=== PATIENT | female | born 1950 | race Caucasian/White ===

== ENCOUNTER → 2016-02-28 | Outpatient (REF) | payer BC, OTHER ==
[~2016-02-28] MED LIST: ALPR0.5T3 PO; AMOX875T2 PO; ASPI1TAB PO; AUGM875T27 PO; OXYC-517 PO; TRAZ100T4 PO; VITA100066 PO
[2016-02-28 18:16] LABS: ALBUMIN 3.9 GM/DL (3.2-5.2); ALBUMIN/GLOBULIN RATIO 1.15 (1.00-1.93); ALKALINE PHOSPHATASE 110 U/L (45-117); ALT/SGPT 24 U/L (12-78); ANION GAP 9 MEQ/L (8-16); AST/SGOT 14 U/L (15-37); BILIRUBIN,TOTAL 0.3 MG/DL (0.2-1.0); BLOOD UREA NITROGEN 16 MG/DL (7-18); CALCIUM LEVEL 9.2 MG/DL (8.8-10.2); CARBON DIOXIDE LEVEL 23 MEQ/L (21-32); CHLORIDE LEVEL 107 MEQ/L (98-107); CHOLESTEROL LEVEL 230 MG/DL (<200); CREATININE FOR GFR 0.74 MG/DL (0.55-1.02); GLOMERULAR FILTRATION RATE > 60.0 (>45); GLUCOSE, FASTING 95 MG/DL (80-110); POTASSIUM SERUM 4.4 MEQ/L (3.5-5.1); SODIUM LEVEL 139 MEQ/L (136-145); TOTAL PROTEIN 7.3 GM/DL (6.4-8.2); TRIGLYCERIDES LEVEL 126 MG/DL (<150)
[2016-02-28 18:45] LABS: BASO % 0.6 % (0.0-1.0); EOS # 0.1 K/mm3 (0.0-0.50); EOS % 1.8 % (0.0-3.0); LARGE UNSTAINED CELL # 0.1 K/mm3 (0.0-0.4); LARGE UNSTAINED CELL % 1.5 % (0.0-4.0); LYMPH # 1.9 K/mm3 (1.5-4.5); LYMPH % 23.1 % (24.0-44.0); MEAN CORPUSCULAR HEMOGLOBIN 33.2 pg (27.0-33.0); MEAN CORPUSCULAR HGB CONC 35.1 g/dl (32.0-36.5); MEAN CORPUSCULAR VOLUME 94.6 fl (80.0-96.0); MONO # 0.4 K/mm3 (0.0-0.8); MONO % 5.1 % (0.0-5.0); NEUTROPHILS # 5.6 K/mm3 (1.8-7.7); PLATELET COUNT, AUTOMATED 271 k/mm3 (150-450); RED CELL DISTRIBUTION WIDTH 12.4 % (11.5-14.5); WHITE BLOOD COUNT 8.2 K/mm3 (4.0-10.0)
[2016-02-28 20:13] LABS: ERYTHROCYTE SEDIMENTATION RATE 20 mm/hr (0-30)
[2016-03-02 00:06] LABS: Lyme Disease IgG/IgM Antibodie <0.91 ISR (0.00-0.90); Lyme Disease IgM Ab Quantitati <0.80 index (0.00-0.79)
== END ==
LOC: M LAB REF 17:00
PROVIDERS: ATTEND Family Medicine
DX: F41.9 Anxiety disorder, unspecified (principal); G89.4 Chronic pain syndrome; D12.6 Benign neoplasm of colon, unspecified

== ENCOUNTER → 2016-05-01 | Outpatient (REF) | payer OTHER, BC ==
[2016-05-08 10:39] LABS: SUMMARY SEE SEPARATE REPORT
== END ==
LOC: M LAB REF 16:31
PROVIDERS: ATTEND Family Medicine
DX: M79.7 Fibromyalgia (principal); M25.519 Pain in unspecified shoulder; G89.4 Chronic pain syndrome; Z79.899 Other long term (current) drug therapy

== ENCOUNTER → 2016-12-15 | Outpatient (CLI) | payer BC ==
[~2016-12-15] MED LIST changes: -AUGM875T27 PO; +AUGM875T28 PO; +TRAZ-136 PO; -TRAZ100T4 PO
--- NOTE | 2016-12-15 16:16 | REP ---
LEFT ANKLE COMPLETE: 12/15/2016. Comparison: 12/07/2016. Clinical history: Persist ankle pain. Nondisplaced fracture distal fibula on the prior. Findings: Weightbearing views of the ankle are provided. There has been resorption along the fracture line which is now better visualized. There is soft tissue swelling about the lateral malleolus and anterolateral to the ankle but the distal fragment is not displaced or distracted. The mortise joint was symmetric and preserved. Distal tibia and fibula otherwise intact. Subtalar joints intact. No other findings. Impression: 1. The weightbearing ankle views show the known nondisplaced fracture distal fibula with transverse fracture line better seen with fracture resorption over the past 8 days.
== END ==
LOC: M CLY 14:02
PROVIDERS: ATTEND Orthopaedic Surgery
DX: S82.892A Other fracture of left lower leg, initial encounter for closed fracture (principal); X58.XXXA Exposure to other specified factors, initial encounter; Y92.89 Other specified places as the place of occurrence of the external cause; Y93.89 Activity, other specified; Y99.8 Other external cause status

== ENCOUNTER → 2017-01-19 | Outpatient (REF) | payer OTHER ==
[2017-01-23 00:06] LABS: Lyme Disease IgG/IgM Antibodie <0.91 ISR (0.00-0.90); Lyme Disease IgM Ab Quantitati <0.80 index (0.00-0.79)
== END ==
LOC: M LAB REF 16:49
PROVIDERS: ATTEND Family Medicine
DX: S82.90XA Unspecified fracture of unspecified lower leg, initial encounter for closed fracture (principal); M54.9 Dorsalgia, unspecified; M54.12 Radiculopathy, cervical region; G89.4 Chronic pain syndrome; W18.30XA Fall on same level, unspecified, initial encounter; Y92.009 Unspecified place in unspecified non-institutional (private) residence as the place of occurrence of the external cause

== ENCOUNTER → 2017-04-25 | Outpatient (REF) | payer OTHER ==
[2017-04-25 17:28] LABS: ALBUMIN 3.9 GM/DL (3.2-5.2); ALBUMIN/GLOBULIN RATIO 1.05 (1.00-1.93); ALKALINE PHOSPHATASE 123 U/L (45-117); ALT/SGPT 24 U/L (12-78); ANION GAP 8 MEQ/L (8-16); AST/SGOT 15 U/L (7-37); BILIRUBIN,TOTAL 0.2 MG/DL (0.2-1.0); BLOOD UREA NITROGEN 14 MG/DL (7-18); CALCIUM LEVEL 9.2 MG/DL (8.8-10.2); CARBON DIOXIDE LEVEL 25 MEQ/L (21-32); CHLORIDE LEVEL 106 MEQ/L (98-107); CHOLESTEROL LEVEL 247 MG/DL (<200); CREATININE FOR GFR 0.76 MG/DL (0.55-1.30); GLOMERULAR FILTRATION RATE > 60.0 (>45); GLUCOSE, FASTING 82 MG/DL (70-100); HDL CHOLESTEROL 50 MG/DL (>40); LDL CHOLESTEROL 161.6 MG/DL (<100); NON-HDL-C 197 MG/DL; PHOSPHORUS LEVEL 3.8 MG/DL (2.5-4.9); POTASSIUM SERUM 4.3 MEQ/L (3.5-5.1); SODIUM LEVEL 139 MEQ/L (136-145); TOTAL PROTEIN 7.6 GM/DL (6.4-8.2); TRIGLYCERIDES LEVEL 177 MG/DL (<150)
[2017-04-25 17:46] LABS: TOTAL 25(OH) VITAMIN D 18.8 NG/ML (30.0-100.0)
[2017-04-25 18:15] LABS: BASO # 0.1 10^3/uL (0.0-0.2); BASO % 0.7 % (0.0-1.0); EOS # 0.3 10^3/uL (0.0-0.50); EOS % 3.2 % (0.0-3.0); HEMATOCRIT 43.7 % (36.0-47.0); HEMOGLOBIN 14.7 g/dl (12.0-16.0); IMMATURE GRANULOCYTE % 0.2 % (0-3.0); LYMPH # 1.9 10^3/uL (1.5-4.5); LYMPH % 22.7 % (24.0-44.0); MEAN CORPUSCULAR HEMOGLOBIN 32.4 pg (27.0-33.0); MEAN CORPUSCULAR HGB CONC 33.6 g/dl (32.0-36.5); MEAN CORPUSCULAR VOLUME 96.3 fl (80.0-96.0); MONO # 0.6 10^3/uL (0.0-0.8); MONO % 7.3 % (0.0-5.0); NEUTROPHILS # 5.4 10^3/uL (1.8-7.7); NEUTROPHILS % 65.9 % (36.0-66.0); PLATELET COUNT, AUTOMATED 317 10^3/uL (150-450); RED BLOOD COUNT 4.54 10^6/uL (4.00-5.40); RED CELL DISTRIBUTION WIDTH 13.3 % (11.5-14.5); WHITE BLOOD COUNT 8.2 10^3/uL (4.0-10.0)
== END ==
LOC: M LAB REF 16:31
DX: G89.4 Chronic pain syndrome (principal); N60.12 Diffuse cystic mastopathy of left breast; M79.7 Fibromyalgia; Z86.19 Personal history of other infectious and parasitic diseases; Z00.00 Encounter for general adult medical examination without abnormal findings

== ENCOUNTER → 2017-11-19 | Outpatient (REF) | payer OTHER ==
[2017-11-19 20:01] LABS: TOTAL 25(OH) VITAMIN D 37.4 NG/ML (30.0-100.0)
== END ==
LOC: M LAB REF 16:23
DX: F41.9 Anxiety disorder, unspecified (principal); M54.12 Radiculopathy, cervical region; R91.1 Solitary pulmonary nodule; E55.9 Vitamin D deficiency, unspecified

== ENCOUNTER → 2018-05-24 | Outpatient (CLI) | payer MEDICARE, BC, OTHER ==
[~2018-05-24] MED LIST changes: -ASPI1TAB PO; +ASPI81TA26 PO; -TRAZ-136 PO; +TRAZ-163 PO
--- NOTE | 2018-05-24 12:47 | REP ---
Low-dose lung screening CT: Comparison is 01/12/2016. The study is performed without IV contrast. Images are printed at lung windowing only. There is a 5 mm lung nodule laterally in the right lung on image 46. This measured 3 mm previously. On the prior study there was atelectasis in the right lower lobe. This has resolved. There is a new 13 ml ground-glass density in the right middle lobe on image 56. There are no other lung nodules or masses. There are no infiltrates or effusions. Impression: The known right lung nodule has increased in size from 3 mm to 5 mm. This size increase converts this to a category 4A lesion. The probability of malignancy is five - 15%. 3-month follow-up low-dose lung CT scanning is recommended. Because of the small lesion size PET scan would likely be unrewarding. Additionally, there is a new ground-glass density anteriorly in the right middle lobe measuring 13 mm. This is a category II lesion and can be followed up at the 3-month follow-up CT for the 5 mm lung lesion. Electronically Signed by Fish Crespo MD 05/24/2018 12:38 P
== END ==
LOC: M RAD 11:09
PROVIDERS: ATTEND Family Medicine
DX: Z12.2 Encounter for screening for malignant neoplasm of respiratory organs (principal); R91.1 Solitary pulmonary nodule; F17.210 Nicotine dependence, cigarettes, uncomplicated

== ENCOUNTER → 2018-06-26 | Outpatient (REF) | payer MEDICARE, OTHER ==
[2018-06-26 18:12] LABS: BASO # 0.1 10^3/uL (0.0-0.2); BASO % 0.8 % (0.0-1.0); EOS # 0.1 10^3/uL (0.0-0.50); EOS % 1.4 % (0.0-3.0); HEMATOCRIT 46.6 % (36.0-47.0); HEMOGLOBIN 15.8 g/dl (12.0-15.5); LYMPH # 1.9 10^3/uL (1.5-4.5); LYMPH % 22.2 % (24.0-44.0); MEAN CORPUSCULAR HEMOGLOBIN 32.7 pg (27.0-33.0); MEAN CORPUSCULAR HGB CONC 33.9 g/dl (32.0-36.5); MEAN CORPUSCULAR VOLUME 96.5 fl (80.0-96.0); MONO # 0.7 10^3/uL (0.0-0.8); MONO % 7.8 % (0.0-5.0); NEUTROPHILS # 5.8 10^3/uL (1.8-7.7); NEUTROPHILS % 67.4 % (36.0-66.0); PLATELET COUNT, AUTOMATED 277 10^3/uL (150-450); RED BLOOD COUNT 4.83 10^6/uL (4.00-5.40); WHITE BLOOD COUNT 8.6 10^3/uL (4.0-10.0)
[2018-06-26 18:23] LABS: ALBUMIN 3.4 GM/DL (3.2-5.2); ALT/SGPT 22 U/L (12-78); BILIRUBIN,TOTAL 0.3 MG/DL (0.2-1.0); BLOOD UREA NITROGEN 13 MG/DL (7-18); CALCIUM LEVEL 8.8 MG/DL (8.8-10.2); CARBON DIOXIDE LEVEL 24 MEQ/L (21-32); CHLORIDE LEVEL 104 MEQ/L (98-107); CHOLESTEROL LEVEL 236 MG/DL (<200); CHOLESTEROL RISK RATIO 5.021 (<5); CREATININE FOR GFR 0.76 MG/DL (0.55-1.30); GLOMERULAR FILTRATION RATE > 60.0 (>45); GLUCOSE, FASTING 99 MG/DL (70-100); HDL CHOLESTEROL 47 MG/DL (>40); LDL CHOLESTEROL 160 MG/DL (<100); NON-HDL-C 189 MG/DL; POTASSIUM SERUM 4.1 MEQ/L (3.5-5.1); SODIUM LEVEL 137 MEQ/L (136-145); TOTAL 25(OH) VITAMIN D 27.1 NG/ML (30.0-100.0); TOTAL PROTEIN 7.2 GM/DL (6.4-8.2); TRIGLYCERIDES LEVEL 147 MG/DL (<150)
== END ==
LOC: M LAB REF 17:29
PROVIDERS: ATTEND Family Medicine
DX: F41.9 Anxiety disorder, unspecified (principal); M54.12 Radiculopathy, cervical region; R91.1 Solitary pulmonary nodule; R00.0 Tachycardia, unspecified; E55.9 Vitamin D deficiency, unspecified; Z79.82 Long term (current) use of aspirin; Z79.899 Other long term (current) drug therapy

== ENCOUNTER → 2018-08-19 | Outpatient (CLI) | payer MEDICARE, BC, OTHER ==
[~2018-08-19] MED LIST changes: -TRAZ-163 PO; +TRAZ-257 PO
--- NOTE | 2018-08-19 12:10 | REP ---
CT of the chest without IV contrast: Comparisons are 05/24/2018 and 01/12/2060. There is a 5 mm lung nodule laterally in the right lung on image 44. This measured 5 mm on 05/24/2018 and 3 mm 01/12/2016. It appears to be calcifying. There is a ground-glass density in the right middle lobe on image 53. This measures 10 mm today. It measured 13 ml on 05/24/2018 and was not present on 01/12/2016. Therefore, it is decreasing in size. There is a new pleural-based 5 ml lung nodule in the left lower lobe on image 59, not present on the comparison studies. There is a new 14 ml pleural-based ground-glass density in the left lower lobe on image 75. There are no other lung nodules or masses. There are no infiltrates or pleural effusions. There is no mediastinal lymph node enlargement. There is no axillary lymph node enlargement. The study is insensitive for hilar lymph node enlargement in the absence of IV contrast. Thoracic aorta is unremarkable. Cardiac size is normal. The visualized upper abdominal contents are unremarkable. There is no adrenal mass. There are surgical clips in the gallbladder fossa. Impression: 1. The new 14 mm pleural-based ground-glass density in the left lower lobe is a category II lesion with the probability of malignancy less than 1%. 2. The new 5 mm pleural-based nodule in the left lower lobe on image 59 is a category II lesion with the probability of malignancy less than 1%. 3. The 5 mm lung nodule in right lung on image 45 for is unchanged from 05/24/2018 and appears to be calcifying. This is a category II lesion with the probability of malignancy less than 1%. 4. The 10 mm right middle lobe ground-glass density has decreased in size. This is a category II lesion with probability malignancy less than 1%. Follow-up chest CT is recommended in 1 year. Electronically Signed by Fish Crespo MD 08/19/2018 12:02 P
== END ==
LOC: M RAD 10:03
PROVIDERS: ATTEND Internal Medicine Pulmonary Disease
DX: R91.8 Other nonspecific abnormal finding of lung field (principal)

== ENCOUNTER → 2018-10-25 | Outpatient (REF) | payer MEDICARE, OTHER ==
[~2018-10-25] MED LIST changes: +TRAZ-163 PO; -TRAZ-257 PO
[2018-10-25 18:04] LABS: BASO # 0.1 10^3/uL (0.0-0.2); BASO % 0.9 % (0.0-1.0); EOS # 0.6 10^3/uL (0.0-0.5); EOS % 6.1 % (0.0-3.0); HEMOGLOBIN 15.6 g/dl (12.0-15.5); LYMPH # 2.4 10^3/uL (1.5-5.0); LYMPH % 25.8 % (24.0-44.0); MEAN CORPUSCULAR HGB CONC 34.7 g/dl (32.0-36.5); MEAN CORPUSCULAR VOLUME 95.1 fl (80.0-96.0); MONO # 0.8 10^3/uL (0.0-0.8); MONO % 8.4 % (0.0-5.0); NEUTROPHILS # 5.5 10^3/uL (1.5-8.5); NEUTROPHILS % 58.5 % (36.0-66.0); PLATELET COUNT, AUTOMATED 288 10^3/uL (150-450); RED BLOOD COUNT 4.73 10^6/uL (4.00-5.40); WHITE BLOOD COUNT 9.4 10^3/uL (4.0-10.0)
[2018-10-25 18:29] LABS: ALBUMIN 3.5 GM/DL (3.2-5.2); ALT/SGPT 18 U/L (12-78); AMYLASE 43 U/L (25-115); BILIRUBIN,TOTAL 0.3 MG/DL (0.2-1.0); BLOOD UREA NITROGEN 19 MG/DL (7-18); C REACTIVE PROTEIN QUANTITATIV < 0.30 MG/DL (0.00-0.30); CALCIUM LEVEL 8.5 MG/DL (8.8-10.2); CARBON DIOXIDE LEVEL 23 MEQ/L (21-32); CHLORIDE LEVEL 107 MEQ/L (98-107); CREATININE FOR GFR 0.76 MG/DL (0.55-1.30); GLOMERULAR FILTRATION RATE > 60.0 (>45); GLUCOSE, FASTING 90 MG/DL (70-100); LIPASE 102 U/L (73-393); POTASSIUM SERUM 4.6 MEQ/L (3.5-5.1); SODIUM LEVEL 138 MEQ/L (136-145); TOTAL PROTEIN 7.1 GM/DL (6.4-8.2)
== END ==
LOC: M LAB REF 16:48
PROVIDERS: ATTEND Family Medicine
DX: R10.9 Unspecified abdominal pain (principal); B37.2 Candidiasis of skin and nail; R52 Pain, unspecified; R53.81 Other malaise; B37.0 Candidal stomatitis; B02.9 Zoster without complications

== ENCOUNTER → 2018-11-07 | Outpatient (REF) | payer MEDICARE, OTHER ==
[~2018-11-07] MED LIST changes: -TRAZ-163 PO; +TRAZ-257 PO
[2018-11-08 12:17] LABS: BASO # 0.1 10^3/uL (0.0-0.2); EOS # 0.4 10^3/uL (0.0-0.5); EOS % 3.6 % (0.0-3.0); HEMATOCRIT 45.5 % (36.0-47.0); HEMOGLOBIN 15.4 g/dl (12.0-15.5); LYMPH % 20.5 % (24.0-44.0); MEAN CORPUSCULAR HEMOGLOBIN 32.9 pg (27.0-33.0); MEAN CORPUSCULAR HGB CONC 33.8 g/dl (32.0-36.5); MEAN CORPUSCULAR VOLUME 97.2 fl (80.0-96.0); MONO # 0.6 10^3/uL (0.0-0.8); MONO % 6.5 % (0.0-5.0); NEUTROPHILS # 6.6 10^3/uL (1.5-8.5); NEUTROPHILS % 68.1 % (36.0-66.0); PLATELET COUNT, AUTOMATED 284 10^3/uL (150-450); RED BLOOD COUNT 4.68 10^6/uL (4.00-5.40); WHITE BLOOD COUNT 9.7 10^3/uL (4.0-10.0)
[2018-11-08 12:58] LABS: ALBUMIN 3.7 GM/DL (3.2-5.2); ALT/SGPT 16 U/L (12-78); BILIRUBIN,TOTAL 0.3 MG/DL (0.2-1.0); BLOOD UREA NITROGEN 15 MG/DL (7-18); C REACTIVE PROTEIN QUANTITATIV < 0.30 MG/DL (0.00-0.30); CALCIUM LEVEL 9.1 MG/DL (8.8-10.2); CARBON DIOXIDE LEVEL 29 MEQ/L (21-32); CHLORIDE LEVEL 104 MEQ/L (98-107); CREATININE FOR GFR 0.77 MG/DL (0.55-1.30); GLOMERULAR FILTRATION RATE > 60.0 (>45); GLUCOSE, FASTING 85 MG/DL (70-100); POTASSIUM SERUM 4.4 MEQ/L (3.5-5.1); RHEUMATOID FACTOR QUANT < 10.0 IU/ML (<15.0); SODIUM LEVEL 138 MEQ/L (136-145); TOTAL PROTEIN 6.9 GM/DL (6.4-8.2)
[2018-11-08 13:02] LABS: FOLATE 8.1 NG/ML; TOTAL 25(OH) VITAMIN D 36.2 NG/ML (30.0-100.0); VITAMIN B12 LEVEL 717 PG/ML
[2018-11-08 13:06] LABS: ERYTHROCYTE SEDIMENTATION RATE 15 mm/hr (0-30)
[2018-11-08 13:12] LABS: MONO REFLEX EBV COMP NEGATIVE (NEGATIVE)
[2018-11-10 08:06] LABS: ANA (HEP2) Positive (.); CYCLIC CITRULLINATED PEPTIDE 9 units (0-19); EBV VIRAL CAPSID AG IgG >600.0 U/mL (0.0-17.9); EBV VIRAL CAPSID AG IgM <36.0 U/mL (0.0-35.9); Lyme Disease IgG/IgM Antibodie <0.91 ISR (0.00-0.90); Lyme Disease IgM Ab Quantitati <0.80 index (0.00-0.79)
== END ==
LOC: M SFHCCAPE 14:45
PROVIDERS: ATTEND Physician Assistant
DX: J02.9 Acute pharyngitis, unspecified (principal)

== ENCOUNTER → 2018-11-07 | Outpatient (CLI) | payer MEDICARE, BC ==
[~2018-11-07] MED LIST changes: +TRAZ-163 PO; -TRAZ-257 PO
--- NOTE | 2018-11-07 17:07 | REP ---
HISTORY: Acute upper respiratory tract infection. COMPARISON: None. There is a faint and subtle nodular density seen in the right upper lobe laterally measuring 8 mm. This is seen only on a frontal view. This represents a change compared to the only prior examination for comparison dated 04/16/2015, a frontal view only, however, the patient had a chest CT on 08/19/2018 and that examination showed a nodule in the lateral right upper lobe. The lung ramirez are otherwise clear and the heart is not enlarged. The pleural angles are sharp and the osseous structures are within normal limits. IMPRESSION: No acute cardiopulmonary disease. Lung nodules seen better on CT in the right upper lobe as described above. All interested parties should review the CT report of 08/19/2018. Followup of that finding and other CT findings based on the revised Donnie Society criteria are mentioned in the prior CT report. Electronically Signed by Que West DO 11/08/2018 10:23 A
== END ==
LOC: M CLY 14:49
PROVIDERS: ATTEND Physician Assistant
DX: R91.8 Other nonspecific abnormal finding of lung field (principal); J22 Unspecified acute lower respiratory infection
CPT/HCPCS: 71046; 80053; 82306; 82607; 82746; 85025; 85652; 86038; 86140; 86200; 86308; 86431; 86617; 86663; 86664; 86665; 87804; 87880; G0463

== ENCOUNTER → 2018-12-02 | Outpatient (CLI) | payer MEDICARE, BC, OTHER ==
--- NOTE | 2018-12-06 15:55 | REPMRS ---
Patient History The patient states she has not had a clinical breast exam in over a year. Patient is postmenopausal. Family history of multiple myleoma in sister, prostate cancer in brother. Digital Mammo Screening Bilat: December 02, 2018 - Exam #: [id number] Bilateral CC and MLO view(s) were taken. Technologist: Jolene Almendarez, Technologist Prior study comparison: May 01, 2017, bilateral digital woman screen mammo, performed at [facility]. FINDINGS: The breast tissue is heterogeneously dense. This may lower the sensitivity of mammography. There is a moderate amount of heterogeneously dense fibroglandular tissue which is fairly symmetric. There is no interval development of dominant mass, architectural distortion, or grouped microcalcification typical of malignancy. There has been no change in the appearance of the mammogram from the prior studies. 3-D tomosynthesis shows no additional findings. Assessment: BI-RADS/ACR category 1 mammogram. Negative Mammogram. Recommendation Routine screening mammogram of both breasts in 1 year (for women over age 40). This patient's Lifetime Breast Cancer RIsk is estimated at 4.2 %. This mammogram was interpreted with the aid of an FDA-approved computer-aided dectection system. Electronically Signed By: Foster Emery MD 12/06/18 1125
== END ==
LOC: M RAD 11:47
PROVIDERS: ATTEND Family Medicine
DX: Z12.31 Encounter for screening mammogram for malignant neoplasm of breast (principal)

== ENCOUNTER → 2019-03-24 | Outpatient (CLI) | payer MEDICARE, BC, OTHER ==
[~2019-03-24] MED LIST changes: -TRAZ-163 PO; +TRAZ-257 PO
--- NOTE | 2019-03-24 10:14 | REP ---
Clinical: Follow up abnormal lung findings. Technique: Axial noncontrast images from the thoracic inlet to the upper abdomen with coronal and sagittal re-formations. Comparison: 08/19/2018. Findings: The lung ramirez are well-aerated and again demonstrate mild age-related interstitial changes along with mild chronic bronchiectasis. 5 mm nodule in the periphery of the right upper lobe (image 45) remains stable. Small area of scarring in the anteromedial right middle lobe remains stable. The previously identified small subpleural densities along the posterior aspect of the left lower lobe have resolved and likely represented trace atelectasis. No significant acute nodule, consolidation or mass lesion. No effusion. No pneumothorax. No significant adenopathy. Atherosclerotic changes to the thoracic aorta again noted without aneurysm. No cardiomegaly or pericardial effusion. Surrounding musculoskeletal structures intact without focal abnormality. Impression: 1. The small 5 mm nodular density in the periphery of the right upper lobe remains stable and appears to be calcified likely representing a chronic granuloma. 2. Previously noted small nodules in the left lobe have resolved and likely represented elements of atelectasis. 3. No new acute mediastinal or pleuroparenchymal process appreciated. Electronically Signed by Eddie Morse MD 03/24/2019 10:06 A
== END ==
LOC: M RAD 09:30
PROVIDERS: ATTEND Internal Medicine Pulmonary Disease
DX: R91.8 Other nonspecific abnormal finding of lung field (principal)

== ENCOUNTER → 2019-06-06 | Outpatient (CLI) | payer MEDICARE, BC, OTHER ==
--- NOTE | 2019-06-06 15:32 | REP ---
FACIAL BONES: Four views of the facial bones are performed. Osseous structures are intact with no fracture or bone lesion. There may be some mild opacification of right ethmoid air cells. Otherwise, the paranasal sinuses appear clear with no air-fluid levels. Adenoids are not enlarged. Airway is widely patent. IMPRESSION: Possible mild opacification of right ethmoid air cells. Otherwise, negative exam. Electronically Signed by Fish Porter MD 06/06/2019 03:45 P
== END ==
LOC: M CLY 14:24
PROVIDERS: ATTEND Family Medicine
DX: M89.9 Disorder of bone, unspecified (principal); R51 Headache; G47.00 Insomnia, unspecified

== ENCOUNTER → 2019-07-15 | Outpatient (REF) | payer MEDICARE, OTHER ==
[2019-07-15 12:45] LABS: BASO % 0.5 % (0.0-1.0); EOS # 0.3 10^3/uL (0.0-0.5); EOS % 3.5 % (0.0-3.0); HEMATOCRIT 46.1 % (36.0-47.0); HEMOGLOBIN 15.3 g/dl (12.0-15.5); LYMPH # 1.9 10^3/uL (1.5-5.0); LYMPH % 24.9 % (24.0-44.0); MEAN CORPUSCULAR HEMOGLOBIN 32.3 pg (27.0-33.0); MEAN CORPUSCULAR HGB CONC 33.2 g/dl (32.0-36.5); MEAN CORPUSCULAR VOLUME 97.3 fl (80.0-96.0); MONO # 0.6 10^3/uL (0.0-0.8); NEUTROPHILS # 4.9 10^3/uL (1.5-8.5); NEUTROPHILS % 62.7 % (36.0-66.0); PLATELET COUNT, AUTOMATED 283 10^3/uL (150-450); RED BLOOD COUNT 4.74 10^6/uL (4.00-5.40); WHITE BLOOD COUNT 7.8 10^3/uL (4.0-10.0)
[2019-07-15 13:23] LABS: ALBUMIN 3.7 GM/DL (3.2-5.2); ALT/SGPT 23 U/L (12-78); BILIRUBIN,TOTAL 0.4 MG/DL (0.2-1.0); BLOOD UREA NITROGEN 18 MG/DL (7-18); CARBON DIOXIDE LEVEL 26 MEQ/L (21-32); CHLORIDE LEVEL 106 MEQ/L (98-107); CHOLESTEROL LEVEL 219 MG/DL (<200); CHOLESTEROL RISK RATIO 4.866 (<5); CREATININE FOR GFR 0.75 MG/DL (0.55-1.30); GLOMERULAR FILTRATION RATE > 60.0 (>45); GLUCOSE, FASTING 85 MG/DL (70-100); HDL CHOLESTEROL 45 MG/DL (>40); LDL CHOLESTEROL 146 MG/DL (<100); NON-HDL-C 174 MG/DL; POTASSIUM SERUM 4.5 MEQ/L (3.5-5.1); SODIUM LEVEL 137 MEQ/L (136-145); TOTAL PROTEIN 7.2 GM/DL (6.4-8.2); TRIGLYCERIDES LEVEL 141 MG/DL (<150)
== END ==
LOC: M LABDRAWC 11:52
PROVIDERS: ATTEND Family Medicine
DX: Z00.00 Encounter for general adult medical examination without abnormal findings (principal); H10.9 Unspecified conjunctivitis; H00.19 Chalazion unspecified eye, unspecified eyelid; H02.89 Other specified disorders of eyelid; E78.49 Other hyperlipidemia; I77.9 Disorder of arteries and arterioles, unspecified; E55.9 Vitamin D deficiency, unspecified

== ENCOUNTER → 2019-12-04 | Outpatient (CLI) | payer MEDICARE, BC, OTHER ==
--- NOTE | 2019-12-04 14:46 | REP ---
INDICATION: LIVER CYST. Patient has a history of prior liver resection. COMPARISON: Comparison is made with prior abdomen CT study April 19, 2015. This showed a 2.7 cm cystic area in a small left lobe. TECHNIQUE: Right upper quadrant sonography. FINDINGS: Scanning through the right upper quadrant of the abdomen demonstrates that the gallbladder is surgically absent. Common bile duct is normal post cholecystectomy measuring 0.6 cm. No intrahepatic ductal dilation is seen. No focal liver mass lesion is seen. Along the medial edge of the left lobe of the liver near the gallbladder fossa there is a 2.1 x 1.9 x 1.4 cm cystic area. No other cyst is seen. Limited views of the pancreas are unremarkable. There is diffuse thinning of the cortex of the right kidney. Right kidney measures 9.6 x 4.9 x 3.6 cm. IMPRESSION: 2.1 cm cyst in the left lobe of the liver. This is actually smaller than by CT study April 19, 2015. No other focal liver lesion is seen. Post cholecystectomy. Otherwise negative. Mild cortical thinning right kidney. <Electronically signed by Foster Emery > 12/04/19 0149
== END ==
LOC: M RAD 08:13
PROVIDERS: ATTEND Family Medicine
DX: K76.89 Other specified diseases of liver (principal)

== ENCOUNTER → 2020-04-29 | Outpatient (REF) | payer MEDICARE, BC, OTHER ==
[2020-04-29 16:43] LABS: ALBUMIN 3.6 GM/DL (3.2-5.2); ALT/SGPT 19 U/L (12-78); BILIRUBIN,TOTAL 0.3 MG/DL (0.2-1.0); BLOOD UREA NITROGEN 13 MG/DL (7-18); CALCIUM LEVEL 8.9 MG/DL (8.8-10.2); CARBON DIOXIDE LEVEL 29 MEQ/L (21-32); CHLORIDE LEVEL 106 MEQ/L (98-107); CHOLESTEROL LEVEL 167 MG/DL (<200); CHOLESTEROL RISK RATIO 3.274 (<5); CREATININE FOR GFR 0.65 MG/DL (0.55-1.30); GLOMERULAR FILTRATION RATE > 60.0 (>45); GLUCOSE, FASTING 91 MG/DL (70-100); HDL CHOLESTEROL 51 MG/DL (>40); LDL CHOLESTEROL 92 MG/DL (<100); NON-HDL-C 116 MG/DL; POTASSIUM SERUM 4.2 MEQ/L (3.5-5.1); SODIUM LEVEL 138 MEQ/L (136-145); TOTAL PROTEIN 6.9 GM/DL (6.4-8.2); TRIGLYCERIDES LEVEL 121 MG/DL (<150)
== END ==
LOC: M LABDRAWC 15:42
PROVIDERS: ATTEND Nurse Practitioner Family
DX: E78.00 Pure hypercholesterolemia, unspecified (principal)

== ENCOUNTER → 2020-05-10 | Outpatient (CLI) | payer MEDICARE, BC, OTHER ==
--- NOTE | 2020-05-10 12:51 | REP ---
INDICATION: NICOTINE DEPENDENCE, CIGARETTES, W OTH DISORDERS. COMPARISON: Low-dose lung screening chest CT dated 05/24/[address] dated 03/24/2019. TECHNIQUE: The study is performed without IV contrast. Images are presented at lung windowing only. FINDINGS: There is a 5 mm calcified granuloma laterally in the right lung on image 46, unchanged from both prior studies. The ground-glass density anteriorly in the right middle lobe identified on 05/24/2018 now has the appearance of fibrolinear scarring. This is unchanged from 03/24/2019. There are no new lung nodules. There are no infiltrates or effusions. There is minor atelectasis in the deep posterior sulcus of the right lower lobe. IMPRESSION: Category 2 low-dose lung screening chest CT. The probability of malignancy is less than 1%. Depending on risk factors consider annual follow-up low-dose lung screening chest CT. <Electronically signed by Fish Crespo > 05/10/20 [id number]
== END ==
LOC: M RAD 11:33
PROVIDERS: ATTEND Internal Medicine Pulmonary Disease
DX: Z12.2 Encounter for screening for malignant neoplasm of respiratory organs (principal); F17.218 Nicotine dependence, cigarettes, with other nicotine-induced disorders

== ENCOUNTER → 2020-05-31 | Outpatient (CLI) | payer MEDICARE, BC, OTHER ==
[~2020-05-31] MED LIST changes: +GASTROGRAFIN SOLUTION 30ML (Q9963) As Ordered ONE; +ISOVUE-370 76% 100ML VIAL As Ordered ONE
--- NOTE | 2020-05-31 17:09 | REP ---
INDICATION: RIGHT UPPER QUADRANT PAIN,UNSPECIFIED ABDOMINAL PA. COMPARISON: 04/19/[address] for comparison Prior ultrasound of the liver of 12/04/2019 showed a cyst. TECHNIQUE: Before and after intravenous contrast. 100 cc Isovue 370. No oral bowel preparatory contrast was administered. FINDINGS: There is an 8 mm size nodule in the right lung lower lobe CP angle. There are no pleural or pericardial effusions. Pre contrast enhanced portion examination shows no evidence of nephroureterolithiasis, hydronephrosis, or hydroureter. In the interpolar region of the right kidney there is an area of increased density which measures proximally 1.6 cm. Hepatic and splenic densities are within normal limits. There is benign bilateral adrenal gland thickening. The contrast-enhanced portion examination shows a known hepatic cyst. There are no enhancing hepatic lesions. The patient is status post cholecystectomy. The spleen is unremarkable. Pancreas is within normal limits although slightly atrophic. The abdominal aorta and para-aortic regions are within normal limits. There are multiple bilateral renal cysts. The area of increased density seen in the interpolar region of the right kidney appears to be heterogeneously enhancing. The abdominal aorta and para-aortic regions are within normal limits. The bowel loops and the mesenteries are within normal limits. There is no free fluid or free air. There is a small Hutch diverticulum of the urinary bladder on the right status quo. IMPRESSION: 1. Liver cyst previously known by ultrasound. 2. Enhancing 1.6 cm sized right renal mass. This represents change from the 04/19/2015 CT. Neoplasm cannot be ruled out. 3. Other renal findings as described above 4. Benign bilateral adrenal gland thickening. 5. Other findings as described above. There is a new nodule in the right lung lower lobe CP angle and for which contrast enhanced diagnostic CT examination the chest is recommended as per the revised Fleischner society criteria. <Electronically signed by Que West > 05/31/20 [id number]
== END ==
LOC: M RAD 15:54
PROVIDERS: ATTEND Physician Assistant
DX: K76.89 Other specified diseases of liver (principal); N28.9 Disorder of kidney and ureter, unspecified; R91.1 Solitary pulmonary nodule; Q61.02 Congenital multiple renal cysts; R10.11 Right upper quadrant pain; Z90.49 Acquired absence of other specified parts of digestive tract; Z79.899 Other long term (current) drug therapy
CPT/HCPCS: 74178; 80053; 81002; 83690; 84443; 85025; G0463; Q9963; Q9967

== ENCOUNTER → 2020-05-31 | Outpatient (REF) | payer MEDICARE, OTHER ==
[~2020-05-31] MED LIST changes: -GASTROGRAFIN SOLUTION 30ML (Q9963) As Ordered ONE; -ISOVUE-370 76% 100ML VIAL As Ordered ONE
[2020-06-01 11:15] LABS: BASO # 0.1 10^3/uL (0.0-0.2); BASO % 0.8 % (0.0-1.0); EOS # 0.2 10^3/uL (0.0-0.5); EOS % 2.1 % (0.0-3.0); HEMATOCRIT 46.8 % (36.0-47.0); HEMOGLOBIN 15.9 g/dl (12.0-15.5); LYMPH # 2.2 10^3/uL (1.5-5.0); LYMPH % 25.5 % (24.0-44.0); MEAN CORPUSCULAR HEMOGLOBIN 32.8 pg (27.0-33.0); MEAN CORPUSCULAR VOLUME 96.5 fl (80.0-96.0); MONO # 0.6 10^3/uL (0.0-0.8); MONO % 6.5 % (2.0-8.0); NEUTROPHILS # 5.6 10^3/uL (1.5-8.5); NEUTROPHILS % 64.9 % (36.0-66.0); PLATELET COUNT, AUTOMATED 280 10^3/uL (150-450); RED BLOOD COUNT 4.85 10^6/uL (4.00-5.40); WHITE BLOOD COUNT 8.6 10^3/uL (4.0-10.0)
[2020-06-01 11:59] LABS: ALBUMIN 3.7 GM/DL (3.2-5.2); ALT/SGPT 18 U/L (12-78); BILIRUBIN,TOTAL 0.4 MG/DL (0.2-1.0); BLOOD UREA NITROGEN 21 MG/DL (7-18); CALCIUM LEVEL 9.1 MG/DL (8.8-10.2); CARBON DIOXIDE LEVEL 23 MEQ/L (21-32); CHLORIDE LEVEL 106 MEQ/L (98-107); CREATININE FOR GFR 0.68 MG/DL (0.55-1.30); GLOMERULAR FILTRATION RATE > 60.0 (>45); GLUCOSE, FASTING 93 MG/DL (70-100); LIPASE 61 U/L (73-393); SODIUM LEVEL 136 MEQ/L (136-145); TOTAL PROTEIN 7.4 GM/DL (6.4-8.2)
== END ==
LOC: M SFHCCAPE 14:39
PROVIDERS: ATTEND Physician Assistant
DX: R10.11 Right upper quadrant pain (principal); Z79.899 Other long term (current) drug therapy

== ENCOUNTER → 2020-06-03 | Outpatient (REF) | payer MEDICARE, OTHER ==
[2020-06-03 16:22] LABS: APPEARANCE, URINE CLEAR (CLEAR); BACTERIA, URINE AUTO NEGATIVE (NEGATIVE); BILIRUBIN, URINE AUTO NEGATIVE (NEGATIVE); BLOOD, URINE BLOOD NEGATIVE (NEGATIVE); COLOR, URINE YELLOW (YELLOW); GLUCOSE, URINE (UA) AUTO NEGATIVE (NEGATIVE); KETONE, URINE AUTO NEGATIVE (NEGATIVE); LEUKOCYTE ESTERASE, URINE AUTO NEGATIVE (NEGATIVE); NITRITE, URINE AUTO NEGATIVE (NEGATIVE); PROTEIN, URINE AUTO NEGATIVE (NEGATIVE); RBC, URINE AUTO 1 /HPF (0-3); SPECIFIC GRAVITY URINE AUTO 1.012 (1.002-1.035); SQUAMOUS EPITHELIAL CELL UR AU 0 /HPF (0-6); UROBILINOGEN, URINE AUTO 0.2 mg/dL (0.0-2.0); WBC, URINE AUTO 0 /HPF (0-3)
[2020-06-03 16:35] LABS: BLOOD UREA NITROGEN 17 MG/DL (7-18); CARBON DIOXIDE LEVEL 22 MEQ/L (21-32); CHLORIDE LEVEL 110 MEQ/L (98-107); CREATININE FOR GFR 0.61 MG/DL (0.55-1.30); GLOMERULAR FILTRATION RATE > 60.0 (>45); GLUCOSE, FASTING 111 MG/DL (70-100); POTASSIUM SERUM 4.6 MEQ/L (3.5-5.1); SODIUM LEVEL 138 MEQ/L (136-145)
== END ==
LOC: M SFHCCAPE 10:50
PROVIDERS: ATTEND Physician Assistant
DX: E87.5 Hyperkalemia (principal); Z79.899 Other long term (current) drug therapy

== ENCOUNTER → 2020-06-22 | Outpatient (REF) | payer MEDICARE, OTHER ==
[~2020-06-22] MED LIST changes: +DOK1CAP7 PO; +HYDR12.55 PO; +PERCOCET PO; +ROSU5TAB5 PO
== END ==
LOC: M SFHCCAPE 13:43
PROVIDERS: ATTEND Physician Assistant
DX: J02.9 Acute pharyngitis, unspecified (principal)
CPT/HCPCS: 87426; 87880; G0463

== ENCOUNTER → 2020-06-28 | Outpatient (CLI) | payer MEDICARE, BC, OTHER ==
[~2020-06-28] MED LIST changes: -DOK1CAP7 PO; +ISOVUE-370 76% 100ML VIAL As Ordered ONE; -PERCOCET PO
[2020-06-28 14:11] LABS: BLOOD UREA NITROGEN 11 MG/DL (7-18); CREATININE FOR GFR 0.66 MG/DL (0.55-1.30); GLOMERULAR FILTRATION RATE > 60.0 (>45)
== END ==
LOC: M LAB 12:22
PROVIDERS: ATTEND Internal Medicine Pulmonary Disease
DX: R91.8 Other nonspecific abnormal finding of lung field (principal)

== ENCOUNTER → 2020-06-28 | Outpatient (CLI) | payer MEDICARE, BC, OTHER ==
[~2020-06-28] MED LIST changes: -ISOVUE-370 76% 100ML VIAL As Ordered ONE
[2020-06-28 13:51] LABS: HEMATOCRIT 44.8 % (36.0-47.0); HEMOGLOBIN 15.1 g/dl (12.0-15.5); MEAN CORPUSCULAR HEMOGLOBIN 32.5 pg (27.0-33.0); MEAN CORPUSCULAR HGB CONC 33.7 g/dl (32.0-36.5); MEAN CORPUSCULAR VOLUME 96.6 fl (80.0-96.0); PLATELET COUNT, AUTOMATED 256 10^3/uL (150-450); RED BLOOD COUNT 4.64 10^6/uL (4.00-5.40); WHITE BLOOD COUNT 8.1 10^3/uL (4.0-10.0)
[2020-06-28 14:02] LABS: INR 0.95; PROTHROMBIN TIME 12.9 SECONDS (12.5-14.3)
[2020-06-28 14:03] LABS: PARTIAL THROMBOPLASTIN TIME 27.8 SECONDS (24.2-38.5)
[2020-06-28 14:11] LABS: BLOOD UREA NITROGEN 11 MG/DL (7-18); CALCIUM LEVEL 9.2 MG/DL (8.8-10.2); CARBON DIOXIDE LEVEL 24 MEQ/L (21-32); CHLORIDE LEVEL 106 MEQ/L (98-107); CREATININE FOR GFR 0.64 MG/DL (0.55-1.30); GLOMERULAR FILTRATION RATE > 60.0 (>45); GLUCOSE, FASTING 96 MG/DL (70-100); POTASSIUM SERUM 4.1 MEQ/L (3.5-5.1); SODIUM LEVEL 137 MEQ/L (136-145)
--- NOTE | 2020-06-28 14:14 | REPVR ---
PROCEDURE INFORMATION: Exam: CT Chest With Contrast; Diagnostic Exam date and time: 06/28/2020 1:15 PM Age: 69 years old Clinical indication: Other: Other non spec abn finding of lung field; Additional info: Other non spec abn finding of lung field /labs first TECHNIQUE: Imaging protocol: Diagnostic computed tomography of the chest with contrast. 3D rendering (Not supervised by radiologist): MIP and/or 3D reconstructed images were created by the technologist. Radiation optimization: All CT scans at this facility use at least one of these dose optimization techniques: automated exposure control; mA and/or kV adjustment per patient size (includes targeted exams where dose is matched to clinical indication); or iterative reconstruction. Contrast material: ISOVUE 370; Contrast volume: 75 ml; Contrast route: INTRAVENOUS (IV); COMPARISON: CT Chest without contrast 03/24/2019 9:46 AM FINDINGS: Lungs: Emphysematous change, interstitial prominence, and mild right middle lobe airspace disease. Stable 4 mm nodule in the posterior segment of the right upper lobe, which is unchanged when compared to previous studies dated 08/19/18 and 03/24/19. Once 2 years of interval stability is established, no further imaging follow-up is required. Pleural spaces: No pleural effusion. Heart: No cardiomegaly. Aorta: Ectasia of the thoracic aorta. Lymph nodes: Mildly enlarged 1.7 x 1.2 x 1.4 cm right hilar lymph node, which was poorly visualized on the previous noncontrast exam. Additional subcentimeter mediastinal and axillary lymph nodes. Upper abdomen: Status post cholecystectomy. Stable adrenal prominence. Incompletely visualized 9 mm nodular hypodense lesion arising from the posterior left kidney. Wall thickening in the nondistended stomach. Bones/joints: Mild degenerative change. Soft tissues: Punctate left breast calcification. IMPRESSION: 1. Stable 4 mm nodule in the posterior segment of the right upper lobe, which is unchanged when compared to previous studies dated 08/19/18 and 03/24/19. Once 2 years of interval stability is established, no further imaging follow-up is required. 2. Additional findings as described above. COMMENTS: Consistent with the [employer]'s Incidental Findings Committee white paper (J Am Obie Radiol 2018): Any incidental renal lesion less than 1 cm or classified as too small to characterize, or any incidental cystic renal lesion characterized as simple-appearing, is likely benign. No follow-up imaging is recommended for these lesions per consensus recommendations based on imaging criteria. Electronically signed by: Gui Bell On 06/28/2020 14:14:05 PM
== END ==
LOC: M LAB 12:29
PROVIDERS: ATTEND Nurse Practitioner Family
DX: N28.89 Other specified disorders of kidney and ureter (principal); R91.8 Other nonspecific abnormal finding of lung field
CPT/HCPCS: 36415; 71260; 80048; 85027; 85610; 85730; Q9967

== ENCOUNTER → 2020-06-30 | Outpatient (REF) | payer MEDICARE, OTHER ==
[~2020-06-30] MED LIST changes: +DOK1CAP7 PO; +PERCOCET PO
== END ==
LOC: M SFHCCLAY 13:35
PROVIDERS: ATTEND Family Medicine
DX: N28.89 Other specified disorders of kidney and ureter (principal); I10 Essential (primary) hypertension

== ENCOUNTER → 2020-07-01 | Outpatient (CLI) | payer MEDICARE, OTHER ==
[~2020-07-01] MED LIST changes: -DOK1CAP7 PO; -PERCOCET PO
== END ==
LOC: M LABSMTC 12:08
PROVIDERS: ATTEND Anesthesiology
DX: Z01.812 Encounter for preprocedural laboratory examination (principal); Z20.822 Contact with and (suspected) exposure to COVID-19

== ENCOUNTER 2020-07-06 06:45 | Inpatient (IN) | payer MEDICARE, BC, OTHER ==
[~2020-07-06] VITALS: Ht 154.9 cm; Wt 67.1 kg
[2020-07-06] VITALS (10 sets, daily range): BP systolic 131–143; BP diastolic 58–76; O2SAT 89–93
[~2020-07-06 06:45] MED LIST changes: +LIDOCAINE 1% MDV 20ML VIAL SQ PRN; +LR 1,000 ML IV ONE; +ceFAZolin SOD 2 GM in IV 1 EA IV ONE
[2020-07-06] MEDS ORDERED: EMLA CREAM 5GM TUBE (LIDOCAINE/PRILOCAINE) As Ordered ONE (07:09)
[2020-07-06] MEDS ORDERED: BUPIVACAINE HCL 0.25% 30ML VIAL As Ordered ONE (07:14)
[2020-07-06] MEDS ORDERED: LIDOCAINE 1% SDV 30ML VIAL As Ordered ONE (07:14)
[2020-07-06] MEDS ORDERED: HYDROmorphone HCL 2 MG/ML 1ML VIAL (J1170) As Ordered ONE (07:15)
[2020-07-06] MEDS ORDERED: fentaNYL 100 MCG/2 ML INJECTION (J3010) As Ordered ONE (07:15)
[2020-07-06] MEDS ORDERED: dexameTHASONE 4 MG/ML 1ML VIAL (J1100 PER 1MG) As Ordered ONE (07:15)
[2020-07-06] MEDS ORDERED: ONDANSETRON 4MG/2ML VIAL As Ordered ONE (07:15)
[2020-07-06] MEDS ORDERED: LIDOCAINE 2% 100MG/5ML SDV (FOR ANES.) As Ordered ONE (07:15)
[2020-07-06] MEDS ORDERED: MIDAZOLAM INJ 2MG/2ML VIAL (J2250 PER 1MG) As Ordered ONE (07:15)
[2020-07-06] MEDS ORDERED: ceFAZolin 2 GM/D5W 50 ML IV BAG (J0690 PER 500MG) As Ordered ONE (07:16)
[2020-07-06] MEDS ORDERED: ROCURONIUM BROMIDE 50 MG/5 ML VIAL As Ordered ONE ×2 (07:16→08:41)
[2020-07-06] MEDS ORDERED: propofoL 200 MG/20 ML VIAL As Ordered ONE (07:16)
[2020-07-06] MEDS ORDERED: LACRILUBE (AKWA TEARS) OPHTH OINT 3.5 GM As Ordered ONE (07:25)
[2020-07-06] MEDS ORDERED: ONDANSETRON 4MG/2ML VIAL IV PRN ×2 (07:45→11:45)
[2020-07-06] MEDS ORDERED: PERCOCET 5MG/325MG TAB PO PRN (07:45)
[2020-07-06] MEDS ORDERED: MANNITOL 25% 12.5 GM/50 ML VIAL (J2150) As Ordered ONE (08:18)
[2020-07-06] MEDS ORDERED: FILTER 1.2 MICRON (ADULT TPN/MANNITOL/REMICADE) XX ONE (08:19)
[2020-07-06] MEDS ORDERED: PHENYLephrine 500MCG 5ML (100MCG/ML) SYRINGE As Ordered ONE (08:34)
[2020-07-06] MEDS ORDERED: ePHEDrine SULFATE 25 MG/5 ML(5MG/ML) SYRINGE As Ordered ONE (08:34)
[2020-07-06] MEDS ORDERED: ACETAMINOPHEN 1000MG 100ML IV BTL (OFIRMEV) (J0131 PER 10MG) As Ordered ONE (08:39)
[2020-07-06] MEDS ORDERED: SUGAMMADEX SODIUM 500 MG/5 ML VIAL (BRIDION) As Ordered ONE (09:48)
[2020-07-06] MEDS ORDERED: METOCLOPRAMIDE INJ 10MG/2ML VIAL (J2765 PER 1) As Ordered ONE (11:42)
[2020-07-06] MEDS ORDERED: ALBUTEROL SULFATE 2.5 MG/0.5 ML INH NEB SOLN INH ONE (11:45)
[2020-07-06] MEDS ORDERED: LR 1,000 ML IV SCH (11:45)
[2020-07-06] MEDS ORDERED: HYDROMORPHONE HCL 0.5 MG/ 0.5 ML SYRINGE (J1170 PER 1) IV PRN ×2 (11:45→11:49)
[2020-07-06] MEDS ORDERED: METOCLOPRAMIDE INJ 10MG/2ML VIAL (J2765 PER 1) IV PRN (11:45)
[2020-07-06] MEDS ORDERED: PROMETHAZINE INJ 25 MG/ML VIAL (J2550) IV PRN (11:45)
[2020-07-06] MEDS ORDERED: oxyCODONE 5MG TAB PO PRN (11:45)
[2020-07-06] MEDS ORDERED: fentaNYL 100 MCG/2 ML INJECTION (J3010) IV PRN (11:45)
[2020-07-06] MEDS: NS 1,000 ML IV SCH (11:59)
--- NOTE | 2020-07-06 12:13 | ROOPDOC ---
[facility] Report Of Operation Report of Operation DATE OF PROCEDURE: 07/06/20 PREPROCEDURE DIAGNOSIS: Right renal neoplasm. POSTPROCEDURE DIAGNOSIS: Right renal neoplasm. PROCEDURE: Right robotic-assisted laparoscopic partial nephrectomy with intraoperative ultrasound for tumor mapping. SURGEON: Vinnie Schofield MD PILOT: Josselin Steele NP ANESTHESIA: General OPERATIVE INDICATIONS: This is a 69 year old female with an approximately 1.6cm enhancing mass on her right kidney. She was brought to the operating room today for treatment. DESCRIPTION OF PROCEDURE: The patient was brought to the operating room where general anesthesia was induced. Prophylactic antibiotics were infused. A River catheter was inserted into the bladder under sterile conditions and the balloon was filled with sterile water. She was then placed in the left lateral decubitus position. All pressure points were appropriately padded and an axillary roll was placed. We then secured the patient to the table with tape. Her abdomen was then prepped and draped in the usual sterile fashion. Next, an 8mm incision was made in line with the 11th rib along the lateral border of the rectus. Pneumoperitoneum was achieved with a Veress needle. Next, an 8mm port was placed for the camera. At this point, the right robotic port was placed off the costal margin. A 5mm assistant refinery operator port was placed just inferior to the xiphoid process for placement of a liver retractor. Two left hand robotic ports were then placed with one between the anterior superior iliac spine and the umbilicus and the other one just caudal to the camera port. Last the 12 mm assistant refinery operator port was placed inferior and medial to the camera port. The robot was then docked. The liver was then dissected off of Gerota's fascia. Then a laparoscopic Allis grasper was utilized to retract the liver off of Gerota's fascia. The inferior vena cava (IVC) vein was identified and it was traced cephalad and dissected laterally until the right renal vein was encountered. I then dissected posterior to the right renal vein and the right renal artery was found. It was carefully dissected. Next I had our cargo agent administer 12.5g of mannitol. Gerota's fascia was then opened and I defatted the kidney. On the lateral aspect of the kidney I searched for the mass. Since the mass was mostly endophytic it was not easily seen. Ultrasound was then utilized to help identify the mass and to araceli the boundaries of the mass. Next 2 bulldog clamps were placed on the renal artery and we began resecting the mass. The mass was resected completely and it appeared that we had a good margin. Once the mass was removed, the renorrhaphy was performed first by ligating all vessels in the base of resection with a #2-0 vicryl suture using figure of eight stitches. The capsule of the kidney was then reapproximated using #0-vicryl suture with Weck clips to cinch down the suture. Once this was done the clamps were removed and hemostasis was excellent. The warm ischemia time was 27 minutes. Next Sun was applied to the resection bed and the tumor was placed in an endocatch bag. A Pipe La drain was positioned just medial to the kidney. The robot was undocked after confirming hemostasis within the abdomen. The specimen was then extracted from the 12mm port site. A Abi fascial closure device was then used to place #0- vicryl free ties through the fascia of the 12mm port site. These ties were then tied down. The abdomen was observed again and there was no bleeding from the right kidney or the hilum. We then removed all the ports under direct vision and there was no bleeding from any of the port sites. At this point, all the incisions were thoroughly irrigated. We then closed the skin of each site using a running #4-0 subcuticular Monocryl stitch. The Pipe La drain was secured to the skin using #3-0 Ethilon suture. Local anesthetic was then applied to each incision and Dermabond was then applied and this marked the conclusion of the procedure. The patient was then taken out of the left lateral decubitus position, awakened from anesthesia and transported to the recovery room in stable condition. ESTIMATED BLOOD LOSS: 50 mL INTRAOPERATIVE COMPLICATIONS: None SPECIMENS: Right renal neoplasm WARM ISCHEMIA TIME: 27 minutes NORMAL RIGHT RENAL PARENCHYMA SPARED: 95% PLAN: The patient will be admitted to the hospital postoperatively and she will be discharged home once her renal function is stable and she is tolerating a regular diet. VINNIE SCHOFIELD MD Jul 06, 2020 07:56
[2020-07-06 12:18] LABS: HEMATOCRIT 43.3 % (36.0-47.0); HEMOGLOBIN 14.3 g/dl (12.0-15.5); MEAN CORPUSCULAR HEMOGLOBIN 32.3 pg (27.0-33.0); MEAN CORPUSCULAR VOLUME 97.7 fl (80.0-96.0); PLATELET COUNT, AUTOMATED 245 10^3/uL (150-450); RED BLOOD COUNT 4.43 10^6/uL (4.00-5.40)
[2020-07-06 12:35] LABS: BLOOD UREA NITROGEN 12 MG/DL (7-18); CALCIUM LEVEL 8.2 MG/DL (8.8-10.2); CARBON DIOXIDE LEVEL 27 MEQ/L (21-32); CHLORIDE LEVEL 104 MEQ/L (98-107); GLOMERULAR FILTRATION RATE > 60.0 (>45); GLUCOSE, FASTING 169 MG/DL (70-100); POTASSIUM SERUM 4.1 MEQ/L (3.5-5.1); SODIUM LEVEL 136 MEQ/L (136-145)
[2020-07-06] MEDS: ALPRAZolam 0.5 MG TAB PO PRN ×2 (12:56→21:00)
[2020-07-06] MEDS: ACETAMINOPHEN TAB 650MG DOSE (2X325MG) PO PRN (13:33)
[2020-07-06] MEDS: PERCOCET 5MG/325MG TAB PO PRN ×2 (14:34→19:01)
[2020-07-06] MEDS: MORPHINE 2 MG/ML 1ML VIAL (J2270) IV PRN (15:37)
[2020-07-06] MEDS: ceFAZolin SOD 1 GM in D5W MINI-BAG PLUS 50 ML IV SCH ×2 (15:37→23:23)
[2020-07-06] MEDS: CALCIUM CARBONATE 500 MG CHEW U/D PO PRN (20:08)
[2020-07-06] MEDS: DOCUSATE SODIUM 100MG CAPSULE PO SCH (20:08)
[2020-07-07] MEDS: CALCIUM CARBONATE 500 MG CHEW U/D PO PRN (00:29)
[2020-07-07] MEDS: ACETAMINOPHEN TAB 650MG DOSE (2X325MG) PO PRN (00:30)
[2020-07-07 02:00] VITALS: BP 112/57
[2020-07-07] MEDS: NS 1,000 ML IV SCH (04:09)
[2020-07-07] MEDS: MORPHINE 2 MG/ML 1ML VIAL (J2270) IV PRN (04:11)
[2020-07-07 06:00] VITALS: BP 114/57
[2020-07-07 06:04] LABS: HEMATOCRIT 37.9 % (36.0-47.0); HEMOGLOBIN 12.9 g/dl (12.0-15.5); MEAN CORPUSCULAR HEMOGLOBIN 32.4 pg (27.0-33.0); MEAN CORPUSCULAR VOLUME 95.2 fl (80.0-96.0); PLATELET COUNT, AUTOMATED 240 10^3/uL (150-450); RED BLOOD COUNT 3.98 10^6/uL (4.00-5.40); WHITE BLOOD COUNT 9.2 10^3/uL (4.0-10.0)
[2020-07-07] MEDS: PERCOCET 5MG/325MG TAB PO PRN ×2 (06:17→10:41)
[2020-07-07] MEDS: ALPRAZolam 0.5 MG TAB PO PRN (06:17)
[2020-07-07 06:31] LABS: BLOOD UREA NITROGEN 9 MG/DL (7-18); CALCIUM LEVEL 9.9 MG/DL (8.8-10.2); CARBON DIOXIDE LEVEL 27 MEQ/L (21-32); CHLORIDE LEVEL 107 MEQ/L (98-107); CREATININE FOR GFR 0.72 MG/DL (0.55-1.30); GLOMERULAR FILTRATION RATE > 60.0 (>45); GLUCOSE, FASTING 104 MG/DL (70-100); POTASSIUM SERUM 4.1 MEQ/L (3.5-5.1); SODIUM LEVEL 138 MEQ/L (136-145)
[2020-07-07] MEDS: DOCUSATE SODIUM 100MG CAPSULE PO SCH (08:06)
[2020-07-07 08:27] VITALS: O2SAT 90
[2020-07-07] MEDS ORDERED: hydroCHLOROthiazide 12.5 MG CAPSULE PO SCH (09:00)
[2020-07-07] MEDS ORDERED: ROSUVASTATIN 10 MG TAB (CRESTOR) PO SCH (09:00)
--- NOTE | 2020-07-07 09:14 | IPNPDOC ---
Subjective Review oF Systems Chief Complaint The patient is a 69-year-old female admitted with a reason for visit of Renal Mass. Events since Last Encounter No acute events o/n. Patient was very anxious this morning, noting that she just wants to go home now. Her pain is controlled w/ percocet. No n/v. No f/c/ns. Objective Physical Examination General Exam: Alert, Moderate Distress ABDOMEN EXAM: Soft, Tenderness (minimal), Other (incisions clean/dry/intact; SOPHIE draining serosanguinous output) Skin Exam: Nl turgor and temperature Neuro Exam: Normal Speech Other physical findings catheter draining clear yellow urine Vital Signs/I&O Vital Signs Date Time Temp Pulse Resp B/P (MAP) Pulse Ox O2 Delivery O2 Flow Rate FiO2 07/07/20 08:27 90 Nasal Cannula 1.0 07/07/20 06:47 20 07/07/20 06:00 98.6 102 114/57 (76) I&O- Last 24 Hours up to 6 AM 07/07/20 06:00 Intake Total 3860 ml Output Total 2720 ml Balance 1140 ml Laboratory Data Labs 24H Laboratory Tests 2 07/06/20 11:50: Nucleated Red Blood Cells % (auto) 0.0, Anion Gap 5L, Glomerular Filtration Rate > 60.0, Calcium Level 8.2L 07/07/20 05:48: Nucleated Red Blood Cells % (auto) 0.0, Anion Gap 4L, Glomerular Filtration Rate > 60.0, Calcium Level 9.9# CBC/BMP Laboratory Tests 07/06/20 11:50 07/07/20 05:48 Assessment/Plan Date Seen The patient was seen on 07/07/20. Patient Summary This is a 69 y/o F POD1 s/p R robotic partial nephrectomy. Good pain control. Hb stable. Cr 0.7. Good UOP. Plan/VTE VTE Prophylaxis Ordered?: Yes VTE Exclusion Mechanical Proph: N/A:VTE Prophy Ordered Plan - d/c River - d/c IVF - strict I/Os - anxiety med ordered - percocet prn pain - ambulate - SCDs when in bed - incentive spirometry - advance diet as tolerated - likely discharge home later today - will remove SOPHIE prior to discharge VINNIE SCHOFIELD MD Jul 07, 2020 09:13
[2020-07-07 10:00] VITALS: BP 112/57
[2020-07-07] MEDS ORDERED: ALPRAZolam 0.5 MG TAB PO PRN (10:00)
[2020-07-07] MEDS ORDERED: DOK1CAP7 PO (12:43)
[2020-07-07] MEDS ORDERED: PERCOCET PO (12:43)
--- NOTE | 2020-07-07 13:44 | DSES ---
DISCHARGE SUMMARY DATE OF ADMISSION: 07/06/2020 DATE OF DISCHARGE: 07/07/2020 ADMISSION DIAGNOSIS: Right renal neoplasm. DISCHARGE DIAGNOSIS: Right renal cell carcinoma. ADMITTING PHYSICIAN: Dr. Florentin Nuñez DISCHARGING PHYSICIAN: Dr. Florentin Nuñez PROCEDURE PERFORMED: A right robotic-assisted laparoscopic partial nephrectomy on 07/06/2020. HISTORY OF PRESENT ILLNESS: This is a 69-year-old female with an approximately 1.5 cm enhancing right renal lesion concerning for malignancy. She underwent the above-listed procedure and was admitted postoperatively. HOSPITALIZATION COURSE: The patient was admitted to the hospital after undergoing the above-listed procedure. Her postoperative course was unremarkable. Postoperative day #1 her labs were within normal limits. Specifically, her hemoglobin level was stable at 12.9, and serum creatinine was stable at 0.72. She had very good urine output. Her River catheter was removed on postoperative day #1, and she voided without any difficulty. She started ambulating, and she did well. Her pain was controlled with oral pain medication. Her diet was advanced, and she tolerated a regular diet. She was deemed ready for discharge home on postoperative day #1. She will followup in urology clinic in approximately 10 days to discuss pathology results. LILLIE
== END 2020-07-07 13:45 | disposition home or self-care (01) | DRG 658 ==
LOC: M OR 06:45 → M MSPAV 12:51
PROVIDERS: ADMIT Urology; ATTEND Urology
PROC: 8E0W4CZ Robotic Assisted Procedure of Trunk Region, Percutaneous Endoscopic Approach (ICD-10-PCS; 2020-07-06)
PROC: 0TB04ZZ Excision of Right Kidney, Percutaneous Endoscopic Approach (ICD-10-PCS; principal; 2020-07-06 07:30)
DX: C64.1 Malignant neoplasm of right kidney, except renal pelvis (principal); F41.8 Other specified anxiety disorders; M79.18 Myalgia, other site; M79.7 Fibromyalgia; I10 Essential (primary) hypertension; Z96.659 Presence of unspecified artificial knee joint; F17.210 Nicotine dependence, cigarettes, uncomplicated

== ENCOUNTER → 2020-07-29 | Outpatient (REF) | payer MEDICARE, OTHER ==
[~2020-07-29] MED LIST changes: +DOK1CAP7 PO; -LIDOCAINE 1% MDV 20ML VIAL SQ PRN; -LR 1,000 ML IV ONE; +PERCOCET PO; -ceFAZolin SOD 2 GM in IV 1 EA IV ONE
[2020-07-29 16:22] LABS: HEMATOCRIT 44.5 % (36.0-47.0); HEMOGLOBIN 14.9 g/dl (12.0-15.5); MEAN CORPUSCULAR HGB CONC 33.5 g/dl (32.0-36.5); MEAN CORPUSCULAR VOLUME 98.7 fl (80.0-96.0); PLATELET COUNT, AUTOMATED 326 10^3/uL (150-450); RED BLOOD COUNT 4.51 10^6/uL (4.00-5.40); WHITE BLOOD COUNT 8.2 10^3/uL (4.0-10.0)
[2020-07-29 16:43] LABS: BLOOD UREA NITROGEN 18 MG/DL (7-18); CALCIUM LEVEL 9.2 MG/DL (8.8-10.2); CARBON DIOXIDE LEVEL 26 MEQ/L (21-32); CHLORIDE LEVEL 106 MEQ/L (98-107); CREATININE FOR GFR 0.67 MG/DL (0.55-1.30); GLOMERULAR FILTRATION RATE > 60.0 (>45); GLUCOSE, FASTING 98 MG/DL (70-100); POTASSIUM SERUM 4.8 MEQ/L (3.5-5.1); SODIUM LEVEL 138 MEQ/L (136-145)
== END ==
LOC: M LABSMT 10:19
PROVIDERS: ATTEND Urology
DX: C64.1 Malignant neoplasm of right kidney, except renal pelvis (principal)

== ENCOUNTER → 2020-07-29 | Outpatient (CLI) | payer MEDICARE, OTHER ==
--- NOTE | 2020-07-29 11:50 | REP ---
INDICATION: M25.551 RIGHT HIP PAIN. COMPARISON: None FINDINGS: There is mild symmetric appearing hip joint space narrowing without marginal osteophytosis, buttressing, or destructive osseous lesion. IMPRESSION: Slight degenerative changes as described above. <Electronically signed by Que West > 07/29/20 [id number]
--- NOTE | 2020-07-29 11:50 | REP ---
INDICATION: M25.551 RIGHT HIP PAIN. COMPARISON: None FINDINGS: Vertebral body height is within normal limits. There appears to be a minimal grade 1 L4 upon L5 spondylolisthesis. Degenerative facet joint changes are seen bilaterally at L4-5 and L5-S1. There is no evidence of spondylolysis. Tiny marginal osteophytes are seen bilaterally at L3-4. The pedicles are intact bilaterally. The disc spaces are symmetric and well maintained throughout. IMPRESSION: Chronic changes as described above. <Electronically signed by Que West > 07/29/20 [id number]
== END ==
LOC: M CLY 10:33
PROVIDERS: ATTEND Physician Assistant
DX: M25.551 Pain in right hip (principal); M16.11 Unilateral primary osteoarthritis, right hip; M51.36 Other intervertebral disc degeneration, lumbar region; M25.78 Osteophyte, vertebrae; C64.1 Malignant neoplasm of right kidney, except renal pelvis

== ENCOUNTER → 2020-08-02 | Outpatient (CLI) | payer MEDICARE, OTHER ==
--- NOTE | 2020-08-02 11:44 | REP ---
INDICATION: PAIN IN RIGHT HIP. COMPARISON: Right hip series dated 07/30/2019 TECHNIQUE: Single AP view of the pelvis FINDINGS: Osseous structures are intact and without acute fracture or dislocation. Hip joints demonstrate relatively symmetric mild joint space narrowing. IMPRESSION: No evidence for acute fracture or dislocation. Mild symmetric hip joint narrowing. <Electronically signed by Eddie Morse > 08/02/20 1142
== END ==
LOC: M SOG 11:12
PROVIDERS: ATTEND Orthopaedic Surgery Adult Reconstructive Orthopaedic Surgery
DX: M25.551 Pain in right hip (principal)

== ENCOUNTER → 2020-09-01 | Outpatient (CLI) | payer MEDICARE, BC ==
--- NOTE | 2020-09-01 11:15 | REPMRS ---
Patient History The patient states she had a clinical breast exam in July 2020. Patient is postmenopausal and has history of other cancer at age 69. Family history of unknown cancer in sister, prostate cancer in brother. Benign lumpectomy of the left breast. Moderna vaccine 02/26/20 left arm. 03/24/20 left arm. Patient states no breast complaints today. Patient has signed MRS History Sheet. Digital Woman Screen Mammo: September 01, 2020 - Exam #: [id number] Bilateral CC and MLO view(s) were taken. Technologist: RT Doreen Prior study comparison: December 02, 2018, bilateral digital mammo screening bilat, performed at [facility]. May 01, 2017, bilateral digital woman screen mammo, performed at [facility]. FINDINGS: The breast tissue is heterogeneously dense. This may lower the sensitivity of mammography. Screening. Digital screening (2D) mammography was performed bilaterally in the CC and MLO projections. Additionally, breast tomosynthesis (3D mammography) was performed bilaterally in the CC and MLO projections. Todays exam was compared to the prior exam/exams. By history, the patient has no complaints of a palpable breast abnormality or other significant breast complaints. The breasts are unchanged in size and shape. There are no luis-soft tissue densities or spiculated masses. There is no internal architectural distortion. Once again, stable benign appearing calcifications are seen.There are no suspicious luis-calcific clusters. Skin thickening or nipple retraction is not present. IMPRESSION: BI-RADS Category 2- Benign Findings. There is no evidence of malignant alteration of the breasts. Followup examination recommended in one year. The Volpara volumetric breast density category is C, the breasts are heterogenously dense which may obscure small masses. This mammogram was read with the assistance of One Season,an FDA approved computer aided detection system for mammography. The lifetime Tyrer-Cuzick score is 3.9 % Negative x-ray reports should not delay surgical consultation if a dominant or clinically suspicious mass is present. Not all breast cancers can be identified by mammography. Therefore, we recommend that you continue to perform regular breast self-examination and physical examination and then promptly contact your physician of any concerns or changes. Adenosis and dense breasts may obscure an underlying neoplasm. Assessment: BI-RADS/ACR category 2 mammogram. Benign Findings. Recommendation Routine screening mammogram of both breasts in 1 year. Electronically Signed By: Que West DO 09/01/20 1115
--- NOTE | 2020-09-01 12:30 | DEXAMM ---
INDICATION: Z78.0 POSTMENOPAUSAL. COMPARISON: Comparison study May 01, 2017.. TECHNIQUE: Bone density was measured using dual-energy x-ray absorptionmetry (DEXA). FINDINGS: AP SPINE L1-L4 BMD 0.922 g/cm2 Young Adult T-Score -2.2 Age Matched Z-Score -0.6. LT FEMUR, TOTAL BMD 0.947 g/cm2 Young Adult T-Score -0.5 Age Matched Z-Score 0.9. LT NECK BMD 0.799 g/cm2 Young Adult T-Score -1.7 Age Matched Z-Score -0.1. RT FEMUR, TOTAL BMD 0.932 g/cm2 Young Adult T-Score -0.6 Age Matched Z-Score 0.7. RT NECK BMD 0.801 g/cm2 Young Adult T-Score -1.7 Age Matched Z-Score -0.1. IMPRESSION: There is low bone density of the spine. There is low bone density of the left hip. There is low bone density of the right hip. The density of the spine has increased 0.5% since the initial exam on May 01, 2017. The density of the left hip has increased 0.6% since initial exam on May 01, 2017. The density of the right hip has increased 12.3% since the initial exam on May 01, 2017. FOLLOW-UP: Recommendation for the next bone density exam: 2 years. <Electronically signed by Foster Emery > 09/01/20 [id number]
== END ==
LOC: M WHC 08:31
PROVIDERS: ATTEND Physician Assistant
DX: Z12.31 Encounter for screening mammogram for malignant neoplasm of breast (principal); Z78.0 Asymptomatic menopausal state; R92.2 Inconclusive mammogram; M85.89 Other specified disorders of bone density and structure, multiple sites

== ENCOUNTER → 2020-10-08 | Outpatient (CLI) | payer MEDICARE, BC, OTHER ==
[~2020-10-08] MED LIST changes: +DOK1CAP4 PO; -DOK1CAP7 PO
[2020-10-08 17:05] LABS: BLOOD UREA NITROGEN 16 MG/DL (7-18); CREATININE FOR GFR 0.73 MG/DL (0.55-1.30); GLOMERULAR FILTRATION RATE > 60.0 (>45)
== END ==
LOC: M LAB 14:32
PROVIDERS: ATTEND Internal Medicine Pulmonary Disease
DX: R91.8 Other nonspecific abnormal finding of lung field (principal)

== ENCOUNTER → 2020-10-08 | Outpatient (CLI) | payer MEDICARE, BC, OTHER ==
[2020-10-08 15:56] LABS: BLOOD UREA NITROGEN 17 MG/DL (7-18); CARBON DIOXIDE LEVEL 24 MEQ/L (21-32); CHLORIDE LEVEL 107 MEQ/L (98-107); CREATININE FOR GFR 0.73 MG/DL (0.55-1.30); GLOMERULAR FILTRATION RATE > 60.0 (>45); GLUCOSE, FASTING 89 MG/DL (70-100); POTASSIUM SERUM 4.4 MEQ/L (3.5-5.1); SODIUM LEVEL 138 MEQ/L (136-145)
== END ==
LOC: M LAB 14:44
PROVIDERS: ATTEND Urology
DX: C64.1 Malignant neoplasm of right kidney, except renal pelvis (principal)

== ENCOUNTER → 2020-10-13 | Outpatient (CLI) | payer MEDICARE, BC, OTHER ==
[~2020-10-13] MED LIST changes: +ISOVUE-370 76% 100ML VIAL ONE
--- NOTE | 2020-10-13 13:15 | REP ---
INDICATION: RENAL CELL CA ; RT KIDNEY. COMPARISON: Preoperative examination 05/31/2020 TECHNIQUE: Standard helical technique after the intravenous administration of 100 cc Isovue 370 FINDINGS: The liver, spleen, pancreas, adrenal glands, and left kidney are unchanged. Benign bilateral nodular adrenal gland thickening is noted status quo. There are simple left renal cysts status quo. The irregular enhancing right renal lesion seen on the prior examination has been surgically excised. Postoperative changes are seen involving the right kidney. There is no abnormal enhancement. The abdominal aorta and para-aortic regions are within normal limits. There is no evidence of adenopathy. There is no free fluid or free air. There are scattered colonic diverticula status quo. Bone window technique throughout the examination shows no significant change in appearance of the osseous structures. IMPRESSION: 1. Right renal postoperative changes as described above. Close follow-up is recommended. 2. Stable benign findings as described above. No evidence of acute disease. <Electronically signed by Que West > 10/13/20 [id number]
== END ==
LOC: M PLAIMG 10:28
PROVIDERS: ATTEND Urology
DX: C64.1 Malignant neoplasm of right kidney, except renal pelvis (principal); K57.90 Diverticulosis of intestine, part unspecified, without perforation or abscess without bleeding

== ENCOUNTER → 2020-10-13 | Outpatient (CLI) | payer MEDICARE, BC, OTHER ==
[~2020-10-13] MED LIST changes: -ISOVUE-370 76% 100ML VIAL ONE
--- NOTE | 2020-10-13 12:00 | REP ---
INDICATION: ABNORMAL FINDING OF LUNG FIELD. COMPARISON: The most recent comparison chest CT study is June 28, 2020. March 24, 2019 and August 19, [address] studies are also reviewed. TECHNIQUE: Helical scanning is acquired following the intravenous injection of 100 mL of Isovue 370. 3 mm axial images re-formatted. Coronal and sagittal MPR images are generated. FINDINGS: Preliminary finished cigar maker view is unremarkable. There is no evidence of pleural or pericardial effusion. No hilar or mediastinal mass is observed. There is a right hilar lymph node measuring 8 mm in short axis dimension. There is a small cystic area in the left lobe of the liver. The left lobe of the liver is small. This is unchanged as well. No infiltrate is seen. There is a stable 5 mm nodule in the right upper lobe visible on page 56 of 118 in series 6 of today's study. This is unchanged when compared with the CT study from of August 19, 2018. This has generated 2 years of stability. However, study demonstrates a suspicious 10 mm peribronchovascular nodule in the right upper lobe. This is seen on page 48 of 118 in series [address] study. In this patient with history renal cell carcinoma, metastatic lesion versus primary lung lesion are possibilities. No other pulmonary nodule is appreciated. No bony destructive lesion is seen. IMPRESSION: There is a new peribronchovascular 10 mm spiculated pulmonary nodule in the right upper lobe worrisome for malignancy. The previously noted 5 mm right upper lobe peripheral nodule is stable. <Electronically signed by Foster Emery > 10/13/20 [id number]
== END ==
LOC: M PLAIMG 10:32
PROVIDERS: ATTEND Internal Medicine Pulmonary Disease
DX: R91.8 Other nonspecific abnormal finding of lung field (principal); C64.1 Malignant neoplasm of right kidney, except renal pelvis; K57.90 Diverticulosis of intestine, part unspecified, without perforation or abscess without bleeding
CPT/HCPCS: 71260; 74177; Q9967

== ENCOUNTER → 2020-11-05 | Outpatient (CLI) ==
[~2020-11-05] MED LIST changes: +ALBU8.5H; +ALPR0.25; +ATOR1TAB19; +BREO1INH; +ERGO500029; +LISI-898; +LOSA25TA14; +OXYC-517
== END ==
LOC: M LABSMTC 10:25
PROVIDERS: ATTEND Anesthesiology
DX: Z01.812 Encounter for preprocedural laboratory examination (principal); Z20.822 Contact with and (suspected) exposure to COVID-19

== ENCOUNTER 2020-11-10 06:24 | Day surgery (SDC) | payer MEDICARE, BC, OTHER ==
[~2020-11-10] VITALS: Ht 154.9 cm; Wt 66.1 kg
[~2020-11-10 06:24] MED LIST changes: +ALBUTEROL SULFATE 2.5 MG/0.5 ML INH NEB SOLN INH ONE; -ALPR0.25; +ALPR0.25 PO; +LIDOCAINE 4% INJ 5ML AMP NEB ONE; +LR 1,000 ML IV ONE
[2020-11-10] MEDS ORDERED: MIDAZOLAM INJ 2MG/2ML VIAL (J2250 PER 1MG) As Ordered ONE (07:22)
[2020-11-10] MEDS ORDERED: LIDOCAINE 2% 100MG/5ML SDV (FOR ANES.) As Ordered ONE (07:22)
[2020-11-10] MEDS ORDERED: dexameTHASONE 4 MG/ML 1ML VIAL (J1100 PER 1MG) As Ordered ONE (07:22)
[2020-11-10] MEDS ORDERED: propofoL 200 MG/20 ML VIAL As Ordered ONE (07:22)
[2020-11-10] MEDS ORDERED: ROCURONIUM BROMIDE 50 MG/5 ML VIAL As Ordered ONE (07:22)
[2020-11-10] MEDS ORDERED: LIDOCAINE 1% SDV 30ML VIAL As Ordered ONE (07:23)
[2020-11-10] MEDS ORDERED: EPINEPHrine INJ 1 MG/ML 1ML AMP As Ordered ONE (07:23)
[2020-11-10] MEDS ORDERED: fentaNYL 100 MCG/2 ML INJECTION (J3010) As Ordered ONE (07:23)
[2020-11-10] MEDS ORDERED: THROMBIN SOLN 20,000 UNITS KIT As Ordered ONE (07:24)
[2020-11-10] MEDS ORDERED: THROMBIN SOLN 5,000 UNITS VIAL As Ordered ONE (07:26)
[2020-11-10] MEDS ORDERED: CETACAINE SPRAY 5GM As Ordered ONE (07:29)
[2020-11-10] MEDS ORDERED: EPINEPHrine 1MG/10ML SYRINGE 1.5IN As Ordered ONE (07:30)
[2020-11-10] MEDS ORDERED: ONDANSETRON 4MG/2ML VIAL As Ordered ONE (07:33)
[2020-11-10] MEDS ORDERED: SUGAMMADEX SODIUM 500 MG/5 ML VIAL (BRIDION) As Ordered ONE (07:33)
[2020-11-10] MEDS ORDERED: SEVOFLURANE INHAL SOLN 250 ML BTL As Ordered ONE (07:41)
[2020-11-10] MEDS ORDERED: PHENYLephrine 500MCG 5ML (100MCG/ML) SYRINGE As Ordered ONE (08:13)
[2020-11-10] MEDS ORDERED: LACRILUBE (AKWA TEARS) OPHTH OINT 3.5 GM As Ordered ONE (08:42)
[2020-11-10] MEDS ORDERED: ESMOLOL INJ 100MG/10ML VIAL As Ordered ONE (08:56)
[2020-11-10] MEDS ORDERED: ePHEDrine SULFATE 25 MG/5 ML(5MG/ML) SYRINGE As Ordered ONE (08:57)
--- NOTE | 2020-11-10 09:19 | REP ---
INDICATION: RIGHT UPPER LOBE ABNORMALITY AND CANCER. COMPARISON: None. TECHNIQUE: Intraoperative fluoroscopic imaging using portable C-arm technique. FINDINGS: Images consistent with right upper lobe bronchoscopy. Two small surgical clips are identified. Total fluoroscopic time 5 minutes 45 seconds. IMPRESSION: Images consistent with right upper lobe bronchoscopy and presumed biopsy. <Electronically signed by Eddie Morse > 11/10/20 0915
[2020-11-10] MEDS ORDERED: PERCOCET 5MG/325MG TAB PO PRN (09:45)
[2020-11-10] MEDS ORDERED: fentaNYL 100 MCG/2 ML INJECTION (J3010) IV PRN (09:45)
[2020-11-10] MEDS ORDERED: ONDANSETRON 4MG/2ML VIAL IV PRN (09:45)
[2020-11-10] MEDS ORDERED: LR 1,000 ML IV SCH (09:45)
[2020-11-10] MEDS ORDERED: METOCLOPRAMIDE INJ 10MG/2ML VIAL (J2765 PER 1) IV PRN (09:45)
--- NOTE | 2020-11-10 10:00 | REP ---
INDICATION: post op bronch COMPARISON: 11/07/2018 TECHNIQUE: Portable AP view of the chest FINDINGS: The mediastinum and cardiac silhouette are stable and within normal limits for portable technique. The lung ramirez demonstrate increased interstitial markings and 2 new surgical clips in the right suprahilar region. No focal consolidation, effusion, or pneumothorax. Skeletal structures are intact. IMPRESSION: 1. No evidence for pneumothorax. <Electronically signed by Eddie Morse > 11/10/20 0956
[2020-11-10 10:45] VITALS: BP 128/58
--- NOTE | 2020-11-22 12:18 | ROOR ---
Patient Name: Yue Arroyo Procedure Date: 11/10/2020 7:15 AM Date of : 1950 Admit Type: Outpatient Age: 69 Note Status: Finalized Attending MD: Vanessa Mae MD Procedure: Bronchoscopy Indications: Right upper lobe nodule, Mediastinal adenopathy Providers: Vanessa Mae MD (Doctor), Sivakumar Dailey DO, ANTONIOP (1st Assisting Doctor) Referring MD: 1. NO/Unknown PCP 1. NO/Unknown PCP, Admin. (Referring MD) Requesting Physician: Medicines: Lidocaine 4% via nebulizer with Albuterol 2.5 mg, Cetacaine topical, Epinephrine 1 mg/10 mL topical 1 mL, General Anesthesia Complications: No immediate complications. Estimated blood loss: Minimal Procedure: Pre-Anesthesia Assessment: - Prior to the procedure, a History and Physical was performed, and patient medications and allergies were reviewed. The patient's tolerance of previous anesthesia was also reviewed. The risks and benefits of the procedure and the sedation options and risks were discussed with the patient. All questions were answered, and informed consent was obtained. Prior Anticoagulants: The patient has taken no previous anticoagulant or antiplatelet agents. ASA Grade Assessment: II - A patient with mild systemic disease. After reviewing the risks and benefits, the patient was deemed in satisfactory condition to undergo the procedure. - Prior to the procedure, a History and Physical was performed, and patient medications and allergies were reviewed. The patient's tolerance of previous anesthesia was also reviewed. The risks and benefits of the procedure and the sedation options and risks were discussed with the patient. All questions were answered, and informed consent was obtained. Prior Anticoagulants: The patient has taken no previous anticoagulant or antiplatelet agents. ASA Grade Assessment: II - A patient with mild systemic disease. After reviewing the risks and benefits, the patient was deemed in satisfactory condition to undergo the procedure. - Patient identification and proposed procedure were verified prior to the procedure by the physician, the nurse, the anesthesiologist, the levelman and the tool rental technician. The procedure was verified in the procedure room. The Bronchoscope was introduced through the mouth, via the endotracheal tube (the patient was intubated for the procedure) and advanced to the tracheobronchial tree of both lungs. The procedure was accomplished without difficulty. The patient tolerated the procedure well. Findings: The endotracheal tube is in good position. The visualized portion of the trachea is of normal caliber. The steve is sharp. The tracheobronchial tree was examined to at least the first subsegmental level. Bronchial mucosa and anatomy are normal, scattered pitting and webbing noted; there are no endobronchial lesions. There was clear/white mucoid secretions throughout. [facility] Robotic Electromagnetic navigation bronchoscopy was performed. The CT scan was used for planning purposes. A virtual bronchoscopic image was generated using the planning software. The target in the posterior segment of the right upper lobe was marked. A nodule approx 1 cm in size was found and a pathway was created. After a complete airway exam, the robotic navigation phase was then begun to locate the target lesion(s). Positioning centrally (in relation to the lesion) was confirmed using the Olympus radial probe US catheter. Transbronchial biopsies of a nodule were performed in the posterior segment of the right upper lobe using forceps and sent for histopathology examination. The procedure was guided by fluoroscopy. Transbronchial biopsy technique was selected because the sampling site was not visible endoscopically. Transbronchial needle aspirations of a nodule were performed in the posterior segment of the right upper lobe using a fine (20 gauge) needle and sent for routine cytology. The procedure was guided by fluoroscopy. Transbronchial needle aspiration technique was selected because the sampling site was not visible endoscopically. Fiducial marker placement was performed. Once the target lesion was identified, two markers were deployed around the lesion approx3- 4 mm apart in the posterior segment of the right upper lobe. An endobronchial ultrasound endoscope was utilized in order to assist with fine needle aspiration in the subcarinal area and in the right hilum. Transbronchial needle aspirations of a lymph node were performed in the subcarinal area and in the right hilum using an Olympus EBUS-TBNA 21 gauge needle and sent for routine cytology. The procedure was guided by ultrasound. Transbronchial needle aspiration technique was selected because the sampling site was not visible endoscopically. Impression: - Right upper lobe nodule - Mediastinal adenopathy - The airway examination was normal. - Electromagnetic navigation bronchoscopy was performed. - Transbronchial lung biopsies were performed. - Fiducial markers were deployed. - Endobronchial ultrasound was performed. - A transbronchial needle aspiration was performed. Recommendation: - Await test results. Procedure Code(s): --- Professional --- 74850, Bronchoscopy, rigid or flexible, including fluoroscopic guidance, when performed; with placement of fiducial markers, single or multiple 23804, Bronchoscopy, rigid or flexible, including fluoroscopic guidance, when performed; with transbronchial needle aspiration biopsy(s), trachea, main stem and/or lobar bronchus(i) 29851, Bronchoscopy, rigid or flexible, including fluoroscopic guidance, when performed; with transbronchial lung biopsy(s), single lobe 23697, Bronchoscopy, rigid or flexible, including fluoroscopic guidance, when performed; with computer-assisted, image-guided navigation (List separately in addition to code for primary procedure[s]) 41488, Bronchoscopy, rigid or flexible, including fluoroscopic guidance, when performed; with transendoscopic endobronchial ultrasound (EBUS) during bronchoscopic diagnostic or therapeutic intervention(s) for peripheral lesion(s) (List separately in addition to code for primary procedure[s]) CPT copyright 2019 [employer]. All rights reserved. The codes documented in this report are preliminary and upon apple press operator review may be revised to meet current compliance requirements. Attending Participation: I personally performed the entire procedure. Vanessa Mae MD 11/22/2020 12:17:53 PM Sivakumar Dailey DO, [facility] Number of Addenda: 0 Note Initiated On: 11/10/2020 7:15 AM
[2020-12-10] MEDS ORDERED: ROSU5TAB5 PO (11:26)
[2020-12-10] MEDS ORDERED: OXYC-517 PO (11:26)
[2020-12-16] MEDS ORDERED: OYST250T20 PO (09:30)
[2020-12-16] MEDS ORDERED: vitaminD3 PO (09:30)
[2020-12-21] MEDS ORDERED: PROC10TA4 PO (11:50)
[2020-12-21] MEDS ORDERED: ONDA8TAB10 PO (11:50)
[2020-12-22] MEDS ORDERED: LIDO1CRE42 TOP (13:09)
[2020-12-23] MEDS ORDERED: D31000TA2 PO (10:14)
[2020-12-24] MEDS ORDERED: DIAZ5TAB PO (09:58)
[2020-12-27] MEDS ORDERED: LACT20EL PO (14:43)
[2020-12-31] MEDS ORDERED: MAGICMW SSP (11:57)
[2020-12-31] MEDS ORDERED: NYST50SS PO (11:57)
[2021-01-03] MEDS ORDERED: LACT20EL PO (14:42)
[2021-01-07] MEDS ORDERED: OXYC1SOL3 PO (15:55)
[2021-01-07] MEDS ORDERED: MAGICMW SSP (15:55)
[2021-01-09] MEDS ORDERED: LEVO500T3 PO (06:26)
[2021-01-10] MEDS ORDERED: MIRA3350 PO (11:58)
[2021-01-10] MEDS ORDERED: LACT20EL PO (13:42)
[2021-01-10] MEDS ORDERED: OXYC-517 PO (15:41)
[2021-01-17] MEDS ORDERED: LEVO750T13 PO (14:32)
[2021-01-17] MEDS ORDERED: METR-265 PO (14:33)
[2021-01-18] MEDS ORDERED: AUGM500T34 PO (10:58)
[2021-01-24] MEDS ORDERED: OXYC-517 PO (14:40)
[2021-01-27] MEDS ORDERED: DIAZ5TAB PO (09:57)
[2021-01-27] MEDS ORDERED: LOPE2TAB12 PO (10:11)
[2021-01-27] MEDS ORDERED: PROBCAP14 PO (10:13)
[2021-01-27] MEDS ORDERED: MUCI30TA5 PO (10:13)
[2021-01-27] MEDS ORDERED: MULT1TAB7 PO (10:13)
== END 2020-11-10 10:45 | disposition home or self-care (01) ==
LOC: M SDC 06:24
PROVIDERS: ATTEND Internal Medicine Pulmonary Disease
DX: C34.11 Malignant neoplasm of upper lobe, right bronchus or lung (principal); E78.5 Hyperlipidemia, unspecified; F17.218 Nicotine dependence, cigarettes, with other nicotine-induced disorders; Z79.51 Long term (current) use of inhaled steroids; Z79.899 Other long term (current) drug therapy; F41.9 Anxiety disorder, unspecified; I10 Essential (primary) hypertension; G47.33 Obstructive sleep apnea (adult) (pediatric); K57.90 Diverticulosis of intestine, part unspecified, without perforation or abscess without bleeding; K21.9 Gastro-esophageal reflux disease without esophagitis
CPT/HCPCS: 31626; 31627; 31628; 31629; 31654; 71045; 76000; 88173; 88305; 88341; 88342; A4648; J0171; J1100; J2250; J2370; J2405; J3010; S2900

== ENCOUNTER → 2020-11-23 | Outpatient (CLI) | payer MEDICARE, BC, OTHER ==
[~2020-11-23] MED LIST changes: -ALBUTEROL SULFATE 2.5 MG/0.5 ML INH NEB SOLN INH ONE; +ALPR0.25; -ALPR0.25 PO; -LIDOCAINE 4% INJ 5ML AMP NEB ONE; -LR 1,000 ML IV ONE
--- NOTE | 2020-11-23 11:09 | RADONC.CN ---
Radiation Oncology Hx/Consult Radiation Oncology Consult Date of Service: Nov 23, 2020 Pt Identifier Yue Arroyo is a 69 year old female current smoker with a history of early stage RCC, s/p right partial nephrectomy, and now a biopsy proven NSCLC of the RUL [id number] stage IA2. The lesion is central. She is seen for consideration of SBRT. Diagnosis/Treatment History Oncologic History 05/10/[address] chest with anterior RML density 05/31/20 CT abdomen for abdominal pain with incidental 1.6 cm right RCC. She subsequently had right partial nephrectomy 06/28/20 CT chest wih right hilar node and new 0.4 cm RUL nodule 10/13/20 CT chest with stable 0.4 cm RUL nodule and new central 1 cm RUL nodule 11/10/20 EBUS biopsy showing adenocarcinoma in the 1 cm central RUL nodule, LN sampling negative 11/29/20 PET-CT pending PFTs 09/24/18 FVC 2.34 FEV1 1.75 FEV/FVC 80% pred DLCO 59% pred Interval History Here with her supportive partner. Reports she has chronic pain and fibromyalgia history which is stable. She has mild CASTILLO. No cough. No CP. She is quite anxious about her diagnosis. Still smoking, interested in quitting but not to set a date. Has wellbutrin on hand. Past Medical History: Fibromyalgia Hepatitis C HTN Past Surgical History: ACL repair Appendectomy Right partial nephrectomy Liver resection Family History: No family cancer history Social History: 40 pack year current smoker (1PPD) Past drinker Allergies / Meds Allergies: Coded Allergies: sulfamethoxazole (Verified Allergy, Unknown, ACHES, FEVER, 11/04/20) trimethoprim (Verified Allergy, Unknown, ACHES, FEVER, 11/04/20) codeine (Verified Adverse Reaction, Unknown, VOMITING, 11/04/20) Home Meds Active Scripts Oxycodone/Acetaminophen (Oxycodone-Acetaminophen 5-325) 1 Each Tablet, 1 TAB PO Q4H PRN for MODERATE/SEVERE PAIN (PS 5-10) MDD 6, #30 TAB Prov:VININE SCHOFIELD MD 07/07/20 Reported Medications Alprazolam (Alprazolam) 0.25 Mg Tablet 11/04/20 Hydrochlorothiazide (Hydrochlorothiazide) 12.5 Mg Tablet, 12.5 MG PO DAILY, TAB 06/29/20 Trazodone HCl (Trazodone HCl) 100 Mg Tab, 150 MG PO QHS, TAB 04/16/15 Discontinued Reported Medications Albuterol Sulfate (Albuterol Sulfate Hfa) 8.5 Gm Hfa.aer.ad 11/04/20 Ergocalciferol (Vitamin D2) (Vitamin D2) 50,000 Units Cap 11/04/20 Rosuvastatin Calcium (Rosuvastatin Calcium) 5 Mg Tablet, 5 MG PO DAILY, TAB 06/29/20 Review of Systems Constitutional: Reports: Fatigue; Denies: Fever, Weight Loss Eyes: Denies: Pain HEENT: Denies: Head Aches Skin: Denies: Rash Pulmonary: Reports: Dyspnea; Denies: Cough Cardiovascular: Denies: Chest Pain, Edema Gastrointestinal: Denies: Nausea, Vomiting Hematologic: Denies: Bruising, Bleeding Excessively Endocrine: Denies: Cold Intolerance Musculoskeletal: Denies: Neck pain, Back pain Neurological: Denies: Weakness, Numbness Psych: Reports: Anxiety Vital Signs Ht 61.5" Wt 148 lbs BMI 27 T 97.1 P 68 RR 18 BP 106/65 O2 94% Pain 4 Fatigue 2 General Exam: Alert, Cooperative, Mild Distress Eye Exam: PERRLA, EOMI ENT EXAM: Atraumatic Neck Exam: Supple Chest Exam: Clear to auscultation, Normal air movement; Negative: Wheezing Heart Exam: Rate Normal, Regular Rhythm Abdomen Exam: Soft Extremity Exam: Negative: Edema Skin Exam: Nl turgor and temperature Neuro Exam: Normal Gait, Normal Speech, Cranial Nerves 3-12 NL Psych Exam: Mental status NL Diagnostic and Laboratory Diagnostic Review Radiologic images, relevant labs and pathology reports were personally reviewed and discussed with Ms. Arroyo. Assessment and Plan Impression Ms. Arroyo is a 69 year old female current smoker with a history of early stage RCC, s/p right partial nephrectomy, and now a biopsy proven NSCLC of the RUL [id number] stage IA2. The lesion is central. She is seen for consideration of SBRT. Stage NSCLC RUL [id number] stage IA2 Performance Status ECOG 1 Plan We had an extensive discussion with Ms. Arroyo regarding the diagnosis at hand and available therapeutic options. She has a recent history of a small right RCC completely excised. No evidence of recurrence. Her lung lesion is central by definition within 2 cm of the right mainstem, but it is quite small and amenable to SBRT. She has a PET-CT pending on 11/29/20 which will complete her staging. Surgical resection may be fraught given the location, she also has issues with chronic pain and a non-invasive approach might lessen her symptom burden as well. I would give 55-60 Gy in 5 fractions with 4DCT/ITV/DCA planning. We discussed the logistics of receiving radiation therapy in detail including the need for a 1-time planning session. This can occur after the PET-CT, which I will call her to discuss. She also has a surgical consultation pending on 12/03/20. Can talk after that to determine her preferred course of action. I reviewed the toxicities of treatment including fatigue, fibrosis and pneumonitis. We also spent 3 minutes discussing smoking cessation, she has quit aids on hand but is struggling to cope with her diagnosis. She would like to defer setting a quit date for now. After discussing the risks, benefits and alternatives to radiation therapy, Ms. Arroyo was amenable to pursuing radiotherapy. All questions were answered to the patient's satisfaction. We instructed the patient that if there were any questions,concerns or changes in clinical status in the interim to contact us. Recommendations Pending PET-CT 11/29/20 Will follow up thereafter and discuss next steps Good candidate for SBRT as discussed above Will set tentative simulation date for December 2020, can cancel or delay if needed Billing Statement Total time of [45] minutes was spent preparing for the visit [2], obtaining HPI [6], examining the patient [3], reviewing diagnostic tests [5], discussing management options [20], coordinating care [3], and writing this note [6]. BRANNON PEPE MD Nov 23, 2020 11:09
== END ==
LOC: M ONCR 09:00
PROVIDERS: ATTEND General Practice
DX: C34.11 Malignant neoplasm of upper lobe, right bronchus or lung (principal); F17.210 Nicotine dependence, cigarettes, uncomplicated; Z85.528 Personal history of other malignant neoplasm of kidney

== ENCOUNTER → 2020-11-29 | Outpatient (CLI) | payer MEDICARE, BC, OTHER ==
--- NOTE | 2020-11-29 18:50 | REP ---
INDICATION: DIAGNOSING LUNG NODULE R91.1. COMPARISON: CT chest, 10/13/2020. TECHNIQUE: 8.46 mCi of FDG 18 was administered intravenously via the right wrist. Following an adequate uptake period, PET-CT imaging was a performed from the skull base to the pubic symphysis. FINDINGS: Head and neck: There is a normal distribution of FDG activity in the visualized brain parenchyma. There is calcific vascular disease of both carotid bifurcations. Chest: There is a hypermetabolic right paratracheal lymph node measuring 8 x 7 mm, max SUV 6.5. There is a hypermetabolic right hilar lymph node measuring 6 x 5 mm, max SUV 5.6. There is mild upper lobe predominant centrilobular emphysema. There is a 6 x 4 mm peripheral soft tissue density nodule in the upper lobe of the right lung. The nodule does not demonstrate significant FDG activity, but is still below the threshold size for measuring FDG activity. There are no pleural effusions. The heart size is upper limits of normal. There is no pericardial effusion. There is calcific vascular disease of the thoracic aorta and coronary arteries. There is a benign calcified right hilar lymph node. Abdomen and pelvis: There is sclerosis at the lateral aspect of the interpolar cortex of the right kidney consistent with tumor ablation. There is no abnormal FDG activity associated. The gallbladder is surgically absent. There is calcific vascular disease of the abdominal aorta. There is colonic diverticulosis without diverticulitis. There is enlargement of the limbs of both adrenal glands consistent with adrenal hyperplasia. There is a benign cortical cyst in the left kidney. Musculoskeletal: There are no lytic or sclerotic foci or areas of abnormal FDG activity in the visualized axial or appendicular skeleton. IMPRESSION: 1. There are hypermetabolic right paratracheal and right hilar lymph nodes consistent with neoplastic disease of indeterminate origin. 2. There is a soft tissue density nodule in the right lung which is below the threshold level for determining FDG activity. 3. Emphysema. 4. Status post tumor ablations, right kidney. There is no abnormal FDG activity associated. 5. Other findings as noted. <Electronically signed by Marv Wilkes > 11/29/20 [id number]
== END ==
LOC: M PLARAD 11:19
PROVIDERS: ATTEND Internal Medicine Pulmonary Disease
DX: C34.11 Malignant neoplasm of upper lobe, right bronchus or lung (principal); J43.2 Centrilobular emphysema; K57.90 Diverticulosis of intestine, part unspecified, without perforation or abscess without bleeding; I70.0 Atherosclerosis of aorta; N28.1 Cyst of kidney, acquired
CPT/HCPCS: 78815; A9552

== ENCOUNTER → 2020-12-02 | Outpatient (CLI) | payer MEDICARE, BC, OTHER ==
[2020-12-02 12:38] LABS: ALBUMIN 3.7 GM/DL (3.2-5.2); ALT/SGPT 28 U/L (12-78); BILIRUBIN,TOTAL 0.4 MG/DL (0.2-1.0); BLOOD UREA NITROGEN 18 MG/DL (7-18); CALCIUM LEVEL 9.6 MG/DL (8.8-10.2); CARBON DIOXIDE LEVEL 24 MEQ/L (21-32); CHLORIDE LEVEL 107 MEQ/L (98-107); CREATININE FOR GFR 0.78 MG/DL (0.55-1.30); GLOMERULAR FILTRATION RATE > 60.0 (>45); GLUCOSE, FASTING 100 MG/DL (70-100); POTASSIUM SERUM 4.2 MEQ/L (3.5-5.1); SODIUM LEVEL 138 MEQ/L (136-145); TOTAL PROTEIN 7.4 GM/DL (6.4-8.2)
== END ==
LOC: M LAB 10:18
PROVIDERS: ATTEND General Practice
DX: C34.11 Malignant neoplasm of upper lobe, right bronchus or lung (principal)

== ENCOUNTER → 2020-12-02 | Outpatient (CLI) | payer MEDICARE, BC, OTHER ==
--- NOTE | 2020-12-02 11:03 | PFTRPT ---
Site: [facility], [address] [place], [place], [address] ID: [id number] Name: HAM OCONNELL Visit Date: 12/02/2020 Second ID: [id number] Referring Doctor: Vanessa Mae MD Reviewing Doctor: Maulik Warner MD Elephant Keeper: Yves ROMO RRT Age: 70 : 1950 Sex: Female Race: Height: 61.00 Inches Weight: 147.00 Lbs BSA: 1.66 Order IDs: [id number] Requested Test(s): <RESP-PFT.PFT B/A> Diagnosis: G47.33 of albuterol for post bronchodilator. The results of this test meet the ATS standards for acceptability and repeatability. Review Status: Not Reviewed Pre-Bronch Post-Bronch Pred Actual %Pred Actual %Chng SPIROMETRY FVC (L) 2.71 2.36 86 2.44 3 FEV1 (L) 2.05 1.87 91 1.79 -4 FEV1/FVC (%) 76 79 104 73 -7 FEF 25% (L/sec) 4.47 3.02 67 2.72 -10 FEF 50% (L/sec) 3.40 2.18 64 1.63 -25 FEF 75% (L/sec) 1.03 0.79 76 0.86 8 FEF 25-75% (L/sec) 1.82 1.79 98 1.48 -17 FEF Max (L/sec) 5.34 3.05 57 2.81 -7 FIVC (L) 2.46 2.38 -3 FIF 50% (L/sec) 3.20 3.77 117 3.67 -2 FIF Max (L/sec) 3.77 3.78 MVV (L/min) 81 69 85 Expiratory Time (sec) 6.51 6.20 -4 Back Extrap Vol (L) 0.09 0.07 -16 Time To FEFmax (sec) 0.168 0.166 -1 LUNG VOLUMES SVC (L) 2.60 2.48 95 IC (L) 1.99 1.92 96 ERV (L) 0.61 0.56 92 TGV (L) 2.61 3.06 117 RV (Pleth) (L) 2.00 2.50 125 TLC (Pleth) (L) 4.60 4.98 108 RV/TLC (Pleth) (%) 43 50 116 DIFFUSION DLCOunc (ml/min/mmHg) 19.52 12.86 65 DLCOcor (ml/min/mmHg) 19.52 12.98 66 DL/VA (ml/min/mmHg/L) 4.24 3.33 78 VA (L) 4.60 3.90 84 BHT (sec) 10.18 IVC (L) 2.23 TLC (SB) (L) 4.05 AIRWAYS RESISTANCE Raw (cmH2O/L/s) 1.86 1.26 67 Gaw (L/s/cmH2O) 1.03 0.80 77 sRaw (cmH2O*s) 4.76 3.81 79 sGaw (1/cmH2O*s) 0.20 0.27 133 BLOOD GASES Hgb (gm/dL) 13.1
== END ==
LOC: M CARPUL 10:14
PROVIDERS: ATTEND Internal Medicine Pulmonary Disease
DX: G47.33 Obstructive sleep apnea (adult) (pediatric) (principal)

== ENCOUNTER 2020-12-08 10:05 | Day surgery (SDC) | payer MEDICARE, BC, OTHER ==
[~2020-12-08] VITALS: Ht 154.9 cm; Wt 66.7 kg
[~2020-12-08 10:05] MED LIST changes: -ALPR0.25; +ALPR0.25 PO; +CETACAINE SPRAY 5GM As Ordered ONE; +EPINEPHrine 1MG/10ML SYRINGE 1.5IN As Ordered ONE; +LIDOCAINE 1% SDV 30ML VIAL As Ordered ONE; +LIDOCAINE 2% 100MG/5ML SDV (FOR ANES.) As Ordered ONE; +LR 1,000 ML IV ONE; +MIDAZOLAM INJ 2MG/2ML VIAL (J2250 PER 1MG) As Ordered ONE; +ONDANSETRON 4MG/2ML VIAL As Ordered ONE; +ROCURONIUM BROMIDE 50 MG/5 ML VIAL As Ordered ONE; +SUGAMMADEX SODIUM 500 MG/5 ML VIAL (BRIDION) As Ordered ONE; +THROMBIN SOLN 5,000 UNITS VIAL As Ordered ONE; +fentaNYL 100 MCG/2 ML INJECTION (J3010) As Ordered ONE; +propofoL 200 MG/20 ML VIAL As Ordered ONE
--- OUTSIDE RECORDS SUMMARY | 2020-12-08 10:11 | CCD ---
Author Author [facility] Organization [facility] Address Unknown Phone Unavailable Care Team Providers Care Oracle Bpm Consultant Name Role Phone Balbina Hayden Unavailable PROBLEMS Type Condition ICD9-CM Code EMJ47-HE Code Onset Dates Condition S tatus W/U Status Risk SNOMED Code Notes Problem Other chronic pain G89.29 Active confirmed 8 8500786 Problem Right renal mass N28.89 Active confirmed 309 433253 Problem Lumbago with sciatica, right side M54.41 Active confirmed 888832415 Problem Lung nodule R91.1 Active confirmed 13740897 2 Problem Hypercholesterolemia E78.00 Active confirmed 73777136 Problem Chronic anxiety F41.9 Active confirmed 1917 35129 Problem Essential hypertension I10 Active confirmed 59068001 Problem Renal cell carcinoma of right kidney C64.1 Act krishan confirmed 229356123 ALLERGIES Allergen (clinical drug ingredient) Drug/Non Drug Allergy do cumented on EMR Reaction Allergy Type Onset Date Status Codeine Phosphate (For Allergies Use Only) vomiting Drug Allergy Active gabapentin Gabapentin(NDC Code:[address]-45) No Improvement Drug All ergy Active pregabalin Lyrica(NDC Code:[address]-67) No Improvement Drug Allergy Active duloxetine Cymbalta(NDC Code:[address]-33) No Improvement Drug Aller gy Active sulfamethoxazole / trimethoprim Bactrim(NDC Code:[address]- 01) Fever/Chills/Myalgia Drug Allergy Active ENCOUNTERS from 1950 to 2020-11-29 Encounter Location Date Provider Diagnosis [address] [place] [address] Nov, Balbina Hayden Other specified diso rders of bone density and structure, unspecified site M85.80 ; Asymptomatic menopausal state Z78.0 ; High risk for hip fracture Z91.89 and Lung nodule R91.1 IMMUNIZATIONS Vaccine Route Administration Date Status Prevnar Pharmacy Given Unknown April 07, 2020 Administe red Influenza Pharmacy Given Unknown April 07, 2020 Adminis tered SOCIAL HISTORY Tobacco Use: Social History Observation Description Date Details (start date - stop date) Current Smoker Sex Assigned At : Social History Observation Description Sex Assigned At Unknown Education: Question Answer Notes Level of Education: Finished College Audit Question Answer Notes Total Score: 0 Interpretation: Alcohol Education Language: Question Answer Notes Languages spoken: Tajik Hinduism: Question Answer Notes Hinduism No mandaeism beliefs that would impact health care. Sexual Hx: Question Answer Notes Had sex in the last 12 months (vaginal, oral, or anal)? No LMP: 38 years ago Have you ever had an STD? No Drug and Alcohol Question Answer Notes Total Score: 0 Interpretation: No problems reported Alcohol Screening: Question Answer Notes Did you have a drink containing alcohol in the past year? Ye s Points 1 Interpretation Negative How often did you have six or more drinks on one occas ion in the past year? Never (0 points) How many drinks did you have on a typica l day when you were drinking in the past year? 1 or 2 (0 points) How often did you have a drink containing alcohol in t he past year? Monthly or less (1 point) BMI Care Goal Follow-Up Question Answer Notes Above Normal BMI Follow-Up Dietary management educatio n, guidance, and counseling Tobacco Use: Question Answer Notes Are you a: current smoker 06/22/20 Additional Findings: Tobacco User none How many cigarettes a day do you smoke? 11-20 Are you interested in quitting? Not ready to quit Counseled the patient on smoking effects, education provided 11/07/2018 REASON FOR REFERRAL from 1950 to 2020-11-[address] Chest 10/13/20: New proncho vascular 10 mm spiculated pulmonary nodule in the right upper lobe worrisome for malignancy. The previously noted 5 mm right upper lobe peripheral nodule is stable|Following with [facility] bronchoscopy. Pending pathology|Jenny requesting second opinion at [facility] Pulmonology|Please evaluate and treat Diagnosis 1 Lung nodule (R91.1) Referral Organization [facility] Kelly Willett Referring Provider First Name Balbina Referring Provider Last Name Catracho Referring Provider Specialty Family Medicine Referred Provider Specialty Pulmonary Diseases Referral Priority Urgent General Notes Keli Miner 11/18/2020 1:12:27 PM > referral, imaging and previous pulmonary notes printedKeli Miner 11/18/2020 2:31:06 PM > krishan tried faxing this 6 times manually and it keeps coming back as busyKeli Miner 11/18/2020 2:33:11 PM > i called he office and they provided the following fax number to try instead [phone], refaxKeli Sauceda 11/22/2020 4:04:10 PM > i called and spoke to raissa who told me the number that was provided to me as [phone] was no longer their fax number and that the correct number is [phone]-refaxed Keli Chaudhari 11/23/2020 9:44:40 AM > called and spoke to raissa who states she does not see this in the chart but it takes 48 hours to get in even if it is urgentKeli Miner 11/25/2020 11:37:41 AM > called and spoke to raissa again who states to try back tomorrowKeli Miner 11/26/2020 11:43:02 AM > CALLED AND SPOKE TO OFFICE WHO WILL HAVE BRIGITTE THE PULMONARY COORDINATOR CALL ME BACK ABOUT THIS Clinical Notes Keli Miner 11/18/2020 1:10:05 PM > [facility] ([facility] [address] [place], [place] [address]Bbo and directionsPhone: Fax: Reason Osteopenia T score -1.7 with FRAX 3.7% risk for hip fracture over 10 yrs. Current smoker, Hx of previous fx|Please evaluate and treat Diagnosis 1 Other specified disorders of bone density and structure, unspecified site (M85.80) Referral Organization [facility] Kelly Willett Referring Provider First Name Balbina Referring Provider Last Name Catracho Referring Provider Specialty Family Medicine Referred Provider Lisa Robles Referred Provider Specialty Endocrinology Referral Priority Routine General Notes Balbina Hayden PA-C 11/06 6:23:02 AM > Please referKeli Miner 11/29/2020 7:40:12 AM > referral faxed Clinical Notes Keli Miner 11/29/2020 7:40:24 AM > printed VITAL SIGNS Weight 145 lbs lbs Nov, Weight-kg 65.77 kg Nov, Height 61 in Nov, BMI 27.39 kg/m2 Nov, Heart Rate 96 /min Nov, Respiratory Rate 18 /min Nov, Temperature 99.5 degrees Fahrenheit Nov, Oximetry 96%ra Nov, Blood pressure systolic 140 mm Hg Nov, Blood pressure diastolic 76 mm Hg Nov, MEDICATIONS Medication SIG (Take, Route, Frequency, Duration) Notes Start Da te End Date Status oxyCODONE HCl 5 MG 1 tab Oral every 6 hours as needed (MDD 4 tabs) for 7 day(s) PRN Nov, Active Ciprofloxacin HCl 500 MG 1 tablet Orally every 12 hrs for 7 day( s) Jul, Not-Taking Trazodone HCl 150 MG 1 tab Orally bedtime for 90 days Active hydroCHLOROthiazide 12.5 MG 1 capsule in the morning Orally Once a da y Active Ventolin HFA 108 (90 Base) MCG/ACT 2 puffs as needed Inhalation every 6 hrs Nov, Active ALPRAZolam 0.25 MG 1 tablet Oral as needed daily (MDD1) for 30 d ays Nov, Active Rosuvastatin Calcium 5 MG 1 tablet Orally Once a day Active Vitamin D (Ergocalciferol) 73261 UNIT 1 capsule Orally Weekly for 90 days Active PROCEDURES No Information RESULTS No Results REASON FOR VISIT discuss frax/dexa scan MEDICAL (GENERAL) HISTORY Type Description Date Medical History Anxiety Medical History Fibromyalgia/Myofascial pain syndrome Medical History hypertension Medical History Environmental Allergies Medical History Hepatitis C Medical History Psoriasis Medical History Liver Cyst Medical History 4 mm Pulmonary Nodule. Right Lobe. Per previous PCP records from 08/2019, the nodule has been stable x 2 yrs. Records requested. Medical History GERD Medical History Diverticulosis Surgical History C Section x 2 Surgical History Resection of partial liver Surgical History ACL Repair, Right Knee Surgical History Appendectomy 04/2015 Surgical History Fx lt ankle. Not operated. 12/2016 Surgical History T & A Surgical History cholecystectomy Surgical History right kidney mass removed Hospitalization History surgeries Goals Section No Information Health Concerns No Information MEDICAL EQUIPMENT No Information MENTAL STATUS No Information FUNCTIONAL STATUS No Information ASSESSMENTS Encounter Date Diagnosis Assessment Notes Treatment Notes Treatm ent Clinical Notes Nov, Other specified disorders of bone density and structure, unspecified site (ICD-10 - M85.80) Patient education was given. Discussed treatment options for low bone mass given 10-year probability of a hip fracture greater than or equal to 3%. She reports that currently she is focused on getting the evaluation for her lung nodule completed. Reports that she is due for a dental exam. Will hold off on treatment at this time. Discussed referral to endocrinology for consideration of Prolia versus biphosphonate. She reports she would like to see the automatic vulcanizing operator. Discussed warning signs and symptoms to seek immediate medical attention for. Discussed benefits and risks of treatment options. Discussed recommendation for 1200 mg calcium daily and at least 800 international units of vitamin D3. Nov, Asymptomatic menopausal state (ICD-10 - Z78.0) Nov, High risk for hip fracture (ICD-10 - Z91.89) Nov, Lung nodule (ICD-10 - R91.1) PLAN OF TREATMENT Medication Medication Name Sig Start Date Stop Date oxyCODONE HCl 5 MG 1 tab Oral every 6 hours as needed (MDD 4 tabs) for 7 day(s) Nov, ALPRAZolam 0.25 MG 1 tablet Oral as needed daily (MDD1) for 30 days Nov, Treatment Notes Assessment Notes Clinical Notes Other specified disorders of bone density and structure, uns pecified site Patient education was given. Discussed treatment options for low bone mass given 10-year probability of a hip fracture greater than or equal to 3%. She reports that currently she is focused on getting the evaluation for her lung nodule completed. Reports that she is due for a dental exam. Will hold off on treatment at this time. Discussed referral to endocrinology for consideration of Prolia versus biphosphonate. She reports she would like to see the automatic vulcanizing operator. Discussed warning signs and symptoms to seek immediate medical attention for. Discussed benefits and risks of treatment options. Discussed recommendation for 1200 mg calcium daily and at least 800 international units of vitamin D3. Referrals Referral Date Details CT Chest 10/13/20: New proncho vascular 10 mm spiculated pulmonary nodule in the right upper lobe worrisome for malignancy. The previously noted 5 mm right upper lobe peripheral nodule is stable|Following with [facility]. Pending pathology|Jenny requesting second opinion at [facility] Pulmonology|Please evaluate and treat Osteopenia T score -1.7 with FRAX 3.7% risk for hip fracture over 10 yrs. Current smoker, Hx of previous fx|Please evaluate and treat, Lisa Robles Next Appt Details 2 Weeks Reason: Provider Name:Florentin Malin Joaquin, 11:15:00 AM, [id number], , [place], [address], Insurance Providers Payer Name Payer Address Payer Phone Insured Name Patient Relati onship to Insured Coverage Start Date Coverage End Date MEDICARE Part A and B [address] [facility] [address] [phone] HAM OCONNELL [facility] [address] [facility] [id number] HAM OCONNELL self"
--- OUTSIDE RECORDS SUMMARY | 2020-12-08 10:11 | CCD | Continuity of Care Document ---
Author Ham Hdz Organization Unknown Address Unknown Phone Unavailable Care Team Providers Care Afterschool Babysitter Name Role Phone Balbina Hayden P.A.-C AUTM AUTM Unavailable AUTM Unavailable Problems Description No Information Available Social History Type Date Description Comments Sex Unknown ETOH Use Denies alcohol use Tobacco Use Reviewed: 11/16/20 Patient is a current smoker, smokes every day 1 PPD SMOKERx 40 years Recreational Drug Use Denies Drug Use Smoking Status Reviewed: 11/16/20 Patient is a current smoker, smokes every day 1 PPD SMOKERx 40 years Allergies and adverse reactions Active Allergies Criticality Reaction | Severity Comments Date Codeine Unable to assess criticality Nausea, vomitting 05/03/2015 Bactrim Unable to assess criticality FEVER AND BODY ACHES 04/06/2020 Medications Active Medications SIG Qnty Indications Ordering Provide r Date Nicotrol 10mg Inhaler inhale 6-16 catridges a day, max 16 a day 336units F17.218 Vanessa Ferreira M. D. 11/16/2020 Bupropion Hydrochloride ER (SR) 150mg Tablets ER 12HR 1 tab by mouth daily for first 3 days, t hen increase to twice a day and maintain that dose 60tabs F17.218 Vanessa Ferreira M.D. 11/05 Proair HFA 108(90Base) mcg/Act Aer osol 2 puffs four times a day as needed 25.5gm Vanessa Ferreira M.D. 04/09/2020 Autopap Device 5-20cm TIM Warner MD 07/23/2019 Trazodone HCL 150mg Tablets once a day at bedtime. Unknown Alprazolam 0.25mg Tablets as needed Unknown Oxycodone HCL 5mg Tablets 1 every 8 hours as needed Unknown Rosuvastatin Calcium 10mg Tablets 1 tab by mouth every day Unknown Hydrochlorothiazide 12.5mg Tablets Take One Tablet By Mouth Every Day Unknown Immunizations Description No Information Available Vital Signs Date Vital Result Comment 11/16/2020 10:24am BP Systolic 136 mmHg BP Diastolic 74 mmHg Heart Rate 88 /min O2 % BldC Oximetry 95 % Height 61 inches 5'1" Weight 145.50 lb BMI (Body Mass Index) 27.5 kg/m2 [place] Body Weight 105 lb Weight 65.999 kg BSA (Body Surface Area) 1.65 m2 10/19/2020 8:37am BP Systolic 132 mmHg BP Diastolic 78 mmHg Heart Rate 97 /min O2 % BldC Oximetry 96 % Height 61 inches 5'1" Weight 145.38 lb BMI (Body Mass Index) 27.5 kg/m2 [place] Body Weight 105 lb Weight 65.942 kg BSA (Body Surface Area) 1.65 m2 Results Test Acquired Date Facility Test Result H/L Range Note Surgical Tissue 11/16/2020 [facility] Molecular Anatomic Molecul <SEE NOTE> 1 Laboratory test finding 11/10/2020 [facility] Main Lab [address] [place] [address] [phone] Non Manufacturing Technology Professor/Cytology Req For Servi (SEE NOTE) 2 Laboratory test finding 11/10/2020 [facility] [address] [place] [address] [phone] Non Manufacturing Technology Professor/Cytology Req For Servi (SEE NOTE) 3 Laboratory test finding 11/10/2020 [facility] [address] [place] [address] [phone] Non Manufacturing Technology Professor/Cytology Req For Servi (SEE NOTE) 4 Laboratory test finding 11/10/2020 [facility] [address] [place] [address] [phone] Pathology Request For Service (SEE NOTE) 5 Laboratory test finding 11/10/2020 [facility] [address] [place] [address] [phone] Pathology Request For Service (SEE NOTE) 6 FVL/[place] 10/19/2020 [employer] [facility] [employer] [facility] SEE IMAGE FVC-Pred 2.74 L FVC-Pre 2.42 L FVC-%Pred-Pre 88 L FVC-LLN 2.11 L Fev1-Pred 2.08 L Fev1-Pre 1.80 L Fev1-%Pred-Pre 86 L Fev1-LLN 1.55 L Fev6-Pred 2.62 L Fev6-Pre 2.42 L Fev6-%Pred-Pre 92 L Fev6-LLN 2.00 L Qxa3qqb-Rzyq 77 % Bgc0xnr-Qpt 74 % Jec9hgx-%Pred-Pre 96 % Zrm8xjm-JFD 67 % Cmp7zif-Rqkm 96 % Pwg2faz-Ifb 100 % Fet5qpv-%Pred-Pre 104 % FEFMax-Pred 5.41 L/E/sec FEFMax-Pre 2.57 L/E/sec FEFMax-%Pred-Pre 47 L/E/sec FEFMax-LLN 3.85 L/E/sec Cuy8265-Llfp 1.87 L/E/sec Utx2768-Ftc 1.51 L/E/sec Vnr8611-%Pred-Pre 80 L/E/sec Pmr1077-ETA 0.74 L/E/sec ExpTime-Pre 6.17 sec Odf1zmh2-Ekay 80 % Hxp2dev3-Arp 74 % Zuq5ddd4-%Pred-Pre 93 % Xyo7jai8-HMW 71 % BUN & Creatinine ([facility]) 10/08/2020 [facility] Main Lab [address] [place] [address] [phone] Blood Urea Nitrogen 16 mg/dL Normal 7-18 7 Creatinine With GFR 10/08/2020 [facility] Main Lab [address] [place] [address] [phone] Creatinine For GFR 0.73 mg/dL Normal 0.55-1.30 Glomerular Filtration Rate > 60.0 Normal >45 8 Basic Metabolic Profile 10/08/2020 [facility] Main Lab [address] [place] [address] [phone] Glucose, Fasting 89 mg/dL Normal 70-100 Blood Urea Nitrogen 17 mg/dL Normal 7-18 Creatinine For GFR 0.73 mg/dL Normal 0.55-1.30 Glomerular Filtration Rate > 60.0 Normal >45 9 Sodium Level 138 mEq/L Normal 136-145 Potassium Serum 4.4 mEq/L Normal 3.5-5.1 Chloride Level 107 mEq/L Normal 98-107 Carbon Dioxide Level 24 mEq/L Normal 21-32 Anion Gap 7 mEq/L Low 8-16 Calcium Level 9.0 mg/dL Normal 8.8-10.2 FVL/[place] 07/01/2020 [employer] [facility] SEE IMAGE FVC-Pred 2.74 L FVC-Pre 2.45 L FVC-%Pred-Pre 89 L FVC-LLN 2.11 L Fev1-Pred 2.08 L Fev1-Pre 1.51 L Fev1-%Pred-Pre 72 L Fev1-LLN 1.55 L Fev6-Pred 2.62 L Fev6-Pre 2.45 L Fev6-%Pred-Pre 93 L Fev6-LLN 2.00 L Bba4jns-Lycl 77 % Wfr9vwo-Fkt 62 % Kfr5qmd-%Pred-Pre 80 % Wfo6owu-VRZ 67 % Vul5ozv-Wizn 96 % Koz3uba-Jou 100 % Ykb4npb-%Pred-Pre 104 % FEFMax-Pred 5.41 L/E/sec FEFMax-Pre 2.23 L/E/sec FEFMax-%Pred-Pre 41 L/E/sec FEFMax-LLN 3.85 L/E/sec Ywv0438-Ovpe 1.87 L/E/sec Ask4893-Dtk 1.08 L/E/sec Fsk9927-%Pred-Pre 57 L/E/sec Lwy3765-KSA 0.74 L/E/sec ExpTime-Pre 7.35 sec Vbd3nwn2-Sqod 80 % Whh9gqz6-Zcq 62 % Ljp6kxk9-%Pred-Pre 77 % Fnv3rfs7-HKS 71 % BUN & Creatinine ([facility]) 06/28/2020 [facility] Main Lab [address] [place] [address] [phone] Blood Urea Nitrogen 11 mg/dL Normal 7-18 1 0 Creatinine With GFR 06/28/2020 [facility] nter Main Lab [address] [place], [place] [phone] Creatinine For GFR 0.66 mg/dL Normal 0.55-1.30 Glomerular Filtration Rate > 60.0 Normal >45 1 1 1 Anatomic Molecular Pathology Report Name: HAM OCONNELL Collection Date: 11/16/2020 00:00 Received Date: 11/16/2020 14:49 Physician(s): VANESSA FERREIRA MD ADJAPONG, OPOKU, MD Specimen(s) Received A: Lung, right upper lobe, Formalin Block, [id number], [facility], BRAF Mutation Analysis Diagnosis TESTS: 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 RESULTS: Wild type probe (yellow gain): Ct value and end-point fluorescence are 29.14 and 0.622 respectively. Mutant probe (green gain): Ct value and end-point fluorescence are 45.00 and 0.078 respectively. (Mutant probe EPF cut-off value: 0.166) INTERPRETATION: NEGATIVE FOR BRAF V600E MUTATION. BRAF V600E (1799 T>A) mutation at exon 15 is a genetic alteration identified in a variety of neoplasm and present in approximately 3% of lung adenocarcinoma. BRAF V600E in lung adenocarcinoma might be associated with decreased sensitivity to EGFR inhibitor such as gefitinib, and increased response to BRAF inhibitor such as vemurafenib. The test result is considered positive if the Ct value (mutant probe) is less than 45 and the EPF is higher than cut-off value. If the percentage of mutant DNA is less than 10% in a background of wild-type DNA, the mutation may not be detected by this assay. This result is an adjunct to other clinical and pathologic information for appropriate patient management. kan/kg Electronically Signed By Fish Rojas M.D. Attending Pathologist 11/24/2020 21:06:10 Reported at [facility] Clinical Pathology Laboratory [address] [place] [id number]. Gross Description METHODOLOGY: BRAF V600E(1799 T>A) mutation at exon 15 is detected by real time PCR using allele-specific TaqMan probes and performed on paraffin embedded tissues. The tumor area is identified by the pathologist and is manually microdissected. The mutant probe was labeled with a FAM-fluorophore while the wild-type probe with a RAQUEL-fluorophore. The amount of fluorescent emissions rendered by specific probe hybridization was associated the amounts of PCR products, and analyzed by [employer] Q real time instrument. The analytical sensitivity (or minimum percentage of mutant DNA needed) is approximately 10% given sufficient DNA input. Test development and its performance characteristics were determined by the [facility], and has been authorized for clinical use by Critical access hospital. The test has not been cleared or approved by the U.S. Food and Drug Administration. The analyte specific reagents used in this assay do not require FDA approval. REFERENCES: 1. Ida S, Juan Luis, et al. Detection of BRAF V600E mutation in colorectal cancer-comparison of automatic sequencing and real time chemistry methodology. J Mol Diagn. 2006; 8:247431. 2. Rudy L, Prema PALACIO, Gabino N, et al. BR AF mutation analysis in fine needle aspiration (FNA) cytology of the thyroid. Diagn Mol Pathol. 2006;15:915325. 3. Iggy PK, Lenora ME, Radha M, et al. C linical characteristics of patients with lung adenocarcinomas harboring BRAF mutations. J Clin Oncol. 2011;29:6772-7195. This report may include one or more immunohistochemical stain results that use analyte specific reagents. All positive and negative controls have been reviewed by the attending pathologist and are satisfactory. The tests were developed and their performance characteristics determined by [facility] Pathology department. They have not been cleared or approved by the US Food and Drug Administration. The FDA has determined that such clearance or approval is not necessary. 2 SPECIMEN: FNA Rig ht hilar lymph node Sldies and Cytolyt (red) received SPECIMEN ADEQUACY: Satisfactory for evaluation CATEGORIZATION: No Malignancy identified DESCRIPTIONS: Specimen consists mainly of red blood cells with some lymphocytes and bronchail cells noted. COMMENTS: 11/11/2020 - 1018 Signed PITA REY(ASCP) 11/11/2020 1018 (Prelim) Signed SALAZAR ALLEN MD 11/11/2020 1207 3 SPECIMEN: FNA Sub carinal lymph node Slides and Cytolyt (clear) received SPECIMEN ADEQUACY: Satisfactory for evaluation CATEGORIZATION: No Malignancy identified DESCRIPTIONS: Sparsely cellular specimen consisting of scant blood elements only. COMMENTS: 11/11/2020955 Signed PITA REY CT(ASCP) 11/11/2020955 (Prelim) Signed SALAZAR ALLEN MD 11/11/20201205 4 SPECIMEN: FNA Rig ht upper lobe lung SLides and Cytolyt received (clear) SPECIMEN ADEQUACY: Satisfactory for evaluation CATEGORIZATION: No Malignancy identified DESCRIPTIONS: Scattered bronchial cells noted in a background of rare lymphocytes and abundant red blood cells. COMMENTS: 11/11/2020942 Signed PITA REY CT(ASCP) 11/11/2020942 (Prelim) Signed SALAZAR ALLEN MD 11/12/2020825 5 FINAL DIAGNOSIS Right hilar lymph node, FNA cell-block: Negative for malignancy. Lymphoid cells, cartilage and bronchial epithelium. 11/11/20201204 CLINICAL DIAGNOSIS Right upper lobe abnormality and cancer 11/10/20201454 GROSS DIAGNOSIS Received in CytoLyt labeled "right hilar lymph node" submitted for cell block. -OA 11/11/20201204 Signed SALAZAR ALLEN MD 11/11/20201205 6 FINAL DIAGNOSIS Lung, right upper lobe, biopsy: Nonsmall cell carcinoma, poorly differentiated favor adenocarcinoma. 4/TR. TTF1 and PAX stains used in evaluation. Comment: H&E sections show small focus of infiltrating tumor cells .Morphology favors adenocarcinoma. Scant nature of tumor cells preclude molecular and PD-L1 studies. However, molecular studies will be tried. Patient's history of renal cell carcinoma noted. 11/16/2020852 CLINICAL DIAGNOSIS Right upper lobe abnormality and cancer 11/10/20201433 GROSS DIAGNOSIS Received in formalin labeled "right upper lobe forceps biopsy" and consists of a fragment of tissue, 0.5 x 0.5 x 0.1 cm. All in one. -OA 11/10/20201433 Signed SALAZAR ALLEN MD 11/16/2020 09 7 note:<nlbl:demographic_chang ed> 8 Units are mL/min/1.73 m2 Chronic Kidney Disease Staging per NKF: Stage I & II GFR >=60 Normal to Mildly Decreased Stage III GFR 30-59 Moderately Decreased Stage IV GFR 15-29 Severely Decreased Stage V GFR <15 Very Little GFR Left ESRD GFR <15 on [employer] LAB[employer]ER 9 Units are mL/min/1.73 m2 Chronic Kidney Disease Staging per NKF: Stage I & II GFR >=60 Normal to Mildly Decreased Stage III GFR 30-59 Moderately Decreased Stage IV GFR 15-29 Severely Decreased Stage V GFR <15 Very Little GFR Left ESRD GFR <15 on AQU[employer]IC LABORER 10 note:<nlbl:vaughn_chang ed> 11 Units are mL/min/1.73 m2 Chronic Kidney Disease Staging per NKF: Stage I & II GFR >=60 Normal to Mildly Decreased Stage III GFR 30-59 Moderately Decreased Stage IV GFR 15-29 Severely Decreased Stage V GFR <15 Very Little GFR Left ESRD GFR <15 on AQUATIC LABORER Procedures Date Code Description Status 11/16/2020 46409 Tobacco Cessation Counseling Com pleted 11/16/2020 63123 Office/Outpatient Established Mo d MDM 30-39 Min Completed 10/19/2020 86105 Office/Outpatient Established Mo d MDM 30-39 Min Completed 10/19/2020 83295 Spirometry Completed 08/02/2020 87019 Office/Outpatient New Low MDM 30 -44 Minutes Completed 07/01/2020 56774 Tobacco Cessation Counseling Com pleted 07/01/2020 48751 Office/Outpatient Established Mo d MDM 30-39 Min Completed 07/01/2020 90466 Spirometry Completed Medical Devices Description No Information Available Encounters Type Date Location Provider Dx Diagnosis Office Visit 11/16/2020 10:30a [facility] Vanessa Lew M.D. G47.33 Obstructive sleep apnea (neelam lt) (pediatric) J43.9 Emphysema, unspecified F17.218 Nicotine dependence, cigaret kamryn, w oth disorders C34.11 Malignant neoplasm of upper lobe, right bronchus or lung Office Visit 10/19/2020 8:30a [facility] Vanessa Lew M.D. R91.8 Other nonspecific abnormal f inding of lung field G47.33 Obstructive sleep apnea (neelam lt) (pediatric) J43.9 Emphysema, unspecified F17.218 Nicotine dependence, cigaret kamryn, w oth disorders Office Visit 08/02/2020 11:00a [facility] Sivakumar Paz MD M54.41 Lumbago with sciatica, right side Office Visit 07/01/2020 11:30a [facility] Vanessa Lew M.D. G47.33 Obstructive sleep apnea (neelam lt) (pediatric) R91.8 Other nonspecific abnormal f inding of lung field J43.9 Emphysema, unspecified F17.218 Nicotine dependence, cigaret kamryn, w oth disorders Assessments Date Code Description Provider 11/16/2020 G47.33 Obstructive sleep apnea (adult) (pediatric) Vanessa Ferreira M.D. 11/16/2020 J43.9 Emphysema, unspecified Humphrey Ferreira M.D. 11/16/2020 F17.218 Nicotine dependence, cigarettes, with other nicotine-induced disorders Vanessa Ferreira M.D. 11/16/2020 C34.11 Malignant neoplasm of upper lobe , right bronchus or lung Vanessa Ferreira M.D. 10/19/2020 R91.8 Other nonspecific abnormal findi ng of lung field Vanessa Ferreira M.D. 10/19/2020 G47.33 Obstructive sleep apnea (adult) (pediatric) Vanessa Ferreira M.D. 10/19/2020 J43.9 Emphysema, unspecified Humphrey Ferreira M.D. 10/19/2020 F17.218 Nicotine dependence, cigarettes, with other nicotine-induced disorders Vanessa Ferreira M.D. 08/02/2020 M54.41 Lumbago with sciatica Sivakumar stroud MD 07/01/2020 G47.33 Obstructive sleep apnea (adult) (pediatric) Vanessa Ferreira M.D. 07/01/2020 R91.8 Other nonspecific abnormal findi ng of lung field Vanessa Ferreira M.D. 07/01/2020 J43.9 Emphysema, unspecified Humphrey Ferreira M.D. 07/01/2020 F17.218 Nicotine dependence, cigarettes, with other nicotine-induced disorders Vanessa Ferreira M.D. Plan of Treatment 11/16/2020 - Vanessa Ferreira M.D.* G47.33 Obstructive sleep apnea (adult) (pediatric) * J43.9 Emphysema, unspecified * F17.218 Nicotine dependence, cigarettes, with other nicotine-induced disorders * C34.11 Malignant neoplasm of upper lobe, right bronchus or lung * * New Labs:* PFT/HGB Off/No Meds, Ordered: 11/16/20 * Referral:* Kaleb Shepard M.D., Radiation Oncology * Live Leiva M.D., Surgery,Thoracic * Follow up:* Follow-up after PET/CT with video visit for results. PFT ordered and referral to cardiothoracic surgery and Rad/onc Functional Status Description No Information Available Mental Status Description No Information Available Referrals Refer to Dr Reason for Referral Status Appt Date Kaleb Shepard M.D. newly dx adenocarcinoma in RUL, presume d stage 1A Scheduled 11/23/2020 [facility] [address] [place] [address] [phone] Live Leiva M.D. newly dx adenocarcinoma stage presumed stage 1A Created [address] [address] [phone] Radiology/Procedure 23312 Created
--- OUTSIDE RECORDS SUMMARY | 2020-12-08 10:11 | CCD ---
Author Author [facility] Organization [facility] Address Unknown Phone Unavailable Care Team Providers Care Cloud Infrastructure Architect Name Role Phone Balbina Hayden Unavailable PROBLEMS Type Condition ICD9-CM Code [id number] Code Onset Dates Condition S tatus W/U Status Risk SNOMED Code Notes Problem Other chronic pain G89.29 Active confirmed 8 7877419 Problem Right renal mass N28.89 Active confirmed 309 763059 Problem Lumbago with sciatica, right side M54.41 Active confirmed 342517711 Problem Lung nodule R91.1 Active confirmed 47445980 2 Problem Hypercholesterolemia E78.00 Active confirmed 55390928 Problem Chronic anxiety F41.9 Active confirmed 1917 47094 Problem Essential hypertension I10 Active confirmed 65361511 Problem Renal cell carcinoma of right kidney C64.1 Act krishan confirmed 693019898 ALLERGIES Allergen (clinical drug ingredient) Drug/Non Drug Allergy do cumented on EMR Reaction Allergy Type Onset Date Status Codeine Phosphate (For Allergies Use Only) vomiting Drug Allergy Active gabapentin Gabapentin(NDC Code:[address]-88) No Improvement Drug All ergy Active pregabalin Lyrica(NDC Code:[address]-71) No Improvement Drug Allergy Active duloxetine Cymbalta(NDC Code:[address]-88) No Improvement Drug Aller gy Active sulfamethoxazole / trimethoprim Bactrim(NDC Code:[address]- 01) Fever/Chills/Myalgia Drug Allergy Active ENCOUNTERS from 1950 to 2020-11-18 Encounter Location Date Provider Diagnosis [address] [phone] [place] [address] Oct, Balbina Hayden IMMUNIZATIONS Vaccine Route Administration Date Status Prevnar [...] Education Language: Question Answer Notes Languages spoken: [place] Citizen Scientologist: Question Answer Notes Scientologist No taoist beliefs that would impact health care. Sexual [...] effects, education provided 11/07/2018 REASON FOR REFERRAL No Information VITAL SIGNS No information MEDICATIONS Medication SIG (Take, Route, Frequency, Duration) Notes Start Da te End Date Status Rosuvastatin Calcium 5 MG 1 tablet Orally Once a day Active Vitamin D (Ergocalciferol) 72689 UNIT 1 capsule Orally Weekly for 90 days Active oxyCODONE HCl 5 MG 1 tab Oral every 6 hours as needed (MDD 4 tabs) for 7 day(s) PRN Sep, Active ALPRAZolam 0.25 MG 1 tablet Oral as needed daily (MDD1) for 30 d ays Sep, Active Trazodone HCl 150 MG 1 tab Orally bedtime for 90 days Active Ventolin HFA 108 (90 Base) MCG/ACT 2 puffs as needed Inhalation every 6 hrs Nov, Active Ciprofloxacin HCl 500 MG 1 tablet Orally every 12 hrs for 7 day( s) Jul, Not-Taking hydroCHLOROthiazide 12.5 MG 1 capsule in the morning Orally Once a da y Active PROCEDURES No Information RESULTS No Results REASON FOR VISIT pl sql developer recommendation MEDICAL (GENERAL) HISTORY Type Description Date Medical [...] No Information FUNCTIONAL STATUS No Information ASSESSMENTS No Information PLAN OF TREATMENT Next Appt Details Provider Name:Florentin Nuñez, 11:15:00 AM, [address], , [place], [address], Insurance Providers Payer Name Payer Address Payer Phone Insured Name Patient Relati onship to Insured Coverage Start Date Coverage End Date [facility] [address] [facility] [id number] HAM OCONNELL MEDICARE Part A and B [address] [facility] [phone] HAM OCONNELL self
--- OUTSIDE RECORDS SUMMARY | 2020-12-08 10:11 | CCD | Continuity of Care Document ---
Author Author Yue FERREIRA M.D. Organization Unknown Address [address] [place] [address] Phone [phone] Care Team Providers Care Sanitation Truck Cleaner Name Role Phone Balbina Hayden P.A.-C AUTM [phone] AUTM Unavailable AUTM Unavailable Problems Description No [...] Vanessa Ferreira M.D. 04/09/2020 Autopap Device 5-20cm LCW Maulik Warner MD 07/23/2019 Trazodone HCL 150mg Tablets [...] lb BMI (Body Mass Index) 27.5 kg/m2 [place] Body Weight 105 lb Weight 65.999 kg BSA (Body Surface Area) 1.65 m2 10/19/2020 8:37am BP Systolic 132 mmHg BP Diastolic 78 mmHg Heart Rate 97 /min O2 % BldC Oximetry 96 % Height 61 inches 5'1" Weight 145.38 lb BMI (Body Mass Index) 27.5 kg/m2 [place] Body Weight 105 lb Weight 65.942 kg BSA (Body Surface Area) 1.65 m2 Results Test Acquired Date Facility Test Result H/L Range Note Laboratory test finding 11/10/2020 [facility] [address] [place] [address] [id number] [phone] Non Dance Artist/Cytology Req For Servi (SEE NOTE) 1 Laboratory test finding 11/10/2020 [facility] [address] [place] [address] [phone] Non Dance Artist/Cytology Req For Servi (SEE NOTE) 2 Laboratory test finding 11/10/2020 [facility] [address] [place] [address] [phone] Non Dance Artist/Cytology Req For Servi (SEE NOTE) 3 Laboratory test finding 11/10/2020 [facility] [address] [place] [address] [phone] Pathology Request For Service (SEE NOTE) 4 Laboratory test finding 11/10/2020 [facility] [address] [place] [address] [phone] Pathology Request For Service (SEE NOTE) 5 FVL/[place] 10/19/2020 [employer] PDFReport SEE IMAGE FVC-Pred 2.74 L FVC-Pre 2.42 L FVC-%Pred-Pre 88 L FVC-LLN 2.11 L Fev1-Pred 2.08 L Fev1-Pre 1.80 L Fev1-%Pred-Pre 86 L Fev1-LLN 1.55 L Fev6-Pred 2.62 L Fev6-Pre 2.42 L Fev6-%Pred-Pre 92 L Fev6-LLN 2.00 L Kxl8awf-Hdxr 77 % Dow5jtm-Arf 74 % Uar6pel-%Pred-Pre 96 % Lja5eok-NAP 67 % Zns2bma-Bxmu 96 % Zpm8now-Pnp 100 % Tuo1dao-%Pred-Pre 104 % FEFMax-Pred 5.41 L/E/sec FEFMax-Pre 2.57 L/E/sec FEFMax-%Pred-Pre 47 L/E/sec FEFMax-LLN 3.85 L/E/sec Xig0802-Emfl 1.87 L/E/sec Rhf7828-Ekp 1.51 L/E/sec Ugv5865-%Pred-Pre 80 L/E/sec Daa5950-UTD 0.74 L/E/sec ExpTime-Pre 6.17 sec Jjn5uty1-Ybiy 80 % Izp0ioq5-Eua 74 % Cnq4cms1-%Pred-Pre 93 % Jck4gee5-XUC 71 % BUN & Creatinine ([facility]) 10/08/2020 [facility] Main Lab [address] [place] [address] [phone] Blood Urea Nitrogen 16 mg/dL Normal 7-18 6 Creatinine With GFR 10/08/2020 [facility] nter Main Lab [address] [place] [address] [phone] Creatinine For GFR 0.73 mg/dL Normal 0.55-1.30 Glomerular Filtration Rate > 60.0 Normal >45 7 Basic Metabolic Profile 10/08/2020 [facility] Main Lab [address] [place] [address] [phone] Glucose, Fasting 89 mg/dL Normal 70-100 Blood Urea Nitrogen 17 mg/dL Normal 7-18 Creatinine For GFR 0.73 mg/dL Normal 0.55-1.30 Glomerular Filtration Rate > 60.0 Normal >45 8 Sodium Level 138 mEq/L Normal 136-145 Potassium [...] L Fev6-%Pred-Pre 93 L Fev6-LLN 2.00 L Ctw1egr-Yuce 77 % Jha4dwz-Fsy 62 % Ybm2pcp-%Pred-Pre 80 % Oyq9sej-ALO 67 % Dbi4veb-Jzgd 96 % Wdh5cxo-Unv 100 % Brk5fjl-%Pred-Pre 104 % FEFMax-Pred 5.41 L/E/sec FEFMax-Pre 2.23 L/E/sec FEFMax-%Pred-Pre 41 L/E/sec FEFMax-LLN 3.85 L/E/sec Uvg3868-Suyx 1.87 L/E/sec Uir5171-Jgj 1.08 L/E/sec Jak2080-%Pred-Pre 57 L/E/sec Flh8555-GKM 0.74 L/E/sec ExpTime-Pre 7.35 sec Lce1zqc1-Qnma 80 % Rea8sbv5-Kzl 62 % Fkn6apz1-%Pred-Pre 77 % Kho2fgx0-EIB 71 % BUN & Creatinine ([facility]) 06/28/2020 [facility] Main Lab [address] [place], [place] [id number] [phone] Blood Urea Nitrogen 11 mg/dL Normal 7-18 9 Creatinine With GFR 06/28/2020 [facility] nter Main Lab [address] [place] [address] [phone] Creatinine For GFR 0.66 mg/dL Normal 0.55-1.30 Glomerular Filtration Rate > 60.0 Normal >45 1 0 1 SPECIMEN: FNA Rig ht hilar lymph node Sldies and Cytolyt (red) received SPECIMEN ADEQUACY: Satisfactory for evaluation CATEGORIZATION: No Malignancy identified DESCRIPTIONS: Specimen consists mainly of red blood cells with some lymphocytes and bronchail cells noted. COMMENTS: 11/11/20201017 Signed PITA REY(ASCP) 11/11/2020 101 (Prelim) Signed SALAZAR ALLEN MD 11/11/2020 1207 2 SPECIMEN: FNA Sub carinal lymph node Slides and Cytolyt (clear) received SPECIMEN ADEQUACY: Satisfactory for evaluation CATEGORIZATION: No Malignancy identified DESCRIPTIONS: Sparsely cellular specimen consisting of scant blood elements only. COMMENTS: 11/11/2020955 Signed PITA REY(ASCP) 11/11/2020955 (Prelim) Signed SALAZAR ALLEN MD 11/11/2020 120 3 SPECIMEN: FNA Rig ht upper lobe lung SLides and Cytolyt received (clear) SPECIMEN ADEQUACY: Satisfactory for evaluation CATEGORIZATION: No Malignancy identified DESCRIPTIONS: Scattered bronchial cells noted in a background of rare lymphocytes and abundant red blood cells. COMMENTS: 11/11/2020942 Signed PITA REY(ASCP) 11/11/2020 0943 (Prelim) Signed SALAZAR ALLEN MD 11/12/2020 0826 4 FINAL DIAGNOSIS Right hilar lymph node, FNA cell-block: Negative for malignancy. Lymphoid cells, cartilage and bronchial epithelium. 11/11/20201204 CLINICAL DIAGNOSIS Right upper lobe abnormality and cancer 11/10/2020 - 1455 GROSS DIAGNOSIS Received in CytoLyt labeled "right hilar lymph node" submitted for cell block. -OA 11/11/20201204 Signed SALAZAR ALLEN MD 11/11/2020 1206 5 FINAL DIAGNOSIS Lung, right upper lobe, biopsy: [...] -OA 11/10/20201433 Signed SALAZAR ALLEN MD 11/16/2020 0900 6 note:<nlbl:demographic_chang ed> 7 Units are mL/min/1.73 m2 Chronic Kidney Disease Staging per NKF: Stage I & II GFR >=60 Normal to Mildly Decreased Stage III GFR 30-59 Moderately Decreased Stage IV GFR 15-29 Severely Decreased Stage V GFR <15 Very Little GFR Left ESRD GFR <15 on PROMOTION OFFICER 8 Units are mL/min/1.73 m2 Chronic Kidney Disease Staging per NKF: Stage I & II GFR >=60 Normal to Mildly Decreased Stage III GFR 30-59 Moderately Decreased Stage IV GFR 15-29 Severely Decreased Stage V GFR <15 Very Little GFR Left ESRD GFR <15 on PROMOTION OFFICER 9 note:<nlbl:demographic_chang ed> 10 Units are mL/min/1.73 m2 Chronic Kidney Disease Staging per NKF: Stage I & II GFR >=60 Normal to Mildly Decreased Stage III GFR 30-59 Moderately Decreased Stage IV GFR 15-29 Severely Decreased Stage V GFR <15 Very Little GFR Left ESRD GFR <15 on PROMOTION OFFICER Procedures Date Code Description Status 11/16/2020 48519 Tobacco Cessation Counseling Com pleted 11/16/2020 62501 Office/Outpatient Established Mo d MDM 30-39 Min Completed 10/19/2020 64520 Office/Outpatient Established Mo d MDM 30-39 Min Completed 10/19/2020 11856 Spirometry Completed 08/02/2020 32227 Office/Outpatient New Low MDM 30 -44 Minutes Completed 07/01/2020 64445 Tobacco Cessation Counseling Com pleted 07/01/2020 36179 Office/Outpatient Established Mo d MDM 30-39 Min Completed 07/01/2020 78958 Spirometry Completed Medical Devices Description No Information [...] w oth disorders Office Visit 08/02/2020 11:00a [facility] Sivakumar Paz MD M54.41 Lumbago with sciatica, right side Office Visit 07/01/2020 11:30a [facility] Vanessa Lew M.D. G47.33 Obstructive [...] Description No Information Available Referrals Refer to Reason for Referral Status Appt Date Kaleb Shepard M.D. newly dx adenocarcinoma in RUL, presume d stage 1A Scheduled 11/23/2020 [facility] [address] [place], [place] [phone] Live Leiva M.D. newly dx adenocarcinoma stage presumed stage 1A Created [address] [address] [phone] Radiology/Procedure [id number] Created
--- OUTSIDE RECORDS SUMMARY | 2020-12-08 10:11 | CCD | Continuity of Care Document ---
Author Author Yue FERREIRA M.D. Organization Unknown Address [address] [place] [address] Phone [phone] Care Team Providers Care Associate Java Developer Name Role Phone Balbina Hayden P.A.-C AUTM [...] SIG Qnty Indications Ordering Provide r Date Proair HFA 108(90Base) mcg/Act Aer osol 2 [...] lb BMI (Body Mass Index) 27.5 kg/m2 [place] Body Weight 105 lb Weight 65.999 kg BSA (Body Surface Area) 1.65 m2 10/19/2020 8:37am BP Systolic 132 mmHg BP Diastolic 78 mmHg Heart Rate 97 /min O2 % BldC Oximetry 96 % Height 61 inches 5'1" Weight 145.38 lb BMI (Body Mass Index) 27.5 kg/m2 [place] Body Weight 105 lb Weight 65.942 kg BSA (Body Surface Area) 1.65 m2 Results Test Acquired Date Facility Test Result H/L Range Note Laboratory test finding 11/10/2020 [facility] [address] [place] [address] [phone] Non Chucking Machine Set Up Operator/Cytology Req For Servi (SEE NOTE) 1 Laboratory test finding 11/10/2020 [facility] Main Lab [address] [place] [address] [phone] Non Chucking Machine Set Up Operator/Cytology Req For Servi (SEE NOTE) 2 Laboratory test finding 11/10/2020 [facility] [address] [place] [address] [phone] Non Chucking Machine Set Up Operator/Cytology Req For Servi (SEE NOTE) 3 Laboratory test finding 11/10/2020 [facility] [address] [place] [address] [phone] Pathology Request For Service (SEE NOTE) 4 Laboratory test finding 11/10/2020 [facility] Main Lab [address] [place] [address] [phone] Pathology Request For Service (SEE NOTE) 5 FVL/[place] 10/19/2020 [employer] PDFReport SEE IMAGE FVC-Pred 2.74 L FVC-Pre 2.42 L FVC-%Pred-Pre 88 L FVC-LLN 2.11 L Fev1-Pred 2.08 L Fev1-Pre 1.80 L Fev1-%Pred-Pre 86 L Fev1-LLN 1.55 L Fev6-Pred 2.62 L Fev6-Pre 2.42 L Fev6-%Pred-Pre 92 L Fev6-LLN 2.00 L Pzq7asl-Tmgf 77 % Wgc1ejp-Ddd 74 % Bgh4lkl-%Pred-Pre 96 % Xru5ebq-BZB 67 % Bpt0rws-Doio 96 % Hzq0tyg-Xwf 100 % Ala3hmg-%Pred-Pre 104 % FEFMax-Pred 5.41 L/E/sec FEFMax-Pre 2.57 L/E/sec FEFMax-%Pred-Pre 47 L/E/sec FEFMax-LLN 3.85 L/E/sec Xbt8267-Iync 1.87 L/E/sec Joq7734-Faw 1.51 L/E/sec Kva6680-%Pred-Pre 80 L/E/sec Jph3995-HSD 0.74 L/E/sec ExpTime-Pre 6.17 sec Jcm3mus4-Cqfm 80 % Lhr7ren3-Uxy 74 % Kqn1xwg5-%Pred-Pre 93 % Xct7ygq9-HRT 71 % BUN & Creatinine ([facility]) 10/08/2020 [facility] Main Lab [address] [place], [place] 0605000 [phone] Blood Urea Nitrogen 16 mg/dL Normal 7-18 6 Creatinine With GFR 10/08/2020 [facility] nter Main Lab [address] [place] [address] [phone] Creatinine For GFR 0.73 mg/dL Normal 0.55-1.30 Glomerular Filtration Rate > 60.0 Normal >45 7 Basic Metabolic Profile 10/08/2020 [facility] Main Lab [address] [place], [place] 7845075 [phone] Glucose, Fasting 89 mg/dL Normal 70-100 Blood [...] 8-16 Calcium Level 9.0 mg/dL Normal 8.8-10.2 FVL/[place] 07/01/2020 [employer] PDFReport SEE IMAGE FVC-Pred 2.74 L FVC-Pre 2.45 L FVC-%Pred-Pre 89 L FVC-LLN 2.11 L Fev1-Pred 2.08 L Fev1-Pre 1.51 L Fev1-%Pred-Pre 72 L Fev1-LLN 1.55 L Fev6-Pred 2.62 L Fev6-Pre 2.45 L Fev6-%Pred-Pre 93 L Fev6-LLN 2.00 L Uef3iov-Gqaq 77 % Clc1ezz-Voj 62 % Mnf2rao-%Pred-Pre 80 % Iwp5qok-LEK 67 % Psj6lqq-Hsiz 96 % Kqc9xyl-Zwu 100 % Fqi9ndn-%Pred-Pre 104 % FEFMax-Pred 5.41 L/E/sec FEFMax-Pre 2.23 L/E/sec FEFMax-%Pred-Pre 41 L/E/sec FEFMax-LLN 3.85 L/E/sec Mzm2169-Utyk 1.87 L/E/sec Zxy5553-Yml 1.08 L/E/sec Joz3165-%Pred-Pre 57 L/E/sec Esk0019-NGX 0.74 L/E/sec ExpTime-Pre 7.35 sec Joz5iyc8-Pssq 80 % Tnn5wsd3-Wva 62 % Usr3xlx2-%Pred-Pre 77 % Nyj4tpj4-SCJ 71 % BUN & Creatinine ([facility]) 06/28/2020 [facility] Main Lab [address] [place], [place] [id number] [phone] Blood Urea Nitrogen 11 mg/dL Normal 7-18 9 Creatinine With GFR 06/28/2020 [facility] nter Main Lab [address] [place] [address] [phone] Creatinine For GFR 0.66 mg/dL Normal 0.55-1.30 Glomerular Filtration Rate > 60.0 Normal >45 1 0 1 SPECIMEN: FNA Rig ht hilar lymph node Sldies and Cytolyt (red) received SPECIMEN ADEQUACY: Satisfactory for evaluation CATEGORIZATION: No Malignancy identified DESCRIPTIONS: Specimen consists mainly of red blood cells with some lymphocytes and bronchail cells noted. COMMENTS: 11/11/2020 - [address](ASCP) 11/11/20201017 (Prelim) Signed SALAZAR ALLEN MD 11/11/20201206 2 SPECIMEN: FNA Sub carinal lymph node Slides and Cytolyt (clear) received SPECIMEN ADEQUACY: Satisfactory for evaluation CATEGORIZATION: No Malignancy identified DESCRIPTIONS: Sparsely cellular specimen consisting of scant blood elements only. COMMENTS: 11/11/2020955 Signed PITA REY CT(ASCP) 11/11/2020955 (Prelim) Signed SALAZAR ALLEN MD 11/11/20201205 3 SPECIMEN: FNA Rig ht upper lobe lung SLides and Cytolyt received (clear) SPECIMEN ADEQUACY: Satisfactory for evaluation CATEGORIZATION: No Malignancy identified DESCRIPTIONS: Scattered bronchial cells noted in a background of rare lymphocytes and abundant red blood cells. COMMENTS: 11/11/2020942 Signed PITA REY CT(ASCP) 11/11/2020942 (Prelim) Signed SALAZAR ALLEN MD 11/12/2020825 4 FINAL DIAGNOSIS Right hilar lymph node, FNA cell-block: Negative for malignancy. Lymphoid cells, cartilage and bronchial epithelium. 11/11/20201204 CLINICAL DIAGNOSIS Right upper lobe abnormality and cancer 11/10/2020 - 1455 GROSS DIAGNOSIS Received in CytoLyt labeled "right hilar lymph node" submitted for cell block. -OA 11/11/20201204 Signed SALAZAR ALLEN MD 11/11/20201205 5 FINAL DIAGNOSIS Lung, right upper lobe, [...] DIAGNOSIS Right upper lobe abnormality and cancer 11/10/20202020 GROSS DIAGNOSIS Received in formalin labeled "right upper lobe forceps biopsy" and consists of a fragment of tissue, 0.5 x 0.5 x 0.1 cm. All in one. -OA 11/10/2020 - 1433 Signed SALAZAR ALLEN MD 11/16/2020 0900 6 note:<nlbl:demographic_[facility] ed> 7 Units are mL/min/1.73 m2 Chronic Kidney Disease Staging per NKF: Stage I & II GFR >=60 Normal to Mildly Decreased Stage III GFR 30-59 Moderately Decreased Stage IV GFR 15-29 Severely Decreased Stage V GFR <15 Very Little GFR Left ESRD GFR <15 on DATA WAREHOUSING SPECIALIST 8 Units are mL/min/1.73 m2 Chronic Kidney Disease Staging per NKF: Stage I & II GFR >=60 Normal to Mildly Decreased Stage III GFR 30-59 Moderately Decreased Stage IV GFR 15-29 Severely Decreased Stage V GFR <15 Very Little GFR Left ESRD GFR <15 on DATA WAREHOUSING SPECIALIST 9 note:<nlbl:demographic_[facility] ed> 10 Units are mL/min/1.73 m2 Chronic Kidney Disease Staging per NKF: Stage I & II GFR >=60 Normal to Mildly Decreased Stage III GFR 30-59 Moderately Decreased Stage IV GFR 15-29 Severely Decreased Stage V GFR <15 Very Little GFR Left ESRD GFR <15 on DATA WAREHOUSING SPECIALIST Procedures Date Code Description Status 10/19/2020 34410 Office/Outpatient Established Mo d MDM 30-39 Min Completed 10/19/2020 94908 Spirometry Completed 08/02/2020 27605 Office/Outpatient New Low MDM 30 -44 Minutes Completed 07/01/2020 80363 Tobacco Cessation Counseling Com pleted 07/01/2020 86977 Office/Outpatient Established Mo d MDM 30-39 Min Completed 07/01/2020 47023 Spirometry Completed Medical Devices Description No Information Available Encounters Type Date Location Provider Dx Diagnosis Office Visit 10/19/2020 8:30a [facility] Vanessa Lwe M.D. R91.8 Other nonspecific abnormal f inding of lung field G47.33 Obstructive sleep apnea (neelam lt) (pediatric) J43.9 Emphysema, unspecified F17.218 Nicotine dependence, cigaret kamryn, w oth disorders Office Visit 08/02/2020 11:00a [facility] Paz MD M54.41 Lumbago with sciatica, right side Office Visit 07/01/2020 11:30a [facility] K Vanessa montgomery M.D. G47.33 Obstructive sleep apnea (neelam lt) (pediatric) R91.8 Other nonspecific abnormal f inding of lung field J43.9 Emphysema, unspecified F17.218 Nicotine dependence, cigaret kamryn, w oth disorders Assessments Date Code Description Provider 10/19/2020 R91.8 Other nonspecific abnormal findi ng [...] disorders Vanessa Ferreira M.D. Plan of Treatment 10/19/2020 - Vanessa Ferreira M.D.* R91.8 Other nonspecific abnormal finding of lung field * G47.33 Obstructive sleep apnea (adult) (pediatric) * J43.9 Emphysema, unspecified * F17.218 Nicotine dependence, cigarettes, with other nicotine-induced disorders * * New Xrays:* PET/CT Skull Base To Mid-Thigh, Scheduled: 11/29/20 * Follow up:* Follow up in office after procedure. Functional Status Description No Information Available Mental Status Description No Information Available Referrals Refer to Reason for Referral Status Appt Date Radiology/Procedure [id number] Created
--- OUTSIDE RECORDS SUMMARY | 2020-12-08 10:11 | CCD | Continuity of Care Document ---
Author Author Yue FERREIRA M.D. Organization Unknown Address [address] [place] [address] Phone [phone] Care Team Providers Care Supervisor Packing Name Role Phone Balbina Hayden P.A.-C AUTM [phone] AUTM Unavailable AUTM Unavailable Problems Description No [...] lb BMI (Body Mass Index) 27.5 kg/m2 [place] Body Weight 105 lb Weight 65.999 kg BSA (Body Surface Area) 1.65 m2 10/19/2020 8:37am BP Systolic 132 mmHg BP Diastolic 78 mmHg Heart Rate 97 /min O2 % BldC Oximetry 96 % Height 61 inches 5'1" Weight 145.38 lb BMI (Body Mass Index) 27.5 kg/m2 [place] Body Weight 105 lb Weight 65.942 kg BSA (Body Surface Area) 1.65 m2 Results Test Acquired Date Facility Test Result H/L Range Note Laboratory test finding 11/10/2020 [facility] [address] [place] [address] [phone] Non Cable Braider/Cytology Req For Servi (SEE NOTE) 1 Laboratory test finding 11/10/2020 [facility] Main Lab [address] [place] [address] 65[address] [phone] Non Cable Braider/Cytology Req For Servi (SEE NOTE) 2 Laboratory test finding 11/10/2020 [facility] [address] [place] [address] 105[address] [phone] Non Cable Braider/Cytology Req For Servi (SEE NOTE) 3 Laboratory test finding 11/10/2020 [facility] [address] [place] [address] [phone] Pathology Request For Service (SEE NOTE) 4 Laboratory test finding 11/10/2020 [facility] Main Lab [address] [place] [address] 85157 [phone] Pathology Request For Service (SEE NOTE) 5 FVL/[place] 10/19/2020 [employer] PDFReport SEE IMAGE FVC-Pred 2.74 L FVC-Pre 2.42 L FVC-%Pred-Pre 88 L FVC-LLN 2.11 L Fev1-Pred 2.08 L Fev1-Pre 1.80 L Fev1-%Pred-Pre 86 L Fev1-LLN 1.55 L Fev6-Pred 2.62 L Fev6-Pre 2.42 L Fev6-%Pred-Pre 92 L Fev6-LLN 2.00 L Emo5fnj-Dkdc 77 % Tag8goe-Cux 74 % Ohc3qtj-%Pred-Pre 96 % Wou3tuy-YZI 67 % Egm0jxr-Hmog 96 % Frk5say-Oae 100 % Gji5dna-%Pred-Pre 104 % FEFMax-Pred 5.41 L/E/sec FEFMax-Pre 2.57 L/E/sec FEFMax-%Pred-Pre 47 L/E/sec FEFMax-LLN 3.85 L/E/sec Tot5357-Itya 1.87 L/E/sec Usr8651-Khl 1.51 L/E/sec Zjn8112-%Pred-Pre 80 L/E/sec Rdi4841-MOE 0.74 L/E/sec ExpTime-Pre 6.17 sec Fyq1bih1-Xldz 80 % Fyy3xyb8-Etn 74 % Wme3ytz0-%Pred-Pre 93 % Yzh3sdk1-XKH 71 % BUN & Creatinine ([facility]) 10/08/2020 [facility] Main Lab 0 [place], [place] 5383532 [phone] Blood Urea Nitrogen 16 mg/dL Normal 7-18 6 Creatinine With GFR 10/08/2020 [facility] nter Main Lab [address] [place] [address] [id number] [phone] Creatinine For GFR 0.73 mg/dL Normal 0.55-1.30 Glomerular Filtration Rate > 60.0 Normal >45 7 Basic Metabolic Profile 10/08/2020 [facility] Main Lab [address] [place], [place] 2587154 [phone] Glucose, Fasting 89 mg/dL Normal 70-100 Blood [...] 8-16 Calcium Level 9.0 mg/dL Normal 8.8-10.2 FVL/[place] 07/01/2020 [employer] PDFReport SEE IMAGE FVC-Pred 2.74 L FVC-Pre 2.45 L FVC-%Pred-Pre 89 L FVC-LLN 2.11 L Fev1-Pred 2.08 L Fev1-Pre 1.51 L Fev1-%Pred-Pre 72 L Fev1-LLN 1.55 L Fev6-Pred 2.62 L Fev6-Pre 2.45 L Fev6-%Pred-Pre 93 L Fev6-LLN 2.00 L Wxa8jgw-Pshj 77 % Kxx4wad-Ooo 62 % Qse7fif-%Pred-Pre 80 % Sue3nzc-SIK 67 % Awk3gcg-Qjxh 96 % Opb9zql-Esq 100 % Cfr6xwf-%Pred-Pre 104 % FEFMax-Pred 5.41 L/E/sec FEFMax-Pre 2.23 L/E/sec FEFMax-%Pred-Pre 41 L/E/sec FEFMax-LLN 3.85 L/E/sec Brg7198-Qyzn 1.87 L/E/sec Jpt8758-Set 1.08 L/E/sec Xki8717-%Pred-Pre 57 L/E/sec Vtj7861-KKE 0.74 L/E/sec ExpTime-Pre 7.35 sec Kec0zox1-Dsmj 80 % Urc6izo2-Xsp 62 % Qre2hmb6-%Pred-Pre 77 % Ufk8dna7-MVJ 71 % BUN & Creatinine ([facility]) 06/28/2020 [facility] Main Lab [address] [place], [place] 1223463 [phone] Blood Urea Nitrogen 11 mg/dL Normal 7-18 9 Creatinine With GFR 06/28/2020 [facility] nter Main Lab [address] [place] [address] [phone] Creatinine For GFR 0.66 mg/dL Normal 0.55-1.30 [...] Signed SALAZAR ALLEN MD 11/16/2020 0900 6 note:<nlbl:demographic_[facility] ed> 7 Units are mL/min/1.73 m2 Chronic Kidney Disease Staging per NKF: Stage I & II GFR >=60 Normal to Mildly Decreased Stage III GFR 30-59 Moderately Decreased Stage IV GFR 15-29 Severely Decreased Stage V GFR <15 Very Little GFR Left ESRD GFR <15 on PYRIDINE OPERATOR 8 Units are mL/min/1.73 m2 Chronic Kidney Disease Staging per NKF: Stage I & II GFR >=60 Normal to Mildly Decreased Stage III GFR 30-59 Moderately Decreased Stage IV GFR 15-29 Severely Decreased Stage V GFR <15 Very Little GFR Left ESRD GFR <15 on PYRIDINE OPERATOR 9 note:<nlbl:demographic_[facility] ed> 10 Units are mL/min/1.73 m2 Chronic Kidney Disease Staging per NKF: Stage I & II GFR >=60 Normal to Mildly Decreased Stage III GFR 30-59 Moderately Decreased Stage IV GFR 15-29 Severely Decreased Stage V GFR <15 Very Little GFR Left ESRD GFR <15 on PYRIDINE OPERATOR Procedures Date Code Description Status 10/19/2020 62218 Office/Outpatient Established Mo d MDM 30-39 Min Completed 10/19/2020 03096 Spirometry Completed 08/02/2020 57642 Office/Outpatient New Low MDM 30 -44 Minutes Completed 07/01/2020 31966 Tobacco Cessation Counseling Com pleted 07/01/2020 97265 Office/Outpatient Established Mo d MDM 30-39 Min Completed 07/01/2020 67518 Spirometry Completed Medical Devices Description No Information Available Encounters Type Date Location Provider Dx Diagnosis Office Visit 10/19/2020 8:30a [facility] Vanessa Lew M.D. R91.8 Other nonspecific abnormal f inding of lung field G47.33 Obstructive sleep apnea (neelam lt) (pediatric) J43.9 Emphysema, unspecified F17.218 Nicotine dependence, cigaret kamryn, w oth disorders Office Visit 08/02/2020 11:00a [facility] MD M54.41 Lumbago with sciatica, right side Office Visit 07/01/2020 11:30a [facility] K Vanessa montgomery M.D. G47.33 Obstructive [...] Reason for Referral Status Appt Date Radiology/Procedure 59740 Created
--- OUTSIDE RECORDS SUMMARY | 2020-12-08 10:11 | CCD | Continuity of Care Document ---
Author Author Ham FERREIRA M.D. Organization Unknown Address [address] [place] [address] Phone [phone] Care Team Providers Care Linoleum Layer Name Role Phone Balbina Hayden P.A.-C AUTM [phone] AUTM Unavailable AUTM Unavailable Problems Description No [...] lb BMI (Body Mass Index) 27.5 kg/m2 [place] Body Weight 105 lb Weight 65.999 kg BSA (Body Surface Area) 1.65 m2 10/19/2020 8:37am BP Systolic 132 mmHg BP Diastolic 78 mmHg Heart Rate 97 /min O2 % BldC Oximetry 96 % Height 61 inches 5'1" Weight 145.38 lb BMI (Body Mass Index) 27.5 kg/m2 [place] Body Weight 105 lb Weight 65.942 kg BSA (Body Surface Area) 1.65 m2 Results Test Acquired Date Facility Test Result H/L Range Note Surgical Tissue 11/16/2020 [facility] Molecular Anatomic Molecul <SEE NOTE> 1 Laboratory test finding 11/10/2020 [facility] Main Lab [address] [place] [address] [phone] Non Sap Project Manager/Cytology Req For Servi (SEE NOTE) 2 Laboratory test finding 11/10/2020 [facility] Main Lab [address] [place], [place] [phone] Non Sap Project Manager/Cytology Req For Servi (SEE NOTE) 3 Laboratory test finding 11/10/2020 [facility] Lab [address] [place] [address] [phone] Non Sap Project Manager/Cytology Req For Servi (SEE NOTE) 4 Laboratory test finding 11/10/2020 [facility] Main Lab [address] [place] [address] [phone] Pathology Request For Service (SEE NOTE) 5 Laboratory test finding 11/10/2020 [facility] Main Lab [address] [place] [address] [phone] Pathology Request For Service (SEE NOTE) 6 FVL/Tarzan 10/19/2020 [employer] PDFReport SEE IMAGE FVC-Pred 2.74 L FVC-Pre 2.42 L FVC-%Pred-Pre 88 L FVC-LLN 2.11 L Fev1-Pred 2.08 L Fev1-Pre 1.80 L Fev1-%Pred-Pre 86 L Fev1-LLN 1.55 L Fev6-Pred 2.62 L Fev6-Pre 2.42 L Fev6-%Pred-Pre 92 L Fev6-LLN 2.00 L Sxj6elz-Yizu 77 % Fcu8qnd-Pcu 74 % Xry7ajg-%Pred-Pre 96 % Wmz2ofj-LUB 67 % Dug6jre-Amca 96 % Tjg3yhc-Czz 100 % Gjp9oll-%Pred-Pre 104 % FEFMax-Pred 5.41 L/E/sec FEFMax-Pre 2.57 L/E/sec FEFMax-%Pred-Pre 47 L/E/sec FEFMax-LLN 3.85 L/E/sec Bmu7075-Ygtf 1.87 L/E/sec Mfv0002-Sth 1.51 L/E/sec Zbq4840-%Pred-Pre 80 L/E/sec Yot0036-RXU 0.74 L/E/sec ExpTime-Pre 6.17 sec Rgt9ekz6-Cmwv 80 % Rwn3vjt9-Rpw 74 % Yik3wlq3-%Pred-Pre 93 % Jxw3lfl9-XMM 71 % BUN & Creatinine ([facility]) 10/08/2020 [facility] Main Lab [address] [place] [address] [phone] Blood Urea Nitrogen 16 mg/dL Normal 7-18 7 Creatinine With GFR 10/08/2020 [facility] Main Lab [address] [place] [address] [phone] Creatinine For GFR 0.73 mg/dL Normal 0.55-1.30 Glomerular Filtration Rate > 60.0 Normal >45 8 Basic Metabolic Profile 10/08/2020 [facility] Main Lab [address] [place] [address] [phone] Glucose, Fasting 89 mg/dL Normal 70-100 Blood [...] Level 9.0 mg/dL Normal 8.8-10.2 FVL/Joshua 07/01/2020 [employer] PDFReport SEE IMAGE FVC-Pred 2.74 L FVC-Pre 2.45 L FVC-%Pred-Pre 89 L FVC-LLN 2.11 L Fev1-Pred 2.08 L Fev1-Pre 1.51 L Fev1-%Pred-Pre 72 L Fev1-LLN 1.55 L Fev6-Pred 2.62 L Fev6-Pre 2.45 L Fev6-%Pred-Pre 93 L Fev6-LLN 2.00 L Wmn4hof-Usep 77 % Pvf6hjk-Fkl 62 % Nac2lrb-%Pred-Pre 80 % Gip3aub-DLH 67 % Npc2djd-Dvsr 96 % Fap4dgt-Zhx 100 % Vsg6npb-%Pred-Pre 104 % FEFMax-Pred 5.41 L/E/sec FEFMax-Pre 2.23 L/E/sec FEFMax-%Pred-Pre 41 L/E/sec FEFMax-LLN 3.85 L/E/sec Uwc1808-Imgk 1.87 L/E/sec Kuf7299-Qhz 1.08 L/E/sec Ikd2625-%Pred-Pre 57 L/E/sec Wyt5862-OBM 0.74 L/E/sec ExpTime-Pre 7.35 sec Juo1itz3-Iloy 80 % Jxe2zmk3-Xhc 62 % Jcf1vvd3-%Pred-Pre 77 % Lmi6jvr3-RJC 71 % BUN & Creatinine ([facility]) 06/28/2020 [facility] Main Lab [address] [place] [address] [phone] Blood Urea Nitrogen 11 mg/dL Normal 7-18 1 0 Creatinine With GFR 06/28/2020 [facility] nter Main Lab [address] [place] [address] [phone] Creatinine For GFR 0.66 mg/dL Normal 0.55-1.30 Glomerular Filtration Rate > 60.0 Normal >45 1 1 1 Anatomic Molecular Pathology Report Name: HAM OCONNELL Collection Date: 11/16/2020 00:00 Received Date: 11/16/2020 14:49 Physician(s): VANESSA FERREIRA MD ADJAPONG, OPOKU, MD Specimen(s) Received A: Lung, right upper lobe, Formalin Block, [id number], [facility], BRAF Mutation Analysis Diagnosis TESTS: BRAF V600E [...] M.D. Attending Pathologist 11/24/2020 21:06:10 Reported at [facility] Clinical Pathology Laboratory [address] [place] [address]. Gross Description METHODOLOGY: BRAF V600E(1799 T>A) mutation [...] amounts of PCR products, and analyzed by [employer] Q real time instrument. The analytical sensitivity (or minimum percentage of mutant DNA needed) is approximately 10% given sufficient DNA input. Test development and its performance characteristics were determined by the [facility], and has been authorized for clinical use by [facility]. The test has not been cleared or approved by the U.S. Food and Drug Administration. The analyte specific reagents used in this assay do not require FDA approval. REFERENCES: 1. Ida S, Juan Luis, et al. Detection of BRAF V600E mutation in colorectal cancer-comparison of automatic sequencing and real time chemistry methodology. J Mol Diagn. 2006; 8:602986. 2. Rudy L, Prema TJ, Gabino N, et al. BR AF mutation analysis in fine needle aspiration (FNA) cytology of the thyroid. Diagn Mol Pathol. 2006;15:768118. 3. Iggy PK, Lenora ME, Radha M, et al. C linical characteristics of patients with lung adenocarcinomas harboring BRAF mutations. J Clin Oncol. 2011;29:3330-4456. This report may include one or more immunohistochemical stain results that use analyte specific reagents. All positive and negative controls have been reviewed by the attending pathologist and are satisfactory. The tests were developed and their performance characteristics determined by [facility] Pathology department. They have not been cleared [...] CT(ASCP) 11/11/2020955 (Prelim) Signed SALAZAR ALLEN MD 11/11/2020 120 4 SPECIMEN: FNA Rig ht upper lobe lung SLides and Cytolyt received (clear) SPECIMEN ADEQUACY: Satisfactory for evaluation CATEGORIZATION: No Malignancy identified DESCRIPTIONS: Scattered bronchial cells noted in a background of rare lymphocytes and abundant red blood cells. COMMENTS: 11/11/2020942 Signed PITA REY CT(ASCP) 11/11/2020942 (Prelim) Signed SALAZAR ALLEN MD 11/12/2020 08 5 FINAL DIAGNOSIS Right hilar lymph node, FNA cell-block: Negative for malignancy. Lymphoid cells, cartilage and bronchial epithelium. 11/11/20201204 CLINICAL DIAGNOSIS Right upper lobe abnormality and cancer 11/10/20201454 GROSS DIAGNOSIS Received in CytoLyt labeled "right hilar lymph node" submitted for cell block. -OA 11/11/20201204 Signed SALAZAR ALLEN MD 11/11/2020 120 6 FINAL DIAGNOSIS Lung, right upper lobe, [...] 11/10/20201433 Signed SALAZAR ALLEN MD 11/16/2020 0900 7 note:<nlbl:vaughn_aminah ed> 8 Units are mL/min/1.73 m2 Chronic Kidney Disease Staging per NKF: Stage I & II GFR >=60 Normal to Mildly Decreased Stage III GFR 30-59 Moderately Decreased Stage IV GFR 15-29 Severely Decreased Stage V GFR <15 Very Little GFR Left ESRD GFR <15 on WELDING MANAGER 9 Units are mL/min/1.73 m2 Chronic Kidney Disease Staging per NKF: Stage I & II GFR >=60 Normal to Mildly Decreased Stage III GFR 30-59 Moderately Decreased Stage IV GFR 15-29 Severely Decreased Stage V GFR <15 Very Little GFR Left ESRD GFR <15 on WELDING MANAGER 10 note:<nlbl:demographic_[facility] ed> 11 Units are mL/min/1.73 m2 Chronic Kidney Disease Staging per NKF: Stage I & II GFR >=60 Normal to Mildly Decreased Stage III GFR 30-59 Moderately Decreased Stage IV GFR 15-29 Severely Decreased Stage V GFR <15 Very Little GFR Left ESRD GFR <15 on WELDING MANAGER Procedures Date Code Description Status 11/16/2020 42179 Tobacco Cessation Counseling Com pleted 11/16/2020 16539 Office/Outpatient Established Mo d MDM 30-39 Min Completed 11/10/2020 78637 With Transendoscopic Endo Ultras ound During Bronchoscopic DX Completed 11/10/2020 22090 With Endobronchial Ultrasound Gu ided Completed 11/10/2020 35359 Bronchoscopy W/Transbronchial Ne edle Aspiration Biopsy Completed 11/10/2020 89571 Bronchoscopy W/Transbronchial Davida ng Biopsy Completed 11/10/2020 90152 Bronchoscopy Rigid/F lexible Fluoroscopic Guide Computer-Assisted Completed 11/10/2020 13729 Bronchoscopy Diag W/Placement Fi ducial Markers, Single Or Mult Completed 10/19/2020 56068 Office/Outpatient Established Mo d MDM 30-39 Min Completed 10/19/2020 80222 Spirometry Completed 08/02/2020 87812 Office/Outpatient New Low MDM 30 -44 Minutes Completed 07/01/2020 19068 Tobacco Cessation Counseling Com pleted 07/01/2020 50155 Office/Outpatient Established Mo d MDM 30-39 Min Completed 07/01/2020 56239 Spirometry Completed Medical Devices Description No Information Available Encounters Type Date Location Provider Dx Diagnosis Office Visit 11/16/2020 10:30a [facility] Pulmonary/Thoracic Vanessa Lew M.D. G47.33 Obstructive sleep apnea (neelam lt) (pediatric) J43.9 Emphysema, unspecified F17.218 Nicotine dependence, cigaret kamryn, w oth disorders C34.11 Malignant neoplasm of upper lobe, right bronchus or lung Office Visit 10/19/2020 8:30a [facility] Pulmonary/Thoracic Vanessa Lew M.D. R91.8 Other nonspecific abnormal f inding of lung field G47.33 Obstructive sleep apnea (neelam lt) (pediatric) J43.9 Emphysema, unspecified F17.218 Nicotine dependence, cigaret kamryn, w oth disorders Office Visit 08/02/2020 11:00a [facility] Orthopedics Sivakumar Paz MD M54.41 Lumbago with sciatica, right side Office Visit 07/01/2020 11:30a [facility] Pulmonary/Thoracic Vanessa Lew M.D. G47.33 Obstructive sleep [...] right bronchus or lung Vanessa Ferreira M.D. 11/10/2020 R91.1 Solitary pulmonary nodule Vanessa Ferreira M.D. 11/10/2020 R59.0 Localized enlarged lymph nodes Vanessa Lew M.D. 10/19/2020 R91.8 Other nonspecific abnormal findi [...] lobe, right bronchus or lung * * Referral:* Kaleb Shepard M.D., Radiation Oncology [...] RUL, presume d stage 1A Scheduled 11/23/2020 [facility] Radiation Oncol [address] [place], [place] [address] [phone] Live Leiva M.D. newly dx adenocarcinoma stage presumed stage 1A Closed 12/03/[address] [address] [phone] Radiology/Procedure [id number] Closed 06/28/2020
--- OUTSIDE RECORDS SUMMARY | 2020-12-08 10:11 | CCD ---
Continuity of Care Document (CCD) Created on: 11/26/2020 Ham Oconnell External Reference #: [id number] : [id number] Sex: Female Author Author Ham FERREIRA M.D. Organization Unknown Address [address] [place] [address] Phone [phone] Care Team Providers Care Metal Buffer Name Role Phone Balbina Hayden P.A.-C AUTM [phone] AUTM Unavailable AUTM Unavailable Problems Description No [...] lb BMI (Body Mass Index) 27.5 kg/m2 [place] Body Weight 105 lb Weight 65.999 kg BSA (Body Surface Area) 1.65 m2 10/19/2020 8:37am BP Systolic 132 mmHg BP Diastolic 78 mmHg Heart Rate 97 /min O2 % BldC Oximetry 96 % Height 61 inches 5'1" Weight 145.38 lb BMI (Body Mass Index) 27.5 kg/m2 [place] Body Weight 105 lb Weight 65.942 kg BSA (Body Surface Area) 1.65 m2 Results Test Acquired Date Facility Test Result H/L Range Note Surgical Tissue 11/16/2020 [facility] Molecular Anatomic Molecul <SEE NOTE> 1 Laboratory test finding 11/10/2020 [facility] Main Lab [address] [place] [address] [phone] Non Carrot Harvester/Cytology Req For Servi (SEE NOTE) 2 Laboratory test finding 11/10/2020 [facility] Main Lab [address] [place], [place] [phone] Non Carrot Harvester/Cytology Req For Servi (SEE NOTE) 3 Laboratory test finding 11/10/2020 [facility] Main Lab [address] [place] [address] [phone] Non Carrot Harvester/Cytology Req For Servi (SEE NOTE) 4 Laboratory test finding 11/10/2020 [facility] Main Lab [address] [place] [address] [phone] Pathology Request For Service (SEE NOTE) 5 Laboratory test finding 11/10/2020 [facility] Main Lab [address] [place] [address] [phone] Pathology Request For Service (SEE NOTE) 6 FVL/Alexandria 10/19/2020 [employer] PDFReport SEE IMAGE FVC-Pred 2.74 L FVC-Pre 2.42 L FVC-%Pred-Pre 88 L FVC-LLN 2.11 L Fev1-Pred 2.08 L Fev1-Pre 1.80 L Fev1-%Pred-Pre 86 L Fev1-LLN 1.55 L Fev6-Pred 2.62 L Fev6-Pre 2.42 L Fev6-%Pred-Pre 92 L Fev6-LLN 2.00 L Dpk3rgq-Rqjy 77 % Nhi2udv-Gre 74 % Nkc2vek-%Pred-Pre 96 % Wgo8upf-NOO 67 % Whb3yrc-Aimy 96 % Sqd2jhy-Tmw 100 % Tzf6xku-%Pred-Pre 104 % FEFMax-Pred 5.41 L/E/sec FEFMax-Pre 2.57 L/E/sec FEFMax-%Pred-Pre 47 L/E/sec FEFMax-LLN 3.85 L/E/sec Lru9172-Nkfn 1.87 L/E/sec Ayd9142-Aou 1.51 L/E/sec Oju0284-%Pred-Pre 80 L/E/sec Dfg1765-SEO 0.74 L/E/sec ExpTime-Pre 6.17 sec Vpm8fhs0-Pafa 80 % Kzv1nmk4-Tha 74 % Zvl9pru3-%Pred-Pre 93 % Orv5acg6-VIL 71 % BUN & Creatinine ([facility]) 10/08/2020 [facility] Main Lab [address] [place] [address] [phone] Blood Urea Nitrogen 16 mg/dL Normal 7-18 7 Creatinine With GFR 10/08/2020 [facility] Main Lab [address] [place] [address] [phone] Creatinine For GFR 0.73 mg/dL Normal 0.55-1.30 Glomerular Filtration Rate > 60.0 Normal >45 8 Basic Metabolic Profile 10/08/2020 [facility] Main Lab [address] [place] [address] [phone] Glucose, Fasting 89 mg/dL Normal 70-100 Blood [...] Level 9.0 mg/dL Normal 8.8-10.2 FVL/Joshua 07/01/2020 [facility] PDFReport SEE IMAGE FVC-Pred 2.74 L FVC-Pre 2.45 L FVC-%Pred-Pre 89 L FVC-LLN 2.11 L Fev1-Pred 2.08 L Fev1-Pre 1.51 L Fev1-%Pred-Pre 72 L Fev1-LLN 1.55 L Fev6-Pred 2.62 L Fev6-Pre 2.45 L Fev6-%Pred-Pre 93 L Fev6-LLN 2.00 L Qpl4ozh-Agux 77 % Yxd4pvd-Ayx 62 % Ayy4dla-%Pred-Pre 80 % Pvu6bwu-QNA 67 % Dqs3gzo-Csub 96 % Sdy6his-Kbl 100 % Azv7kbu-%Pred-Pre 104 % FEFMax-Pred 5.41 L/E/sec FEFMax-Pre 2.23 L/E/sec FEFMax-%Pred-Pre 41 L/E/sec FEFMax-LLN 3.85 L/E/sec Hra3019-Dvps 1.87 L/E/sec Iwb6782-Gmp 1.08 L/E/sec Muy4909-%Pred-Pre 57 L/E/sec Owx0693-CTF 0.74 L/E/sec ExpTime-Pre 7.35 sec Kpn9vfo6-Qwqu 80 % Owk4hne0-Yfa 62 % Ayk2kke6-%Pred-Pre 77 % Sbn6zip8-AFP 71 % BUN & Creatinine ([facility]) 06/28/2020 [facility] Main Lab [address] [place] [address] [phone] Blood Urea Nitrogen 11 mg/dL Normal 7-18 1 0 Creatinine With GFR 06/28/2020 [facility] nter Main Lab [address] [place] [address] [phone] Creatinine For GFR 0.66 mg/dL Normal 0.55-1.30 Glomerular Filtration Rate > 60.0 Normal >45 1 1 1 Anatomic Molecular Pathology Report Name: HAM OCONNELL Collection Date: 11/16/2020 00:00 Received Date: 11/16/2020 14:49 Physician(s): VANESSA FERREIRA MD ADJAPONG, OPOKU, MD Specimen(s) Received A: Lung, right upper lobe, Formalin Block, [id number], [facility], BRAF Mutation Analysis Diagnosis TESTS: BRAF [...] M.D. Attending Pathologist 11/24/2020 21:06:10 Reported at [facility] Clinical Pathology Laboratory [address] [place] [address]. Gross Description METHODOLOGY: BRAF V600E(1799 T>A) mutation [...] amounts of PCR products, and analyzed by [employer] Q real time instrument. The analytical sensitivity (or minimum percentage of mutant DNA needed) is approximately 10% given sufficient DNA input. Test development and its performance characteristics were determined by the [facility], and has been authorized for clinical use by [facility]. The test has not been cleared or approved by the U.S. Food and Drug Administration. The analyte specific reagents used in this assay do not require FDA approval. REFERENCES: 1. Ida S, Juan Luis, et al. Detection of BRAF V600E mutation in colorectal cancer-comparison of automatic sequencing and real time chemistry methodology. J Mol Diagn. 2006; 8:983111. 2. Rudy L, Prema TJ, Gabino N, et al. BR AF mutation analysis in fine needle aspiration (FNA) cytology of the thyroid. Diagn Mol Pathol. 2006;15:614145. 3. Iggy PK, Lenora ME, Radha M, et al. C linical characteristics of patients with lung adenocarcinomas harboring BRAF mutations. J Clin Oncol. 2011;29:7866-1590. This report may include one or more immunohistochemical stain results that use analyte specific reagents. All positive and negative controls have been reviewed by the attending pathologist and are satisfactory. The tests were developed and their performance characteristics determined by [facility] Pathology department. They have not [...] Signed SALAZAR ALLEN MD 11/16/2020 0900 7 note:<nlbl:vaughn_[facility] ed> 8 Units are mL/min/1.73 m2 Chronic Kidney Disease Staging per NKF: Stage I & II GFR >=60 Normal to Mildly Decreased Stage III GFR 30-59 Moderately Decreased Stage IV GFR 15-29 Severely Decreased Stage V GFR <15 Very Little GFR Left ESRD GFR <15 on FUNCTIONAL ARCHITECT 9 Units are mL/min/1.73 m2 Chronic Kidney Disease Staging per NKF: Stage I & II GFR >=60 Normal to Mildly Decreased Stage III GFR 30-59 Moderately Decreased Stage IV GFR 15-29 Severely Decreased Stage V GFR <15 Very Little GFR Left ESRD GFR <15 on FUNCTIONAL ARCHITECT 10 note:<nlbl:demographic_[facility] ed> 11 Units are mL/min/1.73 m2 Chronic Kidney Disease Staging per NKF: Stage I & II GFR >=60 Normal to Mildly Decreased Stage III GFR 30-59 Moderately Decreased Stage IV GFR 15-29 Severely Decreased Stage V GFR <15 Very Little GFR Left ESRD GFR <15 on FUNCTIONAL ARCHITECT Procedures Date Code Description Status 11/16/2020 77133 Tobacco Cessation Counseling Com pleted 11/16/2020 12654 Office/Outpatient Established Mo d MDM 30-39 Min Completed 10/19/2020 26642 Office/Outpatient Established Mo d MDM 30-39 Min Completed 10/19/2020 74238 Spirometry Completed 08/02/2020 36223 Office/Outpatient New Low MDM 30 -44 Minutes Completed 07/01/2020 22008 Tobacco Cessation Counseling Com pleted 07/01/2020 32252 Office/Outpatient Established Mo d MDM 30-39 Min Completed 07/01/2020 45480 Spirometry Completed Medical Devices Description No Information Available Encounters Type Date Location Provider Dx Diagnosis Office Visit 11/16/2020 10:30a [facility]monary/Thoracic Vanessa Lew M.D. G47.33 Obstructive sleep apnea (neelam lt) (pediatric) J43.9 Emphysema, unspecified F17.218 Nicotine dependence, cigaret kamryn, w oth disorders C34.11 Malignant neoplasm of upper lobe, right bronchus or lung Office Visit 10/19/2020 8:30a [facility] Pulmonary/Thoracic Vanessa Lew M.D. R91.8 Other nonspecific abnormal f inding of lung field G47.33 Obstructive sleep apnea (neelam lt) (pediatric) J43.9 Emphysema, unspecified F17.218 Nicotine dependence, cigaret kamryn, w oth disorders Office Visit 08/02/2020 11:00a [facility] Orthopedics Sivakumar Paz MD M54.41 Lumbago with sciatica, right side Office Visit 07/01/2020 11:30a [facility] Pulmonary/Thoracic K Vanessa montgomery M.D. G47.33 Obstructive [...] RUL, presume d stage 1A Scheduled 11/23/2020 [facility] Radiation Oncol [address] [place] [address] [phone] Live Leiva M.D. newly dx adenocarcinoma stage presumed stage 1A Created [address] [address] [phone] Radiology/Procedure 14565 Created
--- OUTSIDE RECORDS SUMMARY | 2020-12-08 10:11 | CCD | Continuity of Care Document ---
Author Author Ham FERREIRA M.D. Organization Unknown Address [address] [place] [address] Phone [phone] Care Team Providers Care Airplane Gas Tank Liner Assembler Name Role Phone Balbina Hayden P.A.-C AUTM [...] lb BMI (Body Mass Index) 27.5 kg/m2 [place] Body Weight 105 lb Weight 65.999 kg BSA (Body Surface Area) 1.65 m2 10/19/2020 8:37am BP Systolic 132 mmHg BP Diastolic 78 mmHg Heart Rate 97 /min O2 % BldC Oximetry 96 % Height 61 inches 5'1" Weight 145.38 lb BMI (Body Mass Index) 27.5 kg/m2 [place] Body Weight 105 lb Weight 65.942 kg BSA (Body Surface Area) 1.65 m2 Results Test Acquired Date Facility Test Result H/L Range Note Surgical Tissue 11/16/2020 [facility] Molecular Anatomic Molecul <SEE NOTE> 1 Laboratory test finding 11/10/2020 [facility] Main Lab [address] [place] [address] [phone] Non Architectural Design Lecturer/Cytology Req For Servi (SEE NOTE) 2 Laboratory test finding 11/10/2020 [facility] Main Lab [address] [place], [place] [phone] [phone] Non Architectural Design Lecturer/Cytology Req For Servi (SEE NOTE) 3 Laboratory test finding 11/10/2020 [facility] Main Lab [address] [place] [address] [phone] Non Architectural Design Lecturer/Cytology Req For Servi (SEE NOTE) 4 Laboratory test finding 11/10/2020 [facility] Main Lab [address] [place] [address] [phone] Pathology Request For Service (SEE NOTE) 5 Laboratory test finding 11/10/2020 [facility] Main Lab [address] [place] [address] [phone] Pathology Request For Service (SEE NOTE) 6 FVL/Holliday 10/19/2020 [employer] PDFReport SEE IMAGE FVC-Pred 2.74 L FVC-Pre 2.42 L FVC-%Pred-Pre 88 L FVC-LLN 2.11 L Fev1-Pred 2.08 L Fev1-Pre 1.80 L Fev1-%Pred-Pre 86 L Fev1-LLN 1.55 L Fev6-Pred 2.62 L Fev6-Pre 2.42 L Fev6-%Pred-Pre 92 L Fev6-LLN 2.00 L Kqr1zjh-Sqjw 77 % Pys2jrr-Tsu 74 % Pbi2qsj-%Pred-Pre 96 % Gqh4yvh-INI 67 % Gkt1gwe-Pxbm 96 % Ptp2kjn-Bnn 100 % Hut4cih-%Pred-Pre 104 % FEFMax-Pred 5.41 L/E/sec FEFMax-Pre 2.57 L/E/sec FEFMax-%Pred-Pre 47 L/E/sec FEFMax-LLN 3.85 L/E/sec Xxj4852-Uwif 1.87 L/E/sec Pll8245-Aai 1.51 L/E/sec Nhp4598-%Pred-Pre 80 L/E/sec Rwn4392-OIT 0.74 L/E/sec ExpTime-Pre 6.17 sec Eqf4xwj5-Kkqy 80 % Tmq0jux2-Gsq 74 % Zyi8cro2-%Pred-Pre 93 % Bon9xru9-JEC 71 % BUN & Creatinine ([facility]) 10/08/2020 [facility] Main Lab [address] [place] [address] [phone] Blood Urea Nitrogen 16 mg/dL Normal 7-18 7 Creatinine With GFR 10/08/2020 [facility] Main Lab [address] [place] [address] [phone] Creatinine For GFR 0.73 mg/dL Normal 0.55-1.30 Glomerular Filtration Rate > 60.0 Normal >45 8 Basic Metabolic Profile 10/08/2020 [facility] Main Lab [address] [place] [address] [phone] Glucose, Fasting 89 mg/dL Normal 70-100 Blood [...] Level 9.0 mg/dL Normal 8.8-10.2 FVL/Joshua 07/01/2020 [employer] PDFReport SEE IMAGE FVC-Pred 2.74 L FVC-Pre 2.45 L FVC-%Pred-Pre 89 L FVC-LLN 2.11 L Fev1-Pred 2.08 L Fev1-Pre 1.51 L Fev1-%Pred-Pre 72 L Fev1-LLN 1.55 L Fev6-Pred 2.62 L Fev6-Pre 2.45 L Fev6-%Pred-Pre 93 L Fev6-LLN 2.00 L Mew5pib-Rngk 77 % Wum6eme-Hrh 62 % Amr4dcf-%Pred-Pre 80 % Euk3kgd-GAJ 67 % Knc4hvg-Mqdy 96 % Ddj4nny-Kee 100 % Ese0ejw-%Pred-Pre 104 % FEFMax-Pred 5.41 L/E/sec FEFMax-Pre 2.23 L/E/sec FEFMax-%Pred-Pre 41 L/E/sec FEFMax-LLN 3.85 L/E/sec Khe6314-Lsfw 1.87 L/E/sec Mtk1081-Jlq 1.08 L/E/sec Inp3294-%Pred-Pre 57 L/E/sec Gwi8523-KLV 0.74 L/E/sec ExpTime-Pre 7.35 sec Ghj2kmy1-Yibj 80 % Gft7ymg1-Ezq 62 % Mcz2yku8-%Pred-Pre 77 % Qmc8qit6-NCM 71 % BUN & Creatinine ([facility]) 06/28/2020 [facility] Main Lab [address] [place] [address] [phone] Blood Urea Nitrogen 11 mg/dL Normal 7-18 1 0 Creatinine With GFR 06/28/2020 [facility] nter Main Lab [address] [place] [address] [phone] Creatinine For GFR 0.66 mg/dL Normal 0.55-1.30 Glomerular Filtration Rate > 60.0 Normal >45 1 1 1 Anatomic Molecular Pathology Report Name: HAM OCONNELL Collection Date: 11/16/2020 00:00 Received Date: 11/16/2020 14:49 Physician(s): VANESSA FERREIRA MD ADJAPONG, OPOKU, MD Specimen(s) Received A: Lung, right upper lobe, Formalin Block, [id number], [facility], BRAF Mutation Analysis Diagnosis TESTS: BRAF V600E [...] M.D. Attending Pathologist 11/24/2020 21:06:10 Reported at [facility] Clinical Pathology Laboratory [address] [place] [address]. Gross Description METHODOLOGY: BRAF V600E(1799 T>A) mutation [...] amounts of PCR products, and analyzed by [employer] Q real time instrument. The analytical sensitivity (or minimum percentage of mutant DNA needed) is approximately 10% given sufficient DNA input. Test development and its performance characteristics were determined by the [facility], and has been authorized for clinical use by [facility]. The test has not been cleared or approved by the U.S. Food and Drug Administration. The analyte specific reagents used in this assay do not require FDA approval. REFERENCES: 1. Ida S, Juan Luis, et al. Detection of BRAF V600E mutation in colorectal cancer-comparison of automatic sequencing and real time chemistry methodology. J Mol Diagn. 2006; 8:687668. 2. Rudy L, Prema TJ, Gabino N, et al. BR AF mutation analysis in fine needle aspiration (FNA) cytology of the thyroid. Diagn Mol Pathol. 2006;15:469630. 3. Iggy PK, Lenora ME, Radha M, et al. C linical characteristics of patients with lung adenocarcinomas harboring BRAF mutations. J Clin Oncol. 2011;29:0548-9129. This report may include one or more immunohistochemical stain results that use analyte specific reagents. All positive and negative controls have been reviewed by the attending pathologist and are satisfactory. The tests were developed and their performance characteristics determined by [facility] Pathology department. They have not been [...] Signed SALAZAR ALLEN MD 11/16/2020 09 7 note:<nlbl:demographic_[facility] ed> 8 Units are mL/min/1.73 m2 Chronic Kidney Disease Staging per NKF: Stage I & II GFR >=60 Normal to Mildly Decreased Stage III GFR 30-59 Moderately Decreased Stage IV GFR 15-29 Severely Decreased Stage V GFR <15 Very Little GFR Left ESRD GFR <15 on HALL TENDER 9 Units are mL/min/1.73 m2 Chronic Kidney Disease Staging per NKF: Stage I & II GFR >=60 Normal to Mildly Decreased Stage III GFR 30-59 Moderately Decreased Stage IV GFR 15-29 Severely Decreased Stage V GFR <15 Very Little GFR Left ESRD GFR <15 on HALL TENDER 10 note:<nlbl:demographic_chang ed> 11 Units are mL/min/1.73 m2 Chronic Kidney Disease Staging per NKF: Stage I & II GFR >=60 Normal to Mildly Decreased Stage III GFR 30-59 Moderately Decreased Stage IV GFR 15-29 Severely Decreased Stage V GFR <15 Very Little GFR Left ESRD GFR <15 on HALL TENDER Procedures Date Code Description Status 12/06/2020 59365 Smoking & Tobacco Cessation Coun seling Intensive >10 Minutes Completed 12/06/2020 21686 Tobacco Cessation Counseling Com pleted 11/16/2020 63344 Tobacco Cessation Counseling Com pleted 11/16/2020 54771 Office/Outpatient Established Mo d MDM 30-39 Min Completed 11/10/2020 24320 With Transendoscopic Endo Ultras ound During Bronchoscopic DX Completed 11/10/2020 72409 With Endobronchial Ultrasound Gu ided Completed 11/10/2020 16636 Bronchoscopy W/Transbronchial Ne edle Aspiration Biopsy Completed 11/10/2020 78230 Bronchoscopy W/Transbronchial Davida ng Biopsy Completed 11/10/2020 38828 Bronchoscopy Rigid/F lexible Fluoroscopic Guide Computer-Assisted Completed 11/10/2020 34971 Bronchoscopy Diag W/Placement Fi ducial Markers, Single Or Mult Completed 10/19/2020 60939 Office/Outpatient Established Mo d MDM 30-39 Min Completed 10/19/2020 10487 Spirometry Completed 08/02/2020 42870 Office/Outpatient New Low MDM 30 -44 Minutes Completed 07/01/2020 01199 Tobacco Cessation Counseling Com pleted 07/01/2020 21886 Office/Outpatient Established Mo d MDM 30-39 Min Completed 07/01/2020 07899 Spirometry Completed Medical Devices Description No Information Available Encounters Type Date Location Provider Dx Diagnosis Office Visit 12/06/2020 10:30a [facility] Vanessa Lew M.D. G47.33 Obstructive sleep apnea (neelam lt) (pediatric) J43.9 Emphysema, unspecified F17.218 Nicotine dependence, cigaret kamryn, w oth disorders C34.11 Malignant neoplasm of upper lobe, right bronchus or lung R91.1 Solitary pulmonary nodule Office Visit 11/16/2020 10:30a [facility] Vanessa Lew M.D. G47.33 Obstructive sleep apnea (neelam lt) (pediatric) J43.9 Emphysema, unspecified F17.218 Nicotine dependence, cigaret kamryn, w oth disorders C34.11 Malignant neoplasm of upper lobe, right bronchus or lung Office Visit 10/19/2020 8:30a [facility] Vanessa Lew M.D. R91.8 Other nonspecific abnormal f inding of lung field G47.33 Obstructive sleep apnea (neelam lt) (pediatric) J43.9 Emphysema, unspecified F17.218 Nicotine dependence, cigaret kamryn, w oth disorders Office Visit 08/02/2020 11:00a [facility] Sivakumar Paz MD M54.41 Lumbago with sciatica, right side Office Visit 07/01/2020 11:30a [facility] Vanessa Lew M.D. G47.33 Obstructive sleep apnea (neelam lt) (pediatric) R91.8 Other nonspecific abnormal f inding of lung field J43.9 Emphysema, unspecified F17.218 Nicotine dependence, cigaret kamryn, w oth disorders Assessments Date Code Description Provider 12/06/2020 G47.33 Obstructive sleep apnea (adult) (pediatric) Vanessa Ferreira M.D. 12/06/2020 J43.9 Emphysema, unspecified Humphrey Ferreira M.D. 12/06/2020 F17.218 Nicotine dependence, cigarettes, with other nicotine-induced disorders Vanessa Ferreira M.D. 12/06/2020 C34.11 Malignant neoplasm of upper lobe , right bronchus or lung Vanessa Ferreira M.D. 12/06/2020 R91.1 Solitary pulmonary nodule Vanessa Ferreira M.D. 11/16/2020 G47.33 Obstructive sleep apnea (adult) (pediatric) [...] disorders Vanessa Ferreira M.D. Plan of Treatment 12/06/2020 - Vanessa Ferreira M.D.* G47.33 Obstructive sleep apnea (adult) (pediatric) * J43.9 Emphysema, unspecified * F17.218 Nicotine dependence, cigarettes, with other nicotine-induced disorders * C34.11 Malignant neoplasm of upper lobe, right bronchus or lung * R91.1 Solitary pulmonary nodule * * Follow up:* Follow up in office after procedure. Follow-up after bronchoscopy Functional Status Description No Information Available Mental Status Description No Information Available Referrals Refer to Reason for Referral Status Appt Date Kaleb Shepard M.D. newly dx adenocarcinoma in RUL, presume d stage 1A Scheduled 11/23/2020 [facility] Radiation Oncol [address] [place] [address] [phone] Live Leiva M.D. newly dx adenocarcinoma stage presumed stage 1A Closed 12/03/[address] [address] [phone] Radiology/Procedure [id number] Closed 06/28/2020
--- OUTSIDE RECORDS SUMMARY | 2020-12-08 10:11 | CCD | Continuity of Care Document ---
Author Author Ham FERREIRA M.D. Organization Unknown Address [address] [place] [address] Phone [phone] Care Team Providers Care Percolator Operator Name Role Phone Balbina Hayden P.A.-C AUTM [...] lb BMI (Body Mass Index) 27.5 kg/m2 [place] Body Weight 105 lb Weight 65.999 kg BSA (Body Surface Area) 1.65 m2 10/19/2020 8:37am BP Systolic 132 mmHg BP Diastolic 78 mmHg Heart Rate 97 /min O2 % BldC Oximetry 96 % Height 61 inches 5'1" Weight 145.38 lb BMI (Body Mass Index) 27.5 kg/m2 [place] Body Weight 105 lb Weight 65.942 kg BSA (Body Surface Area) 1.65 m2 Results Test Acquired Date Facility Test Result H/L Range Note Surgical Tissue 11/16/2020 [facility] Molecular Anatomic Molecul <SEE NOTE> 1 Laboratory test finding 11/10/2020 [facility] Main Lab [address] [place] [address] [phone] Non Internet Ecommerce Specialist/Cytology Req For Servi (SEE NOTE) 2 Laboratory test finding 11/10/2020 [facility] Main Lab [address] [place], [place] 3672045 [phone] Non Internet Ecommerce Specialist/Cytology Req For Servi (SEE NOTE) 3 Laboratory test finding 11/10/2020 [facility] Main Lab [address] [place] [address] [phone] Non Internet Ecommerce Specialist/Cytology Req For Servi (SEE NOTE) 4 Laboratory test finding 11/10/2020 [facility] Main Lab [address] [place] [address] [phone] Pathology Request For Service (SEE NOTE) 5 Laboratory test finding 11/10/2020 [facility] Main Lab [address] [place] [address] [phone] Pathology Request For Service (SEE NOTE) 6 FVL/Gilbert 10/19/2020 [employer] PDFReport SEE IMAGE FVC-Pred 2.74 L FVC-Pre 2.42 L FVC-%Pred-Pre 88 L FVC-LLN 2.11 L Fev1-Pred 2.08 L Fev1-Pre 1.80 L Fev1-%Pred-Pre 86 L Fev1-LLN 1.55 L Fev6-Pred 2.62 L Fev6-Pre 2.42 L Fev6-%Pred-Pre 92 L Fev6-LLN 2.00 L Tqy0znx-Tpmu 77 % Cuh6rba-Dwq 74 % Obh5rkx-%Pred-Pre 96 % Wxr5ziw-NCF 67 % Nna2lfd-Okcf 96 % Xxg6jyw-Lzy 100 % Soc7xes-%Pred-Pre 104 % FEFMax-Pred 5.41 L/E/sec FEFMax-Pre 2.57 L/E/sec FEFMax-%Pred-Pre 47 L/E/sec FEFMax-LLN 3.85 L/E/sec Gsi2027-Yoog 1.87 L/E/sec Pon6358-Wbt 1.51 L/E/sec Amg7119-%Pred-Pre 80 L/E/sec Vog4375-CCT 0.74 L/E/sec ExpTime-Pre 6.17 sec Rob5zpq8-Zwlm 80 % Zve2joz1-Uzv 74 % Vxe0kbn4-%Pred-Pre 93 % Fsf6imn4-JNH 71 % BUN & Creatinine ([facility]) 10/08/2020 [facility] Main Lab [address] [place] [address] [phone] Blood Urea Nitrogen 16 mg/dL Normal 7-18 7 Creatinine With GFR 10/08/2020 [facility] Main Lab [address] [place] [address] [phone] Creatinine For GFR 0.73 mg/dL Normal 0.55-1.30 Glomerular Filtration Rate > 60.0 Normal >45 8 Basic Metabolic Profile 10/08/2020 [facility] Main Lab [address] [place] [address] [phone] Glucose, Fasting 89 mg/dL Normal 70-100 Blood [...] Level 9.0 mg/dL Normal 8.8-10.2 FVL/Joshua 07/01/2020 [employer] PDFReport SEE IMAGE FVC-Pred 2.74 L FVC-Pre 2.45 L FVC-%Pred-Pre 89 L FVC-LLN 2.11 L Fev1-Pred 2.08 L Fev1-Pre 1.51 L Fev1-%Pred-Pre 72 L Fev1-LLN 1.55 L Fev6-Pred 2.62 L Fev6-Pre 2.45 L Fev6-%Pred-Pre 93 L Fev6-LLN 2.00 L Rwd9ylq-Fqrx 77 % Hjh2rvh-Wbi 62 % Vfm7icv-%Pred-Pre 80 % Uuy8bkj-YJH 67 % Mzl5iwj-Cjzs 96 % Ull7yoe-Euy 100 % Ian9phq-%Pred-Pre 104 % FEFMax-Pred 5.41 L/E/sec FEFMax-Pre 2.23 L/E/sec FEFMax-%Pred-Pre 41 L/E/sec FEFMax-LLN 3.85 L/E/sec Pdw3304-Bppj 1.87 L/E/sec Lcy8233-Swi 1.08 L/E/sec Obc6995-%Pred-Pre 57 L/E/sec Pwo5489-AXL 0.74 L/E/sec ExpTime-Pre 7.35 sec Rqx8xah3-Xzlp 80 % Png5ona5-Tpq 62 % Bwa8gzh6-%Pred-Pre 77 % Fkf8ngu9-QMJ 71 % BUN & Creatinine ([facility]) 06/28/2020 [facility] Main Lab [address] [place] [address] [phone] Blood Urea Nitrogen 11 mg/dL Normal 7-18 1 0 Creatinine With GFR 06/28/2020 [facility] nter Main Lab [address] [place] [address] [phone] Creatinine For GFR 0.66 mg/dL Normal 0.55-1.30 Glomerular Filtration Rate > 60.0 Normal >45 1 1 1 Anatomic Molecular Pathology Report Name: HAM OCONNELL Collection Date: 11/16/2020 00:00 Received Date: 11/16/2020 14:49 Physician(s): VANESSA FERREIRA MD ADJAPONG, OPOKU, MD Specimen(s) Received A: Lung, right upper lobe, Formalin Block, [id number], [facility], BRAF Mutation Analysis Diagnosis TESTS: [...] M.D. Attending Pathologist 11/24/2020 21:06:10 Reported at [facility] Clinical Pathology Laboratory [address] [place] [address]. Gross Description METHODOLOGY: BRAF V600E(1799 T>A) mutation [...] amounts of PCR products, and analyzed by [employer] Q real time instrument. The analytical sensitivity (or minimum percentage of mutant DNA needed) is approximately 10% given sufficient DNA input. Test development and its performance characteristics were determined by the [facility], and has been authorized for clinical use by [facility]. The test has not been cleared or approved by the U.S. Food and Drug Administration. The analyte specific reagents used in this assay do not require FDA approval. REFERENCES: 1. Ida S, Juan Luis, et al. Detection of BRAF V600E mutation in colorectal cancer-comparison of automatic sequencing and real time chemistry methodology. J Mol Diagn. 2006; 8:394189. 2. Rudy L, Prema TJ, Gabino N, et al. BR AF mutation analysis in fine needle aspiration (FNA) cytology of the thyroid. Diagn Mol Pathol. 2006;15:203734. 3. Iggy PK, Lenora ME, Radha M, et al. C linical characteristics of patients with lung adenocarcinomas harboring BRAF mutations. J Clin Oncol. 2011;29:3765-9233. This report may include one or more [...] Little GFR Left ESRD GFR <15 on T RAIL TURNER 9 Units are mL/min/1.73 m2 Chronic Kidney Disease Staging per NKF: Stage I & II GFR >=60 Normal to Mildly Decreased Stage III GFR 30-59 Moderately Decreased Stage IV GFR 15-29 Severely Decreased Stage V GFR <15 Very Little GFR Left ESRD GFR <15 on T RAIL TURNER 10 note:<nlbl:demographic_[facility] ed> 11 Units are mL/min/1.73 m2 Chronic Kidney Disease Staging per NKF: Stage I & II GFR >=60 Normal to Mildly Decreased Stage III GFR 30-59 Moderately Decreased Stage IV GFR 15-29 Severely Decreased Stage V GFR <15 Very Little GFR Left ESRD GFR <15 on T RAIL TURNER Procedures Date Code Description Status 11/16/2020 23727 Tobacco Cessation Counseling Com pleted 11/16/2020 99033 Office/Outpatient Established Mo d MDM 30-39 Min Completed 11/10/2020 78127 With Transendoscopic Endo Ultras ound During Bronchoscopic DX Completed 11/10/2020 46000 With Endobronchial Ultrasound Gu ided Completed 11/10/2020 91332 Bronchoscopy W/Transbronchial Ne edle Aspiration Biopsy Completed 11/10/2020 69467 Bronchoscopy W/Transbronchial Davida ng Biopsy Completed 11/10/2020 91267 Bronchoscopy Rigid/F lexible Fluoroscopic Guide Computer-Assisted Completed 11/10/2020 23383 Bronchoscopy Diag W/Placement Fi ducial Markers, Single Or Mult Completed 10/19/2020 82038 Office/Outpatient Established Mo d MDM 30-39 Min Completed 10/19/2020 15741 Spirometry Completed 08/02/2020 98533 Office/Outpatient New Low MDM 30 -44 Minutes Completed 07/01/2020 08453 Tobacco Cessation Counseling Com pleted 07/01/2020 18287 Office/Outpatient Established Mo d MDM 30-39 Min Completed 07/01/2020 38078 Spirometry Completed Medical Devices Description No Information Available Encounters Type Date Location Provider Dx Diagnosis Office Visit 11/16/2020 10:30a [facility] Pulmonary/Thoracic Vanessa Lew M.D. G47.33 Obstructive sleep apnea (neelam lt) (pediatric) J43.9 Emphysema, unspecified F17.218 Nicotine dependence, cigaret kamryn, w oth disorders C34.11 Malignant neoplasm of upper lobe, right bronchus or lung Office Visit 10/19/2020 8:30a [facility] Pulmonary/Thoracic Vanessa Lew M.D. R91.8 Other nonspecific abnormal f inding of lung field G47.33 Obstructive sleep apnea (neelam lt) (pediatric) J43.9 Emphysema, unspecified F17.218 Nicotine dependence, cigaret kamryn, w oth disorders Office Visit 08/02/2020 11:00a [facility] Orthopedics Sivakumar Paz MD M54.41 Lumbago with sciatica, right side Office Visit 07/01/2020 11:30a [facility] Pulmonary/Thoracic Vanessa Lew M.D. G47.33 Obstructive sleep [...] disorders Vanessa Ferreira M.D. Plan of Treatment Future Appointment(s):* 12/06/2020 10:30 am - Vanessa Ferreira M.D. at [facility] Pulmonary/Thoracic * 12/02/2020 9:00 am - [facility] Pulmonary Lab at [facility] Pulmonary/Thoracic 11/16/2020 - Vanessa Ferreira M.D.* G47.33 Obstructive sleep apnea (adult) (pediatric) * J43.9 Emphysema, unspecified * F17.218 Nicotine dependence, cigarettes, with other nicotine-induced disorders * C34.11 Malignant neoplasm of upper lobe, right bronchus or lung * * New Labs:* PFT/HGB Off/No Meds, Scheduled: 12/02/20 * Referral:* Kaleb Shepard M.D., Radiation Oncology [...] RUL, presume d stage 1A Scheduled 11/23/2020 [facility] Radiation Oncol [address] [place] [address] [phone] Live Leiva M.D. newly dx adenocarcinoma stage presumed stage 1A Created [facility] [address] [place] [address] [phone] Radiology/Procedure [id number] Created
--- OUTSIDE RECORDS SUMMARY | 2020-12-08 10:11 | CCD ---
Author Author [facility] Organization [facility] Address Unknown Phone Unavailable Care Team Providers Care Mountain Guide Name Role Phone Balbina Hayden Unavailable PROBLEMS Type Condition ICD9-CM Code [id number] Code Onset Dates Condition S tatus W/U Status Risk SNOMED Code Notes Problem Other chronic pain G89.29 Active confirmed 8 0030555 Problem Right renal mass N28.89 Active confirmed 309 479251 Problem Lumbago with sciatica, right side M54.41 Active confirmed 517771580 Problem Lung nodule R91.1 Active confirmed 13756042 2 Problem Hypercholesterolemia E78.00 Active confirmed 94579463 Problem Chronic anxiety F41.9 Active confirmed 1917 38981 Problem Essential hypertension I10 Active confirmed 45963170 Problem Renal cell carcinoma of right kidney C64.1 Act krishan confirmed 008014602 ALLERGIES Allergen (clinical drug ingredient) Drug/Non Drug Allergy do cumented on EMR Reaction Allergy Type Onset Date Status Codeine Phosphate (For Allergies Use Only) vomiting Drug Allergy Active gabapentin Gabapentin(NDC Code:[address]-66) No Improvement Drug All ergy Active pregabalin Lyrica(NDC Code:[address]-14) No Improvement Drug Allergy Active duloxetine Cymbalta(NDC Code:[address]-10) No Improvement Drug Aller gy Active sulfamethoxazole / trimethoprim Bactrim(NDC Code:[address]- 01) Fever/Chills/Myalgia Drug Allergy Active ENCOUNTERS from 1950 to 2020-11-25 Encounter Location Date Provider Diagnosis [address] [place] [address] Nov, Balbina Hayden Chronic anxiety F41. 9 IMMUNIZATIONS Vaccine Route Administration Date Status Prevnar [...] Education Language: Question Answer Notes Languages spoken: Lao Episcopalian: Question Answer Notes Episcopalian No pentecostal beliefs that would impact health care. Sexual [...] Once a day Active Vitamin D (Ergocalciferol) 38057 UNIT 1 capsule Orally Weekly for 90 days Active PROCEDURES No Information RESULTS No Results REASON FOR VISIT Refills MEDICAL (GENERAL) HISTORY Type Description Date Medical [...] Treatment Notes Treatm ent Clinical Notes Nov, Chronic anxiety (ICD-10 - F41.9) PLAN OF TREATMENT Medication Medication Name Sig Start Date Stop Date oxyCODONE HCl 5 MG 1 tab Oral every 6 hours as needed (MDD 4 tabs) for 7 day(s) Nov, ALPRAZolam 0.25 MG 1 tablet Oral as needed daily (MDD1) for 30 days Nov, Next Appt Details Provider Name:Florentin Nuñez, 11:15:00 AM, [address], , [place], [address], Insurance Providers Payer Name Payer Address Payer Phone Insured Name Patient Relati onship to Insured Coverage Start Date Coverage End Date [facility] [address] [facility] [id number] HAM OCONNELL MEDICARE Part A and B [address] [facility] [phone] [phone] HAM OCONNELL
--- OUTSIDE RECORDS SUMMARY | 2020-12-08 10:12 | CCD | Continuity of Care Document ---
Author Author Yue FERREIRA M.D. Organization Unknown Address [address] [place] [address] Phone [phone] Care Team Providers Care Bioinformatics Programmer Name Role Phone Balbina Hayden P.A.-C AUTM [...] lb BMI (Body Mass Index) 27.5 kg/m2 [place] Body Weight 105 lb Weight 65.999 kg BSA (Body Surface Area) 1.65 m2 10/19/2020 8:37am BP Systolic 132 mmHg BP Diastolic 78 mmHg Heart Rate 97 /min O2 % BldC Oximetry 96 % Height 61 inches 5'1" Weight 145.38 lb BMI (Body Mass Index) 27.5 kg/m2 [place] Body Weight 105 lb Weight 65.942 kg BSA (Body Surface Area) 1.65 m2 Results Test Acquired Date Facility Test Result H/L Range Note Laboratory test finding 11/10/2020 [facility] [address] [place] [address] [phone] Non Steeping Press Operator/Cytology Req For Servi (SEE NOTE) 1 Laboratory test finding 11/10/2020 [facility] Main Lab [address] [place] [address] [phone] Non Steeping Press Operator/Cytology Req For Servi (SEE NOTE) 2 Laboratory test finding 11/10/2020 [facility] [address] [place] [address] 98003 [phone] Non Steeping Press Operator/Cytology Req For Servi (SEE NOTE) 3 Laboratory test finding 11/10/2020 [facility] [address] [place] [address] 16528 [phone] Pathology Request For Service (SEE NOTE) 4 Laboratory test finding 11/10/2020 [facility] Main Lab [address] [place] [address] 50973 [phone] Pathology Request For Service (SEE NOTE) 5 FVL/Joshua 10/19/2020 [employer] PDFReport SEE IMAGE FVC-Pred 2.74 L FVC-Pre 2.42 L FVC-%Pred-Pre 88 L FVC-LLN 2.11 L Fev1-Pred 2.08 L Fev1-Pre 1.80 L Fev1-%Pred-Pre 86 L Fev1-LLN 1.55 L Fev6-Pred 2.62 L Fev6-Pre 2.42 L Fev6-%Pred-Pre 92 L Fev6-LLN 2.00 L Xql6wak-Oqhy 77 % Sio0lay-Dai 74 % Iql1nka-%Pred-Pre 96 % Itp5vvl-ODN 67 % Zna4pkc-Zako 96 % Ksx4cpq-Vmg 100 % Qiq7yyo-%Pred-Pre 104 % FEFMax-Pred 5.41 L/E/sec FEFMax-Pre 2.57 L/E/sec FEFMax-%Pred-Pre 47 L/E/sec FEFMax-LLN 3.85 L/E/sec Bal6222-Mlrd 1.87 L/E/sec Hrj2503-Hkg 1.51 L/E/sec Heg9776-%Pred-Pre 80 L/E/sec Hpx5712-LBS 0.74 L/E/sec ExpTime-Pre 6.17 sec Spe5xlj8-Rqkj 80 % Pcz7ucg7-Ijp 74 % Lso3mva6-%Pred-Pre 93 % Crt7net8-ENO 71 % BUN & Creatinine ([facility]) 10/08/2020 [facility] Main Lab [address] [place], [place] [id number] [phone] Blood Urea Nitrogen 16 mg/dL Normal 7-18 6 Creatinine With GFR 10/08/2020 [facility]ter Main Lab [address] [place] [address] [phone] Creatinine For GFR 0.73 mg/dL Normal 0.55-1.30 Glomerular Filtration Rate > 60.0 Normal >45 7 Basic Metabolic Profile 10/08/2020 [facility] Main Lab [address] [place], [place] 4477110 [phone] Glucose, Fasting 89 mg/dL Normal 70-100 Blood [...] 8-16 Calcium Level 9.0 mg/dL Normal 8.8-10.2 FVL/[place] 07/01/2020 [employer] PDFReport SEE IMAGE FVC-Pred 2.74 L FVC-Pre 2.45 L FVC-%Pred-Pre 89 L FVC-LLN 2.11 L Fev1-Pred 2.08 L Fev1-Pre 1.51 L Fev1-%Pred-Pre 72 L Fev1-LLN 1.55 L Fev6-Pred 2.62 L Fev6-Pre 2.45 L Fev6-%Pred-Pre 93 L Fev6-LLN 2.00 L Lit7tjl-Ixqc 77 % Gjr4irx-Eyr 62 % Zij3nqn-%Pred-Pre 80 % Ofh3lqz-EQR 67 % Hds6fmy-Zhbp 96 % Okn5iur-Sxf 100 % Hbp6yde-%Pred-Pre 104 % FEFMax-Pred 5.41 L/E/sec FEFMax-Pre 2.23 L/E/sec FEFMax-%Pred-Pre 41 L/E/sec FEFMax-LLN 3.85 L/E/sec Ird8112-Phvu 1.87 L/E/sec Nrb5004-Xwg 1.08 L/E/sec Kbl3336-%Pred-Pre 57 L/E/sec Eyo4113-NWW 0.74 L/E/sec ExpTime-Pre 7.35 sec Lwz1hdi7-Mcmb 80 % Kip9qbo0-Vzv 62 % Kmf0pmg2-%Pred-Pre 77 % Lno4hqu8-TSP 71 % BUN & Creatinine ([facility]) 06/28/2020 [facility] Main Lab [address] [place], [place] [id number] [phone] Blood Urea Nitrogen 11 mg/dL Normal 7-18 9 Creatinine With GFR 06/28/2020 [facility] nter Main Lab [address] [place] [address] [phone] Creatinine For GFR 0.66 mg/dL Normal 0.55-1.30 [...] Signed SALAZAR ALLEN MD 11/16/2020 0900 6 note:<nlbl:demographic_[facility] ed> 7 Units are mL/min/1.73 m2 Chronic Kidney Disease Staging per NKF: Stage I & II GFR >=60 Normal to Mildly Decreased Stage III GFR 30-59 Moderately Decreased Stage IV GFR 15-29 Severely Decreased Stage V GFR <15 Very Little GFR Left ESRD GFR <15 on PRESSURE SEALER AND TESTER 8 Units are mL/min/1.73 m2 Chronic Kidney Disease Staging per NKF: Stage I & II GFR >=60 Normal to Mildly Decreased Stage III GFR 30-59 Moderately Decreased Stage IV GFR 15-29 Severely Decreased Stage V GFR <15 Very Little GFR Left ESRD GFR <15 on PRESSURE SEALER AND TESTER 9 note:<nlbl:demographic_[facility] ed> 10 Units are mL/min/1.73 m2 Chronic Kidney Disease Staging per NKF: Stage I & II GFR >=60 Normal to Mildly Decreased Stage III GFR 30-59 Moderately Decreased Stage IV GFR 15-29 Severely Decreased Stage V GFR <15 Very Little GFR Left ESRD GFR <15 on PRESSURE SEALER AND TESTER Procedures Date Code Description Status 10/19/2020 42864 Office/Outpatient Established Mo d MDM 30-39 Min Completed 10/19/2020 88213 Spirometry Completed 08/02/2020 22986 Office/Outpatient New Low MDM 30 -44 Minutes Completed 07/01/2020 41426 Tobacco Cessation Counseling Com pleted 07/01/2020 38759 Office/Outpatient Established Mo d MDM 30-39 Min Completed 07/01/2020 35721 Spirometry Completed Medical Devices Description No Information Available Encounters Type Date Location Provider Dx Diagnosis Office Visit 10/19/2020 8:30a [facility] Vanessa Lew M.D. R91.8 Other nonspecific abnormal f inding of lung field G47.33 Obstructive sleep apnea (neelam lt) (pediatric) J43.9 Emphysema, unspecified F17.218 Nicotine dependence, cigaret kamryn, w oth disorders Office Visit 08/02/2020 11:00a [facility] MD M54.41 Lumbago with sciatica, right side Office Visit 07/01/2020 11:30a [facility] K Vanessa montgomery M.D. G47.33 Obstructive [...] Reason for Referral Status Appt Date Radiology/Procedure 04294 Created
--- OUTSIDE RECORDS SUMMARY | 2020-12-08 10:12 | CCD | Continuity of Care Document ---
Author Author Yue FERREIRA M.D. Organization Unknown Address [address] [place] [address] Phone [phone] Care Team Providers Care Regional Trainer Name Role Phone Sienna Carreno D.O. AUTM [phone] Balbina Hayden P.A.-C AUTM AUTM Unavailable Problems Description No Information Available Social History Type Date Description Comments Sex Unknown ETOH Use Denies alcohol use Tobacco Use Reviewed: 04/06/20 Patient is a current smoker, smokes every day 1 PPD SMOKERx 40 years Recreational Drug Use Denies Drug Use Smoking Status Reviewed: 10/19/20 Patient is a current smoker, smokes every day 1 PPD SMOKERx 40 years Allergies, Adverse Reactions, Alerts Active Allergies Criticality Reaction | Severity Comments Date Codeine Unable to assess criticality Nausea, vomitting 05/03/2015 Bactrim Unable to assess criticality FEVER AND BODY ACHES 04/06/2020 Medications Active Medications SIG Qnty Indications Ordering Provide r Date Proair HFA 108(90Base) mcg/Act Aer osol 2 puffs four times a day as needed 25.5gm Vanessa Ferreira M.D. 04/09/2020 Autopap Device 5-20cm REJIW Maulik Warner MD 07/23/2019 Trazodone HCL 150mg [...] Available Vital Signs Date Vital Result Comment 10/19/2020 8:37am Height 61 inches 5'1" 08/02/2020 11:02am Body Temperature 97.9 F Height 61 inches 5'1" Weight 146.00 lb BMI (Body Mass Index) 27.6 kg/m2 [place] Body Weight 105 lb Weight 66.226 kg BSA (Body Surface Area) 1.65 m2 Results Test Acquired Date Facility Test Result H/L Range Note BUN & Creatinine ([facility]) 10/08/2020 [facility] Main Lab [address] [place], [place] 0406755 [phone] Blood Urea Nitrogen 16 mg/dL Normal 7-18 1 Creatinine With GFR 10/08/2020 [facility] nter Main Lab [address] [place] [address]11 [phone] Creatinine For GFR 0.73 mg/dL Normal 0.55-1.30 Glomerular Filtration Rate > 60.0 Normal >45 2 Basic Metabolic Profile 10/08/2020 [facility] Main Lab [address] [place] [address] [phone] Glucose, Fasting 89 mg/dL Normal 70-100 Blood Urea Nitrogen 17 mg/dL Normal 7-18 Creatinine For GFR 0.73 mg/dL Normal 0.55-1.30 Glomerular Filtration Rate > 60.0 Normal >45 3 Sodium Level 138 mEq/L Normal 136-145 Potassium [...] L Fev6-%Pred-Pre 93 L Fev6-LLN 2.00 L Hae1xfu-Sury 77 % Axo6jzb-Qmw 62 % Pev3egm-%Pred-Pre 80 % Ncv8eig-IBB 67 % Svr1ghb-Sxjy 96 % Upv5cny-Uoy 100 % Div6dun-%Pred-Pre 104 % FEFMax-Pred 5.41 L/E/sec FEFMax-Pre 2.23 L/E/sec FEFMax-%Pred-Pre 41 L/E/sec FEFMax-LLN 3.85 L/E/sec Jrn6944-Lqpz 1.87 L/E/sec Col8011-Ljc 1.08 L/E/sec Mki6131-%Pred-Pre 57 L/E/sec Iov5981-LJM 0.74 L/E/sec ExpTime-Pre 7.35 sec Rcs0emw3-Zdyc 80 % Gcw2jbl5-Hpb 62 % Vqz7fzm8-%Pred-Pre 77 % Yoh8jug5-MCI 71 % BUN & Creatinine ([facility]) 06/28/2020 [facility] Main Lab [address] [place] [address] 11928 [phone] Blood Urea Nitrogen 11 mg/dL Normal 7-18 4 Creatinine With GFR 06/28/2020 [facility] nter Main Lab [address] [place] [address] 14373 [phone] Creatinine For GFR 0.66 mg/dL Normal 0.55-1.30 Glomerular Filtration Rate > 60.0 Normal >45 5 1 note:<nlbl:[facility] ed> 2 Units are mL/min/1.73 m2 Chronic Kidney Disease Staging per NKF: Stage I & II GFR >=60 Normal to Mildly Decreased Stage III GFR 30-59 Moderately Decreased Stage IV GFR 15-29 Severely Decreased Stage V GFR <15 Very Little GFR Left ESRD GFR <15 on SECURITY OPERATIONS MANAGER 3 Units are mL/min/1.73 m2 Chronic Kidney Disease Staging per NKF: Stage I & II GFR >=60 Normal to Mildly Decreased Stage III GFR 30-59 Moderately Decreased Stage IV GFR 15-29 Severely Decreased Stage V GFR <15 Very Little GFR Left ESRD GFR <15 on SECURITY OPERATIONS MANAGER 4 note:<nlbl:demographic_[facility] ed> 5 Units are mL/min/1.73 m2 Chronic Kidney Disease Staging per NKF: Stage I & II GFR >=60 Normal to Mildly Decreased Stage III GFR 30-59 Moderately Decreased Stage IV GFR 15-29 Severely Decreased Stage V GFR <15 Very Little GFR Left ESRD GFR <15 on SECURITY OPERATIONS MANAGER Procedures Date Code Description Status 08/02/2020 04810 Office/Outpatient New Low MDM 30 -44 Minutes Completed 07/01/2020 01734 Tobacco Cessation Counseling Com pleted 07/01/2020 75815 Office/Outpatient Established Mo d MDM 30-39 Min Completed 07/01/2020 82583 Spirometry Completed Medical Devices Description No Information Available Encounters Type Date Location Provider Dx Diagnosis Office Visit 08/02/2020 11:00a [facility] Orthopedics Sivakumar Paz MD M54.41 Lumbago with sciatica, right side Office Visit 07/01/2020 11:30a [facility]monary/Thoracic K Vanessa montgomery M.D. G47.33 Obstructive sleep apnea (neelam lt) (pediatric) R91.8 Other nonspecific abnormal f inding of lung field J43.9 Emphysema, unspecified F17.218 Nicotine dependence, cigaret kamryn, w oth disorders Assessments Date Code Description Provider 08/02/2020 M54.41 Lumbago with sciatica Sivakumar stroud MD 07/01/2020 G47.33 Obstructive sleep apnea (adult) (pediatric) Vanessa Ferreira M.D. 07/01/2020 R91.8 Other nonspecific abnormal findi ng of lung field Vanessa Ferreira M.D. 07/01/2020 J43.9 Emphysema, unspecified Humphrey Ferreira M.D. 07/01/2020 F17.218 Nicotine dependence, cigarettes, with other nicotine-induced disorders Vanessa Ferreira M.D. Plan of Treatment 08/02/2020 - Sivakumar Paz MD* M54.41 Lumbago with sciatica* Comments:* The patient demonstrates signs and symptoms consistent with a radiculopathy in the sciatic nerve distribution. I do not believe that her symptoms are coming fr om her hips as she has good range of motion and essentially no findings on examination of the hip and no reported groin base pain. She did well with the physical therapy and I think that if she restarted this after her renal surgery and downtime this may improve her symptoms. She is in agreement with the treatment plan. I will send a referral for core strengthening etc. for her back. * Follow up:* As needed Functional Status Description No Information Available Mental Status Description No Information Available Referrals Refer to Reason for Referral Status Appt Date Radiology/Procedure 87000 Created
--- OUTSIDE RECORDS SUMMARY | 2020-12-08 10:12 | CCD ---
Author Author [facility] Organization [facility] Address Unknown Phone Unavailable Care Team Providers Care [employer] Principal Name Role Phone Balbina Hayden Unavailable PROBLEMS Type Condition ICD9-CM Code QNH81-LL Code Onset Dates Condition S tatus W/U Status Risk SNOMED Code Notes Problem Other chronic pain G89.29 Active confirmed 8 1302842 Problem Renal cell carcinoma of right kidney C64.1 Act krishan confirmed 107091436 Problem Lumbago with sciatica, right side M54.41 Active confirmed 454257184 Problem Right renal mass N28.89 Active confirmed 309 304350 Problem Hypercholesterolemia E78.00 Active confirmed 32901415 Problem Chronic anxiety F41.9 Active confirmed 1917 00468 Problem Essential hypertension I10 Active confirmed 27523598 ALLERGIES Allergen (clinical drug ingredient) Drug/Non Drug Allergy do cumented on EMR Reaction Allergy Type Onset Date Status Codeine Phosphate (For Allergies Use Only) vomiting Drug Allergy Active gabapentin Gabapentin(NDC Code:[address]-12) No Improvement Drug All ergy Active pregabalin Lyrica(NDC Code:[address]-47) No Improvement Drug Allergy Active duloxetine Cymbalta(NDC Code:[address]-40) No Improvement Drug Aller gy Active sulfamethoxazole / trimethoprim Bactrim(NDC Code:[address]- 01) Fever/Chills/Myalgia Drug Allergy Active ENCOUNTERS from 1950 to 2020-10-18 Encounter Location Date Provider Diagnosis [address] [place] [address] Oct, Balbina Hayden IMMUNIZATIONS Vaccine Route Administration [...] Education Language: Question Answer Notes Languages spoken: Belizean Pentecostalism: Question Answer Notes Pentecostalism No moravian beliefs that would impact health care. Sexual [...] Notes Start Da te End Date Status Ventolin HFA 108 (90 Base) MCG/ACT 2 puffs as needed Inhalation every 6 hrs Nov, Active ALPRAZolam 0.25 MG 1 tablet Oral as needed daily (MDD1) for 30 d ays Sep, Active Trazodone HCl 150 MG 1 tab Orally bedtime for 90 days Active Ciprofloxacin HCl 500 MG 1 tablet Orally every 12 hrs for 7 day( s) Jul, Not-Taking Vitamin D (Ergocalciferol) 74185 UNIT 1 capsule Orally Weekly for 90 days Active Rosuvastatin Calcium 5 MG 1 tablet Orally Once a day Active oxyCODONE HCl 5 MG 1 tab Oral every 6 hours as needed (MDD 4 tabs) for 7 day(s) PRN Sep, Active hydroCHLOROthiazide 12.5 MG 1 capsule in the morning Orally Once a da y Active PROCEDURES No Information RESULTS No Results REASON FOR VISIT CT Chest Results/Pulm MEDICAL (GENERAL) HISTORY Type Description Date Medical [...] Information ASSESSMENTS No Information PLAN OF TREATMENT Medication Medication Name Sig Start Date Stop Date oxyCODONE HCl 5 MG 1 tab Oral every 6 hours as needed (MDD 4 tabs) for 7 day(s) Sep, Vitamin D (Ergocalciferol) 71980 UNIT 1 capsule Orally Weekly fo r 90 days ALPRAZolam 0.25 MG 1 tablet Oral as needed daily (MDD1) for 30 days Sep, Trazodone HCl 150 MG 1 tab Orally bedtime for 90 days Next Appt Details Provider Name:Florentin Nuñez, 11:00:00 AM, [address], , [place], [address], Provider Name:Balbina Hayden, 2020-11 01:30:00 PM, [address] [place] [address], , [place], [address], Insurance Providers Payer Name Payer Address Payer Phone Insured Name Patient Relati onship to Insured Coverage Start Date Coverage End Date MEDICARE Part A and B [facility] [id number] [facility] [phone] HAM OCONNE[facility] [address] [facility] [id number] HAM OCONNELL
--- OUTSIDE RECORDS SUMMARY | 2020-12-08 10:12 | CCD | Continuity of Care Document ---
Author Author Yue FERREIRA M.D. Organization Unknown Address [address] [place] [address] Phone [phone] Care Team Providers Care Tax Processor Name Role Phone Balbina Hayden P.A.-C AUTM AUTM Unavailable AUTM Unavailable Problems Description No Information Available Social History Type Date Description Comments Sex Unknown ETOH Use Denies alcohol use Tobacco Use Reviewed: 10/19/20 Patient is a current smoker, [...] Signs Date Vital Result Comment 10/19/2020 8:37am BP Systolic 132 mmHg BP Diastolic 78 mmHg Heart Rate 97 /min O2 % BldC Oximetry 96 % Height 61 inches 5'1" Weight 145.38 lb BMI (Body Mass Index) 27.5 kg/m2 [place] Body Weight 105 lb Weight 65.942 kg BSA (Body Surface Area) 1.65 m2 08/02/2020 11:02am Body Temperature 97.9 F Height 61 inches 5'1" Weight 146.00 lb BMI (Body Mass Index) 27.6 kg/m2 [place] Body Weight 105 lb Weight 66.226 kg BSA (Body Surface Area) 1.65 m2 Results Test Acquired Date Facility Test Result H/L Range Note Laboratory test finding 11/10/2020 [facility] Lab [address] [place] [address]27[address] [phone] Non Customer Security Clerk/Cytology Req For Servi (SEE NOTE) 1 Laboratory test finding 11/10/2020 [facility] Lab [address] [place] [address] 14511 [phone] Non Customer Security Clerk/Cytology Req For Servi (SEE NOTE) 2 Laboratory test finding 11/10/2020 [facility] Lab [address] [place] [address] [phone] Non Customer Security Clerk/Cytology Req For Servi (SEE NOTE) 3 Laboratory test finding 11/10/2020 [facility] Lab [address] [place] [address] 72385 [phone] Pathology Request For Service (SEE NOTE) 4 Laboratory test finding 11/10/2020 [facility] Lab [address] [place] [address] 89253 [phone] Pathology Request For Service (SEE NOTE) 5 FVL/[place] 10/19/2020 [employer] PDFReport SEE IMAGE FVC-Pred 2.74 L FVC-Pre 2.42 L FVC-%Pred-Pre 88 L FVC-LLN 2.11 L Fev1-Pred 2.08 L Fev1-Pre 1.80 L Fev1-%Pred-Pre 86 L Fev1-LLN 1.55 L Fev6-Pred 2.62 L Fev6-Pre 2.42 L Fev6-%Pred-Pre 92 L Fev6-LLN 2.00 L Fij3szx-Uyjc 77 % Leq0waw-Epn 74 % Rtd2xxd-%Pred-Pre 96 % Tbr4mvg-XHH 67 % Vgd4itf-Dbhn 96 % Kct2dhr-Yvd 100 % Cfn9qla-%Pred-Pre 104 % FEFMax-Pred 5.41 L/E/sec FEFMax-Pre 2.57 L/E/sec FEFMax-%Pred-Pre 47 L/E/sec FEFMax-LLN 3.85 L/E/sec Zig8894-Ycmy 1.87 L/E/sec Usf1129-Mky 1.51 L/E/sec Hxw5954-%Pred-Pre 80 L/E/sec Ifd2839-JIY 0.74 L/E/sec ExpTime-Pre 6.17 sec Hxr7bfo2-Jyev 80 % Bql5coq3-Nyy 74 % Mye3kwk1-%Pred-Pre 93 % Ygb1gpg3-VQN 71 % BUN & Creatinine ([facility]) 10/08/2020 [facility] Main Lab [address] [place] [address] [phone] Blood Urea Nitrogen 16 mg/dL Normal 7-18 6 Creatinine With GFR 10/08/2020 [facility] Main Lab [address] [place] [address] [phone] Creatinine For GFR 0.73 mg/dL Normal 0.55-1.30 Glomerular Filtration Rate > 60.0 Normal >45 7 Basic Metabolic Profile 10/08/2020 [facility] Main Lab [address] [place] [address] [phone] Glucose, Fasting 89 mg/dL Normal 70-100 Blood [...] Level 9.0 mg/dL Normal 8.8-10.2 FVL/Joshua 07/01/2020 [employer] PDFReport SEE IMAGE FVC-Pred 2.74 L FVC-Pre 2.45 L FVC-%Pred-Pre 89 L FVC-LLN 2.11 L Fev1-Pred 2.08 L Fev1-Pre 1.51 L Fev1-%Pred-Pre 72 L Fev1-LLN 1.55 L Fev6-Pred 2.62 L Fev6-Pre 2.45 L Fev6-%Pred-Pre 93 L Fev6-LLN 2.00 L Shz6rrg-Bbpd 77 % Bre3dvz-Wwh 62 % Peb3fmu-%Pred-Pre 80 % Inh6vqd-DFH 67 % Zwl1yhp-Jybj 96 % Glq4hqj-Zer 100 % Nkp8awb-%Pred-Pre 104 % FEFMax-Pred 5.41 L/E/sec FEFMax-Pre 2.23 L/E/sec FEFMax-%Pred-Pre 41 L/E/sec FEFMax-LLN 3.85 L/E/sec Exd7497-Itbs 1.87 L/E/sec Kbu7635-Pdf 1.08 L/E/sec Lbj4156-%Pred-Pre 57 L/E/sec Xxd8553-AUZ 0.74 L/E/sec ExpTime-Pre 7.35 sec Syu6ewo0-Mqwb 80 % Vud2wcn9-Wbd 62 % Dml5pds7-%Pred-Pre 77 % Fim7jtz3-TUZ 71 % BUN & Creatinine ([facility]) 06/28/2020 [facility] Main Lab [address] [place], [place] [phone] Blood Urea Nitrogen 11 mg/dL Normal 7-18 9 Creatinine With GFR 06/28/2020 [facility] nter Main Lab [address] [place], [place] [phone] Creatinine For GFR 0.66 mg/dL Normal 0.55-1.30 Glomerular Filtration Rate > 60.0 Normal >45 1 0 1 SPECIMEN: FNA Rig ht hilar lymph node Sldies and Cytolyt (red) received SPECIMEN ADEQUACY: Satisfactory for evaluation CATEGORIZATION: No Malignancy identified DESCRIPTIONS: Specimen consists mainly of red blood cells with some lymphocytes and bronchail cells noted. COMMENTS: 11/11/2020 - [address](ASCP) 11/11/2020 1018 (Prelim) Signed SALAZAR ALLEN MD 11/11/20207 2 SPECIMEN: FNA Sub carinal lymph node [...] cells. COMMENTS: 11/11/2020942 Signed PITA REY(ASCP) 11/11/2020 09 (Prelim) Signed SALAZAR ALLEN MD 11/12/2020 08 4 FINAL DIAGNOSIS Right hilar lymph node, FNA cell-block: Negative for malignancy. Lymphoid cells, cartilage and bronchial epithelium. 11/11/20201204 CLINICAL DIAGNOSIS Right upper lobe abnormality and cancer 11/10/2020 145 GROSS DIAGNOSIS Received in CytoLyt labeled "right [...] upper lobe abnormality and cancer 11/10/2020 - 1434 GROSS DIAGNOSIS Received in formalin labeled "right upper lobe forceps biopsy" and consists of a fragment of tissue, 0.5 x 0.5 x 0.1 cm. All in one. -OA 11/10/2020 - 1434 Signed SALAZAR ALLEN MD 11/16/2020 0900 6 note:<nlbl:demographic_[facility] ed> 7 Units are mL/min/1.73 m2 Chronic Kidney Disease Staging per NKF: Stage I & II GFR >=60 Normal to Mildly Decreased Stage III GFR 30-59 Moderately Decreased Stage IV GFR 15-29 Severely Decreased Stage V GFR <15 Very Little GFR Left ESRD GFR <15 on MANAGEMENT TRAINER 8 Units are mL/min/1.73 m2 Chronic Kidney Disease Staging per NKF: Stage I & II GFR >=60 Normal to Mildly Decreased Stage III GFR 30-59 Moderately Decreased Stage IV GFR 15-29 Severely Decreased Stage V GFR <15 Very Little GFR Left ESRD GFR <15 on MANAGEMENT TRAINER 9 note:<nlbl:demographic_[facility] ed> 10 Units are mL/min/1.73 m2 Chronic Kidney Disease Staging per NKF: Stage I & II GFR >=60 Normal to Mildly Decreased Stage III GFR 30-59 Moderately Decreased Stage IV GFR 15-29 Severely Decreased Stage V GFR <15 Very Little GFR Left ESRD GFR <15 on MANAGEMENT TRAINER Procedures Date Code Description Status 10/19/2020 09336 Office/Outpatient Established Mo d MDM 30-39 Min Completed 10/19/2020 81197 Spirometry Completed 08/02/2020 24743 Office/Outpatient New Low MDM 30 -44 Minutes Completed 07/01/2020 08722 Tobacco Cessation Counseling Com pleted 07/01/2020 19448 Office/Outpatient Established Mo d MDM 30-39 Min Completed 07/01/2020 60316 Spirometry Completed Medical Devices Description No Information Available Encounters Type Date Location Provider Dx Diagnosis Office Visit 10/19/2020 8:30a [facility] Pulmonary/Thoracic Vanessa Lew M.D. R91.8 Other nonspecific abnormal f inding of lung field G47.33 Obstructive sleep apnea (neelam lt) (pediatric) J43.9 Emphysema, unspecified F17.218 Nicotine dependence, cigaret kamryn, w oth disorders Office Visit 08/02/2020 11:00a [facility] Orthopedics Sivakumar Paz MD M54.41 Lumbago with sciatica, right side Office Visit 07/01/2020 11:30a [facility] Pulmonary/Thoracic K Vanessa montgomery M.D. [...] Reason for Referral Status Appt Date Radiology/Procedure 43996 Created
--- OUTSIDE RECORDS SUMMARY | 2020-12-08 10:12 | CCD | Continuity of Care Document ---
Author Organization Unknown Address Unknown Phone Unavailable Care Team Providers Care Email Marketing Specialist Name Role Phone Sienna Carreno D.O. AUTM [phone] Balbina Hayden P.A.-C AUTM AUTM Unavailable Problems Description No Information Available Social History Type Date Description Comments Sex Unknown ETOH Use Denies alcohol use Tobacco Use Reviewed: 04/06/20 Patient is a current smoker, smokes every day 1 PPD SMOKERx 40 years Recreational Drug Use Denies Drug Use Smoking Status Reviewed: 08/02/20 Patient is a current smoker, smokes every [...] times a day as needed 25.5gm Vanessa Mae M.D. 04/09/2020 Autopap Device 5-20cm LCW Maulik [...] Available Vital Signs Date Vital Result Comment 08/02/2020 11:02am Body Temperature 97.9 F Height 61 inches 5'1" Weight 146.00 lb BMI (Body Mass Index) 27.6 kg/m2 [place] Body Weight 105 lb Weight 66.226 kg BSA (Body Surface Area) 1.65 m2 07/01/2020 11:25am BP Systolic 124 mmHg BP Diastolic 78 mmHg Heart Rate 100 /min O2 % BldC Oximetry 95 % Height 61 inches 5'1" Weight 146.00 lb BMI (Body Mass Index) 27.6 kg/m2 [place] Body Weight 105 lb Weight 66.226 kg BSA (Body Surface Area) 1.65 m2 Results Test Acquired Date Facility Test Result H/L Range Note BUN & Creatinine ([facility]) 10/08/2020 [facility] Lab [address], [place] [id number] [phone] Blood Urea Nitrogen 16 mg/dL Normal 7-18 1 Creatinine With GFR 10/08/2020 [facility] Main Lab [address], [place] [id number] [phone] Creatinine For GFR 0.73 mg/dL Normal 0.55-1.30 Glomerular Filtration Rate > 60.0 Normal >45 2 Basic Metabolic Profile 10/08/2020 [facility] Main Lab [address] [place] [address] [phone] Glucose, Fasting 89 mg/dL Normal 70-100 Blood [...] 8-16 Calcium Level 9.0 mg/dL Normal 8.8-10.2 FVL/[place] 07/01/2020 [employer] PDFReport SEE IMAGE FVC-Pred 2.74 L FVC-Pre 2.45 L FVC-%Pred-Pre 89 L FVC-LLN 2.11 L Fev1-Pred 2.08 L Fev1-Pre 1.51 L Fev1-%Pred-Pre 72 L Fev1-LLN 1.55 L Fev6-Pred 2.62 L Fev6-Pre 2.45 L Fev6-%Pred-Pre 93 L Fev6-LLN 2.00 L Cot0jvb-Osky 77 % Kdu8uoj-Uzr 62 % Vwx7eoy-%Pred-Pre 80 % Ulj2ece-GAC 67 % Bsi3hmq-Ogpl 96 % Hgg5lae-Myl 100 % Sma3syc-%Pred-Pre 104 % FEFMax-Pred 5.41 L/E/sec FEFMax-Pre 2.23 L/E/sec FEFMax-%Pred-Pre 41 L/E/sec FEFMax-LLN 3.85 L/E/sec Twk3108-Ilqs 1.87 L/E/sec Cnd7558-Nkc 1.08 L/E/sec Ccn6140-%Pred-Pre 57 L/E/sec Gik6202-FCC 0.74 L/E/sec ExpTime-Pre 7.35 sec Qmp0pxw2-Kpbu 80 % Xrc9pba4-Vuc 62 % Anp3thl7-%Pred-Pre 77 % Zom6rnn7-NYO 71 % BUN & Creatinine ([facility]) 06/28/2020 [facility] Main Lab [address] [place] [address] [phone] Blood Urea Nitrogen 11 mg/dL Normal 7-18 4 Creatinine With GFR 06/28/2020 [facility] Main Lab [address] [place] [address] [phone] Creatinine For GFR 0.66 mg/dL Normal 0.55-1.30 Glomerular Filtration Rate > 60.0 Normal >45 5 1 note:<nlbl:demographic_chang ed> 2 Units are mL/min/1.73 m2 Chronic Kidney Disease Staging per NKF: Stage I & II GFR >=60 Normal to Mildly Decreased Stage III GFR 30-59 Moderately Decreased Stage IV GFR 15-29 Severely Decreased Stage V GFR <15 Very Little GFR Left ESRD GFR <15 on PERINATAL SOCIAL WORKER 3 Units are mL/min/1.73 m2 Chronic Kidney Disease Staging per NKF: Stage I & II GFR >=60 Normal to Mildly Decreased Stage III GFR 30-59 Moderately Decreased Stage IV GFR 15-29 Severely Decreased Stage V GFR <15 Very Little GFR Left ESRD GFR <15 on PERINATAL SOCIAL WORKER 4 note:<nlbl:demographic_chang ed> 5 Units are mL/min/1.73 m2 Chronic Kidney Disease Staging per NKF: Stage I & II GFR >=60 Normal to Mildly Decreased Stage III GFR 30-59 Moderately Decreased Stage IV GFR 15-29 Severely Decreased Stage V GFR <15 Very Little GFR Left ESRD GFR <15 on PERINATAL SOCIAL WORKER Procedures Date Code Description Status 08/02/2020 89912 Office/Outpatient New Low MDM 30 -44 Minutes Completed 07/01/2020 69548 Tobacco Cessation Counseling Com pleted 07/01/2020 13943 Office/Outpatient Established Mo d MDM 30-39 Min Completed 07/01/2020 46823 Spirometry Completed Medical Devices Description No Information Available Encounters Type Date Location Provider Dx Diagnosis Office Visit 08/02/2020 11:00a [facility] Sivakumar Paz MD M54.41 Lumbago with sciatica, right side Office Visit 07/01/2020 11:30a [facility] K Vanessa montgomery M.D. G47.33 Obstructive sleep apnea (neelam lt) (pediatric) R91.8 Other nonspecific abnormal f inding of lung field J43.9 Emphysema, unspecified F17.218 Nicotine dependence, cigaret kamryn, w oth disorders Assessments Date Code Description Provider 08/02/2020 M54.41 Lumbago with sciatica Sivakumar stroud MD 07/01/2020 G47.33 Obstructive sleep apnea (adult) (pediatric) Vanessa Mae M.D. 07/01/2020 R91.8 Other nonspecific abnormal findi ng of lung field Vanessa Mae M.D. 07/01/2020 J43.9 Emphysema, unspecified Humphrey Mae M.D. 07/01/2020 F17.218 Nicotine dependence, cigarettes, with other nicotine-induced disorders Vanessa Mae M.D. Plan of Treatment 08/02/2020 - Sivakumar [...] Reason for Referral Status Appt Date Radiology/Procedure 43343 Created
--- OUTSIDE RECORDS SUMMARY | 2020-12-08 10:12 | CCD | Continuity of Care Document ---
Author Author Yue FERREIRA M.D. Organization Unknown Address [address] [place] [address] Phone [phone] Care Team Providers Care Veterinary Laboratory Diagnostician Name Role Phone Balbina Hayden P.A.-C AUTM [phone] AUTM Unavailable AUTM Unavailable Problems Description No [...] lb BMI (Body Mass Index) 27.5 kg/m2 [place] Body Weight 105 lb Weight 65.942 kg BSA (Body Surface Area) 1.65 m2 08/02/2020 11:02am Body Temperature 97.9 F Height 61 inches 5'1" Weight 146.00 lb BMI (Body Mass Index) 27.6 kg/m2 [place] Body Weight 105 lb Weight 66.226 kg BSA (Body Surface Area) 1.65 m2 Results Test Acquired Date Facility Test Result H/L Range Note Laboratory test finding 11/10/2020 [facility] [address] [place] [address] [phone] Non Transfer Driver/Cytology Req For Servi (SEE NOTE) 1 Laboratory test finding 11/10/2020 [facility] Lab [address] [place] [address] [phone] Non Transfer Driver/Cytology Req For Servi (SEE NOTE) 2 Laboratory test finding 11/10/2020 [facility] [address] [place] [address] [phone] Non Transfer Driver/Cytology Req For Servi (SEE NOTE) 3 Laboratory test finding 11/10/2020 [facility] [address] [place] [address] [phone] Pathology Request For Service (SEE NOTE) 4 Laboratory test finding 11/10/2020 [facility] [address] [place] [address] [phone] Pathology Request For Service (SEE NOTE) 5 FVL/[place] 10/19/2020 [facility] PDFReport SEE IMAGE FVC-Pred 2.74 L FVC-Pre 2.42 L FVC-%Pred-Pre 88 L FVC-LLN 2.11 L Fev1-Pred 2.08 L Fev1-Pre 1.80 L Fev1-%Pred-Pre 86 L Fev1-LLN 1.55 L Fev6-Pred 2.62 L Fev6-Pre 2.42 L Fev6-%Pred-Pre 92 L Fev6-LLN 2.00 L Xpr1nwk-[place] 77 % Lnh9fty-Fwh 74 % Deg5ocp-%Pred-Pre 96 % Ype6kdd-SAK 67 % Lyo1tew-Vrxt 96 % Gfk7yco-Ack 100 % Oop2sro-%Pred-Pre 104 % FEFMax-Pred 5.41 L/E/sec FEFMax-Pre 2.57 L/E/sec FEFMax-%Pred-Pre 47 L/E/sec FEFMax-LLN 3.85 L/E/sec Kei6556-Dqse 1.87 L/E/sec Ldk7441-Gxn 1.51 L/E/sec Wyj4382-%Pred-Pre 80 L/E/sec Xlm1731-SPJ 0.74 L/E/sec ExpTime-Pre 6.17 sec Iqr9bpm4-Bagd 80 % Cyq3zky5-Gda 74 % Wiw9unb8-%Pred-Pre 93 % Apo8ejh1-CUK 71 % BUN & Creatinine ([facility]) 10/08/2020 [facility] Lab [address] [place] [address] [phone] Blood Urea Nitrogen 16 mg/dL Normal 7-18 6 Creatinine With GFR 10/08/2020 [facility] Main Lab [address] [place] [address] 6165573 [phone] Creatinine For GFR 0.73 mg/dL Normal 0.55-1.30 Glomerular Filtration Rate > 60.0 Normal >45 7 Basic Metabolic Profile 10/08/2020 [facility] Main Lab [address] [place] [address] [phone] [phone] Glucose, Fasting 89 mg/dL Normal 70-100 Blood [...] Level 9.0 mg/dL Normal 8.8-10.2 FVL/[place] 07/01/2020 [employer] PDFReport SEE IMAGE FVC-Pred 2.74 L FVC-Pre 2.45 L FVC-%Pred-Pre 89 L FVC-LLN 2.11 L Fev1-Pred 2.08 L Fev1-Pre 1.51 L Fev1-%Pred-Pre 72 L Fev1-LLN 1.55 L Fev6-Pred 2.62 L Fev6-Pre 2.45 L Fev6-%Pred-Pre 93 L Fev6-LLN 2.00 L Tza8plw-Uags 77 % Ork6dfg-Amx 62 % Cty1gzq-%Pred-Pre 80 % Pqp5abc-ENM 67 % Dvs3kti-Ymoj 96 % Gcb1wes-Iiq 100 % Ehm0hgq-%Pred-Pre 104 % FEFMax-Pred 5.41 L/E/sec FEFMax-Pre 2.23 L/E/sec FEFMax-%Pred-Pre 41 L/E/sec FEFMax-LLN 3.85 L/E/sec Fru3122-Jwqz 1.87 L/E/sec Avl9218-Koz 1.08 L/E/sec Qky4178-%Pred-Pre 57 L/E/sec Lno7601-TEZ 0.74 L/E/sec ExpTime-Pre 7.35 sec Rcx3knp6-Porf 80 % Qsi0cvv3-Gnl 62 % Lbe1rta6-%Pred-Pre 77 % Piq5mhd5-OXW 71 % BUN & Creatinine ([facility]) 06/28/2020 [facility] Lab [address] [place], [place] [id number] [phone] Blood Urea Nitrogen 11 mg/dL Normal 7-18 9 Creatinine With GFR 06/28/2020 [facility] n[facility] Main Lab [address] [place], [place] [id number] [phone] Creatinine For GFR 0.66 mg/dL Normal 0.55-1.30 [...] Signed SALAZAR ALLEN MD 11/16/2020 0900 6 note:<nlbl:demographic_[facility] ed> 7 Units are mL/min/1.73 m2 Chronic Kidney Disease Staging per NKF: Stage I & II GFR >=60 Normal to Mildly Decreased Stage III GFR 30-59 Moderately Decreased Stage IV GFR 15-29 Severely Decreased Stage V GFR <15 Very Little GFR Left ESRD GFR <15 on ENVIRONMENTAL SERVICES LEAD 8 Units are mL/min/1.73 m2 Chronic Kidney Disease Staging per NKF: Stage I & II GFR >=60 Normal to Mildly Decreased Stage III GFR 30-59 Moderately Decreased Stage IV GFR 15-29 Severely Decreased Stage V GFR <15 Very Little GFR Left ESRD GFR <15 on ENVIRONMENTAL SERVICES LEAD 9 note:<nlbl:demographic_[facility] ed> 10 Units are mL/min/1.73 m2 Chronic Kidney Disease Staging per NKF: Stage I & II GFR >=60 Normal to Mildly Decreased Stage III GFR 30-59 Moderately Decreased Stage IV GFR 15-29 Severely Decreased Stage V GFR <15 Very Little GFR Left ESRD GFR <15 on ENVIRONMENTAL SERVICES LEAD Procedures Date Code Description Status 10/19/2020 74627 Office/Outpatient Established Mo d MDM 30-39 Min Completed 10/19/2020 52751 Spirometry Completed 08/02/2020 90156 Office/Outpatient New Low MDM 30 -44 Minutes Completed 07/01/2020 27211 Tobacco Cessation Counseling Com pleted 07/01/2020 70589 Office/Outpatient Established Mo d MDM 30-39 Min Completed 07/01/2020 84030 Spirometry Completed Medical Devices Description No Information Available Encounters Type Date Location Provider Dx Diagnosis Office Visit 10/19/2020 8:30a [facility] Pulmonary/Thoracic Vanessa Lew M.D. R91.8 Other nonspecific abnormal f inding of lung field G47.33 Obstructive sleep apnea (neelam lt) (pediatric) J43.9 Emphysema, unspecified F17.218 Nicotine dependence, cigaret kamryn, w oth disorders Office Visit 08/02/2020 11:00a [facility]oped[facility] Sivakumar Paz MD M54.41 Lumbago with sciatica, right side Office Visit 07/01/2020 11:30a [facility] Pulmonary/Thoracic K Vanessa montgomery M.D. G47.33 Obstructive [...] Reason for Referral Status Appt Date Radiology/Procedure 22254 Created
--- OUTSIDE RECORDS SUMMARY | 2020-12-08 10:12 | CCD ---
Author Author [facility] Organization [facility] Address Unknown Phone Unavailable Care Team Providers Care Salesperson Corsets Name Role Phone Florentin Nuñez Unavailable PROBLEMS Type Condition ICD9-CM Code [id number] Code Onset Dates Condition S tatus W/U Status Risk SNOMED Code Notes Problem Other chronic pain G89.29 Active confirmed 8 1003838 Problem Renal cell carcinoma of right kidney C64.1 Act krishan confirmed 867991322 Problem Lumbago with sciatica, right side M54.41 Active confirmed 603861966 Problem Right renal mass N28.89 Active confirmed 309 511113 Problem Hypercholesterolemia E78.00 Active confirmed 31679689 Problem Chronic anxiety F41.9 Active confirmed 1917 22160 Problem Essential hypertension I10 Active confirmed 72001938 ALLERGIES Allergen (clinical drug ingredient) Drug/Non Drug Allergy do cumented on EMR Reaction Allergy Type Onset Date Status Codeine Phosphate (For Allergies Use Only) vomiting Drug Allergy Active gabapentin Gabapentin(NDC Code:[address]-52) No Improvement Drug All ergy Active pregabalin Lyrica(NDC Code:[address]-51) No Improvement Drug Allergy Active duloxetine Cymbalta(NDC Code:[address]-33) No Improvement Drug Aller gy Active sulfamethoxazole / trimethoprim Bactrim(NDC Code:[address]- 01) Fever/Chills/Myalgia Drug Allergy Active ENCOUNTERS from 1950 to 2020-10-08 Encounter Location Date Provider Diagnosis [facility] Urology [address] [phone] [place] [address] Oct, Florentin Nuñez Renal cell carcinoma of right kidney C64 .1 IMMUNIZATIONS Vaccine Route Administration Date Status Prevnar [...] Education Language: Question Answer Notes Languages spoken: Spanish Caodaism: Question Answer Notes Caodaism No restorationist beliefs that would impact health care. Sexual [...] 30 d ays Sep, Active Trazodone HCl 100 MG 1 tab Oral bedtime for 90 days Active Ciprofloxacin HCl 500 MG 1 tablet Orally every 12 hrs for 7 day( s) Jul, Not-Taking Vitamin D (Ergocalciferol) 51508 UNIT 1 capsule Orally Weekly Active Rosuvastatin Calcium 5 MG 1 tablet Orally Once a day Active oxyCODONE HCl 5 MG 1 tab Oral every 6 hours as needed (MDD 4 tabs) for 7 day(s) PRN Sep, Active hydroCHLOROthiazide 12.5 MG 1 capsule in the morning Orally Once a da y Active PROCEDURES No Information RESULTS No Results REASON FOR VISIT BMP MEDICAL (GENERAL) HISTORY Type Description Date Medical [...] Notes Treatment Notes Treatm ent Clinical Notes Oct, Renal cell carcinoma of right kidney (ICD-10 - C 64.1) PLAN OF TREATMENT Medication Medication Name Sig Start Date Stop Date Trazodone HCl 100 MG 1 tab Oral bedtime for 90 days oxyCODONE HCl 5 MG 1 tab Oral every 6 hours as needed (MDD 4 tabs) for 7 day(s) Sep, ALPRAZolam 0.25 MG 1 tablet Oral as needed daily (MDD1) for 30 days Sep, Future Test Test Name Order Date Basic Metabolic Profile (BMP) [id number] Next Appt Details Provider Name:Florentin Nuñez, 11:00:00 AM, [address], , [place], [address], Provider Name:Balbina Hayden, 2020-11 01:30:00 PM, [address] [place] [address], , [place], [address], Insurance Providers Payer Name Payer Address Payer Phone Insured Name Patient Relati onship to Insured Coverage Start Date Coverage End Date MEDICARE Part A and B [address] [facility] [id number] [facility] [address] [facility] [id number] [phone] HAM OCONNELL self
--- OUTSIDE RECORDS SUMMARY | 2020-12-08 10:12 | CCD ---
Author Author [facility] Organization [facility] Address Unknown Phone Unavailable Care Team Providers Care Auto Inspection Specialist Name Role Phone Balbina Hayden Unavailable PROBLEMS Type Condition ICD9-CM Code YTU42-KU Code Onset Dates Condition S tatus W/U Status Risk SNOMED Code Notes Problem Other chronic pain G89.29 Active confirmed 8 9914364 Problem Renal cell carcinoma of right kidney C64.1 Act krishan confirmed 303633818 Problem Lumbago with sciatica, right side M54.41 Active confirmed 080160587 Problem Right renal mass N28.89 Active confirmed 309 988148 Problem Hypercholesterolemia E78.00 Active confirmed 74385002 Problem Chronic anxiety F41.9 Active confirmed 1917 42709 Problem Essential hypertension I10 Active confirmed 61153533 ALLERGIES Allergen (clinical drug ingredient) Drug/Non Drug Allergy do cumented on EMR Reaction Allergy Type Onset Date Status Codeine Phosphate (For Allergies Use Only) vomiting Drug Allergy Active gabapentin Gabapentin(NDC Code:[address]-00) No Improvement Drug All ergy Active pregabalin Lyrica(NDC Code:[address]-04) No Improvement Drug Allergy Active duloxetine Cymbalta(NDC Code:[address]-17) No Improvement Drug Aller gy Active sulfamethoxazole / trimethoprim Bactrim(NDC Code:[address]- 01) Fever/Chills/Myalgia Drug Allergy Active ENCOUNTERS from 1950 to 2020-10-14 Encounter Location Date Provider Diagnosis [address] [phone] [place] [address] Oct, Balbina Hayden Chronic anxiety F41. 9 IMMUNIZATIONS [...] Education Language: Question Answer Notes Languages spoken: Korean Judaism: Question Answer Notes Judaism No uatsdin beliefs that would impact health care. Sexual [...] day( s) Jul, Not-Taking Vitamin D (Ergocalciferol) 99586 UNIT 1 capsule Orally Weekly for 90 [...] Treatment Notes Treatm ent Clinical Notes Oct, Chronic anxiety (ICD-10 - F41.9) PLAN OF TREATMENT Medication Medication Name Sig Start Date Stop Date oxyCODONE HCl 5 MG 1 tab Oral every 6 hours as needed (MDD 4 tabs) for 7 day(s) Sep, Vitamin D (Ergocalciferol) 91126 UNIT 1 capsule Orally Weekly fo r 90 days ALPRAZolam 0.25 MG 1 tablet Oral as needed daily (MDD1) for 30 days Sep, Trazodone HCl 150 MG 1 tab Orally bedtime for 90 days Next Appt Details Provider Name:Florentin Nuñez, 11:00:00 AM, [address], , [place], [address], Provider Name:Balbina Hayden, 2020-11 01:30:00 PM, [address] [place] [address], , [place], [address], Insurance Providers Payer Name Payer Address Payer Phone Insured Name Patient Relati onship to Insured Coverage Start Date Coverage End Date MEDICARE Part A and B [address] [facility] [id number] [phone] HAM OCONNELL [facility] [address] [facility] [id number] HAM OCONNELL self
--- OUTSIDE RECORDS SUMMARY | 2020-12-08 10:12 | CCD | Continuity of Care Document ---
Author Author Yue FERREIRA M.D. Organization Unknown Address [address] [place] [address] Phone [phone] Care Team Providers Care Assembler Faucets Name Role Phone Sienna Carreno D.O. AUTM [phone] Balbina Hayden P.A.-C AUTM AUTM Unavailable Problems [...] lb BMI (Body Mass Index) 27.5 kg/m2 [place] Body Weight 105 lb Weight 65.942 kg BSA (Body Surface Area) 1.65 m2 08/02/2020 11:02am Body Temperature 97.9 F Height 61 inches 5'1" Weight 146.00 lb BMI (Body Mass Index) 27.6 kg/m2 [place] Body Weight 105 lb Weight 66.226 kg BSA (Body Surface Area) 1.65 m2 Results Test Acquired Date Facility Test Result H/L Range Note FVL/[place] 10/19/2020 [employer] PDFReport SEE IMAGE FVC-Pred 2.74 L FVC-Pre 2.42 L FVC-%Pred-Pre 88 L FVC-LLN 2.11 L Fev1-Pred 2.08 L Fev1-Pre 1.80 L Fev1-%Pred-Pre 86 L Fev1-LLN 1.55 L Fev6-Pred 2.62 L Fev6-Pre 2.42 L Fev6-%Pred-Pre 92 L Fev6-LLN 2.00 L Qkf7cbv-Wfdc 77 % Ezn5wsl-Fwc 74 % Hrg4few-%Pred-Pre 96 % Afn8obx-HVZ 67 % Fdv3fqu-Nmls 96 % Wja1qzd-Ekl 100 % Qcs5zzd-%Pred-Pre 104 % FEFMax-Pred 5.41 L/E/sec FEFMax-Pre 2.57 L/E/sec FEFMax-%Pred-Pre 47 L/E/sec FEFMax-LLN 3.85 L/E/sec Aqo6221-Azkq 1.87 L/E/sec Djm8807-Fda 1.51 L/E/sec Mwb7732-%Pred-Pre 80 L/E/sec Xcn0933-QJK 0.74 L/E/sec ExpTime-Pre 6.17 sec Bcl1uwf1-Zquz 80 % Jma6wnb7-Wkg 74 % Nou1wlm0-%Pred-Pre 93 % Ngm8ghw3-GDJ 71 % BUN & Creatinine ([facility]) 10/08/2020 [facility] Main Lab [address] [place] [address] [phone] Blood Urea Nitrogen 16 mg/dL Normal 7-18 1 Creatinine With GFR 10/08/2020 [facility] nter Main Lab [address] [place] [address] [phone] Creatinine For GFR 0.73 mg/dL Normal 0.55-1.30 Glomerular Filtration Rate > 60.0 Normal >45 2 Basic Metabolic Profile 10/08/2020 [facility] Main Lab [address] [place] [address] [phone] Glucose, Fasting 89 mg/dL Normal 70-100 Blood [...] L Fev6-%Pred-Pre 93 L Fev6-LLN 2.00 L Vgg0niz-Eely 77 % Wiq9bwe-Lmh 62 % Dai0bkb-%Pred-Pre 80 % Qxn7vfn-RLF 67 % Drl3bgz-Owlj 96 % Xyv8zaa-Ffa 100 % Dgh4yvd-%Pred-Pre 104 % FEFMax-Pred 5.41 L/E/sec FEFMax-Pre 2.23 L/E/sec FEFMax-%Pred-Pre 41 L/E/sec FEFMax-LLN 3.85 L/E/sec Bez0614-Embc 1.87 L/E/sec Xhg4735-Qby 1.08 L/E/sec Bpn2478-%Pred-Pre 57 L/E/sec Ckm8056-OAB 0.74 L/E/sec ExpTime-Pre 7.35 sec Aoi2zwa0-Wwon 80 % Vsw2azs6-Kri 62 % Chq8bjz8-%Pred-Pre 77 % Bzs0ean3-TFR 71 % BUN & Creatinine ([facility]) 06/28/2020 [facility] Main Lab [address] [place], [place] 7149652 [phone] Blood Urea Nitrogen 11 mg/dL Normal 7-18 4 Creatinine With GFR 06/28/2020 [facility] nter Main Lab [address] [place] [address] [phone] Creatinine For GFR 0.66 mg/dL Normal 0.55-1.30 Glomerular Filtration Rate > 60.0 Normal >45 5 1 note:<nlbl:demographic_[facility] ed> 2 Units are mL/min/1.73 m2 Chronic Kidney Disease Staging per NKF: Stage I & II GFR >=60 Normal to Mildly Decreased Stage III GFR 30-59 Moderately Decreased Stage IV GFR 15-29 Severely Decreased Stage V GFR <15 Very Little GFR Left ESRD GFR <15 on GASKET MAKER 3 Units are mL/min/1.73 m2 Chronic Kidney Disease Staging per NKF: Stage I & II GFR >=60 Normal to Mildly Decreased Stage III GFR 30-59 Moderately Decreased Stage IV GFR 15-29 Severely Decreased Stage V GFR <15 Very Little GFR Left ESRD GFR <15 on GASKET MAKER 4 note:<nlbl:demographic_[facility] ed> 5 Units are mL/min/1.73 m2 Chronic Kidney Disease Staging per NKF: Stage I & II GFR >=60 Normal to Mildly Decreased Stage III GFR 30-59 Moderately Decreased Stage IV GFR 15-29 Severely Decreased Stage V GFR <15 Very Little GFR Left ESRD GFR <15 on GASKET MAKER Procedures Date Code Description Status 10/19/2020 70818 Office/Outpatient Established Mo d MDM 30-39 Min Completed 10/19/2020 17522 Spirometry Completed 08/02/2020 87244 Office/Outpatient New Low MDM 30 -44 Minutes Completed 07/01/2020 97441 Tobacco Cessation Counseling Com pleted 07/01/2020 21567 Office/Outpatient Established Mo d MDM 30-39 Min Completed 07/01/2020 33954 Spirometry Completed Medical Devices Description No Information Available Encounters Type Date Location Provider Dx Diagnosis Office Visit 10/19/2020 8:30a [facility] Vanessa [...] Ferreira M.D. Plan of Treatment Future Appointment(s):* 11/10/2020 7:30 am - Vanessa Ferreira M.D. at [facility] Pulmonary/Thoracic * 11/18/2020 1:30 pm - Vanessa Ferreira M.D. at [facility] Pulmonary/Thoracic 10/19/2020 - Vanessa Ferreira M.D.* R91.8 Other nonspecific abnormal finding of lung field * G47.33 Obstructive sleep apnea (adult) (pediatric) * J43.9 Emphysema, unspecified * F17.218 Nicotine dependence, cigarettes, with other nicotine-induced disorders * * New Orders:* Bronchoscopy in [place], Scheduled: 11/10/20 * Follow up:* Follow up in office after procedure. Functional Status Description No Information Available Mental Status Description No Information Available Referrals Refer to Reason for Referral Status Appt Date Radiology/Procedure 44361 Created
--- OUTSIDE RECORDS SUMMARY | 2020-12-08 10:12 | CCD | Continuity of Care Document ---
Author Author Yue FERREIRA M.D. Organization Unknown Address [address] [place] [address] Phone [phone] Care Team Providers Care Patient Services Representative Name Role Phone Balbina Hayden P.A.-C AUTM [phone] AUTM Unavailable AUTM Unavailable Problems Description No [...] lb BMI (Body Mass Index) 27.5 kg/m2 [place] Body Weight 105 lb Weight 65.942 kg BSA (Body Surface Area) 1.65 m2 08/02/2020 11:02am Body Temperature 97.9 F Height 61 inches 5'1" Weight 146.00 lb BMI (Body Mass Index) 27.6 kg/m2 [place] Body Weight 105 lb Weight 66.226 kg BSA (Body Surface Area) 1.65 m2 Results Test Acquired Date Facility Test Result H/L Range Note Laboratory test finding 11/10/2020 [facility] [address] [place] [address] [phone] Non Secondary History Teacher/Cytology Req For Servi (SEE NOTE) 1 Laboratory test finding 11/10/2020 [facility] [address] [place] [address] [phone] Non Secondary History Teacher/Cytology Req For Servi (SEE NOTE) 2 Laboratory test finding 11/10/2020 [facility] [address] [place] [address] [phone] Non Secondary History Teacher/Cytology Req For Servi (SEE NOTE) 3 Laboratory test finding 11/10/2020 [facility] [address] [place] [address] [phone] Pathology Request For Service (SEE NOTE) 4 Laboratory test finding 11/10/2020 [facility] [address] [place] [address] [phone] Pathology Request For Service (SEE NOTE) 5 FVL/[place] 10/19/2020 [employer] [facility] SEE IMAGE FVC-Pred 2.74 L FVC-Pre 2.42 L FVC-%Pred-Pre 88 L FVC-LLN 2.11 L Fev1-Pred 2.08 L Fev1-Pre 1.80 L Fev1-%Pred-Pre 86 L Fev1-LLN 1.55 L Fev6-Pred 2.62 L Fev6-Pre 2.42 L Fev6-%Pred-Pre 92 L Fev6-LLN 2.00 L Lma6dzx-Slec 77 % Zzf1abf-Yfd 74 % Aaz5qfi-%Pred-Pre 96 % Zwa2pul-JUM 67 % Ggm6ssw-Seca 96 % Nlb7ehv-Zrp 100 % Hxm6enh-%Pred-Pre 104 % FEFMax-Pred 5.41 L/E/sec FEFMax-Pre 2.57 L/E/sec FEFMax-%Pred-Pre 47 L/E/sec FEFMax-LLN 3.85 L/E/sec Hsd9270-Zojg 1.87 L/E/sec Dmb3772-Lkz 1.51 L/E/sec Okc0412-%Pred-Pre 80 L/E/sec Plq5275-EVH 0.74 L/E/sec ExpTime-Pre 6.17 sec Hjk1jxq4-Qigv 80 % Wrg1rxc9-Qkk 74 % Xle0qij1-%Pred-Pre 93 % Ntg7nlm1-MBP 71 % BUN & Creatinine ([facility]) 10/08/2020 [facility] Main Lab [address] [place] [address] [phone] Blood Urea Nitrogen 16 mg/dL Normal 7-18 6 Creatinine With GFR 10/08/2020 [facility] Main Lab [address] [place] [address] [phone] [phone] Creatinine For GFR 0.73 mg/dL Normal 0.55-1.30 Glomerular Filtration Rate > 60.0 Normal >45 7 Basic Metabolic Profile 10/08/2020 [facility] Main Lab [address] [place] [address] [phone] Glucose, Fasting 89 mg/dL Normal 70-100 Blood [...] Level 9.0 mg/dL Normal 8.8-10.2 FVL/[place] 07/01/2020 [employer] PDFReport SEE IMAGE FVC-Pred 2.74 L FVC-Pre 2.45 L FVC-%Pred-Pre 89 L FVC-LLN 2.11 L Fev1-Pred 2.08 L Fev1-Pre 1.51 L Fev1-%Pred-Pre 72 L Fev1-LLN 1.55 L Fev6-Pred 2.62 L Fev6-Pre 2.45 L Fev6-%Pred-Pre 93 L Fev6-LLN 2.00 L Ata0gni-Pzno 77 % Qoo8ron-Kkh 62 % Jst4olw-%Pred-Pre 80 % Bam4orr-OOM 67 % Nfm7xkb-Wjei 96 % Kmi5pzh-Ajd 100 % Kjq2vjg-%Pred-Pre 104 % FEFMax-Pred 5.41 L/E/sec FEFMax-Pre 2.23 L/E/sec FEFMax-%Pred-Pre 41 L/E/sec FEFMax-LLN 3.85 L/E/sec Yhy7398-Zgpd 1.87 L/E/sec Ggy8500-Con 1.08 L/E/sec Wxy7744-%Pred-Pre 57 L/E/sec Xkv8862-DKT 0.74 L/E/sec ExpTime-Pre 7.35 sec Vfc6gnw2-Zqfg 80 % Huu0umi4-Xyg 62 % Ysg4sjy2-%Pred-Pre 77 % Uqh6axz2-GCU 71 % BUN & Creatinine ([facility]) 06/28/2020 [facility] Main Lab [address], [place] [phone] [phone] Blood Urea Nitrogen 11 mg/dL Normal 7-18 9 Creatinine With GFR 06/28/2020 [facility] nter Main Lab [address], [place] [phone] [phone] Creatinine For GFR 0.66 mg/dL Normal 0.55-1.30 [...] Signed SALAZAR ALLEN MD 11/16/2020 0900 6 note:<nlbl:demographic_[facility] ed> 7 Units are mL/min/1.73 m2 Chronic Kidney Disease Staging per NKF: Stage I & II GFR >=60 Normal to Mildly Decreased Stage III GFR 30-59 Moderately Decreased Stage IV GFR 15-29 Severely Decreased Stage V GFR <15 Very Little GFR Left ESRD GFR <15 on TAXICAB STARTER 8 Units are mL/min/1.73 m2 Chronic Kidney Disease Staging per NKF: Stage I & II GFR >=60 Normal to Mildly Decreased Stage III GFR 30-59 Moderately Decreased Stage IV GFR 15-29 Severely Decreased Stage V GFR <15 Very Little GFR Left ESRD GFR <15 on TAXICAB STARTER 9 note:<nlbl:demographic_[facility] ed> 10 Units are mL/min/1.73 m2 Chronic Kidney Disease Staging per NKF: Stage I & II GFR >=60 Normal to Mildly Decreased Stage III GFR 30-59 Moderately Decreased Stage IV GFR 15-29 Severely Decreased Stage V GFR <15 Very Little GFR Left ESRD GFR <15 on TAXICAB STARTER Procedures Date Code Description Status 10/19/2020 49300 Office/Outpatient Established Mo d MDM 30-39 Min Completed 10/19/2020 04265 Spirometry Completed 08/02/2020 85955 Office/Outpatient New Low MDM 30 -44 Minutes Completed 07/01/2020 26716 Tobacco Cessation Counseling Com pleted 07/01/2020 26717 Office/Outpatient Established Mo d MDM 30-39 Min Completed 07/01/2020 40450 Spirometry Completed Medical Devices Description No Information Available Encounters Type Date Location Provider Dx Diagnosis Office Visit 10/19/2020 8:30a [facility] Pulmonary/Thoracic Vanessa Lew M.D. R91.8 Other nonspecific abnormal f inding of lung field G47.33 Obstructive sleep apnea (neelam lt) (pediatric) J43.9 Emphysema, unspecified F17.218 Nicotine dependence, cigaret kamryn, w oth disorders Office Visit 08/02/2020 11:00a [facility] Orthopedics Sivakumar Paz MD M54.41 Lumbago with sciatica, right side Office Visit 07/01/2020 11:30a [facility] Pulmonary/Thoracic K Vanessa montgomery M.D. G47.33 [...] Reason for Referral Status Appt Date Radiology/Procedure 77659 Created
--- OUTSIDE RECORDS SUMMARY | 2020-12-08 10:12 | CCD | Continuity of Care Document ---
Author Author Yue FERREIRA M.D. Organization Unknown Address [address] [place] [address] Phone [phone] Care Team Providers Care Glaze Supervisor Name Role Phone Sienna Carreno D.O. AUTM [phone] Balbina Hayden P.A.-C AUTM [phone] AUTM Unavailable Problems Description No Information Available [...] lb BMI (Body Mass Index) 27.5 kg/m2 [place] Body Weight 105 lb Weight 65.942 kg BSA (Body Surface Area) 1.65 m2 08/02/2020 11:02am Body Temperature 97.9 F Height 61 inches 5'1" Weight 146.00 lb BMI (Body Mass Index) 27.6 kg/m2 [place] Body Weight 105 lb Weight 66.226 kg [...] L Fev6-%Pred-Pre 92 L Fev6-LLN 2.00 L Wds2rap-Vtfk 77 % Vwn4jba-Msh 74 % Rho0iij-%Pred-Pre 96 % Pnh8cir-NZX 67 % Hzn1kbz-Qqxh 96 % Ure8dee-Mnu 100 % Mzr1xvv-%Pred-Pre 104 % FEFMax-Pred 5.41 L/E/sec FEFMax-Pre 2.57 L/E/sec FEFMax-%Pred-Pre 47 L/E/sec FEFMax-LLN 3.85 L/E/sec Unp0918-Guie 1.87 L/E/sec Ata7812-Lml 1.51 L/E/sec Ygp3486-%Pred-Pre 80 L/E/sec Vwv3233-PYV 0.74 L/E/sec ExpTime-Pre 6.17 sec Ito9apj6-Fadm 80 % Cdj3epp0-Dme 74 % Gmf5qhy9-%Pred-Pre 93 % Wcs3ocb4-IQM 71 % BUN & Creatinine ([facility]) 10/08/2020 [facility] Main Lab [address] [place] [address] [phone] Blood Urea Nitrogen 16 mg/dL Normal 7-18 1 Creatinine With GFR 10/08/2020 [facility] nter Main Lab [address] [place] [address] [phone] Creatinine For GFR 0.73 mg/dL Normal 0.55-1.30 Glomerular Filtration Rate > 60.0 Normal >45 2 Basic Metabolic Profile 10/08/2020 [facility] Main Lab [address] [place] [address] [phone] Glucose, Fasting 89 mg/dL Normal 70-100 Blood [...] L Fev6-%Pred-Pre 93 L Fev6-LLN 2.00 L Vvz6gal-Lejv 77 % Mtl7lta-Pdy 62 % Jzk1sjd-%Pred-Pre 80 % Rgn2lyc-GHU 67 % Yap7xse-Vjae 96 % Ymq2pdj-Oek 100 % Vqb5uqu-%Pred-Pre 104 % FEFMax-Pred 5.41 L/E/sec FEFMax-Pre 2.23 L/E/sec FEFMax-%Pred-Pre 41 L/E/sec FEFMax-LLN 3.85 L/E/sec Wyi7458-Thrw 1.87 L/E/sec Fun6409-Noj 1.08 L/E/sec Pye2388-%Pred-Pre 57 L/E/sec Byw9215-XFN 0.74 L/E/sec ExpTime-Pre 7.35 sec Too0dcx3-Rmsr 80 % Ckb4fhm8-Hwb 62 % Ylq3dcr8-%Pred-Pre 77 % Wyr2goe1-TZG 71 % BUN & Creatinine ([facility]) 06/28/2020 [facility] Main Lab [address] [place], [place] 2120267 [phone] Blood Urea Nitrogen 11 mg/dL Normal 7-18 4 Creatinine With GFR 06/28/2020 [facility] nter Main Lab [address] [place] [address] [phone] Creatinine For GFR 0.66 mg/dL Normal 0.55-1.30 Glomerular Filtration Rate > 60.0 Normal >45 5 1 note:<nlbl:demographic_[facility] ed> 2 Units are mL/min/1.73 m2 Chronic Kidney Disease Staging per NKF: Stage I & II GFR >=60 Normal to Mildly Decreased Stage III GFR 30-59 Moderately Decreased Stage IV GFR 15-29 Severely Decreased Stage V GFR <15 Very Little GFR Left ESRD GFR <15 on LEADERSHIP PROGRAM ASSOCIATE 3 Units are mL/min/1.73 m2 Chronic Kidney Disease Staging per NKF: Stage I & II GFR >=60 Normal to Mildly Decreased Stage III GFR 30-59 Moderately Decreased Stage IV GFR 15-29 Severely Decreased Stage V GFR <15 Very Little GFR Left ESRD GFR <15 on LEADERSHIP PROGRAM ASSOCIATE 4 note:<nlbl:demographic_[facility] ed> 5 Units are mL/min/1.73 m2 Chronic Kidney Disease Staging per NKF: Stage I & II GFR >=60 Normal to Mildly Decreased Stage III GFR 30-59 Moderately Decreased Stage IV GFR 15-29 Severely Decreased Stage V GFR <15 Very Little GFR Left ESRD GFR <15 on LEADERSHIP PROGRAM ASSOCIATE Procedures Date Code Description Status 08/02/2020 69868 Office/Outpatient New Low MDM 30 -44 Minutes Completed 07/01/2020 53356 Tobacco Cessation Counseling Com pleted 07/01/2020 87784 Office/Outpatient Established Mo d MDM 30-39 Min Completed 07/01/2020 21023 Spirometry Completed Medical Devices Description No Information Available Encounters Type Date Location Provider Dx Diagnosis Office Visit 08/02/2020 11:00a [facility] Orthopedics Sivakumar Paz MD M54.41 Lumbago with sciatica, right side Office Visit 07/01/2020 11:30a [facility] Pulmonary/Thoracic Vanessa Lew M.D. G47.33 Obstructive [...] * * New Orders:* Bronchoscopy in [place], Ordered: 10/19/20 * Follow up:* Follow up in office after procedure. Functional Status Description No Information Available Mental Status Description No Information Available Referrals Refer to Reason for Referral Status Appt Date Radiology/Procedure 40422 Created
--- OUTSIDE RECORDS SUMMARY | 2020-12-08 10:12 | CCD ---
Author Author [facility] Organization [facility] Address Unknown Phone Unavailable Care Team Providers Care Broth Mixer Name Role Phone Balbina Hayden Unavailable PROBLEMS Type Condition ICD9-CM Code KOW64-EG Code Onset Dates Condition S tatus W/U Status Risk SNOMED Code Notes Problem Other chronic pain G89.29 Active confirmed 8 6106095 Problem Renal cell carcinoma of right kidney C64.1 Act krishan confirmed 118225781 Problem Lumbago with sciatica, right side M54.41 Active confirmed 404336480 Problem Right renal mass N28.89 Active confirmed 309 978530 Problem Hypercholesterolemia E78.00 Active confirmed 66656753 Problem Chronic anxiety F41.9 Active confirmed 1917 06167 Problem Essential hypertension I10 Active confirmed 81922541 ALLERGIES Allergen (clinical drug ingredient) Drug/Non Drug Allergy do cumented on EMR Reaction Allergy Type Onset Date Status Codeine Phosphate (For Allergies Use Only) vomiting Drug Allergy Active gabapentin Gabapentin(NDC Code:[address]-66) No Improvement Drug All ergy Active pregabalin Lyrica(NDC Code:[address]-74) No Improvement Drug Allergy Active duloxetine Cymbalta(NDC Code:[address]-35) No Improvement Drug Aller gy Active sulfamethoxazole / trimethoprim Bactrim(NDC Code:[address]- 01) Fever/Chills/Myalgia Drug Allergy Active ENCOUNTERS from 1952 to 2020-10-13 Encounter Location Date Provider Diagnosis [address] [place] [address] Oct, Balbina Hayden Chronic anxiety F41. 9 [...] Language: Question Answer Notes Languages spoken: Tajik Protestant: Question Answer Notes Protestant No buddhist beliefs that would impact health care. Sexual [...] needed Inhalation every 6 hrs Nov, Active hydroCHLOROthiazide 12.5 MG 1 capsule in the morning Orally Once a da y Active ALPRAZolam 0.25 MG 1 tablet Oral as needed daily (MDD1) for 30 d ays Sep, Active Trazodone HCl 100 MG 1 tab Oral bedtime for 90 days Active Vitamin D (Ergocalciferol) 19661 UNIT 1 capsule Orally Weekly Active Rosuvastatin Calcium 5 MG 1 tablet Orally Once a day Active oxyCODONE HCl 5 MG 1 tab Oral every 6 hours as needed (MDD 4 tabs) for 7 day(s) PRN Sep, Active Ciprofloxacin HCl 500 MG 1 tablet Orally every 12 hrs for 7 day( s) Jul, Not-Taking PROCEDURES No Information RESULTS No Results REASON [...] Medication Name Sig Start Date Stop Date ALPRAZolam 0.25 MG 1 tablet Oral as needed daily (MDD1) for 30 days Sep, oxyCODONE HCl 5 MG 1 tab Oral every 6 hours as needed (MDD 4 tabs) for 7 day(s) Sep, Trazodone HCl 100 MG 1 tab Oral bedtime for 90 days Next Appt Details Provider Name:Florentin Nuñez, 11:00:00 AM, [address], , [place], [address], Provider Name:Balbina Hayden, 2020-11 01:30:00 PM, [address] [place] [address], , [place], [address], Insurance Providers Payer Name Payer Address Payer Phone Insured Name Patient Relati onship to Insured Coverage Start Date Coverage End Date MEDICARE Part A and B [facility] [address] [place] [phone] HAM OCONNELL [facility] [address] [facility] [id number] HAM OCONNELL self
--- OUTSIDE RECORDS SUMMARY | 2020-12-08 10:12 | CCD | Continuity of Care Document ---
Author Author Yue FERREIRA M.D. Organization Unknown Address [address] [place] [address] Phone [phone] Care Team Providers Care Typewriter Assembly And Parts Inspector Name Role Phone Sienna Carreno D.O. AUTM [phone] Balbina Hayden P.A.-C AUTM AUTM Unavailable Problems [...] lb BMI (Body Mass Index) 27.6 kg/m2 [place] Body Weight 105 lb Weight 66.226 kg [...] L Fev6-%Pred-Pre 92 L Fev6-LLN 2.00 L Dor1szh-Nmye 77 % Uda0kpf-Cuh 74 % Ttp3ovg-%Pred-Pre 96 % Apo4vsa-BVD 67 % Qed1ksu-Away 96 % Dzu4aaa-Unr 100 % Jxv3bwm-%Pred-Pre 104 % FEFMax-Pred 5.41 L/E/sec FEFMax-Pre 2.57 L/E/sec FEFMax-%Pred-Pre 47 L/E/sec FEFMax-LLN 3.85 L/E/sec Ilp5886-Vqgs 1.87 L/E/sec Poy5922-Sgv 1.51 L/E/sec Fgj5095-%Pred-Pre 80 L/E/sec Kcj0251-KZZ 0.74 L/E/sec ExpTime-Pre 6.17 sec Wew4jrp6-Jvuj 80 % Aja9wgw2-Cfm 74 % Yuf8mwr3-%Pred-Pre 93 % Nng2jsa9-FCN 71 % BUN & Creatinine ([facility]) 10/08/2020 [facility] Main Lab [address] [place] [address] [phone] Blood Urea Nitrogen 16 mg/dL Normal 7-18 1 Creatinine With GFR 10/08/2020 [facility] nter Main Lab [address] [place] [address] [phone] Creatinine For GFR 0.73 mg/dL Normal 0.55-1.30 Glomerular Filtration Rate > 60.0 Normal >45 2 Basic Metabolic Profile 10/08/2020 [facility] Main Lab [address] [place] [address] [phone] Glucose, Fasting 89 mg/dL Normal 70-100 Blood [...] L Fev6-%Pred-Pre 93 L Fev6-LLN 2.00 L Cpb4mxt-Rpys 77 % Clg3tew-Wxy 62 % Ctu7czd-%Pred-Pre 80 % Cho1wsg-XYN 67 % Nsg3nqo-Evtl 96 % Zwo1neh-Vqs 100 % Qig4nah-%Pred-Pre 104 % FEFMax-Pred 5.41 L/E/sec FEFMax-Pre 2.23 L/E/sec FEFMax-%Pred-Pre 41 L/E/sec FEFMax-LLN 3.85 L/E/sec Cry0691-Urlo 1.87 L/E/sec Wzx4441-Rvs 1.08 L/E/sec Xwv4350-%Pred-Pre 57 L/E/sec Hwg7105-CFP 0.74 L/E/sec ExpTime-Pre 7.35 sec Chp0diq6-Kmki 80 % Olb6wej8-Qdb 62 % Bdw2edn7-%Pred-Pre 77 % Guq1clh4-AKS 71 % BUN & Creatinine ([facility]) 06/28/2020 [facility] Main Lab [address] [place], [place] 4756842 [phone] Blood Urea Nitrogen 11 mg/dL Normal 7-18 4 Creatinine With GFR 06/28/2020 [facility] nter Main Lab [address] [place] [address] [phone] Creatinine For GFR 0.66 mg/dL Normal 0.55-1.30 Glomerular Filtration Rate > 60.0 Normal >45 5 1 note:<nlbl:demographic_[facility] ed> 2 Units are mL/min/1.73 m2 Chronic Kidney Disease Staging per NKF: Stage I & II GFR >=60 Normal to Mildly Decreased Stage III GFR 30-59 Moderately Decreased Stage IV GFR 15-29 Severely Decreased Stage V GFR <15 Very Little GFR Left ESRD GFR <15 on SHANK CUTTER 3 Units are mL/min/1.73 m2 Chronic Kidney Disease Staging per NKF: Stage I & II GFR >=60 Normal to Mildly Decreased Stage III GFR 30-59 Moderately Decreased Stage IV GFR 15-29 Severely Decreased Stage V GFR <15 Very Little GFR Left ESRD GFR <15 on SHANK CUTTER 4 note:<nlbl:demographic_[facility] ed> 5 Units are mL/min/1.73 m2 Chronic Kidney Disease Staging per NKF: Stage I & II GFR >=60 Normal to Mildly Decreased Stage III GFR 30-59 Moderately Decreased Stage IV GFR 15-29 Severely Decreased Stage V GFR <15 Very Little GFR Left ESRD GFR <15 on SHANK CUTTER Procedures Date Code Description Status 08/02/2020 59421 Office/Outpatient New Low MDM 30 -44 Minutes Completed 07/01/2020 15170 Tobacco Cessation Counseling Com pleted 07/01/2020 81613 Office/Outpatient Established Mo d MDM 30-39 Min Completed 07/01/2020 68694 Spirometry Completed Medical Devices Description No Information Available Encounters Type Date Location Provider Dx Diagnosis Office Visit 08/02/2020 11:00a [facility] Orthopedics Sivakumar Paz MD M54.41 Lumbago with sciatica, right side Office Visit 07/01/2020 11:30a [facility] Pulmonary/Thoracic Vanessa Lew M.D. G47.33 Obstructive [...] Reason for Referral Status Appt Date Radiology/Procedure 63710 Created
--- OUTSIDE RECORDS SUMMARY | 2020-12-08 10:12 | CCD ---
Author Author [facility] Organization [facility] Address Unknown Phone Unavailable Care Team Providers Care Elevator Service Mechanic Name Role Phone Balbina Hayden Unavailable PROBLEMS Type Condition ICD9-CM Code JFT07-PO Code Onset Dates Condition S tatus W/U Status Risk SNOMED Code Notes Problem Other chronic pain G89.29 Active confirmed 8 6478680 Problem Renal cell carcinoma of right kidney C64.1 Act krishan confirmed 538489195 Problem Lumbago with sciatica, right side M54.41 Active confirmed 191553595 Problem Right renal mass N28.89 Active confirmed 309 946379 Problem Hypercholesterolemia E78.00 Active confirmed 90068305 Problem Chronic anxiety F41.9 Active confirmed 1917 80781 Problem Essential hypertension I10 Active confirmed 02400485 ALLERGIES Allergen (clinical drug ingredient) Drug/Non Drug Allergy do cumented on EMR Reaction Allergy Type Onset Date Status Codeine Phosphate (For Allergies Use Only) vomiting Drug Allergy Active gabapentin Gabapentin(NDC Code:[address]-56) No Improvement Drug All ergy Active pregabalin Lyrica(NDC Code:[address]-19) No Improvement Drug Allergy Active duloxetine Cymbalta(NDC Code:[address]-62) No Improvement Drug Aller gy Active sulfamethoxazole / trimethoprim Bactrim(NDC Code:[address]- 01) Fever/Chills/Myalgia Drug Allergy Active ENCOUNTERS from 1952 to 2020-10-20 Encounter Location Date Provider Diagnosis [address] [phone] [place] [address] Oct, Balbina Hayden Chronic anxiety F41. 9 [...] Education Language: Question Answer Notes Languages spoken: Macedonian Scientology: Question Answer Notes Scientology No hindu beliefs that would impact health care. Sexual [...] (MDD1) for 30 d ays Sep, Active Ciprofloxacin HCl 500 MG 1 tablet Orally every 12 hrs for 7 day( s) Jul, Not-Taking Vitamin D (Ergocalciferol) 37440 UNIT 1 capsule Orally Weekly for 90 days Active Rosuvastatin Calcium 5 MG 1 tablet Orally Once a day Active oxyCODONE HCl 5 MG 1 tab Oral every 6 hours as needed (MDD 4 tabs) for 7 day(s) PRN Sep, Active Trazodone HCl 150 MG 1 tab Orally bedtime for 90 days Active PROCEDURES No Information [...] for 7 day(s) Sep, Vitamin D (Ergocalciferol) 18323 UNIT 1 capsule Orally Weekly fo r 90 days Trazodone HCl 150 MG 1 tab Orally bedtime for 90 days ALPRAZolam 0.25 MG 1 tablet Oral as needed daily (MDD1) for 30 days Sep, Next Appt Details Provider Name:Florentin Nuñez, 11:00:00 AM, [address], , [place], [address], Provider Name:Balbina Hayden, 2020-11 01:30:00 PM, [address] [place] [address], , [place], [address], Insurance Providers Payer Name Payer Address Payer Phone Insured Name Patient Relati onship to Insured Coverage Start Date Coverage End Date [facility] [address] [facility] [id number] HAM OCONNELL MEDICARE Part A and B [address] [facility] [address] HAM OCONNELL
--- OUTSIDE RECORDS SUMMARY | 2020-12-08 10:13 | CCD ---
Author Author [facility] Organization [facility] Address Unknown Phone Unavailable Care Team Providers Care Tower Cleaner Name Role Phone Vanessa Ferreira MD Unavailable Unavailable Vanessa Ferreira MD Unavailable Unavailable Vanessa Ferreira MD Unavailable Unavailable Vanessa Ferreira MD Unavailable Unavailable Vanessa Ferreira MD Unavailable Unavailable Vanessa Ferreira MD Unavailable Unavailable Vanessa Ferreira MD Unavailable Unavailable Vanessa Ferreira MD Unavailable Unavailable Vanessa Ferreira MD Unavailable Unavailable Vanessa Ferreira MD Unavailable Unavailable Vanessa Ferreira MD Unavailable Unavailable Vanessa Ferreira MD Unavailable Unavailable Vanessa Ferreira MD Unavailable Unavailable Vanessa Ferreira MD Unavailable Unavailable Vanessa Ferreira MD Unavailable Unavailable Vanessa Ferreira MD Unavailable Unavailable Vanessa Ferreira MD Unavailable Unavailable Vanessa Ferreira MD Unavailable Unavailable Vanessa Ferreira MD Unavailable Unavailable Vanessa Ferreira MD Unavailable Unavailable Vanessa Ferreira MD Unavailable Unavailable Vanessa Ferreira MD Unavailable Unavailable Vanessa Ferreira MD Unavailable Unavailable Vanessa Ferreira MD Unavailable Unavailable Vanessa Ferreira MD Unavailable Unavailable Vanessa Ferreira MD Unavailable Unavailable Vanessa Ferreira MD Unavailable Unavailable Vanessa Ferreira MD Unavailable Unavailable Vanessa Ferreira MD Unavailable Unavailable Vanessa Ferreira MD Unavailable Unavailable Delaney Leiva MD Unavailable Unavailable Delaney Leiva MD Unavailable Unavailable Delaney Leiva MD Unavailable Unavailable Delaney Leiva MD Unavailable Unavailable Delaney Leiva MD Unavailable Unavailable Delaney Leiva MD Unavailable Unavailable Delaney Leiva MD Unavailable Unavailable Delaney Leiva MD Unavailable Unavailable Delaney Leiva MD Unavailable Unavailable Delaney Leiva MD Unavailable Unavailable Delaney Leiva MD Unavailable Unavailable Delaney Leiva MD Unavailable Unavailable Delaney Leiva MD Unavailable Unavailable Delaney Leiva MD Unavailable Unavailable Delaney Leiva MD Unavailable Unavailable Delaney Leiva MD Unavailable Unavailable Delaney Leiva MD Unavailable Unavailable Delaney Leiva MD Unavailable Unavailable Delaney Leiva MD Unavailable Unavailable Delaney Leiva MD Unavailable Unavailable Delaney Leiva MD Unavailable Unavailable Delaney Leiva MD Unavailable Unavailable Delaney Leiva MD Unavailable Unavailable Delaney Leiva MD Unavailable Unavailable Delaney Leiva MD Unavailable Unavailable Delaney Leiva MD Unavailable Unavailable Delaney Leiva MD Unavailable Unavailable Delaney Leiva MD Unavailable Unavailable Delaney Leiva MD Unavailable Unavailable Delaney Leiva MD Unavailable Unavailable Delaney Leiva MD Unavailable Unavailable Delaney Leiva MD Unavailable Unavailable Delaney Leiva MD Unavailable Unavailable Delaney Leiva MD Unavailable Unavailable Delaney Leiva MD Unavailable Unavailable Delaney Leiva MD Unavailable Unavailable Delaney Leiva MD Unavailable Unavailable Delaney Leiva MD Unavailable Unavailable Delaney Leiva MD Unavailable Unavailable Delaney Leiva MD Unavailable Unavailable Delaney Leiva MD Unavailable Unavailable Delaney Leiva MD Unavailable Unavailable Delaney Leiva MD Unavailable Unavailable Delaney Leiva MD Unavailable Unavailable Delaney Leiva MD Unavailable Unavailable Delaney Leiva MD Unavailable Unavailable Delaney Leiva MD Unavailable Unavailable Delaney Leiva MD Unavailable Unavailable Delaney Leiva MD Unavailable Unavailable Delaney Leiva MD Unavailable Unavailable Delaney Leiva MD Unavailable Unavailable Delaney Leiva MD Unavailable Unavailable Delaney Leiva MD Unavailable Unavailable Delaney Leiva MD Unavailable Unavailable Delaney Leiva MD Unavailable Unavailable Delaney Leiva MD Unavailable Unavailable Delaney Leiva MD Unavailable Unavailable Delaney Leiva MD Unavailable Unavailable Delaney Leiva MD Unavailable Unavailable Jackson, Sivakumar AHUMADA Unavailable Unavailable Paz, Sivakumar AHUMADA Unavailable Unavailable Paz, Sivakumar AHUMADA Unavailable Unavailable Paz, Sivakumar AHUMADA Unavailable Unavailable Paz, Sivakumar AHUMADA Unavailable Unavailable Paz, Sivakumar AHUMADA Unavailable Unavailable Apz, Sivakumar AHUMADA Unavailable Unavailable Paz, Sivakumar AHUMADA Unavailable Unavailable Paz, Sivakumar AHUMADA Unavailable Unavailable Sivakumar Paz MD Unavailable Unavailable JASON, A MARLO DO Unavailable Unavailable JASON, A MARLO DO Unavailable Unavailable JASON, A MARLO DO Unavailable Unavailable JASON, A MARLO DO Unavailable Unavailable JASON, A MARLO DO Unavailable Unavailable JASON, A MARLO DO Unavailable Unavailable JASON, A MARLO DO Unavailable Unavailable JASON, A MARLO DO Unavailable Unavailable JASON, A MARLO DO Unavailable Unavailable JASON, A MARLO DO Unavailable Unavailable JASON, A MARLO DO Unavailable Unavailable JASON, A MARLO DO Unavailable Unavailable JASON, A MARLO DO Unavailable Unavailable JASON, A MARLO DO Unavailable Unavailable JASON, A MARLO DO Unavailable Unavailable JASON, A MARLO DO Unavailable Unavailable JASON, A MARLO DO Unavailable Unavailable JASON, A MARLO DO Unavailable Unavailable JASON, A MARLO DO Unavailable Unavailable JASON, A MARLO DO Unavailable Unavailable JASON, A MARLO DO Unavailable Unavailable JASON, A MARLO DO Unavailable Unavailable JASON, A MARLO DO Unavailable Unavailable JASON, A MARLO DO Unavailable Unavailable JASON, A MARLO DO Unavailable Unavailable JASON, A MARLO DO Unavailable Unavailable JASON, A MARLO DO Unavailable Unavailable JASON, A MARLO DO Unavailable Unavailable JASON, A MARLO DO Unavailable Unavailable JASON, A MARLO DO Unavailable Unavailable JASON, A MARLO DO Unavailable Unavailable JASON, A MARLO DO Unavailable Unavailable JASON, A MARLO DO Unavailable Unavailable JASON, A MARLO DO Unavailable Unavailable JASON, A MARLO DO Unavailable Unavailable JASON, A MARLO DO Unavailable Unavailable JASON, A MARLO DO Unavailable Unavailable JASON, A MARLO DO Unavailable Unavailable JASON, A MARLO DO Unavailable Unavailable JASON, A MARLO DO Unavailable Unavailable JASON, A MARLO DO Unavailable Unavailable JASON, A MARLO DO Unavailable Unavailable JASON, A MARLO DO Unavailable Unavailable JASON, A MARLO DO Unavailable Unavailable JASON, A MARLO DO Unavailable Unavailable JASON, A MARLO DO Unavailable Unavailable JASON, A MARLO DO Unavailable Unavailable JASON, A MARLO DO Unavailable Unavailable JASON, A MARLO DO Unavailable Unavailable JASON, A MARLO DO Unavailable Unavailable JASON, A MARLO DO Unavailable Unavailable JASON, A MARLO DO Unavailable Unavailable JASON, A MARLO DO Unavailable Unavailable JASON, A MARLO DO Unavailable Unavailable JASON, A MARLO DO Unavailable Unavailable JASON, A MARLO DO Unavailable Unavailable JASON, A MARLO DO Unavailable Unavailable JASON, A MARLO DO Unavailable Unavailable JASON, A MARLO DO Unavailable Unavailable JASON, A MARLO DO Unavailable Unavailable JASON, A MARLO DO Unavailable Unavailable JASON, A MARLO DO Unavailable Unavailable JASON, A MARLO DO Unavailable Unavailable JASON, A MARLO DO Unavailable Unavailable Fons, M Shakira TIE FASTENER Unavailable Unavailable Fons, M Shakira TIE FASTENER Unavailable Unavailable Fons, M Shakira TIE FASTENER Unavailable Unavailable Fons, M Shakira TIE FASTENER Unavailable Unavailable Fons, M Shakira TIE FASTENER Unavailable Unavailable Fons, M Shakira TIE FASTENER Unavailable Unavailable Fons, M Shakira TIE FASTENER Unavailable Unavailable Fons, M Shakira TIE FASTENER Unavailable Unavailable Fons, M Shakira TIE FASTENER Unavailable Unavailable Fons, M Shakira TIE FASTENER Unavailable Unavailable Fons, M Shakira TIE FASTENER Unavailable Unavailable Fons, M Shakira TIE FASTENER Unavailable Unavailable Fons, M Shakira TIE FASTENER Unavailable Unavailable Fons, M Shakira TIE FASTENER Unavailable Unavailable Fons, M Shakira TIE FASTENER Unavailable Unavailable Fons, M Shakira TIE FASTENER Unavailable Unavailable Fons, M Shakira TIE FASTENER Unavailable Unavailable Fons, M Shakira TIE FASTENER Unavailable Unavailable Fons, M Shakira TIE FASTENER Unavailable Unavailable Fons, M Shakira TIE FASTENER Unavailable Unavailable Fons, M Shakira TIE FASTENER Unavailable Unavailable Fons, M Shakira TIE FASTENER Unavailable Unavailable Fons, M Shakira TIE FASTENER Unavailable Unavailable Fons, M Shakira TIE FASTENER Unavailable Unavailable Fons, M Shakira TIE FASTENER Unavailable Unavailable Fons, M Shakira TIE FASTENER Unavailable Unavailable Fons, M Shakira TIE FASTENER Unavailable Unavailable Fons, M Shakira TIE FASTENER Unavailable Unavailable Fons, M Shakira TIE FASTENER Unavailable Unavailable Fons, M Shakira TIE FASTENER Unavailable Unavailable Fons, M Shakira TIE FASTENER Unavailable Unavailable Fons, M Shakira TIE FASTENER Unavailable Unavailable Fons, M Shakira TIE FASTENER Unavailable Unavailable Fons, M Shakira TIE FASTENER Unavailable Unavailable Fons, M Shakira TIE FASTENER Unavailable Unavailable Fons, M Shakira TIE FASTENER Unavailable Unavailable Fons, M Shakira TIE FASTENER Unavailable Unavailable Fons, M Shakira TIE FASTENER Unavailable Unavailable Fons, M Shakira TIE FASTENER Unavailable Unavailable Fons, M Shakira TIE FASTENER Unavailable Unavailable Fons, M Shakira TIE FASTENER Unavailable Unavailable Fons, M Shakira TIE FASTENER Unavailable Unavailable Fons, M Shakira TIE FASTENER Unavailable Unavailable Fons, M Shakira TIE FASTENER Unavailable Unavailable Fons, M Shakira TIE FASTENER Unavailable Unavailable Fons, M Shakira TIE FASTENER Unavailable Unavailable Fons, M Shakira TIE FASTENER Unavailable Unavailable Fons, M Shakira TIE FASTENER Unavailable Unavailable Fons, M Shakira TIE FASTENER Unavailable Unavailable Fons, M Shakira TIE FASTENER Unavailable Unavailable Fons, M Shakira TIE FASTENER Unavailable Unavailable Fons, M Shakira TIE FASTENER Unavailable Unavailable Fons, M Shakira TIE FASTENER Unavailable Unavailable Re-disclosure Warning The records that you are about to access may contain information from federally-assisted alcohol or drug abuse programs. If such information is present, then the following federally mandated warning applies: This information has been disclosed to you from records protected by federal confidentiality rules (42 CFR part 2). The federal rules prohibit you from making any further disclosure of this information unless further disclosure is expressly permitted by the written consent of the person to whom it pertains or as otherwise permitted by 42 CFR part 2. A general authorization for the release of medical or other information is NOT sufficient for this purpose. The Federal rules restrict any use of the information to criminally investigate or prosecute any alcohol or drug abuse patient.The records that you are about to access may contain highly sensitive health information, the redisclosure of which is protected by Article 27-F of the [facility] Public Health law. If you continue you may have access to information: Regarding HIV / AIDS; Provided by facilities licensed or operated by the [facility] Office of Mental Health; or Provided by the [facility] Office for People With Developmental Disabilities. If such information is present, then the following [facility] mandated warning applies: This information has been disclosed to you from confidential records which are protected by state law. State law prohibits you from making any further disclosure of this information without the specific written consent of the person to whom it pertains, or as otherwise permitted by law. Any unauthorized further disclosure in violation of state law may result in a fine or long term sentence or both. A general authorization for the release of medical or other information is NOT sufficient authorization for further disc losure. Family History Family Member Name Family Member Gender Family Member Status Date o f Status Description Data Source(s) Unknown Male Problem MEDENT ([facility], ) Encounters Encounter Providers Location Date Indications Data Source(s ) Office Visit Attender: Vanessa Cruz/Nichelle stewart 12/06/2020 10:30:00 AM EDT MEDENT ([facility], ) Outpatient Attender: Live Leiva MDReferrer: Vanessa Ferreira MD [id number] 12/03/2020 12:00:00 AM [facility] Unknown [address] [address] 11/25/2020 12:00:00 AM EDT eCW1 ([facility]) Outpatient Attender: Vanessa Cruz/Nichelle stewart 11/16/2020 10:30:00 AM EDT MEDENT ([facility], ) Outpatient Admitter: Vanessa Ferreira MDReferrer: Vanessa valiente MD 11/16/2020 12:00:00 AM EDT Malignant neoplasm of unspecified part o f unspecified bronchus or lung [facility] Malignant neoplasm of unspecified part o f unspecified bronchus or lung Outpatient [address] [facility] [address] 11/09/2020 12:00:00 AM EDT eCW1 ([facility]) Unknown [address] [address] 11/02/2020 12:00:00 AM EDT eCW1 ([facility]) Outpatient Attender: Vanessa Cruz/Nichelle stewart 10/19/2020 08:30:00 AM EDT [facility] ([facility] [place] [address] [facility] [address] 10/19/2020 12:00:00 AM EDT eCW1 ([facility]) [place] [address] [facility] [address] 10/18/2020 12:00:00 AM EDT [facility] ([facility]) [place] [address] [address] 10/13/2020 12:00:00 AM EDT eCW1 ([facility]) Unknown [address] [facility] [address] 10/08/2020 12:00:00 AM EDT eCW1 ([facility]) [place] [address] [facility] [address] 10/07/2020 12:00:00 AM EDT eCW1 ([facility]) Unknown [address] [facility] [address] 09/23/2020 12:00:00 AM EDT eCW1 ([facility]) Unknown [address] [facility] [address] 09/23/2020 12:00:00 AM EDT eCW1 ([facility]) [place] [address] [facility] [place] [address] 09/22/2020 12:00:00 AM EDT eCW1 ([facility]) Unknown [address] [facility] [address] 09/14/2020 12:00:00 AM EDT eCW1 ([facility]) Outpatient [address] [facility] [address] 08/31/2020 12:00:00 AM EDT eCW1 ([facility]) Postop visit [address] [facility] [address] 08/17/2020 12:00:00 AM EDT eCW1 ([facility]) Outpatient Attender: Sivakumar Cruz/Alvina/Thompson/Rein dl 08/02/2020 11:00:00 AM EDT MED[facility] ([facility]) Unknown [address] [facility] [address] 08/02/2020 12:00:00 AM EDT [facility] [place] [address] [facility] [address] 08/02/2020 12:00:00 AM EDT eCW1 ([facility]) Outpatient [address] [facility] [address] 07/27/2020 12:00:00 AM EDT eCW1 ([facility]) Postop [place] [address] [facility] [address] 07/20/2020 12:00:00 AM EDT eCW1 ([facility]) Outpatient [address] [facility] [address] 07/12/2020 12:00:00 AM EDT eCW1 ([facility] Unknown [address] [facility] [address] 07/12/2020 12:00:00 AM EDT eCW1 ([facility]) Unknown [address] [facility] [address] 07/02/2020 12:00:00 AM EDT eCW1 ([facility]) Outpatient Attender: Vanessa Cruz/Alvina/Thompson/Zack ndl 07/01/2020 11:30:00 AM EDT [facility] ([facility]) Outpatient [address] [facility] [address] 06/30/2020 12:00:00 AM EDT eCW1 ([facility]) Unknown [address] [facility] [address] 06/28/2020 12:00:00 AM EDT eCW1 ([facility]) Outpatient [address] [facility] [address] 06/22/2020 12:00:00 AM EDT eCW1 ([facility]) Unknown [address] [facility] [address] 06/22/2020 12:00:00 AM EDT eCW1 ([facility]) Unknown [address] [facility] [address] 06/21/2020 12:00:00 AM EDT eCW1 ([facility]) Unknown [address] [facility] [address] 06/21/2020 12:00:00 AM EDT eCW1 ([facility]) Unknown [address] [facility] [address] 06/17/2020 12:00:00 AM EDT eCW1 ([facility]) Outpatient [address] [facility] [address] 06/14/2020 12:00:00 AM EDT eCW1 ([facility]) Outpatient Attender: Shakira SHIELDSSJGEE 01:27:29 PM EDT - 06/09/2020 03:02:[address] [facility] Outpatient Referrer: Shakira SHIELDSSJGEE 06/09/2020 12:00:00 AM EDT [facility] Outpatient [address] [facility] [address] 06/07/2020 12:00:00 AM EDT eCW1 ([facility]) Outpatient [address] [facility] [address] 06/03/2020 12:00:00 AM EDT eCW1 ([facility]) Unknown [address] [facility] [address] 06/01/2020 12:00:00 AM EDT eCW1 ([facility]) Outpatient [address] [facility] [address] 05/31/2020 12:00:00 AM EDT eCW1 ([facility]) Unknown [address] [facility] [address] 05/31/2020 12:00:00 AM EDT eCW1 ([facility]) Outpatient Attender: Shakira CARABALLO [email or web address] 12:00:00 AM EDT - 05/05/2020 02:30:[address] [facility] Outpatient Attender: Vanessa Cruz/Alvina/Thompson/Zack stewart 04/06/2020 01:30:00 PM EST MEDENT ([facility]) Outpatient Attender: Shakira CARABALLO [email or web address] 12:00:00 AM EST - 02/24/2020 01:39:[address] [facility] Outpatient Attender: MARLO GOMEZ DO 10/29/2013 12:16:00 [facility] Immunizations Vaccine Date Status Description Data Source(s) IIV3. This is one of two codes replacing CVX 15, which is being retired. 04/07/2020 03:44:00 PM EST completed eCW1 ([facility]) Pneumococcal conjugate PCV 13 04/07/2020 03:44:00 PM EST completed eCW1 ([facility]) IIV3. This is one of two codes replacing CVX 15, which is being retired. 04/07/2020 03:44:00 PM EST completed eCW1 ([facility]) Pneumococcal conjugate PCV 13 04/07/2020 03:44:00 PM EST completed eCW1 ([facility]) IIV3. This is one of two codes replacing CVX 15, which is being retired. 04/07/2020 03:44:00 PM EST completed eCW1 ([facility]) Pneumococcal conjugate PCV 13 04/07/2020 03:44:00 PM EST completed eCW1 ([facility]) IIV3. This is one of two codes replacing CVX 15, which is being retired. 04/07/2020 03:44:00 PM EST completed eCW1 ([facility]) Pneumococcal conjugate PCV 13 04/07/2020 03:44:00 PM EST completed eCW1 ([facility]) IIV3. This is one of two codes replacing CVX 15, which is being retired. 04/07/2020 03:44:00 PM EST completed eCW1 ([facility]) Pneumococcal conjugate PCV 13 04/07/2020 03:44:00 PM EST completed eCW1 ([facility]) IIV3. This is one of two codes replacing CVX 15, which is being retired. 04/07/2020 03:44:00 PM EST completed eCW1 ([facility]) Pneumococcal conjugate PCV 13 04/07/2020 03:44:00 PM EST completed eCW1 ([facility]) IIV3. This is one of two codes replacing CVX 15, which is being retired. 04/07/2020 03:44:00 PM EST completed eCW1 ([facility]) Pneumococcal conjugate PCV 13 04/07/2020 03:44:00 PM EST completed eCW1 ([facility]) IIV3. This is one of two codes replacing CVX 15, which is being retired. 04/07/2020 03:44:00 PM EST completed eCW1 ([facility]) Pneumococcal conjugate PCV 13 04/07/2020 03:44:00 PM EST completed eCW1 ([facility]) IIV3. This is one of two codes replacing CVX 15, which is being retired. 04/07/2020 03:44:00 PM EST completed eCW1 ([facility]) Pneumococcal conjugate PCV 13 04/07/2020 03:44:00 PM EST completed eCW1 ([facility]) IIV3. This is one of two codes replacing CVX 15, which is being retired. 04/07/2020 03:44:00 PM EST completed eCW1 ([facility]) Pneumococcal conjugate PCV 13 04/07/2020 03:44:00 PM EST completed eCW1 ([facility]) IIV3. This is one of two codes replacing CVX 15, which is being retired. 04/07/2020 03:44:00 PM EST completed eCW1 ([facility]) Pneumococcal conjugate PCV 13 04/07/2020 03:44:00 PM EST completed eCW1 ([facility]) IIV3. This is one of two codes replacing CVX 15, which is being retired. 04/07/2020 03:44:00 PM EST completed eCW1 ([facility]) Pneumococcal conjugate PCV 13 04/07/2020 03:44:00 PM EST completed eCW1 ([facility]) IIV3. This is one of two codes replacing CVX 15, which is being retired. 04/07/2020 03:44:00 PM EST completed eCW1 ([facility]) Pneumococcal conjugate PCV 13 04/07/2020 03:44:00 PM EST completed eCW1 ([facility]) IIV3. This is one of two codes replacing CVX 15, which is being retired. 04/07/2020 03:44:00 PM EST completed eCW1 ([facility]) Pneumococcal conjugate PCV 13 04/07/2020 03:44:00 PM EST completed eCW1 ([facility]) IIV3. This is one of two codes replacing CVX 15, which is being retired. 04/07/2020 03:44:00 PM EST completed eCW1 ([facility]) Pneumococcal conjugate PCV 13 04/07/2020 03:44:00 PM EST completed eCW1 ([facility]) IIV3. This is one of two codes replacing CVX 15, which is being retired. 04/07/2020 03:44:00 PM EST completed eCW1 ([facility]) Pneumococcal conjugate PCV 13 04/07/2020 03:44:00 PM EST completed eCW1 ([facility]) IIV3. This is one of two codes replacing CVX 15, which is being retired. 04/07/2020 03:44:00 PM EST completed eCW1 ([facility]) Pneumococcal conjugate PCV 13 04/07/2020 03:44:00 PM EST completed eCW1 ([facility]) IIV3. This is one of two codes replacing CVX 15, which is being retired. 04/07/2020 03:44:00 PM EST completed eCW1 ([facility]) Pneumococcal conjugate PCV 13 04/07/2020 03:44:00 PM EST completed eCW1 ([facility]) IIV3. This is one of two codes replacing CVX 15, which is being retired. 04/07/2020 03:44:00 PM EST completed eCW1 ([facility]) Pneumococcal conjugate PCV 13 04/07/2020 03:44:00 PM EST completed eCW1 ([facility]) IIV3. This is one of two codes replacing CVX 15, which is being retired. 04/07/2020 03:44:00 PM EST completed eCW1 ([facility]) Pneumococcal conjugate PCV 13 04/07/2020 03:44:00 PM EST completed eCW1 ([facility]) IIV3. This is one of two codes replacing CVX 15, which is being retired. 04/07/2020 03:44:00 PM EST completed eCW1 ([facility]) Pneumococcal conjugate PCV 13 04/07/2020 03:44:00 PM EST completed eCW1 ([facility]) IIV3. This is one of two codes replacing CVX 15, which is being retired. 04/07/2020 03:44:00 PM EST completed eCW1 ([facility]) Pneumococcal conjugate PCV 13 04/07/2020 03:44:00 PM EST completed eCW1 ([facility]) IIV3. This is one of two codes replacing CVX 15, which is being retired. 04/07/2020 03:44:00 PM EST completed eCW1 ([facility]) Pneumococcal conjugate PCV 13 04/07/2020 03:44:00 PM EST completed eCW1 ([facility]) IIV3. This is one of two codes replacing CVX 15, which is being retired. 04/07/2020 03:44:00 PM EST completed eCW1 ([facility]) Pneumococcal conjugate PCV 13 04/07/2020 03:44:00 PM EST completed eCW1 ([facility]) IIV3. This is one of two codes replacing CVX 15, which is being retired. 04/07/2020 03:44:00 PM EST completed eCW1 ([facility]) Pneumococcal conjugate PCV 13 04/07/2020 03:44:00 PM EST completed eCW1 ([facility]) IIV3. This is one of two codes replacing CVX 15, which is being retired. 04/07/2020 03:44:00 PM EST completed eCW1 ([facility]) Pneumococcal conjugate PCV 13 04/07/2020 03:44:00 PM EST completed eCW1 ([facility]) IIV3. This is one of two codes replacing CVX 15, which is being retired. 04/07/2020 03:44:00 PM EST completed eCW1 ([facility]) Pneumococcal conjugate PCV 13 04/07/2020 03:44:00 PM EST completed eCW1 ([facility]) IIV3. This is one of two codes replacing CVX 15, which is being retired. 04/07/2020 03:44:00 PM EST completed eCW1 ([facility]) Pneumococcal conjugate PCV 13 04/07/2020 03:44:00 PM EST completed eCW1 ([facility]) IIV3. This is one of two codes replacing CVX 15, which is being retired. 04/07/2020 03:44:00 PM EST completed eCW1 ([facility]) Pneumococcal conjugate PCV 13 04/07/2020 03:44:00 PM EST completed eCW1 ([facility]) IIV3. This is one of two codes replacing CVX 15, which is being retired. 04/07/2020 03:44:00 PM EST completed eCW1 ([facility]) Pneumococcal conjugate PCV 13 04/07/2020 03:44:00 PM EST completed eCW1 ([facility]) IIV3. This is one of two codes replacing CVX 15, which is being retired. 04/07/2020 03:44:00 PM EST completed eCW1 ([facility]) Pneumococcal conjugate PCV 13 04/07/2020 03:44:00 PM EST completed eCW1 ([facility]) IIV3. This is one of two codes replacing CVX 15, which is being retired. 04/07/2020 03:44:00 PM EST completed eCW1 ([facility]) Pneumococcal conjugate PCV 13 04/07/2020 03:44:00 PM EST completed eCW1 ([facility]) COVID-19 VACCINE Moderna 03/24/2020 12:00:00 AM EST completed [facility] Vaccine Series Complete: YESThis Data wa s Submitted to [facility]. COVID-19 VACCINE, MRNA-1273, LNP-S (MODERNA)/PF 03/24/2020 1 2:00:00 AM EST completed [facility] COVID-19 VACCINE, MRNA-1273, LNP-S (MODERNA)/PF 02/26/2020 1 2:00:00 AM EST completed [facility] COVID-19 VACCINE Moderna 02/26/2020 12:00:00 AM EST completed [facility] Vaccine Series Complete: NOThis Data was Submitted to [facility] [address]. INFLUENZA VACCINE QUADRIVALENT (65 YR UP)/MF59 C.1/PF 01/24/2020 12:00:00 AM EST completed [facility] Medications Medication Brand Name Start Date Product Form Dose Route Admi nistrative Instructions Pharmacy Instructions Status Indications Reaction Description Data Source(s) Hydrochlorothiazide 12.5 MG Oral Tablet HYDROCHLOROTHIAZIDE 11/28/2020 12:00:00 AM EDT tablet 90 TAKE ONE TABLET BY MOUTH ALEJANDRO RY DAY TAKE ONE TABLET BY MOUTH EVERY DAY SOLD: 11/28/2020 [facility] 5 mg 11/25/2020 12:00:00 AM EDT tablet 28 TAKE ONE TABLET BY MOUTH EVERY 6 HOURS NEEDED MAXIMUM DAILY DOSE = 4 TABLETS TAKE ONE TABLET BY MOUTH EVERY 6 HOURS NEEDED MAXIMUM DAILY DOSE = 4 TABLETS SOLD: 11/28/2020 [facility] Alprazolam 0.25 MG Oral Tablet ALPRAZolam 0.25 MG ALPRAZolam 0.25 MG 11/25/2020 12:00:00 AM EDT 1.0 {tablet} active AL PRAZolam 0.25 MG eCW1 ([facility]) Alprazolam 0.25 MG Oral Tablet ALPRAZolam 0.25 MG ALPRAZolam 0.25 MG 11/25/2020 12:00:00 AM EDT 1.0 {tablet} active AL PRAZolam 0.25 MG eCW1 ([facility]) Oxycodone Hydrochloride 5 MG Oral Tablet oxyCODONE HCl 5 MG oxyCODONE HCl 5 MG 11/25/2020 12:00:00 AM EDT active oxyCODONE HCl 5 MG eCW1 ([facility]) Oxycodone Hydrochloride 5 MG Oral Tablet oxyCODONE HCl 5 MG oxyCODONE HCl 5 MG 11/25/2020 12:00:00 AM EDT active oxyCODONE HCl 5 MG eCW1 ([facility]) Alprazolam 0.25 MG Oral Tablet ALPRAZOLAM 11/25/2020 12:00:00 AM EDT tablet 30 TAKE ONE TABLET BY MOUTH EVERY DAY NEEDED MAXIMUM D AILY DOSE = 1 TABLET TAKE ONE TABLET BY MOUTH EVERY DAY NEEDED MAXIMUM DAILY DOSE = 1 TABLET SOLD: 11/28/2020 [facility] 10 mg 11/17/2020 12:00:00 AM EDT cartridge 336 INHALE SIX TO SIXTEEN CARTRIDGES A DAY MAXIMUM DAILY DOSE = 16 CARTRIDGES INHALE SIX TO SIXTEEN CARTRIDGES A DAY MAXIMUM DAILY DOSE = 16 CARTRIDGES SOLD: 11/18/2020 [facility] 150 mg 11/16/2020 12:00:00 AM EDT tablet sustained-releas e 12 hr 60 TAKE ONE TABLET BY MOUTH FOR THE FIRST THREE DAYS, THEN INCREASE TO TWICE A DAY AND MAINTAIN THAT DOSE TAKE ONE TABLET BY MOUTH FOR THE FIRST T HREE DAYS, THEN INCREASE TO TWICE A DAY AND MAINTAIN THAT DOSE SOLD: 11/18/2020 [facility] 12 HR Bupropion Hydrochloride 150 MG Extended Release Oral Tablet Bupropion Hydrochloride ER (SR) 11/16/2020 12:00:00 AM EDT ORAL a ctive MEDENT ([facility], ) Nicotine 4 MG/ACTUAT Inhalant Solution [Nicotrol] Nicotrol 11/16/2020 12:00:00 AM EDT active MEDENT ([facility], ) 150 mg 10/20/2020 12:00:00 AM EDT tablet 90 TAKE ONE TABLET BY MOUTH AT BEDTIME TAKE ONE TABLET BY MOUTH AT BEDTIME SOLD: 10/21/2020 [facility] 1,250 mcg (50,000 unit) 10/14/2020 12:00:00 AM EDT capsule 12 TAKE ONE CAPSULE BY MOUTH WEEKLY TAKE ONE CAPSULE BY MOUTH WEEKLY SOLD: 10/19/2020 [facility] Alprazolam 0.25 MG Oral Tablet ALPRAZolam 0.25 MG ALPRAZolam 0.25 MG 09/14/2020 12:00:00 AM EDT 1.0 {tablet} active AL PRAZolam 0.25 MG eCW1 ([facility]) Oxycodone Hydrochloride 5 MG Oral Tablet oxyCODONE HCl 5 MG oxyCODONE HCl 5 MG 09/14/2020 12:00:00 AM EDT active oxyCODONE HCl 5 MG eCW1 ([facility]) Oxycodone Hydrochloride 5 MG Oral Tablet oxyCODONE HCl 5 MG oxyCODONE HCl 5 MG 09/14/2020 12:00:00 AM EDT active oxyCODONE HCl 5 MG eCW1 ([facility]) Alprazolam 0.25 MG Oral Tablet ALPRAZolam 0.25 MG ALPRAZolam 0.25 MG 09/14/2020 12:00:00 AM EDT 1.0 {tablet} active AL PRAZolam 0.25 MG eCW1 ([facility]) 5 mg 09/14/2020 12:00:00 AM EDT tablet 28 TAKE ONE TABLET BY MOUTH EVERY 6 HOURS NEEDED MAXIMUM DAILY DOSE = 4 TAKE ONE TABLET BY MOUTH EVERY 6 HOURS A S NEEDED MAXIMUM DAILY DOSE = 4 SOLD: 09/17/2020 [facility] Alprazolam 0.25 MG Oral Tablet ALPRAZolam 0.25 MG ALPRAZolam 0.25 MG 09/14/2020 12:00:00 AM EDT 1.0 {tablet} active AL PRAZolam 0.25 MG eCW1 ([facility]) Oxycodone Hydrochloride 5 MG Oral Tablet oxyCODONE HCl 5 MG oxyCODONE HCl 5 MG 09/14/2020 12:00:00 AM EDT active oxyCODONE HCl 5 MG eCW1 ([facility]) Oxycodone Hydrochloride 5 MG Oral Tablet oxyCODONE HCl 5 MG oxyCODONE HCl 5 MG 09/14/2020 12:00:00 AM EDT active oxyCODONE HCl 5 MG eCW1 ([facility]) Oxycodone Hydrochloride 5 MG Oral Tablet oxyCODONE HCl 5 MG oxyCODONE HCl 5 MG 09/14/2020 12:00:00 AM EDT active oxyCODONE HCl 5 MG eCW1 ([facility]) Alprazolam 0.25 MG Oral Tablet ALPRAZolam 0.25 MG ALPRAZolam 0.25 MG 09/14/2020 12:00:00 AM EDT 1.0 {tablet} active AL PRAZolam 0.25 MG eCW1 ([facility]) Alprazolam 0.25 MG Oral Tablet ALPRAZolam 0.25 MG ALPRAZolam 0.25 MG 09/14/2020 12:00:00 AM EDT 1.0 {tablet} active AL PRAZolam 0.25 MG eCW1 ([facility]) Oxycodone Hydrochloride 5 MG Oral Tablet oxyCODONE HCl 5 MG oxyCODONE HCl 5 MG 09/14/2020 12:00:00 AM EDT active oxyCODONE HCl 5 MG eCW1 ([facility]) Oxycodone Hydrochloride 5 MG Oral Tablet oxyCODONE HCl 5 MG oxyCODONE HCl 5 MG 09/14/2020 12:00:00 AM EDT active oxyCODONE HCl 5 MG eCW1 ([facility]) Alprazolam 0.25 MG Oral Tablet ALPRAZolam 0.25 MG ALPRAZolam 0.25 MG 09/14/2020 12:00:00 AM EDT 1.0 {tablet} active AL PRAZolam 0.25 MG eCW1 ([facility]) Oxycodone Hydrochloride 5 MG Oral Tablet oxyCODONE HCl 5 MG oxyCODONE HCl 5 MG 09/14/2020 12:00:00 AM EDT active oxyCODONE HCl 5 MG eCW1 ([facility]) Oxycodone Hydrochloride 5 MG Oral Tablet oxyCODONE HCl 5 MG oxyCODONE HCl 5 MG 09/14/2020 12:00:00 AM EDT active oxyCODONE HCl 5 MG eCW1 ([facility]) Alprazolam 0.25 MG Oral Tablet ALPRAZolam 0.25 MG ALPRAZolam 0.25 MG 09/14/2020 12:00:00 AM EDT 1.0 {tablet} active AL PRAZolam 0.25 MG eCW1 ([facility]) Alprazolam 0.25 MG Oral Tablet ALPRAZolam 0.25 MG ALPRAZolam 0.25 MG 09/14/2020 12:00:00 AM EDT 1.0 {tablet} active AL PRAZolam 0.25 MG eCW1 ([facility]) Oxycodone Hydrochloride 5 MG Oral Tablet oxyCODONE HCl 5 MG oxyCODONE HCl 5 MG 09/14/2020 12:00:00 AM EDT active oxyCODONE HCl 5 MG eCW1 ([facility]) Alprazolam 0.25 MG Oral Tablet ALPRAZolam 0.25 MG ALPRAZolam 0.25 MG 09/14/2020 12:00:00 AM EDT 1.0 {tablet} active AL PRAZolam 0.25 MG eCW1 ([facility]) Alprazolam 0.25 MG Oral Tablet ALPRAZolam 0.25 MG ALPRAZolam 0.25 MG 09/14/2020 12:00:00 AM EDT 1.0 {tablet} active AL PRAZolam 0.25 MG eCW1 ([facility]) Alprazolam 0.25 MG Oral Tablet ALPRAZOLAM 09/14/2020 12:00:00 AM EDT tablet 30 TAKE ONE TABLET BY MOUTH EVERY DAY NEEDED MAXIMUM D AILY DOSE = 1 TABLET TAKE ONE TABLET BY MOUTH EVERY DAY NEEDED MAXIMUM DAILY DOSE = 1 TABLET SOLD: 09/17/2020 [facility] Alprazolam 0.25 MG Oral Tablet ALPRAZolam 0.25 MG ALPRAZolam 0.25 MG 09/14/2020 12:00:00 AM EDT 1.0 {tablet} active AL PRAZolam 0.25 MG eCW1 ([facility]) Oxycodone Hydrochloride 5 MG Oral Tablet oxyCODONE HCl 5 MG oxyCODONE HCl 5 MG 09/14/2020 12:00:00 AM EDT active oxyCODONE HCl 5 MG eCW1 ([facility]) Ciprofloxacin 500 MG Oral Tablet Ciprofloxacin HCl 500 MG Ciprofloxacin HCl 500 MG 07/08/2020 12:00:00 AM EDT 1.0 {tablet} suspe nded Ciprofloxacin HCl 500 MG eCW1 ([facility]) Ciprofloxacin 500 MG Oral Tablet Ciprofloxacin HCl 500 MG Ciprofloxacin HCl 500 MG 07/08/2020 12:00:00 AM EDT 1.0 {tablet} suspe nded Ciprofloxacin HCl 500 MG eCW1 ([facility]) Ciprofloxacin 500 MG Oral Tablet Ciprofloxacin HCl 500 MG Ciprofloxacin HCl 500 MG 07/08/2020 12:00:00 AM EDT 1.0 {tablet} suspe nded Ciprofloxacin HCl 500 MG eCW1 ([facility]) Ciprofloxacin 500 MG Oral Tablet Ciprofloxacin HCl 500 MG Ciprofloxacin HCl 500 MG 07/08/2020 12:00:00 AM EDT 1.0 {tablet} suspe nded Ciprofloxacin HCl 500 MG eCW1 ([facility]) Ciprofloxacin 500 MG Oral Tablet Ciprofloxacin HCl 500 MG Ciprofloxacin HCl 500 MG 07/08/2020 12:00:00 AM EDT 1.0 {tablet} suspe nded Ciprofloxacin HCl 500 MG eCW1 ([facility]) Ciprofloxacin 500 MG Oral Tablet Ciprofloxacin HCl 500 MG Ciprofloxacin HCl 500 MG 07/08/2020 12:00:00 AM EDT 1.0 {tablet} suspe nded Ciprofloxacin HCl 500 MG eCW1 ([facility]) Ciprofloxacin 500 MG Oral Tablet Ciprofloxacin HCl 500 MG Ciprofloxacin HCl 500 MG 07/08/2020 12:00:00 AM EDT 1.0 {tablet} suspe nded Ciprofloxacin HCl 500 MG eCW1 ([facility]) Ciprofloxacin 500 MG Oral Tablet Ciprofloxacin HCl 500 MG Ciprofloxacin HCl 500 MG 07/08/2020 12:00:00 AM EDT 1.0 {tablet} suspe nded Ciprofloxacin HCl 500 MG eCW1 ([facility]) Ciprofloxacin 500 MG Oral Tablet Ciprofloxacin HCl 500 MG Ciprofloxacin HCl 500 MG 07/08/2020 12:00:00 AM EDT 1.0 {tablet} suspe nded Ciprofloxacin HCl 500 MG eCW1 ([facility]) Ciprofloxacin 500 MG Oral Tablet Ciprofloxacin HCl 500 MG Ciprofloxacin HCl 500 MG 07/08/2020 12:00:00 AM EDT 1.0 {tablet} suspe nded Ciprofloxacin HCl 500 MG eCW1 ([facility]) Ciprofloxacin 500 MG Oral Tablet Ciprofloxacin HCl 500 MG Ciprofloxacin HCl 500 MG 07/08/2020 12:00:00 AM EDT 1.0 {tablet} suspe nded Ciprofloxacin HCl 500 MG eCW1 ([facility]) Ciprofloxacin 500 MG Oral Tablet Ciprofloxacin HCl 500 MG Ciprofloxacin HCl 500 MG 07/08/2020 12:00:00 AM EDT 1.0 {tablet} suspe nded Ciprofloxacin HCl 500 MG eCW1 ([facility]) Ciprofloxacin 500 MG Oral Tablet Ciprofloxacin HCl 500 MG Ciprofloxacin HCl 500 MG 07/08/2020 12:00:00 AM EDT 1.0 {tablet} suspe nded Ciprofloxacin HCl 500 MG eCW1 ([facility]) Ciprofloxacin 500 MG Oral Tablet Ciprofloxacin HCl 500 MG Ciprofloxacin HCl 500 MG 07/08/2020 12:00:00 AM EDT 1.0 {tablet} suspe nded Ciprofloxacin HCl 500 MG eCW1 ([facility]) 500 mg 07/08/2020 12:00:00 AM EDT tablet 14 TAKE ONE TABLET BY MOUTH EVERY 12 HOURS FOR 7 DAYS TAKE ONE TABLET BY MOUTH EVERY 12 HOURS FOR 7 DAYS JOSELUIS [facility] Ciprofloxacin 500 MG Oral Tablet Ciprofloxacin HCl 500 MG Ciprofloxacin HCl 500 MG 07/08/2020 12:00:00 AM EDT 1.0 {tablet} activ e Ciprofloxacin HCl 500 MG eCW1 ([facility]) Ciprofloxacin 500 MG Oral Tablet Ciprofloxacin HCl 500 MG Ciprofloxacin HCl 500 MG 07/08/2020 12:00:00 AM EDT 1.0 {tablet} suspe nded Ciprofloxacin HCl 500 MG eCW1 ([facility]) Ciprofloxacin 500 MG Oral Tablet Ciprofloxacin HCl 500 MG Ciprofloxacin HCl 500 MG 07/08/2020 12:00:00 AM EDT 1.0 {tablet} suspe nded Ciprofloxacin HCl 500 MG eCW1 ([facility]) Ciprofloxacin 500 MG Oral Tablet Ciprofloxacin HCl 500 MG Ciprofloxacin HCl 500 MG 07/08/2020 12:00:00 AM EDT 1.0 {tablet} activ e Ciprofloxacin HCl 500 MG eCW1 ([facility]) Ciprofloxacin 500 MG Oral Tablet Ciprofloxacin HCl 500 MG Ciprofloxacin HCl 500 MG 07/08/2020 12:00:00 AM EDT 1.0 {tablet} suspe nded Ciprofloxacin HCl 500 MG eCW1 ([facility]) Ciprofloxacin 500 MG Oral Tablet Ciprofloxacin HCl 500 MG Ciprofloxacin HCl 500 MG 07/08/2020 12:00:00 AM EDT 1.0 {tablet} suspe nded Ciprofloxacin HCl 500 MG eCW1 ([facility]) 100 mg 07/07/2020 12:00:00 AM EDT capsule 20 TAKE ONE CAPSULE BY MOUTH TWICE A DAY TAKE ONE CAPSULE BY MOUTH TWICE A DAY SOLD: 07/07/2020 [facility] 5-325 mg 07/07/2020 12:00:00 AM EDT tablet 30 TAKE ONE TABLET BY MOUTH EVERY 4 HOURS NEEDED FOR MODERATE/SEVERE PAIN MAX=6TABS/DAY TAKE ONE TABLET BY MOUTH EVERY 4 HOURS NEEDED FOR MODERATE/SEVERE PAIN MAX=6TABS/DAY SOLD: 07/07/2020 [facility] 5 mg 06/29/2020 12:00:00 AM EDT tablet 30 TAKE ONE TABLET BY MOUTH EVERY DAY TAKE ONE TABLET BY MOUTH EVERY DAY SOLD: 08/28/2020 [facility] 5 mg 06/29/2020 12:00:00 AM EDT tablet 30 TAKE ONE TABLET BY MOUTH EVERY DAY TAKE ONE TABLET BY MOUTH EVERY DAY SOLD: 11/28/2020 [facility] 5 mg 06/29/2020 12:00:00 AM EDT tablet 30 TAKE ONE TABLET BY MOUTH EVERY DAY TAKE ONE TABLET BY MOUTH EVERY DAY SOLD: 06/30/2020 [facility] Alprazolam 0.25 MG Oral Tablet ALPRAZOLAM 06/23/2020 12:00:00 AM EDT tablet 30 TAKE ONE TABLET BY MOUTH EVERY DAY NEEDED MAXIMUM D AILY DOSE = 1 TABLET TAKE ONE TABLET BY MOUTH EVERY DAY NEEDED MAXIMUM DAILY DOSE = 1 TABLET SOLD: 06/30/2020 [facility] Hydrochlorothiazide 12.5 MG Oral Tablet HYDROCHLOROTHIAZIDE 06/10/2020 12:00:00 AM EDT tablet 30 TAKE ONE TABLET BY MOUTH ALEJANDRO DAY TAKE ONE TABLET BY MOUTH EVERY DAY SOLD: 06/11/2020 [facility] Hydrochlorothiazide 12.5 MG Oral Tablet HYDROCHLOROTHIAZIDE 06/10/2020 12:00:00 AM EDT tablet 30 TAKE ONE TABLET BY MOUTH ALEJANDRO DAY TAKE ONE TABLET BY MOUTH EVERY DAY SOLD: 07/13/2020 [facility] Hydrochlorothiazide 12.5 MG Oral Tablet HYDROCHLOROTHIAZIDE 06/10/2020 12:00:00 AM EDT tablet 30 TAKE ONE TABLET BY MOUTH ALEJANDRO TAKE ONE TABLET BY MOUTH EVERY DAY SOLD: 08/28/2020 [facility] Hydrochlorothiazide 12.5 MG Oral Tablet hydrochlorothiazide (HYDRODIURIL) 12.5 MG tablet hydrochlorothiazide (HYDRODIURIL) 12.5 MG tablet 06/09 12:00:00 AM EDT 12.5 mg Oral active Take 1 t ablet (12.5 mg total) by mouth daily [facility] Alprazolam 0.25 MG Oral Tablet ALPRAZOLAM 05/21/2020 12:00:00 AM EDT tablet 30 TAKE ONE TABLET BY MOUTH EVERY DAY NEEDED MAXIMUM D AILY DOSE = 1 TAKE ONE TABLET BY MOUTH EVERY DAY NEEDED MAXIMUM DAILY DOSE = 1 SOLD: 05/21/2020 [facility] 25 mg 05/14/2020 12:00:00 AM EDT tablet 30 TAKE ONE TABLET BY MOUTH EVERY DAY TAKE ONE TABLET BY MOUTH EVERY DAY SOLD: 05/14/2020 [facility] Losartan Potassium 25 MG Oral Tablet losartan (COZAAR) 25 MG tablet losartan (COZAAR) 25 MG tablet 05/14/2020 12:00:00 AM EDT 25 mg Oral aborted Take 1 tablet (25 mg total) by mouth daily [facility] 5 mg 05/05/2020 12:00:00 AM EDT tablet 30 TAKE ONE TABLET BY MOUTH EVERY DAY TAKE ONE TABLET BY MOUTH EVERY DAY SOLD: 05/05/2020 [facility] 90 mcg/actuation 04/09/2020 12:00:00 AM EST HFA aerosol inha ler 25 INHALE TWO PUFFS BY MOUTH FOUR TIMES A DAY NEEDED INHALE TWO PUFFS BY MOUTH FOUR TIMES A DAY NEEDED SOLD: 04/11/2020 [facility] albuterol (PROVENTIL HFA;VENTOLIN HFA) 108 (90 Base) M CG/ACT inhaler [id number] 04/09/2020 12:00:00 AM EST activ e INHALE TWO PUFFS BY MOUTH FOUR TIMES A DAY NEEDED [facility] 200 ACTUAT Albuterol 0.09 MG/ACTUAT Metered Dose Inhaler [Pr oAir] Proair HFA 04/09/2020 12:00:00 AM EST RESPIRATORY active MEDENT ([facility]) Alprazolam 0.25 MG Oral Tablet ALPRAZOLAM 04/05/2020 12:00:00 AM EST tablet 30 TAKE ONE TABLET BY MOUTH EVERY DAY NEEDED MAXIMUM D AILY DOSE = 1 TABLET TAKE ONE TABLET BY MOUTH EVERY DAY NEEDED MAXIMUM DAILY DOSE = 1 TABLET SOLD: 04/08/2020 [facility] 5 mg 04/05/2020 12:00:00 AM EST tablet 30 TAKE ONE TABLET BY MOUTH THREE TIMES A DAY NEEDED FOR PAIN MAXIMUM DAILY DOSE = 3 TABLETS TAKE ONE TABLET BY MOUTH THREE TIMES A DAY NEEDED FOR PAIN MAXIMUM DAILY DOSE = 3 TABLETS SOLD: 04/08/2020 [facility] Alprazolam 0.25 MG Oral Tablet ALPRAZOLAM 02/27/2020 12:00:00 AM EST tablet 30 TAKE ONE TABLET BY MOUTH EVERY DAY NEEDED MAXIMUM D AILY DOSE = 1 TABLET TAKE ONE TABLET BY MOUTH EVERY DAY NEEDED MAXIMUM DAILY DOSE = 1 TABLET SOLD: 02/29/2020 [facility] 5 mg 02/25/2020 12:00:00 AM EST tablet 30 TAKE ONE TABLET BY MOUTH EVERY DAY TAKE ONE TABLET BY MOUTH EVERY DAY SOLD: 05/21/2020 [facility] 5 mg 02/25/2020 12:00:00 AM EST tablet 30 TAKE ONE TABLET BY MOUTH EVERY DAY TAKE ONE TABLET BY MOUTH EVERY DAY SOLD: 04/08/2020 [facility] 5 mg 02/25/2020 12:00:00 AM EST tablet 30 TAKE ONE TABLET BY MOUTH EVERY DAY TAKE ONE TABLET BY MOUTH EVERY DAY SOLD: 02/26/2020 [facility] Rosuvastatin calcium 5 MG Oral Tablet rosuvastatin (CR ESTOR) 5 MG tablet rosuvastatin (CRESTOR) 5 MG tablet 02/24/2020 12:00:00 AM EST 5 mg Oral active Take 1 tablet (5 mg total) by mo uth daily [facility] Meclizine Hydrochloride 25 MG Oral Tablet MECLIZINE HCL 02/16/2020 12:00:00 AM EST tablet 60 TAKE 1/2 OR 1 TA BLET BY MOUTH FOUR TIMES A DAY NEEDED FOR VERTIGO TAKE 1/2 OR 1 TABLET BY MOUTH FOUR TIMES A DAY NEED ED FOR VERTIGO SOLD: 02/16/2020 [facility] Meclizine Hydrochloride 25 MG Oral Tablet meclizine (A NTIVERT) 25 MG tablet meclizine (ANTIVERT) 25 MG tablet 02/16/2020 12:00:00 AM EST active 3 (three) times a day as needed [facility] FLUAD QUADRIVALENT 0.5 ML PRSY [id number] 01/24/2020 12:00:00 AM EST active INJECT INTO THE LEFT ARM [facility] atorvastatin 10 MG Oral Tablet atorvastatin (LIPITOR) 10 MG tablet atorvastatin (LIPITOR) 10 MG tablet 01/21/2020 12:00:00 AM EST 20 mg Oral aborted Take 20 mg by mouth daily [facility] Alprazolam 0.25 MG Oral Tablet ALPRAZOLAM 01/21/2020 12:00:00 AM EST tablet 30 TAKE ONE TABLET BY MOUTH NEEDED DAILY MAXIMUM DAILY DOSE = 1 TABLET TAKE ONE TABLET BY MOUTH NEEDED DAILY MAXIMUM DAILY DOSE = 1 TABLET SOLD: 01/24/2020 [facility] Oxycodone Hydrochloride 5 MG Oral Tablet oxyCODONE (ROXICODONE) 5 MG immediate release tablet oxyCODONE (ROXICODONE) 5 MG immediate release tablet 1 03/23/2019 12:00:00 AM EST active TAKE ONE TABLET BY MOUTH THREE TIMES A DAY NEEDED FOR PAIN MAXIMUM DAILY DOSE 3 TABLETS [facility] 5 mg 01/21/2020 12:00:00 AM EST tablet 30 TAKE ONE TABLET BY MOUTH THREE TIMES A DAY NEEDED FOR PAIN MAXIMUM DAILY DOSE = 3 TABLETS TAKE ONE TABLET BY MOUTH THREE TIMES A DAY NEEDED FOR PAIN MAXIMUM DAILY DOSE = 3 TABLETS SOLD: 01/24/2020 [facility] Trazodone Hydrochloride 150 MG Oral Tablet traZODone ( DESYREL) 150 MG tablet traZODone (DESYREL) 150 MG tablet 01/02/2020 12:00:00 AM EST 150 mg Oral active Take 150 mg by mouth daily [facility] 875-125 mg 12/02/2019 12:00:00 AM EDT tablet 14 TAKE ONE TABLET BY MOUTH TWICE A DAY WITH FOOD TAKE ONE TABLET BY MOUTH TWICE A DAY WITH FOOD SOLD: 12/17/2019 [facility] Alprazolam 0.25 MG Oral Tablet ALPRAZOLAM 11/28/2019 12:00:00 AM EDT tablet 30 TAKE ONE TABLET BY MOUTH EVERY DAY NEEDED MAXIMUM D AILY DOSE = 1 TABLET TAKE ONE TABLET BY MOUTH EVERY DAY NEEDED MAXIMUM DAILY DOSE = 1 TABLET SOLD: 12/02/2019 [facility] Alprazolam 0.25 MG Oral Tablet ALPRAZOLAM 10/16/2019 12:00:00 AM EDT tablet 30 TAKE ONE TABLET BY MOUTH EVERY DAY NEEDED MAXIMUM D AILY DOSE = 1 TABLET TAKE ONE TABLET BY MOUTH EVERY DAY NEEDED MAXIMUM DAILY DOSE = 1 TABLET SOLD: 10/17/2019 [facility] 5 mg 10/15/2019 12:00:00 AM EDT tablet 30 TAKE ONE TABLET BY MOUTH THREE TIMES A DAY NEEDED FOR PAIN MAXIMUM DAILY DOSE = 3 TABLETS TAKE ONE TABLET BY MOUTH THREE TIMES A DAY NEEDED FOR PAIN MAXIMUM DAILY DOSE = 3 TABLETS SOLD: 10/17/2019 [facility] 150 mg 10/02/2019 12:00:00 AM EDT tablet 90 TAKE ONE TABLET BY MOUTH EVERY DAY TAKE ONE TABLET BY MOUTH EVERY DAY SOLD: 06/30/2020 [facility] 150 mg 10/02/2019 12:00:00 AM EDT tablet 90 TAKE ONE TABLET BY MOUTH EVERY DAY TAKE ONE TABLET BY MOUTH EVERY DAY SOLD: 01/02/2020 [facility] 150 mg 10/02/2019 12:00:00 AM EDT tablet 90 TAKE ONE TABLET BY MOUTH EVERY DAY TAKE ONE TABLET BY MOUTH EVERY DAY SOLD: 04/08/2020 [facility] atorvastatin 10 MG Oral Tablet ATORVASTATIN CALCIUM 07/09/2019 1 2:00:00 AM EDT tablet 60 TAKE TWO TABLETS BY MOUTH EVERY DAY TAKE TWO TABLETS BY MOUTH EVERY DAY SOLD: 01/24/2020 [facility] Trazodone Hydrochloride 100 MG Oral Tablet traZODone ( DESYREL) 100 MG tablet traZODone (DESYREL) 100 MG tablet 04/21/2019 12:00:00 AM EDT 1 {tbl} Oral aborted Take 1 tablet by mouth daily [facility] 100-25 mcg/dose 04/01/2019 12:00:00 AM EST blister with johnny ce 60 INHALE 1 PUFF BY MOUTH ONCE DAILY INHALE 1 PUFF BY MOUTH ONCE DAILY SOLD: 01/24/2020 [facility] Ergocalciferol 94948 UNT Oral Capsule vi tamin D, Ergocalciferol, 1.25 MG (17375 UT) CAPS vitamin D, Ergocalciferol, 1.25 MG (28430 UT) CAPS 11/2019 12:00:00 AM EST 1 {capsule} Oral aborted Take 1 capsule by mouth every 14 (fourteen) days [facility] Insurance Providers Payer name Policy type / Coverage type Policy ID Covered libertarian ID Covered libertarian's relationship to [place] Policy [place] Plan Information [facility] [id number] SP [id number] EMPIRE PLAN CLAIMS 2 [id number] [facility] [id number] SP [id number] [facility] [id number] SP [id number] Pease Plan F [id number] SELF [id number] [place] [employer] Shield P p SELF p Pease Plan F [id number] SELF [id number] MEDICARE [id number] Deanna [id number] V47 Medicare C [id number] SELF [id number] MEDICARE A [id number] Self [id number] V47 MEDICARE [id number] xxxxxxxxxxx [id number] [facility] MEDICARE 1 [id number] 1 [id number] Medicare C [id number] SELF [id number] [id number] Pease Plan F [id number] SELF [id number] [employer]BS [id number] Deanna YLS [id number] EXCELLUS BCBS [id number] xxxxxxxxxxxx [id number] BCBS EMPIRE JUAN JOSE DIV [id number] SP [id number] EMPIRE PLAN [facility] U [id number] Self [id number] [facility] [id number] SP [id number] EMPIRE PLAN [facility] U [id number] Self [id number] BCBS EMPIRE JUAN JOSE DIV [id number] BCBS EMPIRE [id number] S [id number] [facility] [id number] S [id number] BCBS EMPIRE JUAN JOSE DIV [id number] SP [id number] BCBS EMPIRE JUAN JOSE DIV [id number] SP [id number] [facility] [id number] S [id number] BCBS EMPIRE [id number] S [id number] [facility] MEDICARE DIVISION [id number] S [id number] [place]ICARE - [place] [id number] S [id number] MEDICARE C [id number] S [id number] [facility] O [id number] S [id number] BCBS EMPIRE JUAN JOSE DIV [id number] SP [id number] [facility] Pease Medigap Part B [id number] [place] [facility] Medicare Primary [id number] Self [id number] MEDICARE [id number] SP [id number] [facility] [id number] SP [id number] MEDICARE [id number] SP [id number] [facility] [id number] SP [id number] [facility] [id number] SP [id number] SELF PAY UNAVAILABLE SP UNAVAILA BLE Problems, Conditions, and Diagnoses Code Display Name Description Problem Type Effective Dates Data Source(s) C34.90 Malignant neoplasm of unspecified part o f unspecified bronchus or lung Malignant neoplasm of unspecified part of unspecified bronchus or lung Diagnosis 11/16/2020 02:33:00 PM EDT [facility] Z01.818 Encounter for other preprocedural examin ation Encounter for other preprocedural examin Diagnosis 06/09/2020 01:27:29 PM EDT [facility] I73.9 Peripheral vascular disease, unspecified Peripheral vascular disease, unspecified Diagnosis 06/09/2020 01:27:29 PM EDT [facility] F17.200 Nicotine dependence, unspecified, uncomp licated Nicotine dependence, unspecified, uncomp Diagnosis 06/09/2020 01:27:29 PM EDT [facility] E78.00 Pure hypercholesterolemia, unspecified P ure hypercholesterolemia, unspecified Diagnosis 06/09/2020 01:27:29 PM EDT [facility] G47.33 Obstructive sleep apnea (adult) (pediatr ic) Obstructive sleep apnea (adult) (pediatr Diagnosis 06/09/2020 01:27:29 PM EDT [facility] I10 Essential (primary) hypertension Essential (primary) h ypertension Diagnosis 06/09/2020 01:27:29 PM EDT [facility] R00.0 Tachycardia, unspecified Tachycardia, unspecified Diag nosis 06/09/2020 01:27:29 PM EDT [facility] R06.00 Dyspnea, unspecified Dyspnea, unspecified Diagnosis 06/09/2020 01:27:29 PM EDT [facility] R91.1 [id number] Lung nodule Problem 11/18/2020 12:00:00 AM E DT eCW1 ([facility]) M54.41 [id number] Lumbago with sciatica, right side Problem 08/31/2020 12:00:00 AM EDT eCW1 ([facility]) 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 Problem 07/20/2020 12:00:00 AM EDT eCW1 ([facility]) I10 [id number] Essential hypertension Problem 06/30/2020 12 :00:00 AM EDT eCW1 ([facility]) F41.9 [id number] Chronic anxiety Problem 06/30/2020 12:00:00 AM EDT eCW1 ([facility]) E78.00 Hypercholesterolemia Hypercholesterolemia Problem 06/30/2020 12:00:00 AM EDT eCW1 ([facility]) R06.00 Exertional dyspnea Exertional dyspnea [id number] 06/2020 12:00:00 AM EDT [facility] N28.89 [id number] Right renal mass Problem 05/31/2020 12:00:00 AM EDT eCW1 ([facility]) I10 Essential hypertension Essential hypertension [id number] 05/05/2020 12:00:00 AM EDT [facility] G47.33 Obstructive sleep apnea syndrome Obstructive sle ep apnea syndrome [id number] 05/05/2020 12:00:[address] [facility] Surgeries/Procedures Procedure Description Date Indications Data Source(s) TOBACCO USE CESSATION INTERMEDIATE 3-10 MINUTES 2020 12:00:00 AM EDT [facility] ([facility], ) TOBACCO USE CESSATION INTENSIVE >10 MINUTES 12/06/2020 12:00:00 AM EDT [facility] ([facility], ) OFFICE OUTPATIENT VISIT 25 MINUTES 11/16/2020 12:00:00 AM EDT [facility] ([facility], ) TOBACCO USE CESSATION INTERMEDIATE 3-10 MINUTES 2020 12:00:00 AM EDT [facility] ([facility], ) Bronchoscopy Diag W/Placement Fiducial Markers, Single Or Mu lt 11/10/2020 12:00:00 AM EDT [facility] ([facility], ) Bronchoscopy Rigid/Flexible Fluoroscopic Guide Computer-Assi sted 11/10/2020 12:00:00 AM EDT [facility] ([facility]) Bronchoscopy W/Transbronchial Lung Biopsy 11/10/2020 1 2:00:00 AM EDT [facility] Bronchoscopy W/Transbronchial Needle Aspiration Biopsy 11/10/2020 12:00:00 AM EDT [facility] ([facility]) With Endobronchial Ultrasound Guided 11/10/2020 12:00: 00 AM EDT [facility]) With Transendoscopic Endo Ultrasound During Bronchoscopic DX 11/10/2020 12:00:00 AM EDT [facility] ([facility]) Spirometry 10/19/2020 12:00:00 AM EDT [facility] ([facility]) OFFICE OUTPATIENT VISIT 25 MINUTES 10/19/2020 12:00:00 AM EDT [facility] ([facility]) OFFICE OUTPATIENT NEW 30 MINUTES 08/02/2020 12:00:00 A M EDT [facility] ([facility]) Spirometry 07/01/2020 12:00:00 AM [facility] OFFICE OUTPATIENT VISIT 25 MINUTES 07/01/2020 12:00:00 AM EDT [facility] ([facility]) TOBACCO USE CESSATION INTERMEDIATE 3-10 MINUTES 2020 12:00:00 AM EDT [facility] ([facility]) POCT AMB EKG <td>POCT AMB EKG</td><td>Rou araceli</td><td>06/09/2020 2:37 PM EDT</td><td> Essential hypertension Exertional dyspnea</td><td> </td> 06/09/2020 02:37:00 PM EDT Exertional dyspneaEssential hypertension [facility] Exertional dyspnea Essential hypertension BLOOD COUNT COMPLETE AUTO&AUTO DIFRNTL WBC COUNT <td>C BC AND DIFFERENTIAL</td><td>Routine</td><td>05/31/2020</td><td></td><td> </td> 05/31/2020 12:00:00 AM EDT [facility] BASIC METABOLIC PANEL CALCIUM TOTAL <td>BASIC METABOLI C PANEL</td><td>Routine</td><td>05/31/2020</td><td></td><td> </td> 05/31/2020 12:00:00 AM EDT [facility] Spirometry 04/06/2020 12:00:00 AM EST M [facility] ([facility], ) OFFICE OUTPATIENT VISIT 25 MINUTES 04/06/2020 12:00:00 AM EST [facility] ([facility], ) TOBACCO USE CESSATION INTERMEDIATE 3-10 MINUTES 2020 12:00:00 AM EST [facility] ([facility], ) Results ID Date Data Source [id number] 12/04/2020 02:00:12 PM EDT [facility] Name Value Range Interpretation Code Description Data [facility] r[facility]) Supporting Document(s) Progress Note [facility] FQCANg4iRrPAXgMe30/SLDgjXLTmz7OiBArmJRl6TPeaJIPzN5KnBQB3gI9tLPM6YLsJIzQgGzGzWRRf lbm [file] jjGL9sKHZZAr3+ANopfXHpwFicGUNGNwX8LWCoAVzbOQZZPn7S ID Date Data Source [id number] 12/03/2020 03:30:03 PM EDT [facility] Name Value Range Interpretation Code Description Data [facility] r[facility](s) Supporting Document(s) Progress Note [facility] YTUMRn1bZjMMKxVh62/NNCupPLUnf6RyNRuhAEn4GVgtZSRoO0GtSGQ2yV6bSKF6NCfEVjLqXsFtVJF0 lbm [file] 2Yg20xoVpMfRp9l/Nursing Home+9HT4n5hiuhJ947an/QnFrz+mtcP7X7DqE397pRO1z5nmCwM78bzsOi73KyTu [file] A4NWQ+FX0tKAj+Kn7Dz0OqyqV4dmHyMUf8UOR5Ya0PXCCDK9OGAe== ID Date Data Source [id number] 11/16/2020 02:35:00 PM EDT [facility] ([facility]) Name Value Range Interpretation Code Description Data [facility] r[facility](s) Supporting Document(s) Surgical pathology study Laboratory test result [facility] ([facility]) Anatomic Molecular Pathology Report Name: HAM OCONNELL Collection Date: 11/16/2020 00:00 Received Date: 11/16/2020 14:49 Physician(s): VANESSA FERREIRA MD ADJAPONG, OPOKU, MD Specimen(s) Received A: Lung, right upper lobe, Formalin Block, [id number], [facility], BRAF Mutation Analysis Diagnosis TESTS: [...] M.D. Attending Pathologist 11/24/2020 21:06:10 Reported at [facility]ology Laboratory [address] [place] [address]. Gross Description METHODOLOGY: BRAF V600E(1799 T>A) mutation [...] amounts of PCR products, and analyzed by VBOXGene Q real time instrument. The analytical sensitivity (or minimum percentage of mutant DNA needed) is approximately 10% given sufficient DNA input. Test development and its performance characteristics were determined by the [facility], and has been authorized for clinical use by [facility]. The test has not been cleared or approved by the U.S. Food and Drug Administration. The analyte specific reagents used in this assay do not require FDA approval. REFERENCES: 1. Ida S, Juan Luis, et al. Detection of BRAF V600E mutation in colorectal cancer-comparison of automatic sequencing and real time chemistry methodology. J Mol Diagn. 2006; 8:850005. 2. Rudy L, Prema TJ, Gabino N, et al. BR AF mutation analysis in fine needle aspiration (FNA) cytology of the thyroid. Diagn Mol Pathol. 2006;15:852006. 3. Iggy PK, Lenora ME, Radha M, et al. C linical characteristics of patients with lung adenocarcinomas harboring BRAF mutations. J Clin Oncol. 2011;29:8367-1677. This report may include one or more immunohistochemical stain results that use analyte specific reagents. All positive and negative controls have been reviewed by the attending pathologist and are satisfactory. The tests were developed and their performance characteristics determined by [facility] Pathology department. They have not been cleared or approved by the US Food and Drug Administration. The FDA has determined that such clearance or approval is not necessary. ID Date Data Source [id number] 11/24/2020 09:06:00 PM [facility] Anatomic Molecular Pathology ReportName: HAM OCONNELLMRN: [id number] Number: [id number] Date: 11/16/2020 00:00Received Date: 11/16/2020 14:49Physician(s): VANESSA FERREIRA MD ADJAPONG, OPOKU, MDSpecimen(s) ReceivedA: Lung, right upper lobe, Formalin Block, [phone], [facility], BRAF Mutation AnalysisDiagnosisTESTS: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RESULTS:Wild type probe (yellow gain): Ct value and end-point fluorescence are29.14 and 0.622 respectively.Mutant probe (green gain): Ct value and end-point fluorescence are 45.00and 0.078 respectively.(Mutant probe EPF cut-off value: 0.166)INTERPRETATION:NEGATIVE FOR BRAF V600E MUTATION.BRAF V600E (1799 T>A) mutation at exon 15 is a genetic alterationidentified in a variety of neoplasm and present in approximately 3% oflung adenocarcinoma. BRAF V600E in lung adenocarcinoma might be associatedwith decreased sensitivity to EGFR inhibitor such as gefitinib, andincreased response to BRAF inhibitor such as v emurafenib. The test resultis considered positive if the Ct value (mutant probe) is less than 45 andthe EPF is higher than cut-off value. If the percentage of mutant DNA isless than 10% in a background of wild-type DNA, the mutation may not bedetected by this assay. This result is an adjunct to other clinical andpathologic information for appropriate patient management.kan/antonElectronically Signed By Fish Rojas M.D. Attending Pathologist 11/24/2020 21:06:10Reported at [facility] Pathology [address] [place] [address]. Gross DescriptionMETHODOLOGY:BRAF V600E(1799 T>A) mutation at exon 15 is detected by real time PCRusing allele-specific TaqMan probes and performed on paraffin embeddedtissues. The tumor area is identified by the pathologist and is manuallymicrodissected. The mutant probe was labeled with a FAM-fluorophore whilethe wild-type probe with a RAQUEL-fluorophore. The amount of fluorescentemissions rendered by specific probe hybridization was associated the amounts of PCR products, and analyzed by Flipswap real timeinstrument. The analytical sensitivity (or minimum percentage of mutantDNA needed) is approximately 10% given sufficient DNA input. Test development and its performance characteristics were determined bythe [facility], and has beenauthorized for clinical use by [facility]. Thetest has not been cleared or approved by the U.S. Food and DrugAdministration. The analyte specific reagents used in this assay do notrequire FDA approval. REFERENCES: 1. Ida S, Juan Luis, et al. Detection of BRAF A887Kzorxgocl in colorectal cancer-comparison of automatic sequencing and realtime chemistry methodology. J Mol Diagn. 2006; 8:158407.2. Rudy L, Prema TJ, Gabino N, et al. BRAF mutation analysis in fineneedle aspiration (FNA) cytology of the thyroid. Diagn Mol Pathol.2006;15:235943.3. Iggy PK, Lenora ME, Radha M, et al. Clinical characteristics ofpatients with lung adenocarcinomas harboring BRAF mutations. J Clin Oncol.2011;29:3785-6710.This report may include one or more immunohistochemical stain results thatuse analyte specific reagents. All positive and negative controls havebeen reviewed by the attending pathologist and are satisfactory. The testswere developed and their performance characteristics determined by [facility] Pathology department. They have not been cleared or approved by the USFood and Drug Administration. The FDA has determined that such clearanceor approval is not necessary. Name Value Range Interpretation Code Description Data [facility] r[facility](s) Supporting Document(s) ID Date Data Source [id number] 11/24/2020 08:56:00 PM [facility] Anatomic Molecular Pathology ReportName: HAM OCONNELLMRN: [id number] Number: [id number] Date: 11/16/2020 00:00Received Date: 11/16/2020 14:45Physician(s): VANESSA FERREIRA MD ADJAPONG, OPOKU, MDSpecimen(s) ReceivedA: Lung, right upper lobe, Formalin Block, [id number], [facility], EGFRDiagnosisTEST: EGFR gene mutations (exon 19 deletions, L858R, G719A, T790M, S768I,exon 20 insertions, L861Q) by therascreene RGQ real-time PCR RESULTS: An EGFR mutation is not detected.INTERPRETATION: NEGATIVE FOR EGFR GENE MUTATION.This test is FDA approved and intended to be used to select patients withnon-small cell lung cancer for whom EGFR tyrosine kinase inhibitor (TKI),such as afatinib, is indicated. Presence of exon 19 deletions, exon 91A931S or L861Q, exon 18 G719A or exon 20 S768I mutation is associated witha better response to TKI therapy. TKI therapeutic resistance of T790M andexon 20 insertions have been reported, and safety and efficacy of TKItherapy on these mutations have not been established. The results areadjuncts to other clinical and pathologic information available forevaluating the therapeutic response. Tumors that contain less than 20%mutation may not be detected in some mutation types by this assay. rw/jajElectronically Signed By Fish Rojas M.D. Attending Pathologist 11/24/2020 20:56:42Reported at [facility] Pathology [id number] [place] [address]. Gross DescriptionMETHODOLOGY:The therascreen EGFR RGQ PCR Kit ([employer], [place], [place]) is a real-timequalitative PCR assay used on the [employer] instrument for thedetection of seven types of mutations at EGFR oncogene. The kit requiresDNA extracted from formalin-fixed paraffin-embedded (FFPE) tissue ofnon- small cell lung cancer. The tumor area is identified by the attendingpathologist and manually microdissected. The assay uses KFx MedicalorpFour Eyese andARMSe (Allele Refractory Mutation System) technologies, and isFDA-approved for clinical patient care. Allele-specific amplification isachieved by ARMS which exploits the ability of Taq DNA polymerase todistinguish between a matched and a mismatched base at the 3' end of a PCRprimer. Detection of amplification is performed using Scorpions, which arebifunctional molecules containing a PCR primer covalently linked to aprobe.REFERENCES:1. Arun Starr, Vipul Angulo, Zachariah Oneill. et al. EGFR-targeted therapyfor non-small cell lung cancer: focus on EGFR oncogenic mutation. Int. J. Med. Sci. 2013; 10: 320. 2. Elizabeth Johnson., et al. First-line gefitinib in patients withadvanced non-small cell lung cancer harboring somatic EGFR mutations. J.Clin.Oncol. 2008;15: 2442.3. Da SV, Gillian MARQUEZ, Miguel Angel J et al. Epidermal growth factor receptormutations in lung cancer. Nature Review/Cancer. 2007;3265-5909.This report may include one or more immunohistochemical stain results thatuse analyte specific reagents. All positive and negative controls havebeen reviewed by the attending pathologist and are satisfactory. The testswere developed and their performance characteristics determined by [facility] Pathology department. They have not been cleared or approved by the USFood and Drug Administration. The FDA has determined that such clearanceor approval is not necessary. Name Value Range Interpretation Code Description Data [facility] rce(s) Supporting Document(s) ID Date Data Source [id number] 11/24/2020 08:48:00 PM [facility] Anatomic Molecular Pathology ReportName: HAM OCONNELLMRN: [id number] Number: [id number] Date: 11/16/2020 00:00Received Date: 11/16/2020 14:41Physician(s): VANESSA FERREIRA MD ADJAPONG, OPOKU, MDSpecimen(s) ReceivedA: Lung, right upper lobe, Formalin Block, [id number], [facility], ROS1 by FISHDiagnosisTEST:ROS1 gene rearrangements by FISH (Fluorescence in situ Hybridization).RESULT:Test was performed; however FISH signals were too weak to be read mostlikely due to DNA degradation, and scant tumor present in block.Electronically Signed By Fish Rojas M.D. Attending Pathologist 11/24/2020 20:48:21Reported at [facility] Pathology [address] [place] [address]. Gross DescriptionMETHODOLOGY:Interphase FISH is performed on paraffin embedded NSCLC utilizing thecombined Prince Molecular LSI ROS1(Mich) and ROS1(Tel) ROS1 Probes: 1)3'-ROS1(Mich), 557 kb, labeled with SpectrumGreen, and 2) 5'-ROS1(Tel),317kb, labeled with SpectrumOrange. Tumor cells with no USO1hiytsrpsogiozr have 2 yellow signals (fused orange and green signal).Tumor cells with ROS1 rearrangement have orange and green signal(break apart) and/or deleted orange signal (5' deletion). Hybridization iscarried out as per the stated protocol with no significant background orrandom probe hybridization detected. A total of 50 -100 interphase tumornuclei are examined manually by one or two scorers, depending on initialevaluation. d15% of tumor cells with ROS1 gene rearrangement is calledpositive.This test was developed and its performance characteristics weredetermined by the [facility],and it has been authorized for clinical use by [facility]. The test has not been cleared or approved by the U.S. Food andDrug Administration. The analyte specific reagents used in this assay donot require FDA approval. REFERENCES: 1. THIAGO Colon, Jolene AT, Thejose daniel SOSA et al. Identifying and Targeting UDO8Dwsm Fusions in NonSmall Cell Lung Cancer. Clin Cancer Res 2012; 18(17);21175674.2. Alicia, Dave AT. Novel Targets in Non- Small Cell Lung Cancer:ROS-1 and RET fusions. The Oncologist. 2013;18:865-875.This report may include one or more immunohistochemical stain results thatuse analyte specific reagents. All positive and negative controls havebeen reviewed by the attending pathologist and are satisfactory. The testswere developed and their performance characteristics determined by [facility] Pathology department. They have not been cleared or approved by the USFood and Drug Administration. The FDA has determined that such clearanceor approval is not necessary. Name Value Range Interpretation Code Description Data [facility] rce(s) Supporting Document(s) ID Date Data Source [id number] 11/24/2020 08:46:00 PM [facility] Anatomic Molecular Pathology ReportName: HAM OCONNELLMRN: [id number] Number: [id number] Date: 11/16/2020 00:00Received Date: 11/16/2020 14:36Physician(s): VANESSA FERREIRA MD ADJAPONG, OPOKU, MDSpecimen(s) ReceivedA: Lung, right upper lobe, Formalin Block, [id number], ALK by FISHDiagnosisTEST:ALK gene rearrangements by FISH (Fluorescence in situ Hybridization).RESULT:Test was performed; however FISH signals were too weak to be read mostlikely due to DNA degradation (e.g. aged or decalcified tissue).Electronically Signed By Fish Rojas M.D. Attending Pathologist 11/24/2020 20:46:37Reported at [facility] Pathology [address] [place] [address]. Gross DescriptionMETHODOLOGY:Interphase FISH is performed on paraffin embedded NSCLC utilizing theFantastec Molecular ALK Break Apart FISH Probe Kit. This is a combination,direct label, dual color detection system utilizing 2 probes: 1) 3'-ALK,300 kb, labeled with SpectrumOrange, and 2) 5'- ALK, 442 kb, labeled withSpectrumGreen. Tumor cells with no ALK rearrangements have 2 yellowsignals (fused orange and green signal). Tumor with ALK rearrangement haveseparated orange and green signal (break apart) and/or deleted greensignal (5' deletion). Hybridization is carried out as per the statedprotocol with no significant background or random probe hybridizationdetected. A total of 50 -100 interphase tumor nuclei are examined manuallyby one or two scorers, depending on initial evaluation. d15% of tumorcells with ALK gene rearrangement is called positive.This FISH Probe Kit was approved by FDA for this application and has beenvalidated in the special procedure laboratory of Department of Pathology,[facility]. This report may include one or more immunohistochemical stain results thatuse analyte specific reagents. All positive and negative controls havebeen reviewed by the attending pathologist and are satisfactory. The testswere developed and their performance characteristics determined by [facility] Pathology department. They have not been cleared or approved by the USFood and Drug Administration. The FDA has determined that such clearanceor approval is not necessary. Name Value Range Interpretation Code Description Data [facility] rce(s) Supporting Document(s) ID Date Data Source [id number] 11/10/2020 09:39:00 AM EDT [facility]) Name Value Range Interpretation Code Description Data [facility] rce(s) Supporting Document(s) Microscopic observation [Identifier] in Unspecified specimen by Non- gynecological cytology method Laboratory test result [facility] ([facility]) SPECIMEN: FNA Right hilar lym ph node Sldies and Cytolyt (red) received SPECIMEN ADEQUACY: Satisfactory for evaluation CATEGORIZATION: No Malignancy identified DESCRIPTIONS: Specimen consists mainly of red blood cells with some lymphocytes and bronchail cells noted. COMMENTS: 11/11/20201017 Signed PITA REY(ASCP) 11/11/2020 1018 (Prelim) Signed SALAZAR ALLEN MD 11/11/2020 1207 ID Date Data Source [id number] 11/10/2020 09:36:00 AM EDT [facility] ([facility]) Name Value Range Interpretation Code Description Data [facility] r[facility](s) Supporting Document(s) Microscopic observation [Identifier] in Unspecified specimen by Non- gynecological cytology method Laboratory test result [facility] ([facility]) SPECIMEN: FNA Subcarinal lymp h node Slides and Cytolyt (clear) received SPECIMEN ADEQUACY: Satisfactory for evaluation CATEGORIZATION: No Malignancy identified DESCRIPTIONS: Sparsely cellular specimen consisting of scant blood elements only. COMMENTS: 11/11/2020955 Signed PITA REY(ASCP) 11/11/2020 09 (Prelim) Signed SALAZAR ALLEN MD 11/11/2020 1206 ID Date Data Source [id number] 11/10/2020 09:34:00 AM EDT [facility] ([facility]) Name Value Range Interpretation Code Description Data [facility] r[facility](s) Supporting Document(s) Microscopic observation [Identifier] in Unspecified specimen by Non- gynecological cytology method Laboratory test result [facility] ([facility]) SPECIMEN: FNA Right upper lob e lung SLides and Cytolyt received (clear) SPECIMEN ADEQUACY: Satisfactory for evaluation CATEGORIZATION: No Malignancy identified DESCRIPTIONS: Scattered bronchial cells noted in a background of rare lymphocytes and abundant red blood cells. COMMENTS: 11/11/2020942 Signed PITA REY(ASCP) 11/11/2020942 (Prelim) Signed SALAZAR ALLEN MD 11/12/2020825 ID Date Data Source [id number] 11/10/2020 08:24:00 AM EDT [facility] ([facility]) Name Value Range Interpretation Code Description Data [facility] rce(s) Supporting Document(s) Surgical pathology study Laboratory test result [facility] ([facility]) <content>FINAL DIAGNOSIS</content>
< content></content>
<content>Lung, right upper lobe, biopsy:</content>
<content>Nonsmall cell carcinoma, poorly differentiated favor adenocarcinoma.</content>
<content>4/TR.</content>
<content>TTF1 and PAX stains used in evaluation.</content>
<content></content>
<content>Comment: H&E sections show small focus of infiltrating tumor cells</content>
<content>.Morphology favors adenocarcinoma.</content>
<content>Scant nature of tumor cells preclude molecular and PD-L1 studies.</content>
<content>However, molecular studies will be tried. Patient's history of renal</content>
<content>cell carcinoma noted.</content>
<content>11/16/2020 - 0853</content>
<content></content>
<content>CLINICAL DIAGNOSIS</content>
<content></content>
<content>Right upper lobe abnormality and cancer</content>
<content>11/10/2020 - 1434</content>
<content></content>
<content>GROSS DIAGNOSIS</content>
<content></content>
<content>Received in formalin labeled "right upper lobe forceps biopsy" and</content>
<content>consists of a fragment of tissue, 0.5 x 0.5 x 0.1 cm. All in one.</content>
<content>-OA</content>
<content>11/10/2020 - 1433</content>
<content></content>
<content>Signed SALAZAR ALLEN MD 11/16/2020 0900</content>
<content></content> ID Date Data Source [id number] 11/10/2020 08:24:00 AM EDT [facility] ([facility]) Name Value Range Interpretation Code Description Data [facility] rce(s) Supporting Document(s) Surgical pathology study Laboratory test result [facility] ([facility]) FINAL DIAGNOSIS Right hilar lymph node, FNA cell-block: Negative for malignancy. Lymphoid cells, cartilage and bronchial epithelium. 11/11/20201204 CLINICAL DIAGNOSIS Right upper lobe abnormality and cancer 11/10/2020 - 145 GROSS DIAGNOSIS Received in CytoLyt labeled "right hilar lymph node" submitted for cell block. -OA 11/11/20201204 Signed SALAZAR ALLEN MD 11/11/2020 1206 ID Date Data Source [id number] 10/19/2020 08:33:00 AM EDT [facility] ([facility]) Name Value Range Interpretation Code Description Data [facility] rce(s) Supporting Document(s) FVC-Pred 2.74 L [facility] ([facility]) PDFReport Laboratory test result [facility] ([facility]) FVC-%Pred-Pre 88 L [facility] ([facility]) FVC-Pre 2.42 L [facility] ([facility]) Fev1-Pre 1.80 L [facility] ([facility], ) FVC-LLN 2.11 L [facility] ([facility], ) Fev1-Pred 2.08 L [facility] ([facility], ) Fev1-LLN 1.55 L [facility] ([facility], ) Fev1-%Pred-Pre 86 L [facility] ([facility], ) Fev6-Pred 2.62 L [facility] ([facility], ) Fev6-Pre 2.42 L [facility] ([facility], ) Fev6-LLN 2.00 L [facility] ([facility], ) Fev6-%Pred-Pre 92 L [facility] ([facility], ) Vvg1sii-Ose 74 % [facility] ([facility], ) Yvh8gdw-Pvzq 77 % [facility] ([facility], ) Oxp7qkl-%Pred-Pre 96 % [facility] ([facility]) Bmn3wtt-Hxip 96 % [facility] ([facility]) Dts8onx-Fuv 100 % [facility] ([facility]) Pmh0hdd-TSX 67 % [facility] ([facility]) FEFMax-Pre 2.57 L/E/sec [facility] ([facility], ) Xgv7pmq-%Pred-Pre 104 % [facility] ([facility], ) FEFMax-Pred 5.41 L/E/sec [facility] ([facility], ) FEFMax-%Pred-Pre 47 L/E/sec [facility] ([facility]) FEFMax-LLN 3.85 L/E/sec [facility] ([facility]) Gzs3535-Nwqu 1.87 L/E/sec [facility] ([facility]) Pxj9459-%Pred-Pre 80 L/E/sec [facility] ([facility]) Abm1630-Hnm 1.51 L/E/sec [facility] ([facility]) Oqi5wje7-Pldf 80 % [facility] ([facility]) Lpg0sun9-Chi 74 % [facility] ([facility]) Rwa3772-HIW 0.74 L/E/sec [facility] ([facility]) ExpTime-Pre 6.17 sec [facility] ([facility]) Voa0qqf1-VAG 71 % [facility] ([facility]) Wnk5xff1-%Pred-Pre 93 % [facility] ([facility]) ID Date Data Source [id number] 10/08/2020 03:01:00 PM EDT [facility] ([facility]) Name Value Range Interpretation Code Description Data [facility] rce(s) Supporting Document(s) Blood Urea Nitrogen 17 mg/dL 7-18 Normal (applies to non-nume monica results) [facility] ([facility]) Glucose, Fasting 89 mg/dL 70-100 Normal (applies to non-numeric results) [facility] ([facility]) Creatinine For GFR 0.73 mg/dL 0.55-1.30 Normal (applies to non -numeric results) [facility] ([facility]) Glomerular Filtration Rate Laboratory test result Normal (applies to non- numeric results) [facility]) <content>Units are mL/min/1.73 m2</content>
<content></content>
<content>Chronic Kidney Disease Staging per NKF:</content>
<content></content>
<content>Stage I & II GFR >=60 Normal to Mildly Decreased</content>
<content>Stage III GFR 30- 59 Moderately Decreased</content>
<content>Stage IV GFR 15-29 Severely Decreased</content>
<content>Stage V GFR <15 Very Little GFR Left</content>
<content>ESRD GFR <15 on SET DESIGNER</content>
<content></content> Sodium Level 138 meq/L 136-145 Normal (applies to non-numeric res ults) [facility]) Potassium Serum 4.4 meq/L 3.5-5.1 Normal (applies to non-numeric results) [facility] ([facility]) Chloride Level 107 meq/L 98-107 Normal (applies to non-numeric r esults) [facility]) Anion Gap 7 meq/L 8-16 Below low normal [facility] ( [facility]) Carbon Dioxide Level 24 meq/L 21-32 Normal (applies to non-num rolando results) [facility] ([facility]) Calcium Level 9.0 mg/dL 8.8-10.2 Normal (applies to non-numeric re sults) [facility]) ID Date Data Source [id number] 10/08/2020 03:01:00 PM EDT [facility]) Name Value Range Interpretation Code Description Data [facility] rce(s) Supporting Document(s) Creatinine For GFR 0.73 mg/dL 0.55-1.30 Normal (applies to non -numeric results) [facility] ([facility]) Glomerular Filtration Rate Laboratory test result Normal (applies to non- numeric results) [facility]) <content>Units are mL/min/1.73 m2</content>
<content></content>
<content>Chronic Kidney Disease Staging per NKF:</content>
<content></content>
<content>Stage I & II GFR >=60 Normal to Mildly Decreased</content>
<content>Stage III GFR 30- 59 Moderately Decreased</content>
<content>Stage IV GFR 15-29 Severely Decreased</content>
<content>Stage V GFR <15 Very Little GFR Left</content>
<content>ESRD GFR <15 on SET DESIGNER</content>
<content></content> ID Date Data Source [id number] 10/08/2020 03:01:00 PM EDT [facility]) Name Value Range Interpretation Code Description Data [facility] rce(s) Supporting Document(s) Urea nitrogen [Mass/volume] in Serum or Plasma 16 mg/dL 7 -18 Normal (applies to non-numeric results) [facility] ([facility], ) <content>note:<nlbl:demographic_changed> </content>
<content></content> ID Date Data Source JOSSELYN SPINE LS COMPLETE 07/29/2020 12:00:00 AM EDT eCW1 ([facility]) Name Value Range Interpretation Code Description Data [facility] rce(s) Supporting Document(s) JOSSELYN SPINE LS COMPLETE eCW1 ([facility]) ID Date Data Source JOSSELYN HIP COMPLETE (AP/LAT) 07/29/2020 12:00:00 AM EDT eCW1 ( [facility]) Name Value Range Interpretation Code Description Data [facility] rce(s) Supporting Document(s) JOSSELYN HIP COMPLETE (AP/LAT) eCW 1 ([facility]) ID Date Data Source [id number] 07/01/2020 12:10:00 PM EDT [facility] Name Value Range Interpretation Code Description Data [facility] rce(s) Supporting Document(s) SARS-CoV-2 (COVID-19) RNA [Presence] in Respiratory specimen by MARIAELENA with probe detection Not Detected [facility] This lab was ordered by [facility] and reported by [facility]. ID Date Data Source [id number] 07/01/2020 11:24:00 AM EDT [facility] ([facility]) Name Value Range Interpretation Code Description Data [facility] rce(s) Supporting Document(s) PDFReport Laboratory test result [facility] ([facility], ) FVC-Pred 2.74 L [facility] ([facility]) FVC-Pre 2.45 L [facility] ([facility]) FVC-%Pred-Pre 89 L [facility] ([facility]) Fev1-Pred 2.08 L [facility] ([facility]) FVC-LLN 2.11 L [facility] ([facility]) Fev1-LLN 1.55 L [facility] ([facility]) Fev1-Pre 1.51 L [facility] ([facility], ) Fev1-%Pred-Pre 72 L [facility] ([facility], ) Fev6-Pre 2.45 L [facility] ([facility]) Fev6-Pred 2.62 L [facility] ([facility]) Fev6-%Pred-Pre 93 L [facility] ([facility], ) Fev6-LLN 2.00 L [facility] ([facility], ) Pol7mdp-Hlnq 77 % [facility] ([facility]) Jbh6nna-Ofp 62 % [facility] ([facility]) Nvt9gtd-Lsxz 96 % [facility] ([facility]) Cdo4ees-%Pred-Pre 80 % [facility] ([facility]) Ixr9spa-GVC 67 % [facility] ([facility]) Vsy1ewu-%Pred-Pre 104 % [facility] ([facility]) FEFMax-Pred 5.41 L/E/sec [facility] ([facility]) Riw5qss-Mhl 100 % [facility] ([facility]) FEFMax-%Pred-Pre 41 L/E/sec [facility] ([facility]) FEFMax-LLN 3.85 L/E/sec [facility] ([facility]) FEFMax-Pre 2.23 L/E/sec [facility] ([facility], ) Don7074-%Pred-Pre 57 L/E/sec [facility] ([facility]) Tjm5341-Piyd 1.87 L/E/sec [facility] ([facility]) Qyy6348-Xvl 1.08 L/E/sec [facility] ([facility]) Qxn9602-EIX 0.74 L/E/sec [facility] ([facility]) Lkh6cjf2-Xiyz 80 % [facility] ([facility], ) Ztv5oen6-Umw 62 % [facility] ([facility]) ExpTime-Pre 7.35 sec [facility] ([facility]) Pqk9rdl3-IBS 71 % [facility] Gji4rbi4-%Pred-Pre 77 % [facility] ([facility]) ID Date Data Source [id number] 06/28/2020 12:50:00 PM EDT [facility] ([facility]) Name Value Range Interpretation Code Description Data [facility] rce(s) Supporting Document(s) Creatinine For GFR 0.66 mg/dL 0.55-1.30 Normal (applies to non -numeric results) [facility] ([facility]) Glomerular Filtration Rate Laboratory test result Normal (applies to non- numeric results) [facility]) <content>Units are mL/min/1.73 m2</content>
<content></content>
<content>Chronic Kidney Disease Staging per NKF:</content>
<content></content>
<content>Stage I & II GFR >=60 Normal to Mildly Decreased</content>
<content>Stage III GFR 30- 59 Moderately Decreased</content>
<content>Stage IV GFR 15-29 Severely Decreased</content>
<content>Stage V GFR <15 Very Little GFR Left</content>
<content>ESRD GFR <15 on SET DESIGNER</content>
<content></content> ID Date Data Source [id number] 06/28/2020 12:50:00 PM EDT [facility] ([facility]) Name Value Range Interpretation Code Description Data [facility] rce(s) Supporting Document(s) Urea nitrogen [Mass/volume] in Serum or Plasma 11 mg/dL 7 -18 Normal (applies to non-numeric results) [facility] ([facility]) <content>note:<nlbl:demographic_changed> </content>
<content></content> ID Date Data Source [id number] 06/22/2020 12:58:00 PM EDT [facility] Name Value Range Interpretation Code Description Data [facility] rce(s) Supporting Document(s) SARS COVID ANTIGEN NEGATIVE [facility] This lab was ordered by AMILCAR bl[place] nd reported by [facility]. ID Date Data Source [id number] 06/09/2020 07:36:38 PM EDT [facility] Name Value Range Interpretation Code Description Data [facility] rce(s) Supporting Document(s) &PDF [facility] RYLMEw8mXzBHSzEt93/BFDaxUXLee3DlZNrjCZq0YVekOJHcZ7YjvQmiNW3INanOEndMBWMCSIOIAS7f FcG [file] ICAgICAgICAgICAgICAgICAgICAgICAgICAgICAgIC XuIOCuUPLhNYUwXNXsRHVgTZ7HPEJzHNQsTBBeLHNrEQHqTZXqGFYsTVJdCWRqFXWuYKBeXBRfUVTuGG AgICAgICAgICAgICAgICAgICAgICAgICAgICAgICAgICAgICAgICAgICAgICAgICAgICAgICAgICAgIA 0KICAgICAgICAgICAgICAgICAgICAgICAgICAgICAg ICAgICAgICAgICAgICAgICAgICAgICAgICAgICAgICAgICAgICAgICAgICAgICAgICAgICAgICAgICAg CPNxFJSmMTXwBG4LEBKkSACbCDOiJYSfLXDuEDIrFGLtTJWuOEEgSNBoZLTkQPAfNCQgXGSvYIQfILVx ICAgICAgICAgICAgICAgICAgICAgICAgICAgICAgIC JrHQHvGCOxXORxWILtJRNbVOCvSX2DHVAdMPUkNBNjCZJhCUAsYHHjCKBjBYFbMHVrCEOcAFOtORXeIR AgICAgICAgICAgICAgICAgICAgICAgICAgICAgICAgICAgICAgICAgICAgICAgICAgICAgICAgICAgIC JpTX5DURYwQAAmBFHsZMWfRZVwDSPzZMCvBDBfMWZx ICAgICAgICAgICAgICAgICAgICAgICAgICAgICAgICAgICAgICAgICAgICAgICAgICAgICAgICAgICAg QIYaJQTeQARnQBVrRX0XQTHgYCInTHTbQSZmKPElFCXgMDVdOSScVSOhLQHqYFIwNPVdIMZcTOYfYSPw ICAgICAgICAgICAgICAgICAgICAgICAgICAgICAgIC AzTRTcLEOoPCCsZYUnGBJpAOIjIDTyFY7FDJAaGALyEIVwUUPsLNMhWPBgWCXqIWAqXQFuDGMvRWXsNL AgICAgICAgICAgICAgICAgICAgICAgICAgICAgICAgICAgICAgICAgICAgICAgICAgICAgICAgICAgIC PkXOVnBF7DPBDfRHRsLWIzKNCmSBMpVQDtEOGgNPKx ICAgICAgICAgICAgICAgICAgICAgICAgICAgICAgICAgICAgICAgICAgICAgICAgICAgICAgICAgICAg CGNuTZSoRKUrAXYvNDKjVS7YFQZvLMWuIUAwJJEjXNYjIECcYWMwEPTxCRYfOGJgHVTlOSTxLHTfEVUu ICAgICAgICAgICAgICAgICAgICAgICAgICAgICAgIC GmYZKcCEUdXEHcAEFxLJJdNJZhZSJnGQZfXQ7BUR03tKRlf9Y5HETuQA2wthl/Vo6QSAjeoiQzqMTaVG 9LUpJzIZ4opi1LCjIeWM7xgu0BHPmYGkJaH5G8kELlXERlAGLILdHtI00eGKqpWw49QWbxEWXhRvRjBD j8Ov2ATrNiV6wrWWXkLnR9GCExSuV4RDBtTjQlRDve RO2Pa2AozEWwPSu+Jc1WWC3ih6PrTOdfXSBhJG6ofp6JGDjNTaUyF9H0qTIgN4I1YRujSq4XXATkLUFk OewwJCBJHOarPM7ZYA0pceE3QR6RuHVhGXQzQFGhcUQoIPu8A07erOIqJGvvFO1NJOM+Cyrus+Pc8BANYi SXXhPCAiChXtBBQTLnPlJ97rjOOxPQRkNTZ3QBZtQi 0RPEQtC5XxzeOqwNwlbhCoRXBrYGDFOR4CBZxmuvYilIKxpLagPS92aCufIJ6QCp7PNkDsFL6xmb5KrX YoHq0INKWlDH4PZMVsSFTgOAVaCQO8LUImNrNmWCwiWIQyBKGyJIG8VNUuGTUqPU8GYoUoCRXwLTV0DG BsKOLcHOEhtq7MMVXaCZRnWbT5YSEuKLDsRTCzZStv YXNcXWReYDitHSNlQOLvRD7YAeKjPSTvHEC3XvEeDAMzUJOiwx7MNQRrRVGsQKNpPCVgMNIfLDVlJGyo IURzVNE5OMb5IBBlHYXvCF8SPvIrAMPjKQaaREXqWVUvHSSuuv9WGIElSDQlQRH7ZTFaYUNrFFFbMByu QSEkKVG9UdG0KCEkEDJnSK7IVjUlSXVwQQq2LpIdGD HgDIXcvs3DJSErNLEeWUI7KFNfOFYlRXFmBDcfJWRsWWJ3SZv2DSEzGVFlBQ7GLpThTNBsEWf8UxYjWT IoOYBdip8DGFGfDRYfQQjuJhLxSJBmWRZtUFejAVHtXJVhZGT5EBKdYEGoKN6XVlIwXWIwIPPuKRmrSJ IuGIIigk8WTPLrBHUqSbD0XoHdZMLsIPDfDVppIBXh SVZmDyx0HWIdAGSgPB5FGsOtPAYoZNW5NzLuKWMlUWMaaf2EIZTtAMIdGja6SWQvODMoBCNqWFecHFUo CHBnAQJ1LMDdQSFrXX1KNdTdJDGkVAReUWIxLIZcEKXpdx9SYADfBEQkCsWkDvPnDXFlOEPgUQsrRMSh IHOaDTZgDOEaKPLuHG2PJcNuQHXeKUDdNgdxDOCiWX Xspr9KYYNtKDReXYL8KkElEOIiWAMgAArtVMFkBSP3Dak1ZZFiMSIrCJ7HHmFoPWGlNGHwICBpFJCoFH Jbkw3RQKGyJQIjUcT3KNGwCDFeLTOpHCf7brGmlELlCJh5MA5II4QlseVnBnZDSq9Kd016SMHwQZEoXx 2FG6egPf3qOFDtRKJUDr4KGNz5G7ZjZlSlCtLzWAI4 IbK9LiR5MLDdLcQ5FhqhQhL4M4I+KAycQJAxZiWmZGS3ZEa3GFP6BqOlEcO6SCyuG9W8UwOxZs8rOIIN Cj4+VCigdAFtgQthZPCSPmG2THd7YZamMUBUPt4D ID Date Data Source URINE CULTURE 06/03/2020 12:00:00 AM EDT eCW1 ([facility]) Name Value Range Interpretation Code Description Data Emrcy rce(s) Supporting Document(s) URINE CULTURE eCW1 ([facility]) ID Date Data Source UA URINALYSIS 06/03/2020 12:00:00 AM EDT eCW1 ([facility]) Name Value Range Interpretation Code Description Data [facility] rce(s) Supporting Document(s) UA URINALYSIS eCW1 ([facility]) ID Date Data Source MAGNESIUM LEVEL 06/03/2020 12:00:00 AM EDT eCW1 ([facility]) Name Value Range Interpretation Code Description Data [facility] rce(s) Supporting Document(s) 2.0 1.8-2.4 MAGNESIUM LEVEL eCW1 ([facility]) ID Date Data Source Basic Metabolic Profile (BMP) 06/03/2020 12:00:00 AM EDT eCW 1 ([facility]) Name Value Range Interpretation Code Description Data [facility] rce(s) Supporting Document(s) 111 70-100 GLUCOSE, FASTING eCW1 ([facility]) 17 7-18 BLOOD UREA NITROGEN eCW1 ([facility]) 0.61 0.55-1.30 CREATININE FOR GFR eCW1 ([facility]) > 60.0 >45 GLOMERULAR FILTRATION RATE eCW 1 ([facility]) 4.6 3.5-5.1 POTASSIUM SERUM eCW1 ([facility]) 110 98-107 CHLORIDE LEVEL eCW1 ([facility]) 138 136-145 SODIUM LEVEL eCW1 ([facility] hospital) 22 21-32 CARBON DIOXIDE LEVEL eCW1 ([facility]) 9.0 8.8-10.2 CALCIUM LEVEL eCW1 ([facility]) ID Date Data Source CT ABD & Pelvis w/o FOL by WIT 05/31/2020 12:00:00 AM EDT eC W1 ([facility]) Name Value Range Interpretation Code Description Data [facility] rce(s) Supporting Document(s) CT ABD & Pelvis w/o FOL by WIT eCW1 ([facility]) ID Date Data Source TSH 05/31/2020 12:00:00 AM EDT eCW1 ([facility]) Name Value Range Interpretation Code Description Data [facility] rce(s) Supporting Document(s) 2.610 0.358-3.740 THYROID STIMULATING HORM ONE eCW1 ([facility]) ID Date Data Source LIPASE 05/31/2020 12:00:00 AM EDT eCW1 ([facility]) Name Value Range Interpretation Code Description Data [facility] rce(s) Supporting Document(s) 61 73-393 LIPASE eCW1 ([facility]) ID Date Data Source Comprehensive Metabolic Profile (CMP) 05/31/2020 12:00:00 AM EDT eCW1 ([facility]) Name Value Range Interpretation Code Description Data [facility] rce(s) Supporting Document(s) 0.68 0.55-1.30 CREATININE FOR GFR eCW1 ([facility]) 21 7-18 BLOOD UREA NITROGEN eCW1 ([facility]) 93 70-100 GLUCOSE, FASTING eCW1 ([facility]) > 60.0 >45 GLOMERULAR FILTRATION RATE eCW 1 ([facility]) 136 136-145 SODIUM LEVEL eCW1 (Critical [facility] hospital) 6.0 3.5-5.1 POTASSIUM SERUM eCW1 ([facility]) 106 98-107 CHLORIDE LEVEL eCW1 ([facility]) 9.1 8.8-10.2 CALCIUM LEVEL eCW1 ([facility]) 23 21-32 CARBON DIOXIDE LEVEL eCW1 ([facility]) 10 7-37 AST/SGOT eCW1 ([facility]) 98 45-117 ALKALINE PHOSPHATASE eCW1 ([facility]) 0.4 0.2-1.0 BILIRUBIN,TOTAL eCW1 ([facility]) 18 12-78 ALT/SGPT eCW1 ([facility]) 7.4 6.4-8.2 TOTAL PROTEIN eCW1 ([facility]) 3.7 3.2-5.2 ALBUMIN eCW1 ([facility]) 1.0 1.2-2.2 ALBUMIN/GLOBULIN RATIO eCW1 ([facility]) ID Date Data Source CBC with Differential 05/31/2020 12:00:00 AM EDT eCW1 ([facility]) Name Value Range Interpretation Code Description Data [facility] rce(s) Supporting Document(s) 8.6 4.0-10.0 WHITE BLOOD COUNT eCW1 ([facility]) 4.85 4.00-5.40 RED BLOOD COUNT eCW1 ([facility]) 15.9 12.0-15.5 HEMOGLOBIN eCW1 ([facility]) 32.8 27.0-33.0 MEAN CORPUSCULAR HEMOGLOB IN eCW1 ([facility]) 46.8 36.0-47.0 HEMATOCRIT eCW1 ([facility]) 96.5 80.0-96.0 MEAN CORPUSCULAR VOLUME e CW1 ([facility]) 34.0 32.0-36.5 MEAN CORPUSCULAR HGB CONC eCW1 ([facility]) 13.3 11.5-14.5 RED CELL DISTRIBUTION WID TH eCW1 ([facility]) 280 150-450 PLATELET COUNT, AUTOMATED eCW1 ([facility]) 6.5 2.0-8.0 MONO % eCW1 ([facility]) 25.5 24.0-44.0 LYMPH % eCW1 ([facility]) 64.9 36.0-66.0 NEUTROPHILS % eCW1 ([facility]) 0.8 0.0-1.0 BASO % eCW1 ([facility]) 5.6 1.5-8.5 NEUTROPHILS # eCW1 ([facility]) 2.2 1.5-5.0 LYMPH # eCW1 ([facility]) 2.1 0.0-3.0 EOS % eCW1 ([facility]) 0.2 0.0-0.5 EOS # eCW1 ([facility]) 0.1 0.0-0.2 BASO # eCW1 ([facility]) 0.6 0.0-0.8 MONO # eCW1 ([facility]) ID Date Data Source [id number] 04/06/2020 02:36:00 PM EST [facility] ([facility], ) Name Value Range Interpretation Code Description Data [facility] rce(s) Supporting Document(s) FVC-Pred 2.74 L [facility] ([facility]) PDFReport Laboratory test result [facility] ([facility]) FVC-Pre 2.44 L [facility] ([facility]) FVC-LLN 2.11 L [facility] ([facility]) FVC-%Pred-Pre 89 L [facility] ([facility]) Fev1-Pre 1.70 L [facility] ([facility]) Fev1-Pred 2.08 L [facility] ([facility]) Fev1-%Pred-Pre 81 L [facility] ([facility]) Fev1-LLN 1.55 L [facility] ([facility]) Fev6-Pred 2.62 L [facility] ([facility]) Fev6-%Pred-Pre 93 L [facility] ([facility]) Fev6-Pre 2.44 L [facility] ([facility]) Sqr9vfg-Oix 70 % [facility] ([facility]) Ixp6mwn-Bcjw 77 % [facility] ([facility]) Fev6-LLN 2.00 L [facility] ([facility]) Iyd9dup-%Pred-Pre 90 % [facility] ([facility]) Eow9gnx-QYC 67 % [facility] ([facility]) Tkv2pcz-Zgdy 96 % [facility] ([facility]) Qxh7uhb-Tqh 100 % [facility] ([facility]) FEFMax-Pred 5.41 L/E/sec [facility] ([facility]) FEFMax-Pre 3.30 L/E/sec [facility] ([facility]) Srk8tnk-%Pred-Pre 104 % [facility] ([facility]) FEFMax-%Pred-Pre 60 L/E/sec [facility] ([facility]) FEFMax-LLN 3.85 L/E/sec [facility] ([facility]) Ftq7980-Evd 1.26 L/E/sec [facility] ([facility]) Nor3703-Fsxw 1.87 L/E/sec [facility] ([facility]) Xmp2920-HUX 0.74 L/E/sec [facility] ([facility]) ExpTime-Pre 6.69 sec [facility] ([facility]) Ydp5821-%Pred-Pre 67 L/E/sec [facility] ([facility]) Rhe2ewg8-Caj 70 % [facility] ([facility]) Jok0plb3-Ksdt 80 % [facility] ([facility]) Kxr1cna3-%Pred-Pre 87 % [facility] ([facility]) Kcf0fvj6-MRK 71 % [facility] ([facility]) Procedure Social History Code Duration Value Status Description Data Source(s ) 11/16/2020 12:00:00 AM EDT Patient is a current smoker, smokes every day completed Patient is a current smoker, smokes every day [facility] ( [facility]) Smoking 11/09/2020 12:00:00 AM EDT Current Smoker completed Curre nt Smoker eCW1 ([facility]) Smoking 11/09/2020 12:00:00 AM EDT Current Smoker completed Curre nt Smoker eCW1 ([facility]) Smoking 11/09/2020 12:00:00 AM EDT Current Smoker completed Curre nt Smoker eCW1 ([facility]) Smoking 08/31/2020 12:00:00 AM EDT Current Smoker completed Curre nt Smoker eCW1 ([facility]) Smoking 08/31/2020 12:00:00 AM EDT Current Smoker completed Curre nt Smoker eCW1 ([facility]) Smoking 08/31/2020 12:00:00 AM EDT Current Smoker completed Curre nt Smoker eCW1 ([facility]) Smoking 08/31/2020 12:00:00 AM EDT Current Smoker completed Curre nt Smoker eCW1 ([facility]) Smoking 08/31/2020 12:00:00 AM EDT Current Smoker completed Curre nt Smoker eCW1 ([facility]) Smoking 08/31/2020 12:00:00 AM EDT Current Smoker completed Curre nt Smoker eCW1 ([facility]) Smoking 08/31/2020 12:00:00 AM EDT Current Smoker completed Curre nt Smoker eCW1 ([facility]) Smoking 08/31/2020 12:00:00 AM EDT Current Smoker completed Curre nt Smoker eCW1 ([facility]) Smoking 08/31/2020 12:00:00 AM EDT Current Smoker completed Curre nt Smoker eCW1 ([facility]) Smoking 08/31/2020 12:00:00 AM EDT Current Smoker completed Curre nt Smoker eCW1 ([facility]) Smoking 08/31/2020 12:00:00 AM EDT Current Smoker completed Curre nt Smoker eCW1 ([facility]) Smoking 08/31/2020 12:00:00 AM EDT Current Smoker completed Curre nt Smoker eCW1 ([facility]) Smoking 07/27/2020 12:00:00 AM EDT Current Smoker completed Curre nt Smoker eCW1 ([facility]) Smoking 07/27/2020 12:00:00 AM EDT Current Smoker completed Curre nt Smoker eCW1 ([facility]) Smoking 07/27/2020 12:00:00 AM EDT Current Smoker completed Curre nt Smoker eCW1 ([facility]) Smoking 07/20/2020 12:00:00 AM EDT Current Smoker completed Curre nt Smoker eCW1 ([facility]) Smoking 07/12/2020 12:00:00 AM EDT Current Smoker completed Curre nt Smoker eCW1 ([facility]) Smoking 06/30/2020 12:00:00 AM EDT Current Smoker completed Curre nt Smoker eCW1 ([facility]) Smoking 06/30/2020 12:00:00 AM EDT Current Smoker completed Curre nt Smoker eCW1 ([facility]) Smoking 06/22/2020 12:00:00 AM EDT Current Smoker completed Curre nt Smoker eCW1 ([facility]) Smoking 06/22/2020 12:00:00 AM EDT Current Smoker completed Curre nt Smoker eCW1 ([facility]) Smoking 06/22/2020 12:00:00 AM EDT Current Smoker completed Curre nt Smoker eCW1 ([facility]) Smoking 06/22/2020 12:00:00 AM EDT Current Smoker completed Curre nt Smoker eCW1 ([facility]) Smoking 06/22/2020 12:00:00 AM EDT Current Smoker completed Curre nt Smoker eCW1 ([facility]) Smoking 06/14/2020 12:00:00 AM EDT Current Smoker completed Curre nt Smoker eCW1 ([facility]) Smoking 06/14/2020 12:00:00 AM EDT Current Smoker completed Curre nt Smoker eCW1 ([facility]) Smoking 06/14/2020 12:00:00 AM EDT Current Smoker completed Curre nt Smoker eCW1 ([facility]) Alcohol intake 06/09/2020 12:00:00 AM EDT Lifetime non-drinker (finding) completed Lifetime non-drinker (finding) [facility] Smoking 06/07/2020 12:00:00 AM EDT Current Smoker completed Curre nt Smoker eCW1 ([facility]) Smoking 06/07/2020 12:00:00 AM EDT Current Smoker completed Curre nt Smoker eCW1 ([facility]) Smoking 05/31/2020 12:00:00 AM EDT Current Smoker completed Curre nt Smoker eCW1 ([facility]) Smoking 05/31/2020 12:00:00 AM EDT Current Smoker completed Curre nt Smoker eCW1 ([facility]) Alcohol intake 02/24/2020 12:00:00 AM EST Never completed [facility] Cigarette pack-years 02/24/2020 12:00:00 AM EST UNK completed [facility] Cigarettes smoked current (pack per day) - Reported 02/23/19 12:00:00 AM EST UNK completed [facility] Smoking 02/24/2020 12:00:00 AM EST Current every day smoker co mpleted Current every day smoker [facility] Vital Signs ID Date Data Source UNK Name Value Range Interpretation Code Description Data Source(s) Systolic blood pressure 136 mm[Hg] 136 mm[Hg] M YA ([facility], ) Diastolic blood pressure 74 mm[Hg] 74 mm[Hg] [facility] ([facility], ) Heart rate 88 /min 88 /min [facility] ([facility], ) Oxygen saturation in Arterial blood by Pulse oximetry 95 % 95 % [facility] ([facility], ) Body height 61 [in_i] 61 [in_i] [facility] ([facility], ) 5'1" Body weight 145.50 [lb_av] 145.50 [lb_av] MEDEN T ([facility], ) Body mass index (BMI) [Ratio] 27.5 kg/m2 27.5 k g/m2 [facility] ([facility], ) [place] body weight 105 [lb_av] 105 [lb_av] MEDEN T ([facility]) Body weight 65.999 kg 65.999 kg [facility] ([facility]) Body surface area Derived from formula 1.65 m2 1.65 m2 [facility] ([facility]) Body weight [lb_av] eCW1 ([facility]) Body weight 65.77 kg 65.77 kg eCW1 ([facility]) Body height 61 [in_i] 61 [in_i] eCW1 ([facility]) Body mass index (BMI) [Ratio] 27.39 kg/m2 27.39 kg/m2 eCW1 ([facility]) Heart rate 96 /min 96 /min eCW1 ([facility]) Respiratory rate 18 /min 18 /min eCW1 (Replaced by [facility]) Body temperature 99.5 [degF] 99.5 [degF] eCW1 ( [facility]) Systolic blood pressure 140 mm[Hg] 140 mm[Hg] e CW1 ([facility]) Diastolic blood pressure 76 mm[Hg] 76 mm[Hg] eCW1 ([facility]) Body mass index (BMI) [Ratio] 27.5 kg/m2 27.5 k g/m2 [facility] ([facility]) Body weight 145.38 [lb_av] 145.38 [lb_av] [facility] Body height 61 [in_i] 61 [in_i] [facility] ([facility]) 5'1" Oxygen saturation in Arterial blood by Pulse oximetry 96 % 96 % [facility] ([facility]) [place] body weight 105 [lb_av] 105 [lb_av] MEDEN T ([facility]) Body weight 65.942 kg 65.942 kg [facility] ([facility]) Systolic blood pressure 132 mm[Hg] 132 mm[Hg] M EDENT ([facility]) Diastolic blood pressure 78 mm[Hg] 78 mm[Hg] [facility] ([facility]) Heart rate 97 /min 97 /min MEDENT ([facility], ) Body surface area Derived from formula 1.65 m2 1.65 m2 MEDENT ([facility], ) Body weight 145 [lb_av] 145 [lb_av] eCW1 ([facility]) Body height 61 [in_i] 61 [in_i] eCW1 ([facility]) Body mass index (BMI) [Ratio] 27.39 kg/m2 27.39 kg/m2 eCW1 ([facility]) Heart rate 88 /min 88 /min eCW1 ([facility]) Respiratory rate 18 /min 18 /min eCW1 (Replaced by [facility]) Body temperature 98.3 [degF] 98.3 [degF] eCW1 ( [facility]) Systolic blood pressure 124 mm[Hg] 124 mm[Hg] e CW1 ([facility]) Diastolic blood pressure 68 mm[Hg] 68 mm[Hg] eCW1 ([facility]) Body weight 144 [lb_av] 144 [lb_av] eCW1 ([facility]) Body height 61 [in_i] 61 [in_i] eCW1 ([facility]) Body mass index (BMI) [Ratio] 27.21 kg/m2 27.21 kg/m2 eCW1 ([facility]) Heart rate 93 /min 93 /min eCW1 ([facility]) Respiratory rate 18 /min 18 /min eCW1 (Replaced by [facility]) Body temperature 98.0 [degF] 98.0 [degF] eCW1 ( [facility]) Systolic blood pressure 138 mm[Hg] 138 mm[Hg] e CW1 ([facility]) Diastolic blood pressure 80 mm[Hg] 80 mm[Hg] eCW1 ([facility]) Body temperature 97.9 [degF] 97.9 [degF] MEDENT ([facility], ) Body height 61 [in_i] 61 [in_i] [facility], ) 5'1" Body weight 146.00 [lb_av] 146.00 [lb_av] MEDEN T ([facility]) Body temperature 97.9 [degF] 97.9 [degF] MEDENT ([facility]) Body height 61 [in_i] 61 [in_i] MEDENT ([facility]) 5'1" Body weight 146.00 [lb_av] 146.00 [lb_av] MEDEN T ([facility]) Body mass index (BMI) [Ratio] 27.6 kg/m2 27.6 k g/m2 [facility] ([facility]) [place] body weight 105 [lb_av] 105 [lb_av] MEDEN T ([facility]) Body weight 66.226 kg 66.226 kg [facility] ([facility]) Body surface area Derived from formula 1.65 m2 1.65 m2 [facility] ([facility]) Body mass index (BMI) [Ratio] 27.6 kg/m2 27.6 k g/m2 [facility] ([facility]) [place] body weight 105 [lb_av] 105 [lb_av] MEDEN T ([facility]) Body weight 66.226 kg 66.226 kg [facility] ([facility]) Body surface area Derived from formula 1.65 m2 1.65 m2 [facility] ([facility]) Body weight 144.6 [lb_av] 144.6 [lb_av] eCW1 ([facility]) Body weight 65.59 kg 65.59 kg eCW1 ([facility]) Body height 61 [in_i] 61 [in_i] eCW1 ([facility]) Body mass index (BMI) [Ratio] 27.32 kg/m2 27.32 kg/m2 eCW1 ([facility]) Heart rate 98 /min 98 /min eCW1 ([facility]) Respiratory rate 18 /min 18 /min eCW1 (Replaced by [facility]) Body temperature 98.1 [degF] 98.1 [degF] eCW1 ( [facility]) Systolic blood pressure 112 mm[Hg] 112 mm[Hg] e CW1 ([facility]) Diastolic blood pressure 70 mm[Hg] 70 mm[Hg] eCW1 ([facility]) Body weight 147 [lb_av] 147 [lb_av] eCW1 ([facility]) Body height [in_i] eCW1 ([facility]) Body mass index (BMI) [Ratio] 28.71 kg/m2 28.71 kg/m2 eCW1 ([facility]) Heart rate 105 /min 105 /min eCW1 ([facility]) Respiratory rate 19 /min 19 /min eCW1 (Replaced by [facility]) Body temperature 98.6 [degF] 98.6 [degF] eCW1 ( [facility]) Systolic blood pressure 117 mm[Hg] 117 mm[Hg] e CW1 ([facility]) Diastolic blood pressure 73 mm[Hg] 73 mm[Hg] eCW1 ([facility]) Systolic blood pressure 126 mm[Hg] 126 mm[Hg] e CW1 ([facility]) Diastolic blood pressure 76 mm[Hg] 76 mm[Hg] eCW1 ([facility]) Body weight [lb_av] eCW1 ([facility]) Body height [in_i] eCW1 ([facility]) Body mass index (BMI) [Ratio] 28.71 kg/m2 28.71 kg/m2 eCW1 ([facility]) Heart rate 89 /min 89 /min eCW1 ([facility]) Respiratory rate 18 /min 18 /min eCW1 (Replaced by [facility]) Body temperature 97.3 [degF] 97.3 [degF] eCW1 ( [facility]) [place] body weight 105 [lb_av] 105 [lb_av] MEDEN T ([facility], ) Systolic blood pressure 124 mm[Hg] 124 mm[Hg] M EDENT ([facility], ) Diastolic blood pressure 78 mm[Hg] 78 mm[Hg] [facility] Heart rate 100 /min 100 /min [facility] ([facility]) Oxygen saturation in Arterial blood by Pulse oximetry 95 % 95 % [facility] ([facility]) Body height 61 [in_i] 61 [in_i] [facility] ([facility]) 5'1" Body weight 146.00 [lb_av] 146.00 [lb_av] MEDEN T ([facility]) Body mass index (BMI) [Ratio] 27.6 kg/m2 27.6 k g/m2 [facility] ([facility]) Body weight 66.226 kg 66.226 kg [facility] ([facility]) Body surface area Derived from formula 1.65 m2 1.65 m2 [facility] ([facility]) Oxygen saturation in Arterial blood by Pulse oximetry 95 % 95 % [facility] ([facility]) Body weight 146.00 [lb_av] 146.00 [lb_av] MEDEN T ([facility]) Body mass index (BMI) [Ratio] 27.6 kg/m2 27.6 k g/m2 [facility] ([facility]) [place] body weight 105 [lb_av] 105 [lb_av] MEDEN T ([facility]) Body weight 66.226 kg 66.226 kg [facility] ([facility]) Body height 61 [in_i] 61 [in_i] [facility] ([facility]) 5'1" Body surface area Derived from formula 1.65 m2 1.65 m2 [facility] ([facility]) Body height [in_i] eCW1 ([facility]) Body mass index (BMI) [Ratio] 28.71 kg/m2 28.71 kg/m2 eCW1 ([facility]) Heart rate 99 /min 99 /min eCW1 ([facility]) Respiratory rate 18 /min 18 /min eCW1 (Replaced by [facility]) Body temperature 98.5 [degF] 98.5 [degF] eCW1 ( [facility]) Systolic blood pressure 122 mm[Hg] 122 mm[Hg] e CW1 ([facility]) Diastolic blood pressure 68 mm[Hg] 68 mm[Hg] eCW1 ([facility]) Body weight 147 [lb_av] 147 [lb_av] eCW1 ([facility]) Body temperature 99.2 [degF] 99.2 [degF] eCW1 ( [facility]) Diastolic blood pressure 71 mm[Hg] 71 mm[Hg] eCW1 ([facility]) Systolic blood pressure 114 mm[Hg] 114 mm[Hg] e CW1 ([facility]) Body weight [lb_av] eCW1 ([facility]) Body height [in_i] eCW1 ([facility]) Body mass index (BMI) [Ratio] 28.90 kg/m2 28.90 kg/m2 eCW1 ([facility]) Heart rate 88 /min 88 /min eCW1 ([facility]) Respiratory rate 18 /min 18 /min eCW1 (Replaced by [facility]) Body weight 148 [lb_av] 148 [lb_av] eCW1 ([facility]) Body height [in_i] eCW1 ([facility]) Body mass index (BMI) [Ratio] 28.90 kg/m2 28.90 kg/m2 eCW1 ([facility]) Heart rate 95 /min 95 /min eCW1 ([facility]) Respiratory rate 18 /min 18 /min eCW1 (Replaced by [facility]) Body temperature 97.5 [degF] 97.5 [degF] eCW1 ( [facility]) Systolic blood pressure 112 mm[Hg] 112 mm[Hg] e CW1 ([facility]) Diastolic blood pressure 66 mm[Hg] 66 mm[Hg] eCW1 ([facility]) Systolic blood pressure 118 mm[Hg] 118 mm[Hg] [facility] Diastolic blood pressure 70 mm[Hg] 70 mm[Hg] [facility] Heart rate 90 /min 90 /min [facility] Respiratory rate 18 /min 18 /min [facility] Body weight 67.132 kg 67.132 kg [facility] Body mass index (BMI) [Ratio] 27.07 kg/m2 27.07 kg/m2 [facility] Oxygen saturation in Arterial blood by Pulse oximetry 96 % 96 % [facility] Body weight 148 [lb_av] 148 [lb_av] eCW1 ([facility]) Body height [in_i] eCW1 ([facility]) Body mass index (BMI) [Ratio] 28.90 kg/m2 28.90 kg/m2 eCW1 ([facility]) Heart rate 99 /min 99 /min eCW1 ([facility]) Respiratory rate 18 /min 18 /min eCW1 (Replaced by [facility]) Body temperature 97.0 [degF] 97.0 [degF] eCW1 ( [facility]) Systolic blood pressure 129 mm[Hg] 129 mm[Hg] e CW1 ([facility]) Diastolic blood pressure 79 mm[Hg] 79 mm[Hg] eCW1 ([facility]) Body weight [lb_av] eCW1 ([facility]) Body height [in_i] eCW1 ([facility]) Body mass index (BMI) [Ratio] 28.71 kg/m2 28.71 kg/m2 eCW1 ([facility]) Heart rate 96 /min 96 /min eCW1 ([facility]) Respiratory rate 18 /min 18 /min eCW1 (Replaced by [facility]) Body temperature 99.3 [degF] 99.3 [degF] eCW1 ( [facility]) Systolic blood pressure 133 mm[Hg] 133 mm[Hg] e CW1 ([facility]) Diastolic blood pressure 78 mm[Hg] 78 mm[Hg] eCW1 ([facility]) Systolic blood pressure 130 mm[Hg] 130 mm[Hg] Delaney PANDYA ([facility]) Diastolic blood pressure 80 mm[Hg] 80 mm[Hg] [facility] ([facility]) Oxygen saturation in Arterial blood by Pulse oximetry 96 % 96 % [facility] ([facility]) Body temperature 97.0 [degF] 97.0 [degF] [facility] ([facility]) Heart rate 86 /min 86 /min [facility] ([facility]) Body height 61 [in_i] 61 [in_i] [facility] ([facility]) 5'1" Body weight 155.00 [lb_av] 155.00 [lb_av] MEDEN T ([facility]) Body mass index (BMI) [Ratio] 29.3 kg/m2 29.3 k g/m2 [facility] ([facility]) [place] body weight 105 [lb_av] 105 [lb_av] MEDEN T ([facility]) Body weight 70.308 kg 70.308 kg [facility] ([facility]) Body surface area Derived from formula 1.69 m2 1.69 m2 [facility] ([facility]) Systolic blood pressure 96 mm[Hg] 96 mm[Hg] [facility] Diastolic blood pressure 67 mm[Hg] 67 mm[Hg] [facility] Heart rate 91 /min 91 /min [facility] Body weight 67.132 kg 67.132 kg [facility] Body mass index (BMI) [Ratio] 27.07 kg/m2 27.07 kg/m2 [facility] Oxygen saturation in Arterial blood by Pulse oximetry 96 % 96 % [facility] Patient Treatment Plan of Care Planned Activity Planned Date Details Description Data Source (s) Alprazolam 0.25 MG Oral Tablet 11/25/2020 12:00:00 AM EDT eCW1 ([facility]) Oxycodone Hydrochloride 5 MG Oral Tablet 11/25/2020 12:00:00 AM EDT eCW1 ([facility]) Alprazolam 0.25 MG Oral Tablet 11/25/2020 12:00:00 AM EDT eCW1 ([facility]) Oxycodone Hydrochloride 5 MG Oral Tablet 11/25/2020 12:00:00 AM EDT eCW1 ([facility]) Oxycodone Hydrochloride 5 MG Oral Tablet 09/14/2020 12:00:00 AM EDT eCW1 ([facility]) Alprazolam 0.25 MG Oral Tablet 09/14/2020 12:00:00 AM EDT eCW1 ([facility]) Oxycodone Hydrochloride 5 MG Oral Tablet 09/14/2020 12:00:00 AM EDT eCW1 ([facility]) Alprazolam 0.25 MG Oral Tablet 09/14/2020 12:00:00 AM EDT eCW1 ([facility]) Oxycodone Hydrochloride 5 MG Oral Tablet 09/14/2020 12:00:00 AM EDT eCW1 ([facility]) Alprazolam 0.25 MG Oral Tablet 09/14/2020 12:00:00 AM EDT eCW1 ([facility]) Oxycodone Hydrochloride 5 MG Oral Tablet 09/14/2020 12:00:00 AM EDT eCW1 ([facility]) Alprazolam 0.25 MG Oral Tablet 09/14/2020 12:00:00 AM EDT eCW1 ([facility]) Oxycodone Hydrochloride 5 MG Oral Tablet 09/14/2020 12:00:00 AM EDT eCW1 ([facility]) Alprazolam 0.25 MG Oral Tablet 09/14/2020 12:00:00 AM EDT eCW1 ([facility]) Oxycodone Hydrochloride 5 MG Oral Tablet 09/14/2020 12:00:00 AM EDT eCW1 ([facility]) Alprazolam 0.25 MG Oral Tablet 09/14/2020 12:00:00 AM EDT eCW1 ([facility]) Oxycodone Hydrochloride 5 MG Oral Tablet 09/14/2020 12:00:00 AM EDT eCW1 ([facility]) Alprazolam 0.25 MG Oral Tablet 09/14/2020 12:00:00 AM EDT eCW1 ([facility]) Oxycodone Hydrochloride 5 MG Oral Tablet 09/14/2020 12:00:00 AM EDT eCW1 ([facility]) Alprazolam 0.25 MG Oral Tablet 09/14/2020 12:00:00 AM EDT eCW1 ([facility]) Alprazolam 0.25 MG Oral Tablet 09/14/2020 12:00:00 AM EDT eCW1 ([facility]) Oxycodone Hydrochloride 5 MG Oral Tablet 09/14/2020 12:00:00 AM EDT eCW1 ([facility]) Alprazolam 0.25 MG Oral Tablet 09/14/2020 12:00:00 AM EDT eCW1 ([facility]) Oxycodone Hydrochloride 5 MG Oral Tablet 09/14/2020 12:00:00 AM EDT eCW1 ([facility]) Hydrochlorothiazide 12.5 MG Oral Tablet 06/09/2020 12:00:00 AM EDT [facility] Losartan Potassium 25 MG Oral Tablet 05/14/2020 12:00:00 AM EDT [facility] albuterol (PROVENTIL HFA;VENTOLIN HFA) 108 (90 Base) M CG/ACT inhaler 04/09/2020 12:00:00 AM EST [facility] Rosuvastatin calcium 5 MG Oral Tablet 02/24/2020 12:00:00 AM EST [facility] Meclizine Hydrochloride 25 MG Oral Tablet 02/16/2020 12:00:00 AM ES T [facility] FLUAD QUADRIVALENT 0.5 ML PRSY 01/24/2020 12:00:00 AM EST [facility] Oxycodone Hydrochloride 5 MG Oral Tablet 01/21/2020 12:00:00 AM EST [facility] atorvastatin 10 MG Oral Tablet 01/21/2020 12:00:00 AM EST [facility] Trazodone Hydrochloride 150 MG Oral Tablet 01/02/2020 12:00:00 AM E [facility] Trazodone Hydrochloride 100 MG Oral Tablet 04/21/2019 12:00:00 AM E DT [facility] Ergocalciferol [id number] UNT Oral Capsule 03/17/2019 12:00:00 AM EST [facility]
[2020-12-08] MEDS ORDERED: LIDOCAINE 4% INJ 5ML AMP NEB ONE (10:35)
[2020-12-08] MEDS ORDERED: ALBUTEROL SULFATE 2.5 MG/0.5 ML INH NEB SOLN INH ONE (10:35)
[2020-12-08] MEDS ORDERED: dexameTHASONE 4 MG/ML 1ML VIAL (J1100 PER 1MG) As Ordered ONE (10:37)
[2020-12-08] MEDS ORDERED: PHENYLephrine 500MCG 5ML (100MCG/ML) SYRINGE As Ordered ONE (11:20)
--- NOTE | 2020-12-08 11:46 | ROOR ---
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 Estimated blood loss: Minimal Procedure: Pre-Anesthesia Assessment: - Prior to the procedure, a History and Physical was performed, and patient medications and allergies were reviewed. The patient's tolerance of previous anesthesia was also reviewed. The risks and benefits of the procedure and the sedation options and risks were discussed with the patient. All questions were answered, and informed consent was obtained. Prior Anticoagulants: The patient has taken no previous anticoagulant or antiplatelet agents. ASA Grade Assessment: II - A patient with mild systemic disease. After reviewing the risks and benefits, the patient was deemed in satisfactory condition to undergo the procedure. - Patient identification and proposed procedure were verified prior to the procedure by the physician, the nurse, the anesthesiologist, the airplane pilot commercial and the ophthalmic technician. The procedure was verified in the procedure room. The Bronchoscope was introduced through the mouth, via the endotracheal tube (the patient was intubated for the procedure) and advanced to the tracheobronchial tree of both lungs. The procedure was accomplished without difficulty. The patient tolerated the procedure well. Findings: The endotracheal tube is in good position. The visualized portion of the trachea is of normal caliber. The steve is sharp. The tracheobronchial tree was examined to at least the first subsegmental level. Bronchial mucosa and anatomy are normal; there are no endobronchial lesions. There was clear mucoid secretions noted throughout. An endobronchial ultrasound endoscope was utilized in order to assist with fine needle aspiration in the right paratracheal area. Transbronchial needle aspirations of a lymph node were performed in the right paratracheal area using an Olympus [id number]-TBNA 21 gauge needle and sent for routine cytology. The procedure was guided by ultrasound. Transbronchial needle aspiration technique was selected because the sampling site was not visible endoscopically. 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 - Endobronchial ultrasound was performed. - A transbronchial needle aspiration was performed. Recommendation: - Await cytology results. Procedure Code(s): --- Professional --- 04602, Bronchoscopy, rigid or flexible, including fluoroscopic guidance, when performed; with transbronchial needle aspiration biopsy(s), trachea, main stem and/or lobar bronchus(i) 08261, Bronchoscopy, rigid or flexible, including fluoroscopic guidance, when performed; with transendoscopic endobronchial ultrasound (EBUS) during bronchoscopic diagnostic or therapeutic intervention(s) for peripheral lesion(s) (List separately in addition to code for primary procedure[s]) CPT copyright 2019 [employer]. All rights reserved. The codes documented in this report are preliminary and upon engineer assistant review may be revised to meet current compliance requirements. Attending Participation: I personally performed the entire procedure. Vanessa Mae MD 12/08/2020 11:46:13 AM Number of Addenda: 0 Note Initiated On: 12/08/2020 10:24 AM
[2020-12-08 12:30] VITALS: BP 121/74
[2020-12-10] MEDS ORDERED: OXYC-517 PO (11:26)
[2020-12-10] MEDS ORDERED: ROSU5TAB5 PO (11:26)
== END 2020-12-08 12:50 | disposition home or self-care (01) ==
LOC: M SDC 10:05
PROVIDERS: ATTEND Internal Medicine Pulmonary Disease
DX: C34.11 Malignant neoplasm of upper lobe, right bronchus or lung (principal); C77.9 Secondary and unspecified malignant neoplasm of lymph node, unspecified; F17.218 Nicotine dependence, cigarettes, with other nicotine-induced disorders; J43.9 Emphysema, unspecified; G47.33 Obstructive sleep apnea (adult) (pediatric); Z88.5 Allergy status to narcotic agent; Z88.2 Allergy status to sulfonamides; Z79.899 Other long term (current) drug therapy
CPT/HCPCS: 31629; 31654; 88173; 88305; 88341; 88342; J1100; J2250; J2370; J2405; J3010

== ENCOUNTER → 2020-12-10 | Outpatient (CLI) | payer MEDICARE, BC, OTHER ==
[~2020-12-10] MED LIST changes: -CETACAINE SPRAY 5GM As Ordered ONE; -EPINEPHrine 1MG/10ML SYRINGE 1.5IN As Ordered ONE; -LIDOCAINE 1% SDV 30ML VIAL As Ordered ONE; -LIDOCAINE 2% 100MG/5ML SDV (FOR ANES.) As Ordered ONE; -LR 1,000 ML IV ONE; -MIDAZOLAM INJ 2MG/2ML VIAL (J2250 PER 1MG) As Ordered ONE; -ONDANSETRON 4MG/2ML VIAL As Ordered ONE; +PROHANCE 279.3MG/ML 15ML VIAL As Ordered ONE; -ROCURONIUM BROMIDE 50 MG/5 ML VIAL As Ordered ONE; -SUGAMMADEX SODIUM 500 MG/5 ML VIAL (BRIDION) As Ordered ONE; -THROMBIN SOLN 5,000 UNITS VIAL As Ordered ONE; -fentaNYL 100 MCG/2 ML INJECTION (J3010) As Ordered ONE; -propofoL 200 MG/20 ML VIAL As Ordered ONE
--- NOTE | 2020-12-11 15:52 | REPVR ---
PROCEDURE INFORMATION: Exam: MR Head Without and With Contrast Exam date and time: 12/10/2020 6:28 PM Age: 70 years old Clinical indication: Condition or disease; History of cancer (specify primary cancer site): ; Primary cancer: Lung CA; Additional info: Malignant neoplasm of upper lobe TECHNIQUE: Imaging protocol: MR of the head without and with intravenous contrast. Contrast material: PROHANCE; Contrast volume: 13 ml; Contrast route: INTRAVENOUS (IV); COMPARISON: PET/CT Skull/mid thigh 11/29/2020 12:26:31 PM FINDINGS: Brain: There is mild patchy increased T2 signal intensity within the bilateral cerebral periventricular white matter, consistent with chronic microvascular ischemic changes. There are few small focal areas of chronic ischemia in bilateral frontal, parietal and periatrial white matter. Chronic ischemic changes are seen in the thomas. There is no abnormal diffusion weighted signal intensity to suggest an acute ischemic event. There is mild diffuse cerebral atrophy present, consistent with this patient's age. Cerebral ventricles: The ventricular system demonstrates mild diffuse compensatory enlargement. Bones/joints: Unremarkable. Paranasal sinuses: Normal as visualized. No acute sinusitis. Mastoid air cells: Normal as visualized. No mastoid effusion. Orbital cavity: Unremarkable. Soft tissues: Unremarkable. IMPRESSION: 1. No acute infarction, masses or hemorrhage is seen. No acute intracranial abnormality is identified. 2. Diffuse age-related cerebral atrophy and mild chronic microvascular white matter ischemic changes, without evidence of an acute intracranial abnormality. 3. No abnormal contrast enhancement is seen. Electronically signed by: Keanu Betancourt On 12/11/2020 15:52:10 PM
== END ==
LOC: M PLARAD 10:53 → M RAD 17:08
PROVIDERS: ATTEND General Practice
DX: C34.11 Malignant neoplasm of upper lobe, right bronchus or lung (principal); R90.82 White matter disease, unspecified; G31.9 Degenerative disease of nervous system, unspecified

== ENCOUNTER → 2020-12-16 | Outpatient (CLI) | payer MEDICARE, BC, OTHER ==
[~2020-12-16] MED LIST changes: +ISOVUE-300 61% 50ML VIAL As Ordered ONE; +LIDOCAINE 1% MDV 20ML VIAL As Ordered ONE; +MIDAZOLAM INJ 2MG/2ML VIAL (J2250 PER 1MG) As Ordered ONE; +NS 1,000 ML IV SCH; +OYST250T20 PO; -PROHANCE 279.3MG/ML 15ML VIAL As Ordered ONE; +PROMETHAZINE INJ 25 MG/ML VIAL (J2550) As Ordered ONE; +ceFAZolin 2 GM/D5W 50 ML IV BAG (J0690 PER 500MG) As Ordered ONE; +ceFAZolin SOD 2 GM in IV 1 EA IV ONE; +diphenhydrAMINE 50MG/ML VIAL (J1200) As Ordered ONE; +fentaNYL 100 MCG/2 ML INJECTION (J3010) As Ordered ONE; +vitaminD3 PO
--- NOTE | 2020-12-16 11:05 | IRHP ---
[facility] IR Pre-Procedure H & P General Date of Service: Dec 16, 2020 Procedure: Same Day Surgery Interval History and Physical I have seen the patient and reviewed last H & P performed within 30 days. There is no significant interval change. History of Present Illness Chief Complaint The patient is a 70-year-old female admitted with a reason for visit of Lung Ca. PRE-PROCEDURE DIAGNOSIS: Lung cancer HEART: Normal rate. LUNGS: Normal breathing at rest. ASA Classification ASA Classification: III-Severe systemic dis. Mallampati Score: II NPO: Yes Problems with prior sedation: No Obstructive Sleep Apnea: No Plan moderate sedation Allergies Coded Allergies: sulfamethoxazole (Verified Allergy, Unknown, ACHES, FEVER, 11/04/20) trimethoprim (Verified Allergy, Unknown, ACHES, FEVER, 11/04/20) codeine (Verified Adverse Reaction, Unknown, VOMITING, 11/04/20) Home Medications Scheduled Alprazolam (Alprazolam), 1 TAB PO PRN, (Reported) Hydrochlorothiazide (Hydrochlorothiazide), 12.5 MG PO DAILY, (Reported) Oxycodone HCl (Oxycodone HCl), 1 TAB PO Q6HP, (Reported) Rosuvastatin Calcium (Rosuvastatin Calcium), 1 TAB PO DAILY, (Reported) Trazodone HCl (Trazodone HCl), 150 MG PO QHS, (Reported) [vitaminD3], 50,000 PO Q2WK, (Reported) Miscellaneous Medications Calcium Carbonate/Vitamin D3 (Calcium 250-D Tablet), 1,200 TAB PO, (Reported) Discontinued Medications Oxycodone/Acetaminophen (Oxycodone-Acetaminophen 5-325), 1 TAB PO Q4H PRN for MODERATE/SEVERE PAIN (PS 5-10) Discontinued Reason: Pt states not taking VS, I&O, 24H, Fishbone Vital Signs/I&O Vital Signs Date Time Temp Pulse Resp B/P (MAP) Pulse Ox O2 Delivery O2 Flow Rate FiO2 12/16/20 11:00 85 18 98 Nasal Cannula 2.0 12/16/20 09:03 97.6 KIMBERLEE LAY MD Dec 16, 2020 11:05
[2020-12-16 13:00] VITALS: BP 119/59
--- NOTE | 2020-12-16 13:47 | IRPON ---
IR Postoperative Note Date Of Procedure: Dec 16, 2020 Time Of Procedure: 13:46 IR Postoperative Note IR Ultrasound and fluoroscopy guided port placement IR Ultrasound of the neck. IR Moderate sedation. Clinical indication: Lung cancer. Physician: Dr. Hong. Procedure: The patient was advised of the benefits, risks, and alternatives of the procedure and informed consent was obtained. A time-out was performed with verification of the patient's name, MRN, site of procedure and type of procedure to be performed. The patient was positioned in the supine position on the angiographic table. The site was prepped and draped in the usual sterile fashion. Moderate sedation was performed by the physician including the presence of an independent trained RN who assisted and monitored the patient's level of consciousness and physiologic status. Following the administration of fentanyl and Versed , the physician spent 45 minutes of continuous face to face time with the patient. Ultrasound of the neck reveals a patent and compressible right internal jugular vein. A right of way manager radiograph reveals surgical clips right lung. The neck and anterior chest wall were anesthetized with lidocaine. The right internal jugular vein was accessed using a microintroducer needle under ultrasound guidance, via a lateral approach. An 018 wire was advanced into the superior vena cava, the needle was removed and a microsheath was placed. An Amplatz wire was then passed into the inferior vena cava. An incision at the internal jugular vein access site and anterior chest wall were made using a scalpel. An incision was made at the anterior chest wall. A small pocket was created using a combination of blunt and sharp dissection. A tunneling device was then used to pass the catheter from the pocket to the neck puncture site. An 8- [employer] Smart power port was then positioned in the pocket. The catheter was then measured and cut. The introducer sheath was exchanged for a peel-away sheath. The catheter was passed through the peel-away sheath into the internal jugular vein and the peel-away sheath was removed. The port tip was positioned at the cavoatrial junction. The port was then accessed with a Kee needle. The port flushes and aspirates well. The puncture site in the neck was closed. The chest wall incision was then closed with 2-0 Vicryl and 4-0 Monocryl. Glue and Steri- Strips were applied. A sterile dressing was then applied. The patient tolerated the procedure well and was returned to the PRU in stable condition. Estimated blood loss: <5 ml. Complications: None. Conclusion: 1. Successful placement of an 8-[employer] Smart power port via the right internal jugular vein. The port is ready for immediate use. 2. Patient to follow up in IR clinic in 2 weeks. Thank you for this referral. KIMBERLEE HONG MD Dec 16, 2020 13:47
== END ==
LOC: M IRPRO 08:51
PROVIDERS: ATTEND Radiology Diagnostic Radiology
DX: C34.90 Malignant neoplasm of unspecified part of unspecified bronchus or lung (principal); Z79.899 Other long term (current) drug therapy; Z88.5 Allergy status to narcotic agent; Z88.8 Allergy status to other drugs, medicaments and biological substances
CPT/HCPCS: 36561; 99152; 99153; C1769; C1788; C1894; J0690; J1200; J1642; J1644; J2250; J3010

== ENCOUNTER → 2021-01-04 | Outpatient (POV) | payer MEDICARE, BC, OTHER ==
[~2021-01-04] VITALS: Ht 154.9 cm; Wt 68.1 kg
[~2021-01-04] MED LIST changes: +AUGM500T34 PO; +D31000TA2 PO; +DIAZ5TAB PO; +DIFI200T; -ISOVUE-300 61% 50ML VIAL As Ordered ONE; +LACT20EL PO; +LEVO500T4 PO; +LEVO750T13 PO; +LIDO1CRE42 TOP; -LIDOCAINE 1% MDV 20ML VIAL As Ordered ONE; -LISI-898; +LISI5TAB11; +LOPE2TAB12 PO; +LOSA25TA13; -LOSA25TA14; +MAGICMW SSP; +METR-265 PO; -MIDAZOLAM INJ 2MG/2ML VIAL (J2250 PER 1MG) As Ordered ONE; +MIRA3350 PO; +MUCI30TA5 PO; +MULT1TAB7 PO; +MUPI2OI TOP; -NS 1,000 ML IV SCH; +NYST50SS PO; +ONDA-84 PO; +OXYC1SOL3 PO; +PROBCAP14 PO; +PROC10TA5 PO; -PROMETHAZINE INJ 25 MG/ML VIAL (J2550) As Ordered ONE; +TRIA1CR80 TOP; -ceFAZolin 2 GM/D5W 50 ML IV BAG (J0690 PER 500MG) As Ordered ONE; -ceFAZolin SOD 2 GM in IV 1 EA IV ONE; -diphenhydrAMINE 50MG/ML VIAL (J1200) As Ordered ONE; -fentaNYL 100 MCG/2 ML INJECTION (J3010) As Ordered ONE
[2021-01-04 09:00] VITALS: BP 118/59
== END ==
LOC: M IRPOV 08:50
PROVIDERS: ATTEND Radiology Diagnostic Radiology
DX: Z45.2 Encounter for adjustment and management of vascular access device (principal)

== ENCOUNTER → 2021-01-04 | Outpatient (RCR) | payer MEDICARE, BC, OTHER | LOC: M ONCR 12-07 07:13 | PROVIDERS: ATTEND General Practice | DX: C34.11 Malignant neoplasm of upper lobe, right bronchus or lung (principal) | CPT/HCPCS: 77293; 77300; 77301; 77334; 77336; 77338; 77386; 77470; U0002 ==

== ENCOUNTER → 2021-01-10 | Outpatient (CLI) | payer MEDICARE, BC, OTHER ==
[~2021-01-10] MED LIST changes: -AUGM500T34 PO; -DIFI200T; +LEVO500T3 PO; -LEVO500T4 PO; -LEVO750T13 PO; +LISI-898; -LISI5TAB11; -LOPE2TAB12 PO; -LOSA25TA13; +LOSA25TA14; -METR-265 PO; -MUCI30TA5 PO; -MULT1TAB7 PO; -MUPI2OI TOP; -ONDA-84 PO; +ONDA8TAB10 PO; -PROBCAP14 PO; +PROC10TA4 PO; -PROC10TA5 PO; -TRIA1CR80 TOP
--- NOTE | 2021-01-10 15:14 | REP ---
INDICATION: ABDOMINAL PAIN. COMPARISON: None. TECHNIQUE: AP view abdomen and pelvis. FINDINGS: No dilated bowel loops are seen. There is mild air and fecal material scattered throughout a nondilated colon. Metallic clips are seen in the right upper quadrant. There are mild vascular calcifications in the pelvis. The visualized osseous structures are unremarkable. IMPRESSION: No acute findings identified. <Electronically signed by Fish Porter > 01/10/21 1549
== END ==
LOC: M RAD 14:25
PROVIDERS: ATTEND Internal Medicine Medical Oncology
DX: R10.9 Unspecified abdominal pain (principal)

== ENCOUNTER → 2021-01-26 | Outpatient (REF) | payer MEDICARE, OTHER ==
[~2021-01-26] MED LIST changes: +AUGM500T34 PO; +LEVO750T13 PO; +LOPE2TAB12 PO; +METR-265 PO; +MUCI30TA5 PO; +MULT1TAB7 PO; +PROBCAP14 PO
== END ==
LOC: M LAB REF 09:19
PROVIDERS: ATTEND Internal Medicine Infectious Disease
DX: K57.32 Diverticulitis of large intestine without perforation or abscess without bleeding (principal); L53.8 Other specified erythematous conditions

== ENCOUNTER → 2021-02-01 | Outpatient (REF) | payer MEDICARE, OTHER ==
[~2021-02-01] MED LIST changes: +DIFI200T; -LEVO500T3 PO; +LEVO500T4 PO; -LISI-898; +LISI5TAB11; +LOSA25TA13; -LOSA25TA14; +MUPI2OI TOP; +ONDA-84 PO; -ONDA8TAB10 PO; -PROC10TA4 PO; +PROC10TA5 PO; +TRIA1CR80 TOP
== END ==
LOC: M SFHCCAPE 09:30
PROVIDERS: ATTEND Physician Assistant
DX: K57.92 Diverticulitis of intestine, part unspecified, without perforation or abscess without bleeding (principal)

== ENCOUNTER 2021-02-03 13:45 | Outpatient (RCR) | payer MEDICARE, BC, OTHER ==
[~2021-02-03 13:45] MED LIST changes: -DIFI200T; +LEVO500T3 PO; -LEVO500T4 PO; +LISI-898; -LISI5TAB11; -LOSA25TA13; +LOSA25TA14; -MUPI2OI TOP; -ONDA-84 PO; +ONDA8TAB10 PO; +PROC10TA4 PO; -PROC10TA5 PO; -TRIA1CR80 TOP
[2021-02-07] MEDS ORDERED: DIFI200T (14:22)
[2021-02-07] MEDS ORDERED: OXYC-517 PO ×2 (14:44→16:03)
[2021-02-08] MEDS ORDERED: MUPI2OI TOP (11:02)
== END 2021-02-04 ==
LOC: M ONCR 13:45
PROVIDERS: ATTEND General Practice
DX: C34.11 Malignant neoplasm of upper lobe, right bronchus or lung (principal); R10.32 Left lower quadrant pain; R50.9 Fever, unspecified

== ENCOUNTER 2021-02-09 13:45 | Outpatient (RCR) | payer MEDICARE, BC, OTHER ==
[~2021-02-09 13:45] MED LIST changes: +DIFI200T; -LEVO500T3 PO; +LEVO500T4 PO; -LISI-898; +LISI5TAB11; +LOSA25TA13; -LOSA25TA14; +MUPI2OI TOP; +ONDA-84 PO; -ONDA8TAB10 PO; -PROC10TA4 PO; +PROC10TA5 PO
[2021-02-22] MEDS ORDERED: OXYC-517 PO (09:09)
[2021-03-04] MEDS ORDERED: DIAZ5TAB PO (13:15)
== END 2021-03-07 ==
LOC: M ONCR 13:45
PROVIDERS: ATTEND General Practice
DX: C34.11 Malignant neoplasm of upper lobe, right bronchus or lung (principal)

== ENCOUNTER 2021-03-04 15:34 | Outpatient (CLI) | payer MEDICARE, BC, OTHER ==
[~2021-03-04] VITALS: Ht 154.9 cm; Wt 68.1 kg
[~2021-03-04 15:34] MED LIST changes: +BEZLOTOXUMAB 650 MG in NS 100 ML IV ONE; +SODIUM CHLORIDE 0.9% INJ 10 ML SYR IV PRN; +SODIUM CHLORIDE 0.9% INJ 10 ML SYR IV SCH
[2021-03-04 15:50] VITALS: BP 133/64
[2021-03-04 17:24] VITALS: BP 135/68
[2021-03-24] MEDS ORDERED: TRIA1CR80 TOP (11:01)
== END 2021-03-04 17:30 | disposition home or self-care (01) ==
LOC: M INFU 15:34
PROVIDERS: ATTEND Internal Medicine Infectious Disease
DX: A04.71 Enterocolitis due to Clostridium difficile, recurrent (principal); C34.11 Malignant neoplasm of upper lobe, right bronchus or lung
CPT/HCPCS: 96365; J0565; J1642

== ENCOUNTER → 2021-05-11 | Outpatient (CLI) | payer MEDICARE, BC, OTHER ==
[~2021-05-11] MED LIST changes: -BEZLOTOXUMAB 650 MG in NS 100 ML IV ONE; -D31000TA2 PO; +EPID100S PO; +NICO4GUM41; -SODIUM CHLORIDE 0.9% INJ 10 ML SYR IV PRN; -SODIUM CHLORIDE 0.9% INJ 10 ML SYR IV SCH; +TRIA1CR80 TOP; +VITA100093 PO
== END ==
LOC: M CLY 13:23
PROVIDERS: ATTEND Specialist
DX: C34.90 Malignant neoplasm of unspecified part of unspecified bronchus or lung (principal); M54.9 Dorsalgia, unspecified

== ENCOUNTER → 2021-05-30 | Outpatient (REF) | payer MEDICARE, OTHER | LOC: M SFHCCAPE 11:13 | PROVIDERS: ATTEND Physician Assistant | DX: R53.83 Other fatigue (principal); Z53.9 Procedure and treatment not carried out, unspecified reason ==

== ENCOUNTER → 2021-06-01 | Outpatient (REF) | payer MEDICARE, BC, OTHER ==
[2021-06-01 14:09] LABS: BASO % 0.5 % (0.0-1.0); EOS # 0.1 10^3/uL (0.0-0.5); EOS % 2.3 % (0.0-3.0); HEMATOCRIT 39.7 % (36.0-47.0); HEMOGLOBIN 13.9 g/dl (12.0-15.5); LYMPH # 1.2 10^3/uL (1.5-5.0); LYMPH % 21.1 % (24.0-44.0); MEAN CORPUSCULAR HEMOGLOBIN 34.3 pg (27.0-33.0); MONO # 0.6 10^3/uL (0.0-0.8); MONO % 11.4 % (2.0-8.0); NEUTROPHILS # 3.6 10^3/uL (1.5-8.5); NEUTROPHILS % 64.5 % (36.0-66.0); PLATELET COUNT, AUTOMATED 209 10^3/uL (150-450); RED BLOOD COUNT 4.05 10^6/uL (4.00-5.40); WHITE BLOOD COUNT 5.6 10^3/uL (4.0-10.0)
[2021-06-01 14:10] LABS: APPEARANCE, URINE CLEAR (CLEAR); BACTERIA, URINE AUTO NEGATIVE (NEGATIVE); BILIRUBIN, URINE AUTO NEGATIVE (NEGATIVE); BLOOD, URINE BLOOD NEGATIVE (NEGATIVE); COLOR, URINE YELLOW (YELLOW); GLUCOSE, URINE (UA) AUTO NEGATIVE (NEGATIVE); KETONE, URINE AUTO NEGATIVE (NEGATIVE); LEUKOCYTE ESTERASE, URINE AUTO NEGATIVE (NEGATIVE); NITRITE, URINE AUTO NEGATIVE (NEGATIVE); PROTEIN, URINE AUTO NEGATIVE (NEGATIVE); RBC, URINE AUTO 0 /HPF (0-3); SPECIFIC GRAVITY URINE AUTO 1.008 (1.002-1.035); SQUAMOUS EPITHELIAL CELL UR AU 0 /HPF (0-6); UROBILINOGEN, URINE AUTO 0.2 mg/dL (0.0-2.0); WBC, URINE AUTO 0 /HPF (0-3)
[2021-06-01 14:35] LABS: ALBUMIN 3.5 GM/DL (3.2-5.2); ALT/SGPT 29 U/L (12-78); BILIRUBIN,TOTAL 0.4 MG/DL (0.2-1.0); BLOOD UREA NITROGEN 17 MG/DL (7-18); CALCIUM LEVEL 9.2 MG/DL (8.8-10.2); CARBON DIOXIDE LEVEL 29 MEQ/L (21-32); CHLORIDE LEVEL 104 MEQ/L (98-107); CREATININE FOR GFR 0.69 MG/DL (0.55-1.30); FREE T4 1.48 NG/DL (0.76-1.46); GLOMERULAR FILTRATION RATE > 60.0 (>45); GLUCOSE, FASTING 123 MG/DL (70-100); LIPASE 42 U/L (73-393); POTASSIUM SERUM 4.3 MEQ/L (3.5-5.1); SODIUM LEVEL 137 MEQ/L (136-145); THYROID STIMULATING HORMONE 0.028 uIU/ML (0.358-3.740); TOTAL PROTEIN 6.9 GM/DL (6.4-8.2); VITAMIN B12 LEVEL 556 PG/ML
== END ==
LOC: M LAB REF 13:36
PROVIDERS: ATTEND Physician Assistant
DX: R53.83 Other fatigue (principal)

== ENCOUNTER → 2021-06-02 | Outpatient (CLI) | payer MEDICARE, BC, OTHER | LOC: M WHC 08:11 | PROVIDERS: ATTEND Physician Assistant | DX: R10.11 Right upper quadrant pain (principal); C34.91 Malignant neoplasm of unspecified part of right bronchus or lung; N28.1 Cyst of kidney, acquired; N28.89 Other specified disorders of kidney and ureter ==

== ENCOUNTER → 2021-06-13 | Outpatient (CLI) | payer MEDICARE, BC, OTHER | LOC: M PLARAD 14:32 | PROVIDERS: ATTEND Specialist | DX: C34.11 Malignant neoplasm of upper lobe, right bronchus or lung (principal); Z95.828 Presence of other vascular implants and grafts; R59.0 Localized enlarged lymph nodes; Z85.528 Personal history of other malignant neoplasm of kidney | CPT/HCPCS: 78815; A9552 ==

== ENCOUNTER → 2021-06-21 | Outpatient (CLI) | payer MEDICARE, BC, OTHER ==
[~2021-06-21] MED LIST changes: +LIDOCAINE 1% MDV 20ML VIAL As Ordered ONE; +LORA2TAB14 PO; +SODIUM BICARBONATE 8.4% INJ 50MEQ 50 ML VIAL As Ordered ONE
[2021-06-21 14:25] VITALS: BP 106/58
== END ==
LOC: M IRPRO 12:41
PROVIDERS: ATTEND General Practice
DX: C34.11 Malignant neoplasm of upper lobe, right bronchus or lung (principal)

== ENCOUNTER 2021-06-24 09:25 | Outpatient (RCR) | payer MEDICARE, BC, OTHER ==
[~2021-06-24 09:25] MED LIST changes: -LIDOCAINE 1% MDV 20ML VIAL As Ordered ONE; -SODIUM BICARBONATE 8.4% INJ 50MEQ 50 ML VIAL As Ordered ONE
== END 2021-07-05 ==
LOC: M ONCR 09:25
PROVIDERS: ATTEND General Practice
DX: C34.11 Malignant neoplasm of upper lobe, right bronchus or lung (principal)

== ENCOUNTER → 2021-07-18 | Outpatient (REF) | payer MEDICARE, OTHER ==
[~2021-07-18] MED LIST changes: +FOLI1TAB11 PO; +SYNT75TA PO
[2021-07-18 16:25] LABS: APPEARANCE, URINE CLEAR (CLEAR); BACTERIA, URINE AUTO NEGATIVE (NEGATIVE); BILIRUBIN, URINE AUTO NEGATIVE (NEGATIVE); BLOOD, URINE BLOOD NEGATIVE (NEGATIVE); COLOR, URINE YELLOW (YELLOW); GLUCOSE, URINE (UA) AUTO NEGATIVE (NEGATIVE); KETONE, URINE AUTO NEGATIVE (NEGATIVE); LEUKOCYTE ESTERASE, URINE AUTO NEGATIVE (NEGATIVE); NITRITE, URINE AUTO NEGATIVE (NEGATIVE); PROTEIN, URINE AUTO NEGATIVE (NEGATIVE); RBC, URINE AUTO 3 /HPF (0-3); SPECIFIC GRAVITY URINE AUTO 1.013 (1.002-1.035); SQUAMOUS EPITHELIAL CELL UR AU 0 /HPF (0-6); WBC, URINE AUTO 0 /HPF (0-3)
== END ==
LOC: M SFHCCAPE 10:49
PROVIDERS: ATTEND Physician Assistant
DX: J22 Unspecified acute lower respiratory infection (principal); R39.11 Hesitancy of micturition

== ENCOUNTER → 2021-07-21 | Outpatient (REF) | payer MEDICARE, OTHER ==
[~2021-07-21] MED LIST changes: -FOLI1TAB11 PO
[2021-07-21 14:12] LABS: BASO % 0.7 % (0.0-1.0); EOS # 0.2 10^3/uL (0.0-0.5); EOS % 3.3 % (0.0-3.0); HEMATOCRIT 37.1 % (36.0-47.0); HEMOGLOBIN 12.6 g/dl (12.0-15.5); LYMPH # 0.9 10^3/uL (1.5-5.0); LYMPH % 16.4 % (24.0-44.0); MEAN CORPUSCULAR HEMOGLOBIN 32.8 pg (27.0-33.0); MEAN CORPUSCULAR VOLUME 96.6 fl (80.0-96.0); MONO # 0.5 10^3/uL (0.0-0.8); MONO % 8.3 % (2.0-8.0); NEUTROPHILS # 3.8 10^3/uL (1.5-8.5); NEUTROPHILS % 70.6 % (36.0-66.0); PLATELET COUNT, AUTOMATED 238 10^3/uL (150-450); RED BLOOD COUNT 3.84 10^6/uL (4.00-5.40); WHITE BLOOD COUNT 5.4 10^3/uL (4.0-10.0)
[2021-07-21 14:41] LABS: ALBUMIN 3.3 GM/DL (3.2-5.2); ALT/SGPT 36 U/L (12-78); BILIRUBIN,TOTAL 0.3 MG/DL (0.2-1.0); BLOOD UREA NITROGEN 15 MG/DL (7-18); CALCIUM LEVEL 9.6 MG/DL (8.8-10.2); CARBON DIOXIDE LEVEL 27 MEQ/L (21-32); CHLORIDE LEVEL 107 MEQ/L (98-107); CREATININE FOR GFR 0.78 MG/DL (0.55-1.30); FREE T4 0.49 NG/DL (0.76-1.46); GLOMERULAR FILTRATION RATE > 60.0 (>45); GLUCOSE, FASTING 95 MG/DL (70-100); POTASSIUM SERUM 4.5 MEQ/L (3.5-5.1); SODIUM LEVEL 141 MEQ/L (136-145); TOTAL PROTEIN 6.5 GM/DL (6.4-8.2)
[2021-07-21 14:42] LABS: THYROID PEROXIDASE ANTIBODY 46.1 U/ML (<60.0)
== END ==
LOC: M LAB REF 13:20
PROVIDERS: ATTEND Physician Assistant
DX: R94.6 Abnormal results of thyroid function studies (principal)

== ENCOUNTER 2021-07-26 13:14 | Outpatient (RCR) | payer MEDICARE, BC, OTHER ==
[2021-08-02] MEDS ORDERED: FOLI1TAB11 PO (09:14)
== END 2021-08-04 ==
LOC: M ONCR 13:14
PROVIDERS: ATTEND General Practice
DX: C34.11 Malignant neoplasm of upper lobe, right bronchus or lung (principal)

== ENCOUNTER → 2021-08-11 | Outpatient (REF) | payer MEDICARE, BC, OTHER ==
[~2021-08-11] MED LIST changes: +FOLI1TAB11 PO
[2021-08-11 14:34] LABS: FREE T4 1.03 NG/DL (0.76-1.46); THYROID STIMULATING HORMONE 6.77 uIU/ML (0.358-3.740)
== END ==
LOC: M LAB REF 13:46
PROVIDERS: ATTEND Physician Assistant
DX: R94.6 Abnormal results of thyroid function studies (principal)

== ENCOUNTER → 2021-10-04 | Outpatient (REF) | payer MEDICARE, BC, OTHER ==
[~2021-10-04] MED LIST changes: +CYCL1DRO10; +DIFL150T PO; +LEVO1TAB39 PO; +LEVO1TAB40 PO; -LEVO500T4 PO; -LEVO750T13 PO; +LEVO88TA3 PO; +OXYC10TA12 PO
[2021-10-04 15:18] LABS: FREE T4 1.13 NG/DL (0.76-1.46); THYROID STIMULATING HORMONE 3.29 uIU/ML (0.358-3.740)
== END ==
LOC: M LAB REF 13:58
PROVIDERS: ATTEND Physician Assistant
DX: E03.9 Hypothyroidism, unspecified (principal)

== ENCOUNTER 2021-10-05 16:36 | Emergency (ER) | payer MEDICARE, BC, OTHER ==
[~2021-10-05] VITALS: Ht 154.9 cm; Wt 68.6 kg
[~2021-10-05 16:36] MED LIST changes: -OXYC10TA12 PO
[2021-10-05 18:30] VITALS: BP 150/74
[2021-10-05] MEDS ORDERED: SODIUM CHLORIDE 0.9% INJ 10 ML SYR IV PRN (18:55)
[2021-10-06] MEDS ORDERED: OXYC10TA12 PO (15:13)
== END 2021-10-05 19:06 | disposition home or self-care (01) ==
LOC: M ED 16:36
DX: T45.1X5A Adverse effect of antineoplastic and immunosuppressive drugs, initial encounter (principal); C34.90 Malignant neoplasm of unspecified part of unspecified bronchus or lung; C77.0 Secondary and unspecified malignant neoplasm of lymph nodes of head, face and neck; Z85.528 Personal history of other malignant neoplasm of kidney; I10 Essential (primary) hypertension; K57.92 Diverticulitis of intestine, part unspecified, without perforation or abscess without bleeding; Z90.89 Acquired absence of other organs; Z90.5 Acquired absence of kidney; F17.290 Nicotine dependence, other tobacco product, uncomplicated; Z79.810 Long term (current) use of selective estrogen receptor modulators (SERMs); Z79.899 Other long term (current) drug therapy; Z88.5 Allergy status to narcotic agent; Z88.2 Allergy status to sulfonamides
CPT/HCPCS: 99284; J1642

== ENCOUNTER → 2021-10-25 | Outpatient (CLI) | payer MEDICARE, BC, OTHER ==
[~2021-10-25] MED LIST changes: +OXYC10TA12 PO; +SELE200T10 PO
== END ==
LOC: M ONCR 14:32
PROVIDERS: ATTEND General Practice
DX: C34.11 Malignant neoplasm of upper lobe, right bronchus or lung (principal); Z85.528 Personal history of other malignant neoplasm of kidney; K14.3 Hypertrophy of tongue papillae; F17.210 Nicotine dependence, cigarettes, uncomplicated; Z79.2 Long term (current) use of antibiotics; Z79.891 Long term (current) use of opiate analgesic; Z79.890 Hormone replacement therapy; Z79.899 Other long term (current) drug therapy; Z88.1 Allergy status to other antibiotic agents; Z88.2 Allergy status to sulfonamides; Z88.5 Allergy status to narcotic agent; Z90.5 Acquired absence of kidney; Z92.21 Personal history of antineoplastic chemotherapy; Z92.3 Personal history of irradiation

== ENCOUNTER → 2021-10-25 | Outpatient (CLI) | payer MEDICARE, BC, OTHER ==
[~2021-10-25] VITALS: Ht 154.9 cm; Wt 140.6 kg
[2021-10-25 13:20] VITALS: BP 102/68
== END ==
LOC: M PAL 13:05
PROVIDERS: ATTEND Nurse Practitioner Adult Health
DX: C34.11 Malignant neoplasm of upper lobe, right bronchus or lung (principal); C64.9 Malignant neoplasm of unspecified kidney, except renal pelvis; R22.2 Localized swelling, mass and lump, trunk; G89.3 Neoplasm related pain (acute) (chronic); F32.A Depression, unspecified; I10 Essential (primary) hypertension; K21.9 Gastro-esophageal reflux disease without esophagitis; E78.5 Hyperlipidemia, unspecified; D64.9 Anemia, unspecified; Z90.49 Acquired absence of other specified parts of digestive tract; Z90.89 Acquired absence of other organs; Z90.5 Acquired absence of kidney; F17.210 Nicotine dependence, cigarettes, uncomplicated; Z92.21 Personal history of antineoplastic chemotherapy; Z51.5 Encounter for palliative care; F43.22 Adjustment disorder with anxiety; Z88.2 Allergy status to sulfonamides; Z88.8 Allergy status to other drugs, medicaments and biological substances; Z88.5 Allergy status to narcotic agent; Z79.899 Other long term (current) drug therapy; Z79.891 Long term (current) use of opiate analgesic; Z79.890 Hormone replacement therapy

== ENCOUNTER → 2021-11-21 | Outpatient (REF) | payer MEDICARE, OTHER | LOC: M SFHCCAPE 14:00 | PROVIDERS: ATTEND Physician Assistant | DX: K12.30 Oral mucositis (ulcerative), unspecified (principal) ==

== ENCOUNTER → 2021-12-26 | Outpatient (REF) | payer MEDICARE, OTHER ==
[2021-12-26 18:42] LABS: CORTISOL AM 4.3 UG/DL (4.3-22.4); FOLLICLE STIMULATING HORMONE 44.7 mIU/ML
== END ==
LOC: M LABDRAWC 17:05
PROVIDERS: ATTEND Internal Medicine Endocrinology, Diabetes & Metabolism
DX: E23.6 Other disorders of pituitary gland (principal)

== ENCOUNTER → 2021-12-26 | Outpatient (CLI) | payer MEDICARE, BC | LOC: M CLY 09:44 | PROVIDERS: ATTEND Physician Assistant | DX: R07.81 Pleurodynia (principal) ==

== ENCOUNTER → 2022-01-31 | Outpatient (CLI) | payer MEDICARE, BC, OTHER ==
[~2022-01-31] MED LIST changes: +DEXA4TA PO; +NYST-38 PO; -NYST50SS PO
== END ==
LOC: M ONCR 14:22
PROVIDERS: ATTEND General Practice
DX: C34.11 Malignant neoplasm of upper lobe, right bronchus or lung (principal); C79.51 Secondary malignant neoplasm of bone; F17.210 Nicotine dependence, cigarettes, uncomplicated; Z79.891 Long term (current) use of opiate analgesic; Z79.890 Hormone replacement therapy; Z79.899 Other long term (current) drug therapy; Z85.528 Personal history of other malignant neoplasm of kidney; Z88.2 Allergy status to sulfonamides; Z88.5 Allergy status to narcotic agent; Z88.8 Allergy status to other drugs, medicaments and biological substances; Z90.5 Acquired absence of kidney; Z92.21 Personal history of antineoplastic chemotherapy; Z92.3 Personal history of irradiation

== ENCOUNTER → 2022-02-09 | Outpatient (REF) | payer MEDICARE, BC, OTHER ==
[2022-02-09 10:23] LABS: BASO % 0.6 % (0.0-1.0); EOS # 0.2 10^3/uL (0.0-0.5); EOS % 2.9 % (0.0-3.0); HEMATOCRIT 39.9 % (36.0-47.0); HEMOGLOBIN 13.2 g/dl (12.0-15.5); LYMPH # 1.3 10^3/uL (1.5-5.0); MEAN CORPUSCULAR HEMOGLOBIN 33.6 pg (27.0-33.0); MEAN CORPUSCULAR HGB CONC 33.1 g/dl (32.0-36.5); MEAN CORPUSCULAR VOLUME 101.5 fl (80.0-96.0); MONO # 0.6 10^3/uL (0.0-0.8); MONO % 9.8 % (2.0-8.0); NEUTROPHILS # 4.2 10^3/uL (1.5-8.5); NEUTROPHILS % 66.5 % (36.0-66.0); PLATELET COUNT, AUTOMATED 230 10^3/uL (150-450); RED BLOOD COUNT 3.93 10^6/uL (4.00-5.40); WHITE BLOOD COUNT 6.3 10^3/uL (4.0-10.0)
[2022-02-09 10:37] LABS: APPEARANCE, URINE MANUAL CLEAR (CLEAR); COLOR, URINE MANUAL LT YELLOW (YELLOW)
[2022-02-09 10:39] LABS: BILIRUBIN, URINE MANUAL NEGATIVE (NEGATIVE); BLOOD URINE MANUAL NEGATIVE (NEGATIVE); GLUCOSE, URINE (UA) MANUAL NEGATIVE (NEGATIVE); KETONE, URINE MANUAL NEGATIVE (NEGATIVE); NITRITE, URINE MANUAL NEGATIVE (NEGATIVE); PROTEIN, URINE MANUAL NEGATIVE (NEGATIVE); UROBILINOGEN, URINE MANUAL NORMAL (NORMAL)
[2022-02-09 10:40] LABS: LEUKOCYTE ESTERASE, URINE MAN TRACE (NEGATIVE)
[2022-02-09 10:48] LABS: ALBUMIN 3.5 G/DL (3.2-5.2); ALKALINE PHOSPHATASE 107 U/L (46-116); ALT/SGPT 20 U/L (7.0-40); AST/SGOT 26 U/L (<34); BILIRUBIN,TOTAL 0.3 MG/DL (0.3-1.2); BLOOD UREA NITROGEN 14 MG/DL (9-23); CALCIUM LEVEL 9.2 MG/DL (8.3-10.6); CARBON DIOXIDE LEVEL 28 MMOL/L (20-31); CHLORIDE LEVEL 100 MMOL/L (98-107); CREATININE FOR GFR 0.65 MG/DL (0.55-1.30); GLOMERULAR FILTRATION RATE > 60.0 (>45); GLUCOSE, FASTING 96 MG/DL (74-106); POTASSIUM SERUM 4.4 MMOL/L (3.5-5.1); SODIUM LEVEL 135 MMOL/L (136-145); TOTAL PROTEIN 6.9 G/DL (5.7-8.2)
[2022-02-09 10:50] LABS: WBC, URINE 0-1 /hpf (0-3)
[2022-02-09 10:51] LABS: BACTERIA, URINE SMALL AMOUNT; HYALINE CAST, URINE NONE SEEN /lpf (0-1); RBC, URINE NONE SEEN /hpf (0-3); SQUAMOUS EPITHELIAL CELL URINE SMALL AMOUNT /hpf (SMALL AMT)
== END ==
LOC: M LAB REF 09:56
PROVIDERS: ATTEND Internal Medicine Hematology & Oncology
DX: C34.11 Malignant neoplasm of upper lobe, right bronchus or lung (principal)

== ENCOUNTER → 2022-02-16 | Outpatient (CLI) | payer MEDICARE, BC, OTHER ==
[~2022-02-16] VITALS: Ht 154.9 cm; Wt 67.4 kg
[~2022-02-16] MED LIST changes: +ADVA115A INH; -CYCL1DRO10; +CYCL1DRO10 OU; +OXYC-1 PO; +OXYC-404 PO
[2022-02-16 10:50] VITALS: BP 95/58
== END ==
LOC: M PAL 10:45
PROVIDERS: ATTEND Nurse Practitioner Adult Health
DX: C34.11 Malignant neoplasm of upper lobe, right bronchus or lung (principal); C64.9 Malignant neoplasm of unspecified kidney, except renal pelvis; C79.51 Secondary malignant neoplasm of bone; Z90.5 Acquired absence of kidney; Z92.3 Personal history of irradiation; Z51.5 Encounter for palliative care; G89.3 Neoplasm related pain (acute) (chronic); R07.89 Other chest pain; M25.559 Pain in unspecified hip; I10 Essential (primary) hypertension; K21.9 Gastro-esophageal reflux disease without esophagitis; E78.5 Hyperlipidemia, unspecified; F43.22 Adjustment disorder with anxiety; D64.9 Anemia, unspecified; Z90.49 Acquired absence of other specified parts of digestive tract; Z90.89 Acquired absence of other organs; Z66 Do not resuscitate; Z88.2 Allergy status to sulfonamides; Z88.8 Allergy status to other drugs, medicaments and biological substances; Z88.5 Allergy status to narcotic agent; Z79.891 Long term (current) use of opiate analgesic; Z79.899 Other long term (current) drug therapy

== ENCOUNTER → 2022-02-26 | Outpatient (REF) | payer MEDICARE, BC, OTHER | LOC: M LAB REF 11:58 | PROVIDERS: ATTEND General Practice | DX: C34.11 Malignant neoplasm of upper lobe, right bronchus or lung (principal) ==

== ENCOUNTER 2022-03-01 11:00 | Outpatient (RCR) | payer MEDICARE, BC, OTHER ==
[2022-03-01] MEDS ORDERED: OXYC-404 PO (12:46)
[2022-03-02] MEDS ORDERED: DEXA4TA PO (13:53)
== END 2022-03-07 ==
LOC: M ONCR 11:00
PROVIDERS: ATTEND General Practice
DX: C79.51 Secondary malignant neoplasm of bone (principal)

== ENCOUNTER → 2022-03-01 | Outpatient (CLI) | payer MEDICARE, BC, OTHER ==
[~2022-03-01] VITALS: Ht 154.9 cm; Wt 66.4 kg
[2022-03-01 11:55] VITALS: BP 100/63
== END ==
LOC: M PAL 12:44
PROVIDERS: ATTEND Nurse Practitioner Adult Health
DX: C34.11 Malignant neoplasm of upper lobe, right bronchus or lung (principal); C64.9 Malignant neoplasm of unspecified kidney, except renal pelvis; C79.51 Secondary malignant neoplasm of bone; K14.3 Hypertrophy of tongue papillae; N18.6 End stage renal disease; Z51.5 Encounter for palliative care; Z90.5 Acquired absence of kidney; Z92.3 Personal history of irradiation; G89.3 Neoplasm related pain (acute) (chronic); R07.89 Other chest pain; I10 Essential (primary) hypertension; K21.9 Gastro-esophageal reflux disease without esophagitis; E78.5 Hyperlipidemia, unspecified; F43.22 Adjustment disorder with anxiety; D64.9 Anemia, unspecified; Z90.49 Acquired absence of other specified parts of digestive tract; Z90.89 Acquired absence of other organs; Z66 Do not resuscitate; Z88.2 Allergy status to sulfonamides; Z88.8 Allergy status to other drugs, medicaments and biological substances; Z79.891 Long term (current) use of opiate analgesic; Z79.899 Other long term (current) drug therapy

== ENCOUNTER → 2022-03-14 | Outpatient (CLI) | payer MEDICARE, BC, OTHER ==
[~2022-03-14] MED LIST changes: +DEXA2TA PO
== END ==
LOC: M ONCR 11:57
PROVIDERS: ATTEND General Practice
DX: C79.51 Secondary malignant neoplasm of bone (principal); Z79.891 Long term (current) use of opiate analgesic; Z92.3 Personal history of irradiation

== ENCOUNTER → 2022-03-15 | Outpatient (CLI) | payer MEDICARE, BC, OTHER ==
[~2022-03-15] MED LIST changes: +NYST-38 SS; +TRAZ1TAB14 PO
== END ==
LOC: M RAD 15:54
PROVIDERS: ATTEND General Practice
DX: C79.51 Secondary malignant neoplasm of bone (principal); R19.8 Other specified symptoms and signs involving the digestive system and abdomen; J90 Pleural effusion, not elsewhere classified; Z85.118 Personal history of other malignant neoplasm of bronchus and lung

== ENCOUNTER 2022-03-21 13:27 | Inpatient (IN) | payer MEDICARE, BC, OTHER ==
[~2022-03-21] VITALS: Ht 175.3 cm; Wt 71.5 kg
[~2022-03-21 13:27] MED LIST changes: -NYST-38 SS; -TRAZ1TAB14 PO
[2022-03-21] MEDS ORDERED: LIDOCAINE 4% TOPICAL SOLN 50 ML BTL TOP ONE (14:25)
[2022-03-21] MEDS ORDERED: LIDOCAINE 4% CREAM 5GM (LMX4) TOP ONE (14:30)
[2022-03-21] MEDS: SODIUM CHLORIDE 0.9% INJ 10 ML SYR IV PRN ×2 (15:39→23:43)
[2022-03-21 16:02] LABS: BASO % 3.3 % (0.0-1.0); EOS % 1.1 % (0.0-3.0); HEMOGLOBIN 13.1 g/dl (12.0-15.5); LYMPH # 0.3 10^3/uL (1.5-5.0); LYMPH % 29.3 % (24.0-44.0); MEAN CORPUSCULAR HEMOGLOBIN 32.3 pg (27.0-33.0); MEAN CORPUSCULAR HGB CONC 33.6 g/dl (32.0-36.5); MEAN CORPUSCULAR VOLUME 96.3 fl (80.0-96.0); MONO # 0.1 10^3/uL (0.0-0.8); MONO % 10.9 % (2.0-8.0); NEUTROPHILS % 54.3 % (36.0-66.0); PLATELET COUNT, AUTOMATED 159 10^3/uL (150-450); RED BLOOD COUNT 4.05 10^6/uL (4.00-5.40)
[2022-03-21] MEDS ORDERED: oxyCODONE 5MG TAB PO ONE (16:05)
[2022-03-21 16:06] LABS: NEUTROPHILS # 0.5 10^3/uL (1.5-8.5); WHITE BLOOD COUNT 0.9 10^3/uL (4.0-10.0)
[2022-03-21 16:23] LABS: ALBUMIN 2.7 G/DL (3.2-5.2); ALKALINE PHOSPHATASE 106 U/L (46-116); ALT/SGPT 36 U/L (7.0-40); AST/SGOT 23 U/L (<34); BILIRUBIN,DIRECT 0.2 MG/DL (<0.4); BILIRUBIN,TOTAL 0.6 MG/DL (0.3-1.2); BLOOD UREA NITROGEN 26 MG/DL (9-23); CALCIUM LEVEL 9.9 MG/DL (8.3-10.6); CARBON DIOXIDE LEVEL 26 MMOL/L (20-31); CHLORIDE LEVEL 97 MMOL/L (98-107); CREATININE FOR GFR 0.62 MG/DL (0.55-1.30); GLOMERULAR FILTRATION RATE > 60.0 (>45); GLUCOSE, FASTING 122 MG/DL (74-106); POTASSIUM SERUM 4.6 MMOL/L (3.5-5.1); SODIUM LEVEL 131 MMOL/L (136-145); THYROID STIMULATING HORMONE 0.493 uIU/ML (0.55-4.78); TOTAL PROTEIN 6.1 G/DL (5.7-8.2)
[2022-03-21] MEDS ORDERED: PIPERACILLIN/TAZOBACTAM SOD 4.5 GM in D5W MINI-BAG PLUS 50 ML IV ONE (16:25)
[2022-03-21] MEDS ORDERED: TRAZ1TAB14 PO (17:40)
[2022-03-21] MEDS ORDERED: NYST-38 SS (17:40)
[2022-03-21] MEDS ORDERED: DEXA2TA PO (17:42)
[2022-03-21] MEDS ORDERED: OXYC-1 PO ×2 (17:50)
[2022-03-21] MEDS ORDERED: HOME MED LIST COMPLETE! XX SCH (17:55)
[2022-03-21] MEDS ORDERED: MIRALAX *UNIT DOSE* 17GM PACKET PO PRN (18:30)
[2022-03-21] MEDS ORDERED: ONDANSETRON 4MG TAB PO PRN (18:30)
[2022-03-21] MEDS ORDERED: PROCHLORPERAZINE 5MG TAB PO PRN (18:30)
[2022-03-21] MEDS ORDERED: NYSTATIN 500,000U/5ML SUSP UDC SS PRN (18:30)
[2022-03-21] MEDS ORDERED: ISOVUE-370 76% 100ML VIAL As Ordered ONE (18:34)
[2022-03-21] MEDS ORDERED: LR 1,000 ML IV ONE ×2 (18:50)
[2022-03-21] MEDS ORDERED: PILL CUTTER 1 EACH XX PRN (19:00)
[2022-03-21 20:00] VITALS: BP 120/66
[2022-03-21] MEDS: diazePAM 5MG TABLET PO PRN (20:00)
[2022-03-21] MEDS ORDERED: PEGFILGRASTIM 6 MG 0.6ML SYR (NEULASTA) SC ONE (20:00)
[2022-03-21] MEDS: oxyCODONE 5MG TAB PO PRN (20:32)
[2022-03-21] MEDS ORDERED: SENNA 8.6 MG TAB (SENOKOT) PO PRN (20:55)
[2022-03-21] MEDS ORDERED: ROSUVASTATIN 10 MG TAB (CRESTOR) PO SCH (21:00)
[2022-03-21] MEDS ORDERED: traZODone 50 MG TAB PO SCH (21:00)
[2022-03-21] MEDS: oxyCODONE 20MG CR TAB PO SCH (21:17)
[2022-03-21] MEDS: PIPERACILLIN/TAZOBACTAM SOD 4.5 GM in D5W MINI-BAG PLUS 50 ML IV SCH (22:31)
[2022-03-22] MEDS: SODIUM CHLORIDE 0.9% INJ 10 ML SYR IV PRN ×4 (01:11→12:10)
[2022-03-22] MEDS: PIPERACILLIN/TAZOBACTAM SOD 4.5 GM in D5W MINI-BAG PLUS 50 ML IV SCH ×2 (05:38→11:00)
[2022-03-22 06:00] VITALS: BP 124/65
[2022-03-22] MEDS ORDERED: LEVOTHYROXINE 88MCG TABLET (0.088 MG) PO SCH (06:00)
[2022-03-22 06:16] LABS: HEMATOCRIT 37.4 % (36.0-47.0); HEMOGLOBIN 12.3 g/dl (12.0-15.5); MEAN CORPUSCULAR HEMOGLOBIN 32.2 pg (27.0-33.0); MEAN CORPUSCULAR HGB CONC 32.9 g/dl (32.0-36.5); MEAN CORPUSCULAR VOLUME 97.9 fl (80.0-96.0); PLATELET COUNT, AUTOMATED 178 10^3/uL (150-450); RED BLOOD COUNT 3.82 10^6/uL (4.00-5.40); WHITE BLOOD COUNT 1.2 10^3/uL (4.0-10.0)
[2022-03-22] MEDS: diazePAM 5MG TABLET PO PRN (06:26)
[2022-03-22] MEDS: oxyCODONE 5MG TAB PO PRN ×2 (06:28→11:01)
[2022-03-22 06:32] LABS: BLOOD UREA NITROGEN 21 MG/DL (9-23); CALCIUM LEVEL 8.9 MG/DL (8.3-10.6); CARBON DIOXIDE LEVEL 27 MMOL/L (20-31); CHLORIDE LEVEL 102 MMOL/L (98-107); CREATININE FOR GFR 0.59 MG/DL (0.55-1.30); GLOMERULAR FILTRATION RATE > 60.0 (>45); GLUCOSE, FASTING 87 MG/DL (74-106); POTASSIUM SERUM 3.9 MMOL/L (3.5-5.1); SODIUM LEVEL 135 MMOL/L (136-145)
[2022-03-22] MEDS ORDERED: ADVAIR HFA 115/21MCG INHALER INH SCH (08:00)
[2022-03-22] MEDS: oxyCODONE 20MG CR TAB PO SCH (08:25)
[2022-03-22] MEDS ORDERED: FOLIC ACID 1MG TAB PO SCH (09:00)
[2022-03-22] MEDS ORDERED: ENOXAPARIN 40MG/0.4ML SYRINGE (J1650 PER 10MG) SC SCH (09:00)
[2022-03-22] MEDS ORDERED: LEVO1TAB40 PO (11:00)
[2022-03-24] MEDS ORDERED: DEXA4TA PO (08:28)
[2022-03-24] MEDS ORDERED: OXYC-405 PO (08:28)
[2022-03-24] MEDS ORDERED: OXYC30TA PO (10:37)
[2022-03-24 14:08] LABS: BODY FLUID CULTURE Not indicated. (.); LEGIONELLA ANTIGEN URINE Negative (Negative); ORGANISM ID Not indicated. (.); SPECIMEN SOURCE Urine (.); URINE STREP PNEUMONIAE ANTIGEN Negative (Negative)
== END 2022-03-22 12:17 | disposition home or self-care (01) | DRG 871 ==
LOC: M ED 13:27 → M ED INP 18:25 → M MSPAV 20:15
PROVIDERS: ADMIT Internal Medicine; ATTEND Internal Medicine
DX: A41.9 Sepsis, unspecified organism (principal); J18.9 Pneumonia, unspecified organism; E87.1 Hypo-osmolality and hyponatremia; C34.11 Malignant neoplasm of upper lobe, right bronchus or lung; B37.0 Candidal stomatitis; C79.51 Secondary malignant neoplasm of bone; C77.3 Secondary and unspecified malignant neoplasm of axilla and upper limb lymph nodes; J44.0 Chronic obstructive pulmonary disease with (acute) lower respiratory infection; D70.1 Agranulocytosis secondary to cancer chemotherapy; E03.9 Hypothyroidism, unspecified; E78.5 Hyperlipidemia, unspecified; F17.200 Nicotine dependence, unspecified, uncomplicated; F41.9 Anxiety disorder, unspecified; F32.A Depression, unspecified; Z85.528 Personal history of other malignant neoplasm of kidney; Z90.5 Acquired absence of kidney; Z79.891 Long term (current) use of opiate analgesic; Z79.899 Other long term (current) drug therapy; Z88.2 Allergy status to sulfonamides; Z88.5 Allergy status to narcotic agent; Z88.8 Allergy status to other drugs, medicaments and biological substances

== ENCOUNTER → 2022-03-27 | Outpatient (REF) | payer MEDICARE, BC, OTHER ==
[~2022-03-27] MED LIST changes: +NYST-38 SS; +OXYC-405 PO; +OXYC30TA PO; +TRAZ1TAB14 PO
[2022-03-27 16:26] LABS: HEMATOCRIT 39.3 % (36.0-47.0); LYMPH # 0.7 10^3/uL (1.5-5.0); LYMPH % 7.1 % (24.0-44.0); MEAN CORPUSCULAR HEMOGLOBIN 32.2 pg (27.0-33.0); MEAN CORPUSCULAR HGB CONC 33.1 g/dl (32.0-36.5); MEAN CORPUSCULAR VOLUME 97.3 fl (80.0-96.0); MONO # 0.5 10^3/uL (0.0-0.8); MONO % 5.6 % (2.0-8.0); NEUTROPHILS # 7.3 10^3/uL (1.5-8.5); NEUTROPHILS % 76.9 % (36.0-66.0); PLATELET COUNT, AUTOMATED 205 10^3/uL (150-450); RED BLOOD COUNT 4.04 10^6/uL (4.00-5.40); WHITE BLOOD COUNT 9.4 10^3/uL (4.0-10.0)
[2022-03-27 16:34] LABS: ALBUMIN 2.5 G/DL (3.2-5.2); ALKALINE PHOSPHATASE 96 U/L (46-116); ALT/SGPT 27 U/L (7.0-40); AST/SGOT 16 U/L (<34); BILIRUBIN,TOTAL < 0.2 MG/DL (0.3-1.2); BLOOD UREA NITROGEN 23 MG/DL (9-23); CARBON DIOXIDE LEVEL 28 MMOL/L (20-31); CHLORIDE LEVEL 102 MMOL/L (98-107); CHOLESTEROL LEVEL 164 MG/DL (<200); CHOLESTEROL RISK RATIO 2.46 (<5); CREATININE FOR GFR 0.59 MG/DL (0.55-1.30); GLOMERULAR FILTRATION RATE > 60.0 (>45); GLUCOSE, FASTING 148 MG/DL (74-106); HDL CHOLESTEROL 66.4 MG/DL (>40); LDL CHOLESTEROL 76.6 MG/DL (<100); NON-HDL-C 98 MG/DL; POTASSIUM SERUM 4.7 MMOL/L (3.5-5.1); SODIUM LEVEL 136 MMOL/L (136-145); TOTAL PROTEIN 5.9 G/DL (5.7-8.2); TRIGLYCERIDES LEVEL 105 MG/DL (<150)
[2022-03-27 16:36] LABS: FREE T4 1.23 NG/DL (0.89-1.76)
== END ==
LOC: M LAB REF 14:53
PROVIDERS: ATTEND Physician Assistant
DX: E03.9 Hypothyroidism, unspecified (principal)

== ENCOUNTER → 2022-03-30 | Outpatient (CLI) | payer MEDICARE, BC, OTHER ==
[~2022-03-30] VITALS: Ht 154.9 cm; Wt 65.0 kg
[2022-03-30 13:22] VITALS: BP 111/54
== END ==
LOC: M PAL 13:17
PROVIDERS: ATTEND Nurse Practitioner Adult Health
DX: C34.11 Malignant neoplasm of upper lobe, right bronchus or lung (principal); C64.9 Malignant neoplasm of unspecified kidney, except renal pelvis; C79.51 Secondary malignant neoplasm of bone; K14.3 Hypertrophy of tongue papillae; N18.6 End stage renal disease; Z51.5 Encounter for palliative care; Z90.5 Acquired absence of kidney; Z92.3 Personal history of irradiation; G89.3 Neoplasm related pain (acute) (chronic); I10 Essential (primary) hypertension; K21.9 Gastro-esophageal reflux disease without esophagitis; E78.5 Hyperlipidemia, unspecified; F43.22 Adjustment disorder with anxiety; D64.9 Anemia, unspecified; Z90.49 Acquired absence of other specified parts of digestive tract; Z90.89 Acquired absence of other organs; Z66 Do not resuscitate; Z88.2 Allergy status to sulfonamides; Z88.8 Allergy status to other drugs, medicaments and biological substances; Z79.891 Long term (current) use of opiate analgesic; Z79.899 Other long term (current) drug therapy; Z87.891 Personal history of nicotine dependence

== ENCOUNTER → 2022-03-31 | Outpatient (CLI) | payer MEDICARE, BC, OTHER | LOC: M CARPUL 09:31 | PROVIDERS: ATTEND Internal Medicine Hematology & Oncology | DX: C34.11 Malignant neoplasm of upper lobe, right bronchus or lung (principal); I31.39 Other pericardial effusion (noninflammatory) ==

== ENCOUNTER → 2022-04-04 | Outpatient (RCR) | payer MEDICARE, BC, OTHER ==
[~2022-04-04] MED LIST changes: -OXYC-404 PO; -OXYC-405 PO; +OXYC20TA64 PO; +OXYC40TA40 PO; +SENN-80 PO
== END ==
LOC: M ONCR 03-20 13:13
PROVIDERS: ATTEND General Practice
DX: C79.51 Secondary malignant neoplasm of bone (principal)

== ENCOUNTER 2022-04-07 12:53 | Outpatient (RCR) | payer MEDICARE, BC, OTHER ==
[2022-04-07] MEDS ORDERED: NYST-38 SS (13:31)
[2022-04-08] MEDS ORDERED: LEVO1TAB40 PO (10:42)
[2022-04-09] MEDS ORDERED: CBD (22:44)
[2022-04-09] MEDS ORDERED: OMEP-173 PO (22:44)
[2022-04-09] MEDS ORDERED: [UNRECOGNIZED DRUG - OTHER] (22:44)
[2022-04-09] MEDS ORDERED: LEVO1TAB40 PO (22:44)
[2022-04-09] MEDS ORDERED: ALBU8.5H PO (22:44)
[2022-04-09] MEDS ORDERED: CALC600C3 PO (22:44)
[2022-04-09] MEDS ORDERED: CBD GUMMY (22:44)
[2022-04-09] MEDS ORDERED: VITA200048 PO (22:45)
[2022-04-10] MEDS ORDERED: DIAZ5TAB PO (12:12)
[2022-04-11] MEDS ORDERED: MORP1SOL5 PO (09:02)
[2022-04-11] MEDS ORDERED: HYOS125TA PO (09:02)
[2022-04-11] MEDS ORDERED: ATIV1TAB10 PO (09:02)
== END 2022-05-05 ==
LOC: M ONCR 12:53
PROVIDERS: ATTEND General Practice
DX: C79.51 Secondary malignant neoplasm of bone (principal); C34.11 Malignant neoplasm of upper lobe, right bronchus or lung

== ENCOUNTER 2022-04-09 18:54 | Inpatient (IN) | payer MEDICARE, BC, OTHER ==
[~2022-04-09] VITALS: Ht 154.9 cm; Wt 65.5 kg
[2022-04-09] MEDS ORDERED: SODIUM CHLORIDE 0.9% INJ 10 ML SYR IV PRN (19:30)
[2022-04-09] MEDS ORDERED: ACETAMINOPHEN TAB 650MG DOSE (2X325MG) PO ONE (20:05)
[2022-04-09] MEDS ORDERED: MORPHINE 4 MG/ML 1ML VIAL IV ONE ×2 (20:15→22:25)
[2022-04-09 21:18] LABS: BASO % 2.2 % (0.0-1.0); HEMATOCRIT 32.2 % (36.0-47.0); HEMOGLOBIN 10.7 g/dl (12.0-15.5); LYMPH # 0.1 10^3/uL (1.5-5.0); LYMPH % 30.4 % (24.0-44.0); MEAN CORPUSCULAR HEMOGLOBIN 31.7 pg (27.0-33.0); MEAN CORPUSCULAR HGB CONC 33.2 g/dl (32.0-36.5); MEAN CORPUSCULAR VOLUME 95.3 fl (80.0-96.0); MONO # 0.1 10^3/uL (0.0-0.8); MONO % 23.9 % (2.0-8.0); NEUTROPHILS % 43.5 % (36.0-66.0); PLATELET COUNT, AUTOMATED 103 10^3/uL (150-450); RED BLOOD COUNT 3.38 10^6/uL (4.00-5.40)
[2022-04-09 21:21] LABS: NEUTROPHILS # 0.2 10^3/uL (1.5-8.5); WHITE BLOOD COUNT 0.5 10^3/uL (4.0-10.0)
[2022-04-09] MEDS ORDERED: PIPERACILLIN/TAZOBACTAM SOD 4.5 GM in D5W MINI-BAG PLUS 50 ML IV ONE (21:35)
[2022-04-09] MEDS ORDERED: NS 1,000 ML IV SCH (22:25)
[2022-04-09 22:29] LABS: ALBUMIN 1.9 G/DL (3.2-5.2); ALKALINE PHOSPHATASE 104 U/L (46-116); ALT/SGPT 21 U/L (7.0-40); AST/SGOT 15 U/L (<34); BILIRUBIN,DIRECT 0.2 MG/DL (<0.4); BILIRUBIN,TOTAL 0.5 MG/DL (0.3-1.2); BLOOD UREA NITROGEN 14 MG/DL (9-23); CALCIUM LEVEL 7.9 MG/DL (8.3-10.6); CARBON DIOXIDE LEVEL 25 MMOL/L (20-31); CHLORIDE LEVEL 98 MMOL/L (98-107); GLUCOSE, FASTING 79 MG/DL (74-106); LIPASE 15 U/L (12-53); POTASSIUM SERUM 3.8 MMOL/L (3.5-5.1); SODIUM LEVEL 133 MMOL/L (136-145); TOTAL PROTEIN 4.9 G/DL (5.7-8.2)
[2022-04-09] MEDS ORDERED: MIDAZOLAM INJ 2MG/2ML VIAL As Ordered ONE (22:36)
[2022-04-09] MEDS ORDERED: fentaNYL 100 MCG/2 ML INJECTION As Ordered ONE (22:36)
[2022-04-09] MEDS ORDERED: propofoL 200 MG/20 ML VIAL As Ordered ONE (22:38)
[2022-04-09] MEDS ORDERED: LIDOCAINE 2% 100MG/5ML SDV (FOR ANES.) As Ordered ONE (22:38)
[2022-04-09] MEDS ORDERED: ROCURONIUM BROMIDE 50MG/5ML VIAL As Ordered ONE (22:39)
[2022-04-09] MEDS ORDERED: HYDROmorphone HCL 2MG/ML 1ML VIAL As Ordered ONE (22:40)
[2022-04-09 22:43] LABS: CREATININE FOR GFR 0.55 MG/DL (0.55-1.30); GLOMERULAR FILTRATION RATE > 60.0 (>45)
[2022-04-09] MEDS ORDERED: [UNRECOGNIZED DRUG - OTHER] (22:44)
[2022-04-09] MEDS ORDERED: LEVO1TAB40 PO (22:44)
[2022-04-09] MEDS ORDERED: CBD (22:44)
[2022-04-09] MEDS ORDERED: CALC600C3 PO (22:44)
[2022-04-09] MEDS ORDERED: ALBU8.5H PO (22:44)
[2022-04-09] MEDS ORDERED: CBD GUMMY (22:44)
[2022-04-09] MEDS ORDERED: OMEP-173 PO (22:44)
[2022-04-09] MEDS ORDERED: VITA200048 PO (22:45)
[2022-04-09] MEDS ORDERED: HOME MED LIST COMPLETE! XX SCH (22:45)
[2022-04-10] VITALS (8 sets, daily range): BP systolic 115–168; BP diastolic 57–77
[2022-04-10] MEDS ORDERED: EPIDURAL/PCA KEYS XX PRN (00:20)
[2022-04-10] MEDS ORDERED: ONDANSETRON 4MG 2ML VIAL IV PRN (00:20)
[2022-04-10] MEDS ORDERED: NALOXONE INJ 0.4MG/1ML VIAL IV PRN (00:20)
[2022-04-10] MEDS ORDERED: NS 1,000 ML IV SCH ×3 (00:20→00:45)
[2022-04-10] MEDS ORDERED: PIPERACILLIN/TAZOBACTAM SOD 3.375 GM in D5W MINI-BAG PLUS 50 ML IV SCH (00:30)
[2022-04-10] MEDS ORDERED: NS 1,000 ML IV ONE ×3 (00:30→00:45)
[2022-04-10] MEDS ORDERED: ALBUTEROL SULFATE 2.5MG/0.5ML INH NEB SOLN NEB PRN (00:40)
[2022-04-10] MEDS ORDERED: ACETAMINOPHEN *IV* 1,000 MG in IV 1 EA IV ONE (01:00)
[2022-04-10] MEDS: IPRATROPIUM 0.5MG/ALBUTEROL 2.5MG INH SOL UD 3ML (DUONEB) NEB SCH ×4 (01:35→19:47)
[2022-04-10] MEDS ORDERED: MORPHINE 1MG/ML IN 0.9% NACL 100ML IV BAG IV PRN (02:00)
[2022-04-10] MEDS: PIPERACILLIN/TAZOBACTAM SOD 3.375 GM in D5W MINI-BAG PLUS 50 ML IV SCH ×2 (04:56→10:59)
[2022-04-10 05:51] LABS: ALBUMIN 1.6 G/DL (3.2-5.2); ALKALINE PHOSPHATASE 93 U/L (46-116); ALT/SGPT 18 U/L (7.0-40); AST/SGOT 14 U/L (<34); BILIRUBIN,TOTAL 0.5 MG/DL (0.3-1.2); BLOOD UREA NITROGEN 13 MG/DL (9-23); CALCIUM LEVEL 6.9 MG/DL (8.3-10.6); CARBON DIOXIDE LEVEL 23 MMOL/L (20-31); CHLORIDE LEVEL 103 MMOL/L (98-107); CREATININE FOR GFR 0.54 MG/DL (0.55-1.30); GLOMERULAR FILTRATION RATE > 60.0 (>45); GLUCOSE, FASTING 79 MG/DL (74-106); MAGNESIUM LEVEL 1.6 MG/DL (1.8-2.4); PHOSPHORUS LEVEL 2.8 MG/DL (2.4-5.1); POTASSIUM SERUM 3.3 MMOL/L (3.5-5.1); SODIUM LEVEL 135 MMOL/L (136-145)
[2022-04-10] MEDS: KCL 10MEQ/100ML SWI (KRUN) 10 MEQ in IV 1 EA IV SCH ×2 (06:36→08:35)
[2022-04-10 06:55] LABS: BASO % 2.4 % (0.0-1.0); HEMATOCRIT 30.5 % (36.0-47.0); HEMOGLOBIN 10.1 g/dl (12.0-15.5); LYMPH # 0.1 10^3/uL (1.5-5.0); LYMPH % 28.6 % (24.0-44.0); MEAN CORPUSCULAR HEMOGLOBIN 32.1 pg (27.0-33.0); MEAN CORPUSCULAR HGB CONC 33.1 g/dl (32.0-36.5); MEAN CORPUSCULAR VOLUME 96.8 fl (80.0-96.0); MONO # 0.1 10^3/uL (0.0-0.8); MONO % 28.6 % (2.0-8.0); NEUTROPHILS % 23.7 % (36.0-66.0); PLATELET COUNT, AUTOMATED 101 10^3/uL (150-450); RED BLOOD COUNT 3.15 10^6/uL (4.00-5.40)
[2022-04-10 07:04] LABS: NEUTROPHILS # 0.1 10^3/uL (1.5-8.5); WHITE BLOOD COUNT 0.4 10^3/uL (4.0-10.0)
[2022-04-10] MEDS ORDERED: ADVAIR HFA 115/21MCG INHALER INH SCH (08:00)
[2022-04-10] MEDS ORDERED: diazePAM 5MG TABLET PO PRN (08:25)
[2022-04-10] MEDS ORDERED: FENTANYL REMOVAL DOCUMENTATION MISC XX SCH (09:00)
[2022-04-10] MEDS ORDERED: MAG SULF 1GM/100ML (MAG RUN) 1 GM in IV 1 EA IV ONE (09:00)
[2022-04-10] MEDS ORDERED: PANTOPRAZOLE 40MG VIAL IV SCH (09:00)
[2022-04-10 09:21] LABS: TOTAL PROTEIN 4.3 G/DL (5.7-8.2)
[2022-04-10] MEDS: NICOTINE 14 MG/24 HR TRANSDERMAL TD SCH (11:12)
[2022-04-10] MEDS ORDERED: DIAZ5TAB PO (12:12)
[2022-04-10] MEDS ORDERED: SCOPOLAMINE 1MG TRANSDERMAL PATCH TOP PRN (12:15)
[2022-04-10] MEDS ORDERED: HYOSCYAMINE SULFATE 0.125 MG SUBL TABLET PO PRN (12:15)
[2022-04-10] MEDS ORDERED: MORPHINE 2 MG/ML 1ML VIAL IV PRN (12:15)
[2022-04-10] MEDS ORDERED: diazePAM 2 MG TAB PO PRN (12:15)
[2022-04-10] MEDS ORDERED: ACETAMINOPHEN TAB 650MG DOSE (2X325MG) PO PRN (12:15)
[2022-04-10] MEDS ORDERED: MORPHINE 10MG/0.5ML ORAL CONCENTRATE SOLUTION U/D SL PRN (12:15)
[2022-04-10] MEDS ORDERED: ONDANSETRON 4MG ORAL DISINTEGRATING TAB PO PRN (12:15)
[2022-04-10] MEDS: oxyCODONE 15MG CR TAB PO SCH ×2 (12:56→21:17)
[2022-04-10] MEDS: NYSTATIN 500,000U/5ML SUSP UDC SS SCH ×2 (16:12→21:17)
[2022-04-10] MEDS: MORPHINE 10MG/0.5ML ORAL CONCENTRATE SOLUTION U/D SL PRN ×3 (17:05→23:47)
[2022-04-10] MEDS: LORazepam 2 MG TAB PO PRN (18:52)
[2022-04-11] MEDS: LORazepam 2 MG TAB PO PRN ×2 (01:40→09:01)
[2022-04-11] MEDS: IPRATROPIUM 0.5MG/ALBUTEROL 2.5MG INH SOL UD 3ML (DUONEB) NEB SCH ×2 (02:00→07:34)
[2022-04-11] MEDS: MORPHINE 10MG/0.5ML ORAL CONCENTRATE SOLUTION U/D SL PRN ×4 (04:20→10:29)
[2022-04-11] MEDS: NICOTINE 14 MG/24 HR TRANSDERMAL TD SCH (09:00)
[2022-04-11] MEDS: NYSTATIN 500,000U/5ML SUSP UDC SS SCH (09:00)
[2022-04-11] MEDS ORDERED: MORP1SOL5 PO (09:02)
[2022-04-11] MEDS ORDERED: ATIV1TAB10 PO (09:02)
[2022-04-11] MEDS ORDERED: HYOS125TA PO (09:02)
== END 2022-04-11 11:02 | disposition hospice, home (50) | DRG 872 ==
LOC: M ED 18:54 → M ED INP 23:24 → UNDOADMIN 23:24 → M ED INP 23:25 → M SDC 23:25 → M ED 04-10 00:36 → M ICU 04-10 00:53
PROVIDERS: ADMIT Internal Medicine; ATTEND Internal Medicine
DX: A41.9 Sepsis, unspecified organism (principal); C34.91 Malignant neoplasm of unspecified part of right bronchus or lung; B37.0 Candidal stomatitis; K57.20 Diverticulitis of large intestine with perforation and abscess without bleeding; E03.9 Hypothyroidism, unspecified; Z66 Do not resuscitate; Z92.21 Personal history of antineoplastic chemotherapy; Z92.3 Personal history of irradiation; Z90.5 Acquired absence of kidney; Z90.49 Acquired absence of other specified parts of digestive tract; Z79.890 Hormone replacement therapy; Z79.891 Long term (current) use of opiate analgesic; Z79.899 Other long term (current) drug therapy; Z88.1 Allergy status to other antibiotic agents; Z88.5 Allergy status to narcotic agent; Z88.8 Allergy status to other drugs, medicaments and biological substances; Z87.891 Personal history of nicotine dependence; N83.201 Unspecified ovarian cyst, right side; E87.6 Hypokalemia; E83.42 Hypomagnesemia; J44.9 Chronic obstructive pulmonary disease, unspecified; F41.9 Anxiety disorder, unspecified; G47.00 Insomnia, unspecified